=== PATIENT | male | born 1960 | race Hispanic/Latino ===

== ENCOUNTER 2018-05-21 10:31 | Emergency (ER) | payer SELFPAY ==
[~2018-05-21 10:31] MED LIST: GLYB5TAB8 PO; LOSA50TA2 PO; METF-446 PO; PANT40TA25 PO
[2018-05-21 10:48] LABS: BASOPHILS % (AUTO) 0.4 % (0.0-5.0); EOSINOPHILS % (AUTO) 2.6 % (0.0-8.0); HEMATOCRIT 42.7 % (42-54); LYMPHOCYTES % (AUTO) 35.9 % (21.0-51.0); MEAN CORPUSCULAR HEMOGLOBIN 29.8 pg (27.0-33.0); MEAN CORPUSCULAR HGB CONC 34.8 g/dL (32.0-36.0); MEAN CORPUSCULAR VOLUME 85.8 fL (79-99); NEUTROPHILS % (AUTO) 51.1 % (40.0-77.0); NUCLEATED RED BLOOD CELLS 0.1 % (0.0-0.19); PLATELET COUNT (AUTO) 161 K/uL (130-400); RED BLOOD CELL COUNT(AUTO) 4.98 MIL/uL (4.50-6.20); WHITE BLOOD COUNT (AUTO) 6.3 K/uL (4.8-10.8)
[2018-05-21 11:17] LABS: ALBUMIN 3.4 g/dL (3.5-5.0); BILIRUBIN,TOTAL 0.5 mg/dL (0.2-1.0); CREATININE 1.8 mg/dL (0.5-1.5); POTASSIUM 4.3 mmol/L (3.5-5.1)
[2018-05-21 12:21] LABS: APPEARANCE,URINE Clear (CLEAR); BILIRUBIN,URINE Negative (NEGATIVE); COLOR,URINE Yellow (YELLOW); GLUCOSE, URINE (UA) >=1000 mg/dL (NEGATIVE); KETONES,URINE Negative (NEGATIVE); LEUKOCYTE ESTERASE ,URINE Negative (NEGATIVE); NITRATE,URINE Negative (NEGATIVE); OCCULT BLOOD,URINE Negative (NEGATIVE); PROTEIN,URINE Negative (NEGATIVE); UROBILINOGEN,URINE 0.2 mg/dL (0.2-1.0)
[2018-05-21] MEDS ORDERED: SODIUM CHLORIDE 0.9% 1000ML 1,000 ML IV ONE (12:25)
[2018-05-21] MEDS ORDERED: ONDANSETRON HCL 4 MG/2 ML VIAL ONE (12:26)
[2018-05-21] MEDS ORDERED: INSULIN HUMULIN R 100 UNIT/ML 3ML ONE (12:26)
[2018-05-21 12:43] LABS: BACTERIA,URINE None Seen /HPF (None Seen); RBC,URINE None Seen /HPF (0-1); SQUAMOUS EPITHELIAL CELL,UR 0-2 /HPF (0-2); WBC,URINE None Seen /HPF (0-1)
== END 2018-05-21 13:59 | disposition home or self-care (01) ==
LOC: EDH 10:31
DX: E11.65 Type 2 diabetes mellitus with hyperglycemia (principal); R10.9 Unspecified abdominal pain; I10 Essential (primary) hypertension; K21.9 Gastro-esophageal reflux disease without esophagitis; Z87.891 Personal history of nicotine dependence; Z91.14 Patient's other noncompliance with medication regimen
CPT/HCPCS: 36415; 74176; 80053; 81001; 82948; 83690; 84484; 85025; 93005; 96361; 96374; 96375; 99285; J1815; J2405; J7030

== ENCOUNTER 2020-05-06 11:23 | Inpatient (IN) | payer OTHER ==
[~2020-05-06] VITALS: Ht 170.2 cm; Wt 68.3 kg
[~2020-05-06 11:23] MED LIST changes: -PANT40TA25 PO; +PANT40TA55 PO
[2020-05-06 12:08] LABS: BASOPHILS % (AUTO) 0.5 % (0.0-5.0); EOSINOPHILS % (AUTO) 1.5 % (0.0-8.0); HEMATOCRIT 41.2 % (42-54); LYMPHOCYTES % (AUTO) 30.6 % (21.0-51.0); MEAN CORPUSCULAR HEMOGLOBIN 29.6 pg (27.0-33.0); MEAN CORPUSCULAR HGB CONC 35.7 g/dL (32.0-36.0); MEAN CORPUSCULAR VOLUME 82.9 fL (79-99); MONOCYTES % (AUTO) 6.5 % (3.0-13.0); NEUTROPHILS % (AUTO) 60.1 % (40.0-77.0); PLATELET COUNT (AUTO) 172 K/uL (130-400); RED BLOOD CELL COUNT(AUTO) 4.97 MIL/uL (4.50-6.20); RED CELL DISTRIBUTION WIDTH 13.1 % (11.0-15.5); WHITE BLOOD COUNT (AUTO) 6.2 K/uL (4.8-10.8)
[2020-05-06 12:18] LABS: ALBUMIN 3.5 g/dL (3.5-5.0); BILIRUBIN,TOTAL 0.6 mg/dL (0.2-1.0); CREATININE 1.2 mg/dL (0.5-1.5); TOTAL PROTEIN, SERUM 7.3 g/dL (6.0-8.3)
[2020-05-06 12:21] LABS: INR 0.93 (0.85-1.15); PARTIAL THROMBOPLASTIN TIME 23.7 SEC (26.3-35.5); PROTHROMBIN TIME 10.1 SEC (9.6-11.6)
[2020-05-06] MEDS ORDERED: ACETAMINOPHEN 325 MG TAB PO PRN ×2 (14:15→16:45)
[2020-05-06 15:25] LABS: THYROID STIMULATING HORMONE 2.13 uIU/mL (0.36-3.74)
[2020-05-06] MEDS ORDERED: POTASSIUM CHLORIDE 20MEQ/100ML 100 ML IV PRN ×2 (16:45)
[2020-05-06] MEDS ORDERED: POTASSIUM CHLORIDE 10% ELIXIR 20 MEQ/15 ML UDCUP PO PRN (16:45)
[2020-05-06] MEDS ORDERED: GLUCAGON 1MG KIT 1 MG ML IM PRN (16:45)
[2020-05-06] MEDS ORDERED: DEXTROSE 50%-WATER 50 ML DISP.SYRIN IV PRN (16:45)
[2020-05-06] MEDS ORDERED: FAMOTIDINE/PF 20 MG/2 ML VIAL IV ONE (20:49)
[2020-05-06] MEDS ORDERED: INSULIN HUMULIN R 100 UNIT/ML 3ML ONE (20:49)
[2020-05-06] MEDS ORDERED: FAMOTIDINE 20MG TAB 20 MG TAB ONE (20:52)
[2020-05-06] MEDS ORDERED: FAMOTIDINE 20MG TAB 20 MG TAB PO SCH (21:00)
[2020-05-06] MEDS ORDERED: INSULIN HUMULIN R 100 UNIT/ML 3ML SQ SCH (21:00)
[2020-05-06] MEDS: INSULIN HUMULIN R 100 UNIT/ML 3ML SQ SCH (21:00)
[2020-05-07 00:17] VITALS: BP 194/95
[2020-05-07] MEDS ORDERED: AEC81 PO (02:11)
[2020-05-07] MEDS ORDERED: HYDRALAZINE HCL 20 MG/ML VIAL ONE (02:56)
[2020-05-07] MEDS: HYDRALAZINE HCL 20 MG/ML VIAL IV PRN (03:00)
[2020-05-07 03:46] LABS: BASOPHILS % (AUTO) 0.2 % (0.0-5.0); EOSINOPHILS % (AUTO) 1.4 % (0.0-8.0); HEMATOCRIT 38.8 % (42-54); MEAN CORPUSCULAR HEMOGLOBIN 29.4 pg (27.0-33.0); MEAN CORPUSCULAR HGB CONC 35.8 g/dL (32.0-36.0); MEAN CORPUSCULAR VOLUME 82.2 fL (79-99); NEUTROPHILS % (AUTO) 49.9 % (40.0-77.0); PLATELET COUNT (AUTO) 175 K/uL (130-400); RED BLOOD CELL COUNT(AUTO) 4.72 MIL/uL (4.50-6.20); RED CELL DISTRIBUTION WIDTH 12.9 % (11.0-15.5); WHITE BLOOD COUNT (AUTO) 8.3 K/uL (4.8-10.8)
[2020-05-07 04:02] LABS: HEMOGLOBIN A1C 10.2 % (4.0-6.0)
[2020-05-07 04:03] LABS: ALBUMIN 3.3 g/dL (3.5-5.0); BILIRUBIN,TOTAL 0.7 mg/dL (0.2-1.0); POTASSIUM 3.4 mmol/L (3.5-5.1)
[2020-05-07 04:17] VITALS: BP 124/69
--- NOTE | 2020-05-07 05:44 | NUR ---
BP PATIENT ARRIVED TO THE FLOOR FROM ER @0015, ADMITTED AND ASSESSED. PATIENT NOTED TO HAVE ELEVATED BP OF 192/95 PATIENT WITH NO C/O HEADACHE, DIZZINESS, OR VISION ISSUES. BP RECHECKED SECOND READING WAS 193/97. ON-CALL PROVIDER CONTACTED ELMIRA PORTILLO GAVE ORDER 1) GIVE HYDRALAZINE 10MG IV X 1 DOSE NOW. PATIENT TOLERATED WELL. BP RECHECKED @ 0417 ZW=325/63. PATIENT IN BED RESTING , NO C/O PAIN OR DISCOMFORT. CALL DEVICE WITH IN REACH WILL CONT. TO MONITOR.
[2020-05-07] MEDS: FAMOTIDINE 20MG TAB 20 MG TAB PO SCH ×3 (09:00→21:59)
[2020-05-07] MEDS: ASPIRIN 81MG TAB.CHEW PO SCH (10:00)
[2020-05-07] MEDS: POTASSIUM CHLORIDE 20 MEQ ERTAB PO PRN ×2 (10:01→12:18)
[2020-05-07] MEDS ORDERED: GADODIAMIDE 10 MMOL/20 ML VIAL IV ONE (10:06)
[2020-05-07 10:10] VITALS: BP 129/77
[2020-05-07] MEDS ORDERED: COMPOUND IV MISC 1 EACH IVSOLN MISC PRN (10:15)
[2020-05-07] MEDS: LEVETIRACETAM 500 MG in SODIUM CHLORIDE 0.9% 100 ML IV SCH ×2 (11:55→21:59)
[2020-05-07 11:59] VITALS: BP 149/85
--- NOTE | 2020-05-07 12:45 | NUR ---
JOSE DANIEL NOTE/IA MEET WITH PATIENT IN ROOM. PER PATIENT, LIVES WITH GIRLFRIEND, IS INDEPENDENT WITH ADLS, NO USE OF PROVIDER OR DME, AND FEELS SAFE TO RETURN HOME DISCHARGED. Addendum: 05/07/20 at 1246 by DOMINICK DAVEY RN CM Amended: Links added.
[2020-05-07 14:09] LABS: RAPID PLASMA REAGIN NONREACTIVE (NONREACTIVE)
[2020-05-07 17:13] VITALS: BP 137/79
[2020-05-07] MEDS: INSULIN HUMULIN R 100 UNIT/ML 3ML SQ SCH ×2 (18:25→22:02)
[2020-05-07 20:00] VITALS: BP 141/76
[2020-05-08] VITALS: BP 145/78
[2020-05-08 04:35] VITALS: BP 138/76
[2020-05-08 05:34] LABS: BASOPHILS % (AUTO) 0.5 % (0.0-5.0); EOSINOPHILS % (AUTO) 3.3 % (0.0-8.0); HEMATOCRIT 38.7 % (42-54); MEAN CORPUSCULAR HEMOGLOBIN 29.2 pg (27.0-33.0); MEAN CORPUSCULAR HGB CONC 34.9 g/dL (32.0-36.0); MEAN CORPUSCULAR VOLUME 83.8 fL (79-99); MONOCYTES % (AUTO) 9.6 % (3.0-13.0); NEUTROPHILS % (AUTO) 34.1 % (40.0-77.0); PLATELET COUNT (AUTO) 176 K/uL (130-400); RED BLOOD CELL COUNT(AUTO) 4.62 MIL/uL (4.50-6.20); RED CELL DISTRIBUTION WIDTH 13.1 % (11.0-15.5); WHITE BLOOD COUNT (AUTO) 6.4 K/uL (4.8-10.8)
[2020-05-08 05:58] LABS: ALBUMIN 3.2 g/dL (3.5-5.0); BILIRUBIN,TOTAL 0.5 mg/dL (0.2-1.0); CREATININE 1.2 mg/dL (0.5-1.5); POTASSIUM 4.7 mmol/L (3.5-5.1); TOTAL PROTEIN, SERUM 6.9 g/dL (6.0-8.3)
[2020-05-08] MEDS: INSULIN HUMULIN R 100 UNIT/ML 3ML SQ SCH ×4 (06:43→21:09)
[2020-05-08] MEDS: FAMOTIDINE 20MG TAB 20 MG TAB PO SCH ×2 (07:54→21:05)
[2020-05-08] MEDS: ASPIRIN 81MG TAB.CHEW PO SCH (07:54)
[2020-05-08 08:00] VITALS: BP 154/83
[2020-05-08] MEDS: LEVETIRACETAM 500 MG in SODIUM CHLORIDE 0.9% 100 ML IV SCH ×2 (09:12→22:33)
[2020-05-08] MEDS ORDERED: REGADENOSON 0.4 MG/5 ML PF SYG IVP SCH (10:30)
[2020-05-08 11:58] VITALS: BP 147/87
[2020-05-08 16:00] VITALS: BP 145/69
[2020-05-08 20:10] VITALS: BP 159/88
[2020-05-09] VITALS (7 sets, daily range): BP systolic 118–156; BP diastolic 54–87
[2020-05-09 05:37] LABS: BASOPHILS % (AUTO) 0.3 % (0.0-5.0); EOSINOPHILS % (AUTO) 1.1 % (0.0-8.0); HEMATOCRIT 40.6 % (42-54); LYMPHOCYTES % (AUTO) 29.3 % (21.0-51.0); MEAN CORPUSCULAR HEMOGLOBIN 29.5 pg (27.0-33.0); MEAN CORPUSCULAR VOLUME 84.4 fL (79-99); MONOCYTES % (AUTO) 6.7 % (3.0-13.0); NEUTROPHILS % (AUTO) 62.1 % (40.0-77.0); PLATELET COUNT (AUTO) 181 K/uL (130-400); RED BLOOD CELL COUNT(AUTO) 4.81 MIL/uL (4.50-6.20); RED CELL DISTRIBUTION WIDTH 12.9 % (11.0-15.5); WHITE BLOOD COUNT (AUTO) 8.8 K/uL (4.8-10.8)
[2020-05-09 05:49] LABS: ALBUMIN 3.4 g/dL (3.5-5.0); BILIRUBIN,TOTAL 0.5 mg/dL (0.2-1.0); CREATININE 1.2 mg/dL (0.5-1.5); POTASSIUM 4.7 mmol/L (3.5-5.1); TOTAL PROTEIN, SERUM 7.1 g/dL (6.0-8.3)
[2020-05-09] MEDS: INSULIN HUMULIN R 100 UNIT/ML 3ML SQ SCH ×4 (06:46→20:54)
--- NOTE | 2020-05-09 08:30 | NUR ---
NOTE AAOX3. DENIES PAIN OR OTHER DISCOMFORT. BBS CLEAR. HE CAME IN WITH C/O RIGHT ARM WEAKNESS AND INVOLUNTARY JERKING. ALSO C/O NUMBNESS TO RIGHT ARM. WAS SEEN BY DR SIMMONS AND HE ORDERED MRI/MRA BRAIN. AMONG OTHER TESTS ORDERED AND WAS ALSO SEEN BY DR STEWART YESTERDAY AND HAD STRESS TEST AND WAS NEGATIVE. WAS UPSET BECAUSE SECURITY DID NOT ALLOW FOOD AND DRINKS BE DELIVERED TO HIS ROOM. HE WANTED TO GO AMA BUT FAMILY AND I CONVINCED HIM TO STAY. HE WILL SEE DR HEATON THIS AM.
[2020-05-09] MEDS: FAMOTIDINE 20MG TAB 20 MG TAB PO SCH ×2 (09:47→20:56)
[2020-05-09] MEDS: LEVETIRACETAM 500 MG in SODIUM CHLORIDE 0.9% 100 ML IV SCH ×2 (09:47→22:12)
[2020-05-09] MEDS: ASPIRIN 81MG TAB.CHEW PO SCH (09:48)
--- NOTE | 2020-05-09 13:30 | NUR ---
note PATIENT EVALUATED BY TELENEUROLOGY REGARDING PARTIAL SEIZURES. HE HAS HAD MRI/MRA
[2020-05-10] VITALS: BP 156/84
[2020-05-10 03:56] VITALS: BP 149/76
[2020-05-10] MEDS: INSULIN HUMULIN R 100 UNIT/ML 3ML SQ SCH ×4 (06:32→21:00)
--- NOTE | 2020-05-10 08:30 | NUR ---
AM ASSESSMENT PT AWAKE, ALERT, AND ORIENTED. DENIES CHEST PAIN OR DISCOMFORT, NO SOB OR LABORED RESPIRATIONS. PT DENIES TWITCHING, TREMORS, OR WEAKNESS. AMBULATES FREELY, GAIT STEADY
[2020-05-10] MEDS: ASPIRIN 81MG TAB.CHEW PO SCH (08:40)
[2020-05-10] MEDS: FAMOTIDINE 20MG TAB 20 MG TAB PO SCH ×2 (08:41→21:32)
[2020-05-10] MEDS: LEVETIRACETAM 500 MG in SODIUM CHLORIDE 0.9% 100 ML IV SCH ×2 (08:41→23:03)
--- NOTE | 2020-05-10 12:09 | NUR ---
CHART REVIEWED, RACHAEL Mcdonald MD, PENDING [facility] FOR PATIENT, WILL PLACE IN CHART Addendum: 05/10/20 at 1210 by FREYA ONEILL RN CM Amended: Links added.
[2020-05-10 12:36] VITALS: BP 158/90
[2020-05-10 18:24] VITALS: BP 169/84
[2020-05-10] MEDS: HYDRALAZINE HCL 20 MG/ML VIAL IV PRN (19:19)
[2020-05-10 20:08] VITALS: BP 144/74
[2020-05-11 00:08] VITALS: BP 152/79
[2020-05-11 04:08] VITALS: BP 132/79
[2020-05-11] MEDS: INSULIN HUMULIN R 100 UNIT/ML 3ML SQ SCH ×2 (06:35→11:26)
[2020-05-11 07:30] VITALS: BP 134/80
[2020-05-11] MEDS: FAMOTIDINE 20MG TAB 20 MG TAB PO SCH (08:35)
[2020-05-11] MEDS: ASPIRIN 81MG TAB.CHEW PO SCH (08:35)
[2020-05-11] MEDS: LEVETIRACETAM 500 MG in SODIUM CHLORIDE 0.9% 100 ML IV SCH (08:36)
[2020-05-11 11:00] VITALS: BP 136/88
--- NOTE | 2020-05-11 12:44 | NUR ---
CHART REVIEWED, ILANA DC TO HOME TODAY Addendum: 05/11/20 at 1245 by FREYA ONEILL RN CM Amended: Links added.
--- NOTE | 2020-05-11 16:45 | NUR ---
DC PT AWAKE, ALERT, AND ORIENTED. DC HOME INSTRUCTIONS GIVEN TO PT, ACKNOWLEDGED ALL INFORMATION, RX GIVEN TO PT AND MADE AWARE OF IMPORTANCE OF TAKING KEPPRA ORDERED AND NOT TO DRIVE UNTIL CLEARED BY MD. MADE AWARE TO F/U WITH PCP AND DR SIMMONS OUTPATIENT ORDERED. PT MADE AWARE TO RETURN TO ER IN CASE OF EMERGENCY
== END 2020-05-11 17:15 | disposition home or self-care (01) | DRG 101 ==
LOC: EDH 11:23 → EDHIP 11:24 → 4DH 05-07 00:15
PROVIDERS: ADMIT Family Medicine; ATTEND Family Medicine
DX: G40.209 Localization-related (focal) (partial) symptomatic epilepsy and epileptic syndromes with complex partial seizures, not intractable, without status epilepticus (principal); G45.9 Transient cerebral ischemic attack, unspecified; E11.9 Type 2 diabetes mellitus without complications; E78.5 Hyperlipidemia, unspecified; I10 Essential (primary) hypertension; R07.9 Chest pain, unspecified; Z80.0 Family history of malignant neoplasm of digestive organs; Z80.6 Family history of leukemia; Z82.49 Family history of ischemic heart disease and other diseases of the circulatory system; Z83.3 Family history of diabetes mellitus; Z79.899 Other long term (current) drug therapy
CPT/HCPCS: 36415; 70450; 70544; 70553; 71045; 78452; 80053; 80061; 82550; 82607; 82746; 82948; 83036; 84443; 84484; 85025; 85610; 85651; 85730; 86140; 86592; 86701; 87390; 93005; 93017; 93306; 93356; 93880; 96374; A9500; A9579; G0378; J0360; J1815; J1953; J2785; J3490

== ENCOUNTER 2021-08-21 20:48 | Emergency (ER) | payer OTHER ==
[~2021-08-21] VITALS: Ht 170.2 cm; Wt 75.3 kg
[~2021-08-21 20:48] MED LIST changes: +AEC81 PO
[2021-08-21] MEDS ORDERED: LISINOPRIL 20 MG TABLET PO ONE (21:00)
[2021-08-21 21:10] LABS: BASOPHILS % (AUTO) 0.7 % (0.0-5.0); EOSINOPHILS % (AUTO) 1.8 % (0.0-8.0); LYMPHOCYTES % (AUTO) 38.5 % (21.0-51.0); MEAN CORPUSCULAR HEMOGLOBIN 29.5 pg (27.0-33.0); MEAN CORPUSCULAR HGB CONC 34.6 g/dL (32.0-36.0); MEAN CORPUSCULAR VOLUME 85.3 fL (79-99); MONOCYTES % (AUTO) 9.8 % (3.0-13.0); NEUTROPHILS % (AUTO) 48.5 % (40.0-77.0); PLATELET COUNT (AUTO) 154 K/uL (130-400); RED BLOOD CELL COUNT(AUTO) 4.57 MIL/uL (4.50-6.20); WHITE BLOOD COUNT (AUTO) 5.5 K/uL (4.8-10.8)
[2021-08-21 21:42] LABS: ALBUMIN 3.5 g/dL (3.5-5.0); BILIRUBIN,TOTAL 0.4 mg/dL (0.2-1.0); CREATININE 1.6 mg/dL (0.5-1.5); POTASSIUM 4.6 mmol/L (3.5-5.1); TOTAL PROTEIN, SERUM 6.9 g/dL (6.0-8.3)
[2021-08-21] MEDS ORDERED: INSULIN HUMULIN R 100 UNIT/ML 3ML ONE (22:12)
[2021-08-21] MEDS ORDERED: ORPHENADRINE CITRATE 30 MG/ML ML IV ONE (22:30)
[2021-08-21] MEDS ORDERED: INSULIN HUMULIN R 100 UNIT/ML 3ML SQ ONE (22:30)
[2021-08-21] MEDS ORDERED: 0.9%NACL 1000ML 1,000 ML IV ONE (22:30)
[2021-08-21] MEDS ORDERED: KETOROLAC 30MG VIAL (30MG/ML) IV ONE (22:30)
[2021-08-21 22:36] VITALS: BP 182/83
[2021-08-21] MEDS ORDERED: NEOMY SULF/BACITRA/POLYMYXIN B 1 EACH PACKET TP ONE ×2 (22:39→23:00)
[2021-08-21] MEDS ORDERED: ORPH-43 PO (22:42)
[2021-08-21] MEDS ORDERED: LISI20TA24 PO (22:42)
[2021-08-21] MEDS ORDERED: MELO7.5T12 PO (22:42)
== END 2021-08-21 23:07 | disposition home or self-care (01) ==
LOC: EDH 20:48
DX: S86.812A Strain of other muscle(s) and tendon(s) at lower leg level, left leg, initial encounter (principal); S86.911A Strain of unspecified muscle(s) and tendon(s) at lower leg level, right leg, initial encounter; S00.81XA Abrasion of other part of head, initial encounter; E11.9 Type 2 diabetes mellitus without complications; I10 Essential (primary) hypertension; Z79.1 Long term (current) use of non-steroidal anti-inflammatories (NSAID); Z79.82 Long term (current) use of aspirin; Z79.84 Long term (current) use of oral hypoglycemic drugs; Z79.899 Other long term (current) drug therapy; V49.49XA Driver injured in collision with other motor vehicles in traffic accident, initial encounter; Y93.89 Activity, other specified; Y92.89 Other specified places as the place of occurrence of the external cause; Y99.8 Other external cause status
CPT/HCPCS: 36415; 70450; 70486; 80053; 84484; 85025; 96360; 96372; 99284; J1815; J1885; J2360

== ENCOUNTER 2023-07-06 06:04 | Day surgery (SDC) | payer BC ==
[2023-07-04 10:35] LABS: BASOPHILS # (AUTO) 0.04 K/uL (0.00-0.20); BASOPHILS % (AUTO) 0.4 % (0.0-5.0); EOSINOPHILS # (AUTO) 0.12 K/uL (0.00-0.70); EOSINOPHILS % (AUTO) 1.2 % (0.0-8.0); HEMATOCRIT 41.6 % (42-54); IMMATURE GRANULOCYTE ABSOLUTE 0.09 K/uL (0-1); LYMPHOCYTES # (AUTO) 3.3 K/uL (1.0-4.8); LYMPHOCYTES % (AUTO) 32.2 % (21.0-51.0); MEAN CORPUSCULAR HEMOGLOBIN 29.9 pg (27.0-33.0); MEAN CORPUSCULAR HGB CONC 35.8 g/dL (32.0-36.0); MEAN CORPUSCULAR VOLUME 83.4 fL (79-99); MONOCYTES # (AUTO) 0.7 K/uL (0.1-1.0); MONOCYTES % (AUTO) 6.7 % (3.0-13.0); NEUTROPHILS # (AUTO) 6.1 K/uL (1.8-7.7); NEUTROPHILS % (AUTO) 58.6 % (40.0-77.0); PLATELET COUNT (AUTO) 198 K/uL (130-400); RED BLOOD CELL COUNT(AUTO) 4.99 MIL/uL (4.50-6.20); WHITE BLOOD COUNT (AUTO) 10.3 K/uL (4.8-10.8)
[2023-07-04 10:43] LABS: CREATININE 1.5 mg/dL (0.5-1.5); POTASSIUM 5.1 mmol/L (3.5-5.1)
[2023-07-04 10:50] LABS: APPEARANCE,URINE CLOUDY (CLEAR); BILIRUBIN,URINE NEGATIVE (NEGATIVE); COLOR,URINE YELLOW (YELLOW); GLUCOSE, URINE (UA) 200 mg/dL (NEGATIVE); KETONES,URINE NEGATIVE (NEGATIVE); LEUKOCYTE ESTERASE ,URINE NEGATIVE Leu/uL (NEGATIVE); NITRATE,URINE NEGATIVE (NEGATIVE); OCCULT BLOOD,URINE NEGATIVE (NEGATIVE); PROTEIN,URINE 50 mg/dL (NEGATIVE); UROBILINOGEN,URINE 3 mg/dL (0.2-1.0)
[2023-07-04 10:52] LABS: ADD UA MICROSCOPIC YES
[2023-07-04 10:52] LABS: INR 0.94 (0.85-1.15)
[2023-07-04 10:54] LABS: PARTIAL THROMBOPLASTIN TIME 25.7 SEC (26.3-35.5)
[2023-07-04 11:00] VITALS: BP 160/84; PULSE 96; RESP 15
[2023-07-04 11:02] LABS: HYALINE CASTS, URINE 26-50 /LPF (0-1 /LPF); MUCUS,URINE RARE LPF (None Seen); OTHER CASTS, URINE 3 /LPF (None Seen); SQUAMOUS EPITHELIAL CELL,UR FEW /HPF (0-2)
[2023-07-04 11:22] LABS: B-TYPE NATRIURETIC PEPTIDE 39 pg/mL (0-100)
[2023-07-06] VITALS (10 sets, daily range): BP systolic 113–160; BP diastolic 58–77; PULSE 71–87; RESP 11–18
[~2023-07-06] VITALS: Ht 170.2 cm; Wt 73.3 kg
[~2023-07-06 06:04] MED LIST changes: +ATOR40TA71 PO; +CHOL12509 PO; +GLIP10TA9 PO; -GLYB5TAB8 PO; +LISI20TA24 PO; -LOSA50TA2 PO; +METO-408 PO; +NITR0.4T50 SL; -PANT40TA55 PO
[2023-07-06] MEDS ORDERED: 0.9%NACL 1000ML 1,000 ML IV ONE (06:25)
[2023-07-06] MEDS ORDERED: INSULIN HUMULIN R 100 UNIT/ML 3ML ONE (06:55)
[2023-07-06 07:01] LABS: CREATININE 1.4 mg/dL (0.5-1.5); POTASSIUM 4.4 mmol/L (3.5-5.1)
[2023-07-06] MEDS ORDERED: LIDOCAINE HCL 400MG/20ML VIAL ONE (07:15)
[2023-07-06] MEDS ORDERED: IOHEXOL 350 MG/ML 100ML INFUS..BTL IV ONE (07:15)
[2023-07-06] MEDS ORDERED: IOHEXOL-350 50ML VIAL IV ONE (07:15)
[2023-07-06] MEDS ORDERED: HEPARIN 10,000 UNIT/10ML (1,000 UNIT/ML) VIAL ONE (07:16)
[2023-07-06] MEDS ORDERED: MIDAZOLAM HCL 1 MG/ML 2ML VIAL ONE (07:29)
[2023-07-06] MEDS ORDERED: DEXTROSE 50%-WATER 50 ML DISP.SYRIN IV PRN (08:30)
[2023-07-06] MEDS ORDERED: GLUCAGON 1MG KIT 1 MG ML IM PRN (08:30)
[2023-07-06] MEDS ORDERED: 0.9% NACL 500ML IV.SOLN 500 ML IV SCH (08:30)
[2023-07-06] MEDS ORDERED: ACETAMINOPHEN WITH CODEINE 1 TAB TAB ONE (08:48)
== END 2023-07-06 12:35 | disposition home or self-care (01) ==
LOC: DAH 06:04
PROVIDERS: ATTEND Internal Medicine Cardiovascular Disease
DX: I25.119 Atherosclerotic heart disease of native coronary artery with unspecified angina pectoris (principal); I10 Essential (primary) hypertension; E11.9 Type 2 diabetes mellitus without complications; E78.5 Hyperlipidemia, unspecified; Z82.49 Family history of ischemic heart disease and other diseases of the circulatory system; Z83.3 Family history of diabetes mellitus; Z82.3 Family history of stroke; Z80.0 Family history of malignant neoplasm of digestive organs; Z79.82 Long term (current) use of aspirin; Z79.84 Long term (current) use of oral hypoglycemic drugs; Z79.899 Other long term (current) drug therapy
CPT/HCPCS: 80048 ×2; 83880; 85025; 85610; 85730; 81001; 36415 ×2; 71045; 93005; 93458; 82948 ×3; 93306; J1815; C1894; C1760; Q9965; J3490; J7030; J2250; J1644; Q9967 ×2; A4215; A4222; A4221; A4663; A4216; A4606; A4223 ×3; 99156; 99157

== ENCOUNTER → 2023-10-17 | Outpatient (CLI) | payer BC ==
[~2023-10-17] MED LIST changes: +CLOP-31 PO; +FOLI1TAB85 PO; +IODOSORB GEL 40GM TP ONE; -LISI20TA24 PO; -METF-446 PO; -NITR0.4T50 SL; +ONDA-105 PO; +PANT40TA54 PO; +SUCR1TAB PO
== END | disposition home or self-care (01) ==
LOC: WHH 10:15
PROVIDERS: ATTEND Podiatrist Foot & Ankle Surgery
DX: T87.89 Other complications of amputation stump (principal); E11.40 Type 2 diabetes mellitus with diabetic neuropathy, unspecified; E11.51 Type 2 diabetes mellitus with diabetic peripheral angiopathy without gangrene; I12.9 Hypertensive chronic kidney disease with stage 1 through stage 4 chronic kidney disease, or unspecified chronic kidney disease; E11.22 Type 2 diabetes mellitus with diabetic chronic kidney disease; N18.9 Chronic kidney disease, unspecified; E78.5 Hyperlipidemia, unspecified; I73.9 Peripheral vascular disease, unspecified; I25.10 Atherosclerotic heart disease of native coronary artery without angina pectoris; K21.9 Gastro-esophageal reflux disease without esophagitis; F32.A Depression, unspecified; Z95.1 Presence of aortocoronary bypass graft; Z79.82 Long term (current) use of aspirin; Z98.49 Cataract extraction status, unspecified eye; Z79.01 Long term (current) use of anticoagulants; Z79.899 Other long term (current) drug therapy; Y83.8 Other surgical procedures as the cause of abnormal reaction of the patient, or of later complication, without mention of misadventure at the time of the procedure
CPT/HCPCS: 99215; A4450

== ENCOUNTER → 2023-11-14 | Outpatient (CLI) | payer BC ==
[~2023-11-14] MED LIST changes: -IODOSORB GEL 40GM TP ONE
== END | disposition home or self-care (01) ==
LOC: WHH 09:56
PROVIDERS: ATTEND Podiatrist Foot & Ankle Surgery
DX: T87.89 Other complications of amputation stump (principal); E11.40 Type 2 diabetes mellitus with diabetic neuropathy, unspecified; E11.51 Type 2 diabetes mellitus with diabetic peripheral angiopathy without gangrene; I12.9 Hypertensive chronic kidney disease with stage 1 through stage 4 chronic kidney disease, or unspecified chronic kidney disease; E11.22 Type 2 diabetes mellitus with diabetic chronic kidney disease; N18.9 Chronic kidney disease, unspecified; E78.5 Hyperlipidemia, unspecified; I73.9 Peripheral vascular disease, unspecified; I25.10 Atherosclerotic heart disease of native coronary artery without angina pectoris; K21.9 Gastro-esophageal reflux disease without esophagitis; F32.A Depression, unspecified; Z95.1 Presence of aortocoronary bypass graft; Z79.82 Long term (current) use of aspirin; Z98.49 Cataract extraction status, unspecified eye; Z79.01 Long term (current) use of anticoagulants; Z79.899 Other long term (current) drug therapy; Y83.8 Other surgical procedures as the cause of abnormal reaction of the patient, or of later complication, without mention of misadventure at the time of the procedure
CPT/HCPCS: 11042; A6207; A4450

== ENCOUNTER → 2023-11-28 | Outpatient (CLI) | payer BC ==
[~2023-11-28] MED LIST changes: +LIDOCAINE HCL 4% LTA SOL 4 ML VIAL TP ONE
== END | disposition home or self-care (01) ==
LOC: WHH 09:53
PROVIDERS: ATTEND Podiatrist Foot & Ankle Surgery
DX: T87.89 Other complications of amputation stump (principal); E11.621 Type 2 diabetes mellitus with foot ulcer; L97.521 Non-pressure chronic ulcer of other part of left foot limited to breakdown of skin; E11.40 Type 2 diabetes mellitus with diabetic neuropathy, unspecified; E11.51 Type 2 diabetes mellitus with diabetic peripheral angiopathy without gangrene; I12.9 Hypertensive chronic kidney disease with stage 1 through stage 4 chronic kidney disease, or unspecified chronic kidney disease; E11.22 Type 2 diabetes mellitus with diabetic chronic kidney disease; N18.9 Chronic kidney disease, unspecified; E78.5 Hyperlipidemia, unspecified; E55.9 Vitamin D deficiency, unspecified; I73.9 Peripheral vascular disease, unspecified; I25.10 Atherosclerotic heart disease of native coronary artery without angina pectoris; K21.9 Gastro-esophageal reflux disease without esophagitis; F32.A Depression, unspecified; Z95.1 Presence of aortocoronary bypass graft; Z79.82 Long term (current) use of aspirin; Z98.49 Cataract extraction status, unspecified eye; Z79.01 Long term (current) use of anticoagulants; Z79.899 Other long term (current) drug therapy; Y83.8 Other surgical procedures as the cause of abnormal reaction of the patient, or of later complication, without mention of misadventure at the time of the procedure
CPT/HCPCS: 11042; A6207

== ENCOUNTER → 2023-11-29 | Outpatient (CLI) | payer BC ==
[~2023-11-29] MED LIST changes: -LIDOCAINE HCL 4% LTA SOL 4 ML VIAL TP ONE
[2023-11-29 12:23] LABS: CHOLESTEROL 116 mg/dL (<200); HDL CHOLESTEROL 47 mg/dL (29-71); LDL DIRECT 62 mg/dL (0-99); TRIGLYCERIDES 101 mg/dL (30-200)
== END | disposition home or self-care (01) ==
LOC: LAB 11-28 11:21
PROVIDERS: ATTEND Internal Medicine Cardiovascular Disease
DX: E78.5 Hyperlipidemia, unspecified (principal)
CPT/HCPCS: 36415; 80061

== ENCOUNTER → 2023-12-12 | Outpatient (CLI) | payer BC | END | disposition home or self-care (01) | LOC: WHH 09:10 | PROVIDERS: ATTEND Podiatrist Foot & Ankle Surgery | DX: T87.81 Dehiscence of amputation stump (principal); E11.621 Type 2 diabetes mellitus with foot ulcer; L97.521 Non-pressure chronic ulcer of other part of left foot limited to breakdown of skin; E11.40 Type 2 diabetes mellitus with diabetic neuropathy, unspecified; E11.51 Type 2 diabetes mellitus with diabetic peripheral angiopathy without gangrene; E11.22 Type 2 diabetes mellitus with diabetic chronic kidney disease; I12.9 Hypertensive chronic kidney disease with stage 1 through stage 4 chronic kidney disease, or unspecified chronic kidney disease; N18.9 Chronic kidney disease, unspecified; E78.5 Hyperlipidemia, unspecified; E55.9 Vitamin D deficiency, unspecified; I73.9 Peripheral vascular disease, unspecified; I25.10 Atherosclerotic heart disease of native coronary artery without angina pectoris; K21.9 Gastro-esophageal reflux disease without esophagitis; F32.A Depression, unspecified; Z95.1 Presence of aortocoronary bypass graft; Z79.82 Long term (current) use of aspirin; Z98.49 Cataract extraction status, unspecified eye; Z79.01 Long term (current) use of anticoagulants; Z79.899 Other long term (current) drug therapy; Y83.5 Amputation of limb(s) as the cause of abnormal reaction of the patient, or of later complication, without mention of misadventure at the time of the procedure | CPT/HCPCS: 99214; A6207; A4450 ==

== ENCOUNTER → 2023-12-26 | Outpatient (CLI) | payer BC ==
[~2023-12-26] MED LIST changes: +LIDOCAINE HCL 4% LTA SOL 4 ML VIAL TP ONE
== END | disposition home or self-care (01) ==
LOC: WHH 09:08
PROVIDERS: ATTEND Podiatrist Foot & Ankle Surgery
DX: T87.81 Dehiscence of amputation stump (principal); E11.621 Type 2 diabetes mellitus with foot ulcer; L97.521 Non-pressure chronic ulcer of other part of left foot limited to breakdown of skin; E11.40 Type 2 diabetes mellitus with diabetic neuropathy, unspecified; E11.51 Type 2 diabetes mellitus with diabetic peripheral angiopathy without gangrene; E11.22 Type 2 diabetes mellitus with diabetic chronic kidney disease; I12.9 Hypertensive chronic kidney disease with stage 1 through stage 4 chronic kidney disease, or unspecified chronic kidney disease; N18.9 Chronic kidney disease, unspecified; E78.5 Hyperlipidemia, unspecified; E55.9 Vitamin D deficiency, unspecified; I73.9 Peripheral vascular disease, unspecified; I25.10 Atherosclerotic heart disease of native coronary artery without angina pectoris; K21.9 Gastro-esophageal reflux disease without esophagitis; F32.A Depression, unspecified; Z95.1 Presence of aortocoronary bypass graft; Z79.82 Long term (current) use of aspirin; Z98.49 Cataract extraction status, unspecified eye; Z79.01 Long term (current) use of anticoagulants; Z79.899 Other long term (current) drug therapy; Y83.5 Amputation of limb(s) as the cause of abnormal reaction of the patient, or of later complication, without mention of misadventure at the time of the procedure
CPT/HCPCS: 11042; A6207

== ENCOUNTER → 2024-01-09 | Outpatient (CLI) | payer BC | END | disposition home or self-care (01) | LOC: WHH 08:49 | PROVIDERS: ATTEND Podiatrist Foot & Ankle Surgery | DX: T87.81 Dehiscence of amputation stump (principal); E11.621 Type 2 diabetes mellitus with foot ulcer; L97.521 Non-pressure chronic ulcer of other part of left foot limited to breakdown of skin; E11.40 Type 2 diabetes mellitus with diabetic neuropathy, unspecified; E11.51 Type 2 diabetes mellitus with diabetic peripheral angiopathy without gangrene; E11.22 Type 2 diabetes mellitus with diabetic chronic kidney disease; I12.9 Hypertensive chronic kidney disease with stage 1 through stage 4 chronic kidney disease, or unspecified chronic kidney disease; N18.9 Chronic kidney disease, unspecified; E78.5 Hyperlipidemia, unspecified; E55.9 Vitamin D deficiency, unspecified; I73.9 Peripheral vascular disease, unspecified; I25.10 Atherosclerotic heart disease of native coronary artery without angina pectoris; K21.9 Gastro-esophageal reflux disease without esophagitis; F32.A Depression, unspecified; Z95.1 Presence of aortocoronary bypass graft; Z79.82 Long term (current) use of aspirin; Z98.49 Cataract extraction status, unspecified eye; Z79.01 Long term (current) use of anticoagulants; Z79.899 Other long term (current) drug therapy; Y83.5 Amputation of limb(s) as the cause of abnormal reaction of the patient, or of later complication, without mention of misadventure at the time of the procedure | CPT/HCPCS: G0463; A6207; A4450; 99214 ==

== ENCOUNTER → 2024-01-16 | Outpatient (CLI) | payer BC ==
[~2024-01-16] MED LIST changes: -LIDOCAINE HCL 4% LTA SOL 4 ML VIAL TP ONE
== END | disposition home or self-care (01) ==
LOC: WHH 08:58
PROVIDERS: ATTEND Podiatrist Foot & Ankle Surgery
DX: T87.81 Dehiscence of amputation stump (principal); E11.621 Type 2 diabetes mellitus with foot ulcer; L97.521 Non-pressure chronic ulcer of other part of left foot limited to breakdown of skin; E11.51 Type 2 diabetes mellitus with diabetic peripheral angiopathy without gangrene; E11.40 Type 2 diabetes mellitus with diabetic neuropathy, unspecified; E11.22 Type 2 diabetes mellitus with diabetic chronic kidney disease; I12.9 Hypertensive chronic kidney disease with stage 1 through stage 4 chronic kidney disease, or unspecified chronic kidney disease; N18.9 Chronic kidney disease, unspecified; E78.5 Hyperlipidemia, unspecified; E55.9 Vitamin D deficiency, unspecified; I73.9 Peripheral vascular disease, unspecified; I25.10 Atherosclerotic heart disease of native coronary artery without angina pectoris; K21.9 Gastro-esophageal reflux disease without esophagitis; F32.A Depression, unspecified; Z95.1 Presence of aortocoronary bypass graft; Z79.82 Long term (current) use of aspirin; Z98.49 Cataract extraction status, unspecified eye; Z79.01 Long term (current) use of anticoagulants; Z79.899 Other long term (current) drug therapy; Y83.5 Amputation of limb(s) as the cause of abnormal reaction of the patient, or of later complication, without mention of misadventure at the time of the procedure
CPT/HCPCS: 99214

== ENCOUNTER 2024-02-01 11:21 | Emergency (ER) | payer BC ==
[~2024-02-01] VITALS: Ht 170.2 cm; Wt 68.0 kg
[2024-02-01 11:52] LABS: BASOPHILS # (AUTO) 0.02 K/uL (0.00-0.20); BASOPHILS % (AUTO) 0.3 % (0.0-5.0); EOSINOPHILS # (AUTO) 0.07 K/uL (0.00-0.70); EOSINOPHILS % (AUTO) 1.1 % (0.0-8.0); IMMATURE GRANULOCYTE ABSOLUTE 0.03 K/uL (0-1); LYMPHOCYTES # (AUTO) 2.1 K/uL (1.0-4.8); LYMPHOCYTES % (AUTO) 34.5 % (21.0-51.0); MEAN CORPUSCULAR HEMOGLOBIN 29.9 pg (27.0-33.0); MEAN CORPUSCULAR HGB CONC 36.3 g/dL (32.0-36.0); MEAN CORPUSCULAR VOLUME 82.5 fL (79-99); MONOCYTES # (AUTO) 0.5 K/uL (0.1-1.0); MONOCYTES % (AUTO) 7.9 % (3.0-13.0); NEUTROPHILS # (AUTO) 3.5 K/uL (1.8-7.7); NEUTROPHILS % (AUTO) 55.7 % (40.0-77.0); PLATELET COUNT (AUTO) 182 K/uL (130-400); RED BLOOD CELL COUNT(AUTO) 5.21 MIL/uL (4.50-6.20); WHITE BLOOD COUNT (AUTO) 6.2 K/uL (4.8-10.8)
[2024-02-01 12:04] LABS: INR <= 0.93 (0.85-1.15); PROTHROMBIN TIME 10.9 SEC (9.6-11.6)
[2024-02-01 12:05] LABS: PARTIAL THROMBOPLASTIN TIME 24.9 SEC (26.3-35.5)
[2024-02-01 12:06] LABS: CREATININE 1.5 mg/dL (0.5-1.3); POTASSIUM 4.7 mmol/L (3.5-5.1)
[2024-02-01 12:08] LABS: ALBUMIN 3.6 g/dL (3.5-5.0); BILIRUBIN,TOTAL 0.6 mg/dL (0.2-1.0); TOTAL PROTEIN, SERUM 7.3 g/dL (6.0-8.3)
[2024-02-01 14:16] VITALS: BP 162/72; PULSE 66; RESP 14; O2SAT 100
[2024-02-01] MEDS ORDERED: POTASSIUM CHLORIDE 10% ELIXIR 20 MEQ/15 ML UDCUP PO PRN (14:30)
[2024-02-01] MEDS ORDERED: MORPHINE 2 MG SYG IVP PRN (14:30)
[2024-02-01] MEDS ORDERED: MAGNESIUM 2GM PREMIX 50ML 50 ML IV PRN (14:30)
[2024-02-01] MEDS ORDERED: 0.9%NACL 1000ML 1,000 ML IV ONE (14:30)
[2024-02-01] MEDS ORDERED: KCL 20 MEQ ERTAB PO PRN (14:30)
[2024-02-01] MEDS ORDERED: POTASSIUM CHLORIDE 20MEQ/100ML 100 ML IV PRN (14:30)
[2024-02-01] MEDS ORDERED: NITROGLYCERIN 0.4 MG SL TAB SL PRN (14:30)
[2024-02-01 14:59] LABS: THYROID STIMULATING HORMONE 2.33 uIU/mL (0.36-3.74)
[2024-02-01 15:02] LABS: HEMOGLOBIN A1C 11.3 % (4.0-6.0)
[2024-02-01] MEDS ORDERED: INSULIN HUMULIN R 100 UNIT/ML 3ML SQ SCH (16:30)
[2024-02-01] MEDS ORDERED: FAMOTIDINE 20MG VIAL IV SCH (21:00)
== END 2024-02-01 14:30 | disposition left against medical advice (07) ==
LOC: EDH 11:21
DX: R07.89 Other chest pain (principal); B02.9 Zoster without complications; I10 Essential (primary) hypertension; E11.9 Type 2 diabetes mellitus without complications; Z79.82 Long term (current) use of aspirin; Z79.899 Other long term (current) drug therapy; Z98.890 Other specified postprocedural states; Z88.8 Allergy status to other drugs, medicaments and biological substances
CPT/HCPCS: 36415; 80053; 83036; 83690; 84145; 84443; 84484; 85025; 85610; 85730; 86140; 93005; J7030

== ENCOUNTER → 2024-04-21 | Outpatient (CLI) | payer BC ==
[2024-04-21 12:12] LABS: BASOPHILS # (AUTO) 0.03 K/uL (0.00-0.20); BASOPHILS % (AUTO) 0.4 % (0.0-5.0); EOSINOPHILS # (AUTO) 0.13 K/uL (0.00-0.70); EOSINOPHILS % (AUTO) 1.7 % (0.0-8.0); HEMATOCRIT 41.7 % (42-54); IMMATURE GRANULOCYTE ABSOLUTE 0.06 K/uL (0-1); LYMPHOCYTES # (AUTO) 3.3 K/uL (1.0-4.8); LYMPHOCYTES % (AUTO) 42.5 % (21.0-51.0); MEAN CORPUSCULAR HEMOGLOBIN 29.4 pg (27.0-33.0); MEAN CORPUSCULAR HGB CONC 34.1 g/dL (32.0-36.0); MEAN CORPUSCULAR VOLUME 86.3 fL (79-99); MONOCYTES # (AUTO) 0.6 K/uL (0.1-1.0); MONOCYTES % (AUTO) 7.2 % (3.0-13.0); NEUTROPHILS # (AUTO) 3.7 K/uL (1.8-7.7); NEUTROPHILS % (AUTO) 47.4 % (40.0-77.0); PLATELET COUNT (AUTO) 240 K/uL (130-400); RED BLOOD CELL COUNT(AUTO) 4.83 MIL/uL (4.50-6.20); WHITE BLOOD COUNT (AUTO) 7.8 K/uL (4.8-10.8)
[2024-04-21 13:03] LABS: CREATININE 1.7 mg/dL (0.5-1.3); POTASSIUM 4.1 mmol/L (3.5-5.1); THYROID STIMULATING HORMONE 3.08 uIU/mL (0.36-3.74)
== END | disposition home or self-care (01) ==
LOC: LAB 08:19
PROVIDERS: ATTEND Internal Medicine Cardiovascular Disease
DX: E11.9 Type 2 diabetes mellitus without complications (principal); E78.5 Hyperlipidemia, unspecified; E55.9 Vitamin D deficiency, unspecified; Z95.1 Presence of aortocoronary bypass graft
CPT/HCPCS: 36415; 80048; 82306; 84443; 85025

== ENCOUNTER → 2024-10-15 | Outpatient (CLI) | payer BC ==
[~2024-10-15] MED LIST changes: -CLOP-31 PO; -FOLI1TAB85 PO; +GABA-529 PO; +GLIP10TA16 PO; -GLIP10TA9 PO; -METO-408 PO; -ONDA-105 PO; -PANT40TA54 PO; +RIVA10TA PO; -SUCR1TAB PO
== END | disposition home or self-care (01) ==
LOC: WHH 09:47
PROVIDERS: ATTEND Podiatrist Foot & Ankle Surgery
DX: T87.89 Other complications of amputation stump (principal); E11.621 Type 2 diabetes mellitus with foot ulcer; L97.521 Non-pressure chronic ulcer of other part of left foot limited to breakdown of skin; E11.69 Type 2 diabetes mellitus with other specified complication; M86.172 Other acute osteomyelitis, left ankle and foot; E11.51 Type 2 diabetes mellitus with diabetic peripheral angiopathy without gangrene; E11.319 Type 2 diabetes mellitus with unspecified diabetic retinopathy without macular edema; E11.40 Type 2 diabetes mellitus with diabetic neuropathy, unspecified; E11.22 Type 2 diabetes mellitus with diabetic chronic kidney disease; I12.9 Hypertensive chronic kidney disease with stage 1 through stage 4 chronic kidney disease, or unspecified chronic kidney disease; N18.30 Chronic kidney disease, stage 3 unspecified; E78.5 Hyperlipidemia, unspecified; E55.9 Vitamin D deficiency, unspecified; I73.9 Peripheral vascular disease, unspecified; I25.10 Atherosclerotic heart disease of native coronary artery without angina pectoris; K21.9 Gastro-esophageal reflux disease without esophagitis; E66.9 Obesity, unspecified; F32.A Depression, unspecified; Z68.27 Body mass index [BMI] 27.0-27.9, adult; Z95.1 Presence of aortocoronary bypass graft; Z79.82 Long term (current) use of aspirin; Z79.01 Long term (current) use of anticoagulants; Z98.49 Cataract extraction status, unspecified eye; Z79.899 Other long term (current) drug therapy; Z86.73 Personal history of transient ischemic attack (TIA), and cerebral infarction without residual deficits; Y83.5 Amputation of limb(s) as the cause of abnormal reaction of the patient, or of later complication, without mention of misadventure at the time of the procedure
CPT/HCPCS: 99215; A4450

== ENCOUNTER → 2024-10-29 | Outpatient (CLI) | payer BC | END | disposition home or self-care (01) | LOC: WHH 09:48 | PROVIDERS: ATTEND Podiatrist Foot & Ankle Surgery | DX: T87.89 Other complications of amputation stump (principal); E11.621 Type 2 diabetes mellitus with foot ulcer; L97.521 Non-pressure chronic ulcer of other part of left foot limited to breakdown of skin; E11.69 Type 2 diabetes mellitus with other specified complication; M86.172 Other acute osteomyelitis, left ankle and foot; E11.51 Type 2 diabetes mellitus with diabetic peripheral angiopathy without gangrene; E11.319 Type 2 diabetes mellitus with unspecified diabetic retinopathy without macular edema; E11.40 Type 2 diabetes mellitus with diabetic neuropathy, unspecified; E11.22 Type 2 diabetes mellitus with diabetic chronic kidney disease; I12.9 Hypertensive chronic kidney disease with stage 1 through stage 4 chronic kidney disease, or unspecified chronic kidney disease; N18.30 Chronic kidney disease, stage 3 unspecified; E78.5 Hyperlipidemia, unspecified; E55.9 Vitamin D deficiency, unspecified; I73.9 Peripheral vascular disease, unspecified; I25.10 Atherosclerotic heart disease of native coronary artery without angina pectoris; K21.9 Gastro-esophageal reflux disease without esophagitis; E66.9 Obesity, unspecified; F32.A Depression, unspecified; Z68.27 Body mass index [BMI] 27.0-27.9, adult; Z95.1 Presence of aortocoronary bypass graft; Z79.82 Long term (current) use of aspirin; Z79.01 Long term (current) use of anticoagulants; Z98.49 Cataract extraction status, unspecified eye; Z79.899 Other long term (current) drug therapy; Z86.73 Personal history of transient ischemic attack (TIA), and cerebral infarction without residual deficits; Y83.5 Amputation of limb(s) as the cause of abnormal reaction of the patient, or of later complication, without mention of misadventure at the time of the procedure | CPT/HCPCS: 99214 ==

== ENCOUNTER → 2025-02-11 | Outpatient (CLI) | payer BC, MEDICARE ==
[~2025-02-11] MED LIST changes: +CHOL100046 PO; -CHOL12509 PO; -GLIP10TA16 PO; +INSLAN SQ; +KETO5DRO40 OD; +LOSA-418 PO; +PRED5DRO25 OD
== END | disposition home or self-care (01) ==
LOC: WHH 09:02
PROVIDERS: ATTEND Podiatrist Foot & Ankle Surgery
DX: T87.89 Other complications of amputation stump (principal); E11.621 Type 2 diabetes mellitus with foot ulcer; L97.521 Non-pressure chronic ulcer of other part of left foot limited to breakdown of skin; E11.69 Type 2 diabetes mellitus with other specified complication; M86.172 Other acute osteomyelitis, left ankle and foot; E11.51 Type 2 diabetes mellitus with diabetic peripheral angiopathy without gangrene; E11.319 Type 2 diabetes mellitus with unspecified diabetic retinopathy without macular edema; E11.40 Type 2 diabetes mellitus with diabetic neuropathy, unspecified; E11.22 Type 2 diabetes mellitus with diabetic chronic kidney disease; I12.9 Hypertensive chronic kidney disease with stage 1 through stage 4 chronic kidney disease, or unspecified chronic kidney disease; N18.30 Chronic kidney disease, stage 3 unspecified; E11.36 Type 2 diabetes mellitus with diabetic cataract; H26.9 Unspecified cataract; E78.5 Hyperlipidemia, unspecified; E55.9 Vitamin D deficiency, unspecified; I73.9 Peripheral vascular disease, unspecified; I25.10 Atherosclerotic heart disease of native coronary artery without angina pectoris; K21.9 Gastro-esophageal reflux disease without esophagitis; E66.9 Obesity, unspecified; F32.A Depression, unspecified; Z68.27 Body mass index [BMI] 27.0-27.9, adult; Z95.1 Presence of aortocoronary bypass graft; Z79.82 Long term (current) use of aspirin; Z79.02 Long term (current) use of antithrombotics/antiplatelets; Z79.01 Long term (current) use of anticoagulants; Z98.49 Cataract extraction status, unspecified eye; Z79.899 Other long term (current) drug therapy; Z86.73 Personal history of transient ischemic attack (TIA), and cerebral infarction without residual deficits; Y83.5 Amputation of limb(s) as the cause of abnormal reaction of the patient, or of later complication, without mention of misadventure at the time of the procedure
CPT/HCPCS: 99215; A6248; A6197 ×2; A4450

== ENCOUNTER → 2025-02-25 | Outpatient (CLI) | payer BC, MEDICARE | END | disposition home or self-care (01) | LOC: WHH 09:12 | PROVIDERS: ATTEND Podiatrist Foot & Ankle Surgery | DX: T87.89 Other complications of amputation stump (principal); E11.621 Type 2 diabetes mellitus with foot ulcer; L97.521 Non-pressure chronic ulcer of other part of left foot limited to breakdown of skin; E11.69 Type 2 diabetes mellitus with other specified complication; M86.172 Other acute osteomyelitis, left ankle and foot; E11.51 Type 2 diabetes mellitus with diabetic peripheral angiopathy without gangrene; E11.319 Type 2 diabetes mellitus with unspecified diabetic retinopathy without macular edema; E11.40 Type 2 diabetes mellitus with diabetic neuropathy, unspecified; E11.22 Type 2 diabetes mellitus with diabetic chronic kidney disease; I12.9 Hypertensive chronic kidney disease with stage 1 through stage 4 chronic kidney disease, or unspecified chronic kidney disease; N18.30 Chronic kidney disease, stage 3 unspecified; E11.36 Type 2 diabetes mellitus with diabetic cataract; H26.9 Unspecified cataract; E78.5 Hyperlipidemia, unspecified; E55.9 Vitamin D deficiency, unspecified; I73.9 Peripheral vascular disease, unspecified; I25.10 Atherosclerotic heart disease of native coronary artery without angina pectoris; K21.9 Gastro-esophageal reflux disease without esophagitis; E66.9 Obesity, unspecified; F32.A Depression, unspecified; Z68.27 Body mass index [BMI] 27.0-27.9, adult; Z95.1 Presence of aortocoronary bypass graft; Z79.82 Long term (current) use of aspirin; Z79.02 Long term (current) use of antithrombotics/antiplatelets; Z79.01 Long term (current) use of anticoagulants; Z98.49 Cataract extraction status, unspecified eye; Z79.899 Other long term (current) drug therapy; Z86.73 Personal history of transient ischemic attack (TIA), and cerebral infarction without residual deficits; Y83.5 Amputation of limb(s) as the cause of abnormal reaction of the patient, or of later complication, without mention of misadventure at the time of the procedure | CPT/HCPCS: 99214; A6197 ×2; A4450 ==

== ENCOUNTER → 2025-03-25 | Outpatient (CLI) | payer BC, MEDICARE ==
[~2025-03-25] MED LIST changes: +KETO-108 OD; -KETO5DRO40 OD
== END | disposition home or self-care (01) ==
LOC: WHH 09:13
PROVIDERS: ATTEND Podiatrist Foot & Ankle Surgery
DX: E11.621 Type 2 diabetes mellitus with foot ulcer (principal); L97.521 Non-pressure chronic ulcer of other part of left foot limited to breakdown of skin; E11.69 Type 2 diabetes mellitus with other specified complication; M86.172 Other acute osteomyelitis, left ankle and foot; E11.51 Type 2 diabetes mellitus with diabetic peripheral angiopathy without gangrene; E11.319 Type 2 diabetes mellitus with unspecified diabetic retinopathy without macular edema; E11.40 Type 2 diabetes mellitus with diabetic neuropathy, unspecified; E11.22 Type 2 diabetes mellitus with diabetic chronic kidney disease; I12.9 Hypertensive chronic kidney disease with stage 1 through stage 4 chronic kidney disease, or unspecified chronic kidney disease; N18.30 Chronic kidney disease, stage 3 unspecified; E11.36 Type 2 diabetes mellitus with diabetic cataract; H26.9 Unspecified cataract; E78.5 Hyperlipidemia, unspecified; E55.9 Vitamin D deficiency, unspecified; I73.9 Peripheral vascular disease, unspecified; I25.10 Atherosclerotic heart disease of native coronary artery without angina pectoris; K21.9 Gastro-esophageal reflux disease without esophagitis; E66.9 Obesity, unspecified; F32.A Depression, unspecified; Z68.27 Body mass index [BMI] 27.0-27.9, adult; Z95.1 Presence of aortocoronary bypass graft; Z79.82 Long term (current) use of aspirin; Z79.02 Long term (current) use of antithrombotics/antiplatelets; Z79.01 Long term (current) use of anticoagulants; Z98.49 Cataract extraction status, unspecified eye; Z79.899 Other long term (current) drug therapy; Z86.73 Personal history of transient ischemic attack (TIA), and cerebral infarction without residual deficits; Z89.412 Acquired absence of left great toe; Z89.422 Acquired absence of other left toe(s)
CPT/HCPCS: 99214; A6197; A4450

== ENCOUNTER → 2025-04-01 | Outpatient (CLI) | payer BC, MEDICARE | END | disposition home or self-care (01) | LOC: WHH 08:59 | PROVIDERS: ATTEND Podiatrist Foot & Ankle Surgery | DX: E11.621 Type 2 diabetes mellitus with foot ulcer (principal); L97.521 Non-pressure chronic ulcer of other part of left foot limited to breakdown of skin; E11.69 Type 2 diabetes mellitus with other specified complication; M86.172 Other acute osteomyelitis, left ankle and foot; E11.51 Type 2 diabetes mellitus with diabetic peripheral angiopathy without gangrene; E11.319 Type 2 diabetes mellitus with unspecified diabetic retinopathy without macular edema; E11.22 Type 2 diabetes mellitus with diabetic chronic kidney disease; I12.9 Hypertensive chronic kidney disease with stage 1 through stage 4 chronic kidney disease, or unspecified chronic kidney disease; N18.30 Chronic kidney disease, stage 3 unspecified; E11.42 Type 2 diabetes mellitus with diabetic polyneuropathy; E11.36 Type 2 diabetes mellitus with diabetic cataract; H26.9 Unspecified cataract; E78.5 Hyperlipidemia, unspecified; E55.9 Vitamin D deficiency, unspecified; I73.9 Peripheral vascular disease, unspecified; I25.10 Atherosclerotic heart disease of native coronary artery without angina pectoris; K21.9 Gastro-esophageal reflux disease without esophagitis; E66.9 Obesity, unspecified; F32.A Depression, unspecified; Z68.27 Body mass index [BMI] 27.0-27.9, adult; Z95.1 Presence of aortocoronary bypass graft; Z79.82 Long term (current) use of aspirin; Z79.02 Long term (current) use of antithrombotics/antiplatelets; Z79.01 Long term (current) use of anticoagulants; Z98.49 Cataract extraction status, unspecified eye; Z79.899 Other long term (current) drug therapy; Z86.73 Personal history of transient ischemic attack (TIA), and cerebral infarction without residual deficits; Z89.412 Acquired absence of left great toe; Z89.422 Acquired absence of other left toe(s) | CPT/HCPCS: 99214; A6197 ×2 ==

== ENCOUNTER → 2025-04-15 | Outpatient (CLI) | payer BC, MEDICARE | END | disposition home or self-care (01) | LOC: WHH 09:11 | PROVIDERS: ATTEND Podiatrist Foot & Ankle Surgery | DX: E11.621 Type 2 diabetes mellitus with foot ulcer (principal); L97.521 Non-pressure chronic ulcer of other part of left foot limited to breakdown of skin; L03.032 Cellulitis of left toe; E11.51 Type 2 diabetes mellitus with diabetic peripheral angiopathy without gangrene; E11.42 Type 2 diabetes mellitus with diabetic polyneuropathy; E11.69 Type 2 diabetes mellitus with other specified complication; M86.172 Other acute osteomyelitis, left ankle and foot; E11.319 Type 2 diabetes mellitus with unspecified diabetic retinopathy without macular edema; E11.22 Type 2 diabetes mellitus with diabetic chronic kidney disease; I12.9 Hypertensive chronic kidney disease with stage 1 through stage 4 chronic kidney disease, or unspecified chronic kidney disease; N18.30 Chronic kidney disease, stage 3 unspecified; E11.36 Type 2 diabetes mellitus with diabetic cataract; H26.9 Unspecified cataract; E78.5 Hyperlipidemia, unspecified; E55.9 Vitamin D deficiency, unspecified; I25.10 Atherosclerotic heart disease of native coronary artery without angina pectoris; K21.9 Gastro-esophageal reflux disease without esophagitis; E66.9 Obesity, unspecified; F32.A Depression, unspecified; Z95.1 Presence of aortocoronary bypass graft; Z79.82 Long term (current) use of aspirin; Z79.02 Long term (current) use of antithrombotics/antiplatelets; Z79.01 Long term (current) use of anticoagulants; Z98.49 Cataract extraction status, unspecified eye; Z68.27 Body mass index [BMI] 27.0-27.9, adult; Z79.899 Other long term (current) drug therapy; Z86.73 Personal history of transient ischemic attack (TIA), and cerebral infarction without residual deficits; Z89.412 Acquired absence of left great toe; Z89.422 Acquired absence of other left toe(s) | CPT/HCPCS: 87070; 87086; 87186; 99214; A6197; A4450 ==

== ENCOUNTER 2025-04-22 10:54 | Inpatient (IN) | payer BC, MEDICARE ==
[~2025-04-22] VITALS: Ht 170.2 cm; Wt 75.1 kg
[2025-04-22 08:00] VITALS: O2SAT 98
[~2025-04-22 10:54] MED LIST changes: -DOXY100C5 PO; -GLIP10TA16 PO
[2025-04-22] MEDS: ASPIRIN 81MG CHEW TAB PO SCH (11:40)
[2025-04-22 11:47] LABS: IMMATURE GRANULOCYTE ABSOLUTE 0.04 K/uL (0-1); NUCLEATED RED BLOOD CELLS 0.0 % (0.0-0.19); PLATELET COUNT (AUTO) 170 K/uL (130-400); RED BLOOD CELL COUNT(AUTO) 4.77 MIL/uL (4.50-6.20); RED CELL DISTRIBUTION WIDTH 12.5 % (11.0-15.5); WHITE BLOOD COUNT (AUTO) 8.1 K/uL (4.8-10.8)
--- NOTE | 2025-04-22 11:52 | HP ---
[facility] HISTORY AND PHYSICAL Date of Service: Apr 22, 2025 Time of Service: 11:39 HISTORY OF PRESENT ILLNESS: Date of service: 04/22/2025, patient was seen in ER room five This is a patient who presented as a direct admit from Dr. Montoya's w/ Podiatry, 64-year-old male history of type 2 diabetes mellitus, hypertension, hyperlipidemia, coronary artery disease, peripheral arterial disease, history of osteomyelitis of left foot, 1st and 2nd toe osteomyelitis status post amputation, recent history of left foot 4th toe diabetic foot ulcer with osteomyelitis requiring hospitalization in 02/25 who presented as a direct admit from Dr. Montoya Podiatry for further evaluation of nonhealing diabetic foot ulcer involving the 4th toe along with purplish discoloration with recent history of osteomyelitis requiring hospitalization 02/25. There is tentative plans for amputation of the toes by Dr. Montoya tomorrow. Patient has had longstanding history of type 2 diabetes mellitus. Reports being diabetic for more than 20 years. He was started on basal Lantus therapy earlier this year. He frequently skips doses of Lantus and did not take Lantus yesterday or today. He has been compliant with antiplatelet therapy as well as Xarelto. He was recently seen by Dr. Peoples on last admission and underwent balloon lithotripsy for 60% stenosis in the left anterior tibial artery, underwent angioplasty with balloon lithotripsy and drug coated angioplasty involving 90-95% stenosis of the mid and distal left anterior tibial artery as well as 90% stenosis in the anterior segment of the left pedal arch. Patient had brisk two-vessel runoff to the left foot. Patient was noted to have residual POD with 100% stenosis in the left posterior tibial artery and 90% stenosis of the left peroneal artery which was too small for percutaneous interventionally. Patient states that he finished IV antibiotic therapy last month with Zosyn for management of osteomyelitis. Daughter reports that patient gets tired easily with exertional activity and sometimes he notices shortness of breath with sustained exertion. Denies any falls. Denies any chest pain currently. Patient will be admitted under hospitalist service, plan by Dr. Montoya for amputation of the toes of the left foot. We will also assess vascular status with arterial ultrasound. patient has also noticed more swelling of the left lower extremity, venous ultrasound will be obtained as well. REVIEW OF SYSTEMS CONSTITUTIONAL: Denies fevers, chills, or night sweats. No unintentional weight loss reported. NEUROLOGICAL: Denies headache, amaurosis fugax, motor weakness, sensory de ficit, vertigo/spinning sensation, gait abnormalities, or tremors. ENT: No hearing loss, otalgia, otorrhea, rhinitis, rhinorrhea, hoarseness, or sore throat. CARDIOVASCULAR: Denies any exertional angina, dyspnea on exertion, orthopnea, paroxysmal nocturnal dyspnea, palpitations, life-threatening arrhythmias, claudication. PULMONARY: Denies any shortness of breath, cough, phlegm/sputum, hemoptysis, pleuritic chest pain. SLEEP: Denies morning headaches, daytime somnolence or napping. Denies difficulty falling asleep, staying asleep, waking from sleep. Denies knowledge of snoring. GASTROINTESTINAL: Denies any type of dysphagia to either liquids or solids. Denies nausea, vomiting, pyrosis, early satiety, abdominal pain, diarrhea, constipation, or changes in stool consistency or caliber. Denies coffee-ground emesis, hematemesis, hematochezia, or melanotic stools. GENITOURINARY: Denies frequency, urgency, nocturia, hematuria or incontinence (Storage/Irritative symptoms.) Low urinary stream, straining to void, urinary intermittency or hesitancy, splitting of the voiding stream, terminal dribbling. ENDOCRINOLOGIC: Denies polyuria, polydipsia, polyphagia or heat/cold intolerances. HEMATOLOGIC: Denies thrombophilia/previous clots, or coagulopathy/bleeding disorders. ONCOLOGIC: Denies personal history of malignancy. DERMATOLOGIC: Denies rashes or pruritus. PSYCHIATRIC: Denies any suicidal or homicidal ideation. Denies hallucinations. PAST MEDICAL HISTORY: [ PAD, diabetes mellitus, poorly controlled with a1c close to 15 in 01/25, hypertension, hyperlipidemia, coronary artery disease with CABG x3 Vessel and femoral stent ] PAST SURGICAL HISTORY: [CABG x3, femoral stent and amputation of the left 1st great toe and 2nd toe, recent hx of peripheral arteriogram of LLE by Dr. Peoples ] PAST SOCIAL HISTORY: [ Patient lives with . Patient denies alcohol tobacco and recreational drug use ] FAMILY HISTORY: [ Cancer, hypertension, stroke and diabetes ] Allergies: No known drug allergies Home medications: Family will be bringing list of home medications to be reconciled and updated Coded Allergies: No Known Allergies (Unverified Allergy, Unknown, 05/06/20) No Known Drug Allergies (Unverified Allergy, Unknown, 05/06/18) PHYSICAL EXAM GENERAL APPEARANCE: The patient is awake, alert, and oriented, in no acute cardiopulmonary distress. NEUROLOGICAL: Cranial nerves II-XII grossly intact. Motor is 5/5 in bilateral upper and lower extremities proximal to distal. No sensory deficits. HEENT: Face is symmetric. Pupils are equal and reactive. Extraocular movements are intact. NECK: Supple. No JVD. No thyromegaly. No submental, submandibular, pre- /postauricular, occipital or supraclavicular lymphadenopathy. CHEST: Normal chest expansion. No Telemetry. LUNGS: Absence of any rales, rhonchi or any wheezing. CARDIOVASCULAR: Regular. S1 and S2 normal. No appreciable rubs, murmurs or gallops. ABDOMEN: Soft, nontender, and nondistended. There is no rebound, voluntary guarding, or rigidity. : Deferred. No Marroquin. EXTREMITIES: patient has purplish discoloration of the 4th toe of the left foot with ulcer noted on the lateral aspect with redness, and swelling, patient has 1+ pitting edema of the left lower extremity Vital Sign (Last 24 Hours) 04/22/25 10:57 Temp 97.2 Pulse 78 Resp 18 B/P (MAP) 127/69 Pulse Ox 98 O2 Delivery Room Air O2 Flow Rate 0 LABS: LABS INCLUDE A CBC, CMP, BLOOD SUGARS, LACTIC ACID ARE CURRENTLY PENDING Current Medications Medications (Trade) Dose Ordered Sig/Attila Route PRN Reason Start Time Stop Time Status Last Admin Dose Admin Acetaminophen (TYLenol 325MG TAB) 650 mg Q6H PRN PO MILD PAIN (1-3) 04/22/25 11:30 05/22/25 11:29 Albuterol (DUOneb) 1 udvial Q6H PRN IH SHORTNESS OF BREATH 04/22/25 11:30 05/22/25 11:29 Aspirin (Aspirin 81mg Chew Tab) 81 mg Q24H PO 04/22/25 11:30 05/22/25 11:29 Famotidine (Pepcid 20mg Tab) 20 mg Q48H PO 04/22/25 21:00 05/22/25 20:59 Hydralazine HCl (APRESOLine 20MG INJ) 5 mg Q6H PRN IV ADMINISTER FOR SBP > 160 04/22/25 11:30 05/22/25 11:29 Insulin Human Regular (humuLIN R 100 UNIT/ML 3ML) INSULIN SLIDING SCAL... ACHS SQ 04/22/25 11:30 05/22/25 11:29 Ondansetron HCl (zoFRAN 4MG INJ) 4 mg Q6H PRN IVP NAUSEA/VOMITING 04/22/25 11:30 05/22/25 11:29 DIAGNOSTICS / RADIOLOGY: CHEST X-RAY, X-RAY OF THE FOOT IS CURRENTLY PENDING ASSESSMENT: Nonhealing infected diabetic foot ulcer involving the 4th toe of the left foot with chronic osteomyelitis and underlying cellulitis, POA Purplish discoloration of the 4th toe of the left foot, POA GEORGIE on CKD, POA Severe hyperglycemia with blood glucose greater than 600, POA Recent history of osteomyelitis of the 4th toe of the left foot status for IV antibiotic therapy in 02/2025, POA Recent history of peripheral angiogram by Dr. Peoples on 02/2025 with angioplasty of the Left anterior tibial artery, and anterior segment of the left pedal arch, POA Prior history of osteomyelitis of the 1st and 2nd toe of the left foot with prior amputation, POA History of significant peripheral arterial disease of the lower extremity, POA History of poorly controlled type 2 diabetes mellitus with noncompliance with insulin therapy as outpatient, (Last a1c of 15.1, in 01/25), POA Hypertension, POA Hyperlipidemia, POA History of CVA, POA CKD Stage III, POA PLAN: Patient will be admitted to medical-surgical floor under telemetry monitoring Plan is for amputation of the 3rd, 4th and 5th toes of the left foot, patient has purplish discoloration of the toes with nonhealing diabetic foot ulcer involving the 4th toe with chronic osteomyelitis We will obtain a arterial duplex of the left lower extremity assess for significant arterial stenosis impairing wound healing We will obtain a venous Doppler of the left lower extremity as well We will obtain labs including CBC, CMP, magnesium, we will check ESR, CRP and procalcitonin, we will obtain blood cultures We will obtain x-ray of the left foot We will obtain a 2D echocardiogram, patient reports that he gets was dyspnea on exertion with activities and feels tired easily We will check A1c level, blood ketone level, patient has been noncompliant with outpatient insulin therapy, we will start patient on sliding scale insulin a.c. and HS, patient will be started on carb consistent diet, we will dose adjust Lantus based on blood glucose trend today We will see how patient progresses in the next 48-72 hours Continue with aspirin therapy, we will hold Xarelto in anticipation of amputation of the toes tomorrow We will obtain home medication list, and reconciled once available We will start patient on broad-spectrum antibiotics today based on blood work and x-ray report I discussed with patient and family that he will need aggressive blood sugar control as outpatient, noncompliance with insulin therapy as outpatient causes significant hyperglycemia impairing wound healing and increasing the risk of recurrent cellulitis/osteomyelitis, wound dehiscence, non healing infections etc.. Patient verbalized understanding, we will have endocrinology optimize insulin regimen. Addendum, 1500: After labs were obtained, patient's blood sugar was noted more than 600, blood ketone is negative, I discussed with Dr. Vu with endocrinology, we will start patient on basal Lantus, patient will receive aggressive sliding scale insulin and we will see if blood glucose trend improves in the next 24 hours, if sugars remain uncontrolled and persistently high, patient may need insulin drip. We will follow up results of arterial ultrasound as well, patient has worsening creatinine compared to renal function in January and February this year, creatinine today is 1.9. We will hold losartan, patient is taking 50 mg b.i.d. of losartan along with 25 mg of losartan daily, likely contributing towards the acute on chronic renal failure. We will start amlodipi ne instead of losartan until renal function improves. We will IV hydrate patient with normal saline and obtain renal ultrasound. If arterial ultrasound is significantly abnormal, consultation with Cardiology will be requested. Date of service: 04/22/2025 Plan of care was discussed with patient at bedside Anticipate hospitalization for at least 48-72 hours, we will obtain PT evaluation post surgery tomorrow Han Carter MD, Advanced Care Planning: Which of the following were discussed: Hospice care: Yes __ No _X_ Therapeutic options: Yes _X_ No __ Advance directives: Yes _X_ No __ Other discussions: Discussed with who?: Patient Voluntary nature of this service was explained to the patient? Yes _x_ No __ Amount of time spent: 20 minutes HAN CARTER MD Apr 22, 2025 11:52
[2025-04-22 12:07] LABS: ASPARTATE AMINOTRANSFERASE 33.0 U/L (10-37); CREATININE 1.9 mg/dL (0.5-1.3); GLOMERULAR FILTR. RATE CALC 39.0 mL/min (>90); SODIUM SERUM 128.0 mmol/L (136-145); TOTAL PROTEIN, SERUM 7.3 g/dL (6.0-8.3); UREA NITROGEN, BLOOD 30.0 mg/dL (7-18)
[2025-04-22 12:15] LABS: GLUCOSE,RANDOM 616.0 mg/dL (70-105)
--- NOTE | 2025-04-22 12:21 | HMCIMG ---
EXAM: CR Chest, 1 View. CLINICAL HISTORY: assess for any Pulmonary edema COMPARISON: None provided. FINDINGS: LUNGS: The lungs show no infiltrate or other acute finding. PLEURAL SPACES: No pleural effusion or pneumothorax. MEDIASTINUM: Prior sternotomy. Cardiac size and mediastinal contours within normal limits. BONES: No aggressive appearing osseous lesion seen. IMPRESSION: 1. No acute cardiopulmonary findings. /[place]
[2025-04-22] MEDS ORDERED: 0.9%NACL 50ML IV SCH (12:30)
[2025-04-22] MEDS: 0.9%NACL 1000ML 1,000 ML IV SCH (12:39)
[2025-04-22] MEDS: ZOSYN 3.375GM +NS 50ML IVPB SCH (12:50)
--- NOTE | 2025-04-22 12:51 | HMCIMG ---
EXAM: CR left foot, 3 View. CLINICAL HISTORY: non healing left DFU of 4th toe w/ possible osteo COMPARISON: None provided. FINDINGS: 2nd and 1st toe amputation from the metatarsophalangeal joints. There is edema within the soft tissues of the stump. Cortical irregularity seen within the distal third metatarsal may reflect osteomyelitis, recommend contrast-enhanced MRI for further evaluation. No displaced fracture appreciated. Remaining joint spaces are anatomically aligned. IMPRESSION: 1. Cortical irregularity of distal third metatarsal concerning for osteomyelitis. 2. Post-surgical changes of 1st and 2nd toe amputations with soft tissue edema. 3. No displaced fracture. /[place]
[2025-04-22 12:59] LABS: ERYTHROCYTE SEDIMENTATION RATE 55 MM/HR (0-20)
[2025-04-22] MEDS ORDERED: DEXTROSE 50%-WATER 50 ML DISP.SYRIN IV PRN (13:00)
[2025-04-22] MEDS ORDERED: GLUCAGON 1MG KIT 1 MG ML IM PRN (13:00)
[2025-04-22 13:11] LABS: CREATININE,URINE RANDOM 52.43 mg/dL (30-135)
[2025-04-22 13:16] VITALS: PULSE 78; RESP 18; O2SAT 98
[2025-04-22 13:17] LABS: ADD UA MICROSCOPIC YES; APPEARANCE,URINE CLEAR (CLEAR); GLUCOSE, URINE (UA) >=1000 mg/dL (NEGATIVE); LEUKOCYTE ESTERASE ,URINE NEGATIVE Leu/uL (NEGATIVE); NITRATE,URINE NEGATIVE (NEGATIVE); OCCULT BLOOD,URINE NEGATIVE (NEGATIVE); SQUAMOUS EPITHELIAL CELL,UR RARE /HPF (0-2)
--- NOTE | 2025-04-22 13:17 | EKG ---
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
[2025-04-22 13:31] LABS: PROTEIN,URINE RANDOM < 6.0 mg/dL (0-11.9)
--- NOTE | 2025-04-22 14:52 | HMCIMG ---
EXAM: US for Deep Venous Thrombosis, bilateral Lower Extremity. CLINICAL HISTORY: Leg Pain and Swelling TECHNIQUE: Real-time ultrasound scan of the veins of the bilateral lower extremity with color Doppler flow, spectral waveform analysis and compression. COMPARISON: None provided. FINDINGS: DEEP VEINS: The common femoral, superficial femoral, and popliteal veins are echolucent and compressible. There is normal color Doppler flow throughout. The visualized calf veins appear patent. SOFT TISSUES: No popliteal fossa cyst or other abnormalities. IMPRESSION: 1. No deep venous thrombosis in the bilateral lower extremities. /[place]
--- NOTE | 2025-04-22 15:03 | HMCIMG ---
EXAM: US Duplex Left Lower Extremity Arteries. CLINICAL HISTORY: assess for flow limiting stenosis TECHNIQUE: Real-time ultrasound scan of the arteries of the Left lower extremity with 2-D prescott scale, color Doppler flow and spectral waveform analysis. COMPARISON: Study dated 01/31/25 FINDINGS: COMMON FEMORAL ARTERY: Peak systolic velocity of 174 cm/sec with triphasic waveform. No occlusion or significant stenosis. Normal SUPERFICIAL FEMORAL ARTERY: Peak systolic velocity of 191 cm/sec with triphasic waveform. No occlusion or significant stenosis. Normal POPLITEAL ARTERY: Peak systolic velocity of 106 cm/sec with triphasic waveform. No occlusion or significant stenosis. Normal CALF ARTERIES: Posterior tibial artery shows a peak systolic velocity of 72 cm/sec with a monophasic waveform. The anterior tibial artery shows focal stenosis and a peak systolic velocity of 744 cm/sec with a monophasic waveform. The dorsalis pedis artery shows a peak systolic velocity of 28 cm/sec with monophasic waveform. IMPRESSION: 1. Focal stenosis of the left anterior tibial artery with elevated peak systolic velocity of 744 cm/sec and monophasic waveform. This is new from the prior examination. Recommend CT angiography for further evaluation. 2. Monophasic waveforms in the posterior tibial and dorsalis pedis arteries. /[place]
--- NOTE | 2025-04-22 15:48 | NUR ---
DCP:HOME Pt currently lives with his sps Fiorella Zapien [phone]. Pt uses a cane at home to ambulate. Pt does not have a provider or home health services. Pt states that he is able to complete ADLs independently. PCP is Dr. Enrique Hall and uses [facility] for any RX needs. At NM pt will want to go home and family can assist with transportation. Addendum: 04/22/25 at 1604 by BARBARA SCALES SS Amended: Links added.
--- NOTE | 2025-04-22 15:52 | HMCSR ---
APPROVED REPORT EXAM: Two-dimensional and M-mode echocardiogram with Doppler and color Doppler. INDICATION ICD: Dyspnea Heart Failure 2D Dimensions RVDd3.3 cmLVEF(%)62.5 (>50%)LVED Vol(simp.)70.7 mL IVSd0.8 (0.7-1.1cm)FS(%)33 %LVES Vol(simp.)29.6 mL LVDd3.9 (3.8-5.6cm)LA (2D)4.4 (1.6-4.0cm)LVEF(%, simp.)58 % PWd0.9 (0.7-1.1cm)Ao Root(2D)2.5 (2.0-3.7cm)LA ESV INDEX (BP)21.76 mL/m2 LVDs2.6 (2.5-4.0cm)LVOT diam2.1 (1.8-2.4cm) Deformation Strain Apical 4-14.0 % Apical 2-11.2 % Apical 3-13.8 % Global Strain-13.0 % Aortic Valve AoV Vmax1.2 m/Love Peak GR5.5 mmHgLVOT Vmax0.7 m/s AoV VTI0.2 mAo Mean GR2.5 mmHgLVOT VTI0.15 m MARY JANE (VMAX)2.17 cm2AVA (VTI) 2.5 cm2 Mitral Valve MV E Vmax62.2 cm/sDECEL Juzr120 ms MV A Vmax85.4 cm/sP 1/2 T59 ms E/A ratio0.7MVA (PHT)3.7 cm2 TDI E/E' Btdknh40.4E/E' Lateral6.1 Medial E' Peak V4.05 cm/sLateral E' Peak V10.15 cm/s Left Ventricle The left ventricle is normal size. There is normal left ventricular wall thickness. Sigmoid septum is present. LVEF is 55-60%. The left ventricular diastolic function is normal. Right Ventricle The right ventricle is normal size. Right ventricular systolic function is mildly reduced. Atria The left atrium size is normal. The right atrium size is normal. Aortic Valve The aortic valve is normal in structure. No aortic regurgitation is present. There is no aortic valvu lar stenosis. Mitral Valve The mitral valve is normal in structure. There is no mitral valve regurgitation noted. There is no mi tral valve stenosis. Tricuspid Valve The tricuspid valve is normal in structure. There is no tricuspid valve regurgitation noted. Pulmonic Valve The pulmonary valve is not well visualized. There is no pulmonic valvular regurgitation. Great Vessels The aortic root is normal in size. The IVC was not visualized. Pericardium There is no pericardial effusion. Other Information Quality : AverageRhythm : NSR Conclusion LVEF is 55-60%. The left ventricular diastolic function is normal. Right ventricular systolic function is mildly reduced.
[2025-04-22 16:00] VITALS: BP 140/55; PULSE 69; RESP 19; TEMP 97.8
[2025-04-22] MEDS ORDERED: GLIP10TA16 PO (16:07)
[2025-04-22] MEDS ORDERED: DOXY100C5 PO (16:07)
[2025-04-22] MEDS: amLODIPine 5 MG TAB PO SCH (16:10)
--- NOTE | 2025-04-22 20:18 | NUR ---
PT BLOOD SUGAR READ 62 ON ACCUCHECK. PHYSICIAN NOTIFIED. PT RECEIVED ORANGE JUICE, JELLO, AND A HAM SANDWICH. NO SIGNS AND SYMPTOMS OF HYPOGLYCEMIA NOTED AT THIS TIME.
[2025-04-22 20:22] VITALS: PULSE 71; RESP 18; O2SAT 99
[2025-04-22] MEDS: FAMOTIDINE 20MG TAB PO SCH (20:27)
[2025-04-23] VITALS (27 sets, daily range): BP systolic 88–171; BP diastolic 51–87; PULSE 62–90; RESP 11–21; TEMP 97.6–98.7; O2SAT 0–100
[2025-04-23 04:05] LABS: IMMATURE GRANULOCYTE ABSOLUTE 0.03 K/uL (0-1); NUCLEATED RED BLOOD CELLS 0.0 % (0.0-0.19); PLATELET COUNT (AUTO) 135 K/uL (130-400); RED BLOOD CELL COUNT(AUTO) 4.14 MIL/uL (4.50-6.20); RED CELL DISTRIBUTION WIDTH 12.4 % (11.0-15.5); WHITE BLOOD COUNT (AUTO) 7.1 K/uL (4.8-10.8)
[2025-04-23 04:29] LABS: CREATININE 1.5 mg/dL (0.5-1.3); GLOMERULAR FILTR. RATE CALC 52.0 mL/min (>90); GLUCOSE,RANDOM 354.0 mg/dL (70-105); SODIUM SERUM 133.0 mmol/L (136-145); UREA NITROGEN, BLOOD 24.0 mg/dL (7-18)
[2025-04-23] MEDS ORDERED: MIDAZOLAM HCL 1 MG/ML 2ML VIAL ONE (07:16)
[2025-04-23] MEDS ORDERED: LIDOCAINE HCL 1% 20 ML VIAL ONE (07:19)
--- NOTE | 2025-04-23 08:03 | OP ---
Operative Note: DATE OF PROCEDURE: 04/23/25 SURGEON: CHARU CUELLO DPM PROGRAMMER ENGINEERING AND SCIENTIFIC: Juan keating ANESTHESIA: Local MAC 1% xylocaine 0.25% Marcaine total of 20 cc via an ankle block left ANESTHESIOLOGIST/INTAKE MAN: Wayne Walls CRNA PREOPERATIVE DIAGNOSIS: Gangrene osteomyelitis of 4th toe left foot POSTOPERATIVE DIAGNOSIS: Gangrene osteomyelitis 4th toe left foot SYNOPSIS: Diabetic male presented to the emergency room with gangrene to 4th toe cellulitis and osteomyelitis of the left foot at this moment decision was for a TMA amputation patient already has two toes amputated in the past. Carrasco s a history of noncontrolled diabetes and recurrent ulcers. PROCEDURE: Transmetatarsal amputation left foot ESTIMATED BLOOD LOSS: 5 cc INDICATIONS: Gangrene of osteomyelitis of the left foot DESCRIPTION OF PROCEDURE: Patient was brought into the operating room table placed in the supine position on the IV sedation local anesthesia was achieved via local infiltration 1% xylocaine 0.25% Marcaine a total of 20 cc to the left foot ankle. At this time the foot was prepped and draped in the usual sterile fashion. Attention was directed towards the forefoot were a transverse incision dorsally a transverse incision plantarly across the metatarsal heads was performed at this time metatarsus two through five. At this time decision was carried down through subcutaneous tissue down to capsular level capsulotomy were performed two through five removing the toes three four and five at this moment at the level of metatarsophalangeal joint. At this moment then the metatarsal was exposed to three and four and five and utilizing a sagittal saw transverse cut through the metatarsal shaft were performed at this time removing the metatarsal heads and distal portion of the metatarsals two through five at this moment. The area was inspected bleeders were cauterized cultures and sensitivity were taken and had the wound was irrigated with 1 L of normal saline. At this time the wound was reapproximated utilizing 2-0 Vicryl for the subcutaneous tissue level and 2-0 nylon for the skin and a horizontal mattress fashion and simple fashion dressing was applied lysing Adaptic soaked in Betadine 4x4s and Kerlix patient tolerated procedure and anesthesia well was sent to recovery room vital signs stable. Plan to continued IV antibiotics and discharged within the next 24-48 hours. CHARU CUELLO DPM Apr 23, 2025 08:03
--- NOTE | 2025-04-23 09:38 | NUR ---
Nutrition consult per T2DM Reviewed labs, notes, and medications. Pt's last A1C 01/25 15, NPO status, IV fluid, insulin, Iv abx, Na 133(L), BG 261(H), Mg 1.70(L) per chart review. Wt via standing scale, last BM 04/21/25, well nourished, no edema, left foot ulcer per nursing. No A1C, lipid panel, vit D labs. Pending labs to provide nutrition education.Per research low vitamin D may contribute to insulin resistance + vit. D deficiency may impair wound healing. Pt with non-severe PCM, Supplement thiamin 100 mg/day for 5-7 days + MVI QD for at least 10 days. Recommendations: -Provide 60 gm cho + HH+ prostat jello tid w/ trays when medically feasible -Monitor PO intake -Monitor BM -If no BM >3 days consider stool softener -Monitor electrolytes -Replenish electrolytes per protocol -Monitor wts -Reweigh as able -Order Vit D, vit b-12 labs to rule out deficiencies -Order lipid panel, A1C -Provide b-complex to aid in wound healing -Recommend Pt to follow up with PCP -Monitor goals of care RD to follow + available for consult per protocol Addendum: 04/23/25 at [address] Amended: Links added.
[2025-04-23] MEDS: GABAPENTIN 300 MG CAPSULE PO SCH (10:25)
[2025-04-23 10:36] LABS: LDL DIRECT 36 mg/dL (0-99)
--- NOTE | 2025-04-23 11:10 | HMCIMG ---
EXAMINATION: ULTRASOUND OF THE RETROPERITONEUM. CLINICAL HISTORY: GEORGIE on CKD. COMPARISON: Prior ultrasound dated 07/25/2023. TECHNIQUE: Real-time grayscale ultrasound images of the kidneys. FINDINGS: The kidneys are normal in caliber, the right kidney measures 9.7 x 5.5 x 4.6 cm and the left kidney measures 10.8 x 6.1 x 4.9 cm in its craniocaudal, AP, and transverse dimensions respectively. There is normal renal cortical thickness, and cortical echogenicity. There is no renal calculus or hydronephrosis. The urinary bladder is normal in caliber and wall thickness. There are no calculi in the urinary bladder. IMPRESSION: No significant abnormality. /[place]
--- NOTE | 2025-04-23 12:19 | CONS ---
[facility] CARDIOLOGY CONSULTATION REPORT Cardiology consultation note dictated for Rudi Avila MD Primary sewing supervisor: Melvin Randall MD Date Patient Seen: Apr 23, 2025 Requesting Physician: Francisco Carter MD Reason for Consultation: PAD, Abnormal LLE arterial US History of Present Illness: This is a 64-year-old male with a past medical history of CAD status post CABG done in July of 2023, PAD s/p peripheral intervention, that included balloon angioplasty of the left anterior tibial artery and left dorsalis pedis artery done on 10/03/2023, residual PAD, diffuse 90% stenosis in the distal left posterior tibial artery, osteomyelitis in the 1st and 2nd digits of the left foot status post surgical amputation, s/p peripheral intervention on 02/02/2025 with 60% stenosis in the ostial left anterior tibial artery status post successful treatment with balloon lithotripsy, diffuse 90-95% stenosis in the mi d and distal left anterior tibial artery status post successful treatment with balloon angioplasty, balloon lithotripsy, and drug coated balloon angioplasty, and 90% stenosis in the anterior segment of the left pedal arch status post successful treatment with balloon angioplasty, resulting in widely patent arteries, without dissection, or perforation, and brisk two-vessel runoff esparza pplying the can left foot/pedal arch, residual PAD, 100% stenosis in the left posterior tibial artery that does not reconstitute distally via collateral blood flow, 90% stenosis in the distal left peroneal artery which is less than 1.25 mm in size and not ideal for percutaneous intervention, DM2, HTN, HLP, and medication noncompliance who presented [place] [facility] [place] a direct admit by Dr. Montoya for further evaluation of the patient's nonhealing ulcer affecting the LLE 4th toe. He is now s/p left TMA on 04/23/2025. Left lower extremity arterial Doppler on 04/22/2025 demonstrated focal stenosis of the left anterior tibial artery with monophasic waveform which is new from prior exam, monophasic waveforms in the posterior tibial and dorsalis pedis arteries. Cardiology has been consulted for recommendations. Of note, the patient's and daughter did state the patient will not take his medications at times despite them giving them to him. Past Medical History: As per HPI and summarized below Past Surgical History: CABG done in July of 2023 Osteomyelitis in the 1st and 2nd digits of the left foot status post surgical amputation Family History: Refer to chart Social History: The patient lives with his . Habits: The patient denies alcohol, tobacco, or illicit drug use. Home Meds: Xarelto 2.5 mg b.i.d. Aspirin 81 mg daily Atorvastatin 40 mg nightly Losartan 50 mg b.i.d. Gabapentin 300 mg b.i.d. Glipizide 10 mg b.i.d. Lantus insulin 15 units subQ q.h.s. Doxycycline 100 mg p.o. b.i.d. Current Meds: Medications Dose Ordered Sig/Attila Start Time Stop Time Status Last Admin Acetaminophen 650 mg Q6H PRN 04/22/25 11:30 05/22/25 11:29 Ondansetron HCl 4 mg Q6H PRN 04/22/25 11:30 05/22/25 11:29 Albuterol 1 udvial Q6H PRN 04/22/25 11:30 05/22/25 11:29 Aspirin 81 mg Q24H 04/22/25 11:30 05/22/25 11:29 04/22/25 11:40 Hydralazine HCl 5 mg Q6H PRN 04/22/25 11:30 05/22/25 11:29 04/23/25 01:13 Famotidine 20 mg Q48H 04/22/25 21:00 05/22/25 20:59 04/22/25 20:27 Sodium Chloride 1,000 ml @ 75 mls/hr [id number] 04/22/25 12:30 05/22/25 12:29 04/23/25 01:11 Piperacillin Sod/ Tazobactam Sod 3.375 gm Q8H 04/22/25 12:30 05/02/25 12:29 04/23/25 04:51 Insulin Human Regular 5 unit TIDAC 04/22/25 17:00 05/22/25 16:59 04/23/25 06:04 Dextrose 50 ml AD PRN 04/22/25 13:00 05/22/25 12:59 Glucagon 1 mg AD PRN 04/22/25 13:00 05/22/25 12:59 Amlodipine Besylate 5 mg Q24H 04/22/25 16:00 05/22/25 15:59 04/22/25 16:10 Insulin Human Regular INSULIN SLIDING SCAL... ACHS 04/22/25 21:00 05/22/25 20:59 04/23/25 06:13 Insulin Glargine 18 units DAILY 04/23/25 09:00 05/23/25 08:59 04/23/25 10:29 Atorvastatin Calcium 40 mg HS 04/23/25 21:00 05/23/25 20:59 Gabapentin 300 mg BID 04/23/25 09:00 05/23/25 08:59 04/23/25 10:25 Insulin Human Regular 3 unit TIDAC 04/23/25 07:30 05/23/25 07:29 Review of Systems: CONST: No fever, fatigue, or weight changes. EYES: No recent vision problems. ENT: No congestion, ear pain, or sore throat. C/V: No chest pain, palpitations, or edema. RESP: No cough, congestion, wheezing or shortness of breath. GI: No abdominal pain, nausea, vomiting, constipation, or diarrhea. : No incontinence or dysuria. SKIN: No rash. NEURO: No headache, focal numbness or weakness, dizziness, or seizures. PSYCH: No depression or anxiety. HEME: No abnormal bruising or bleeding. LYMPH: No swollen glands. Physical Examination: GENERAL: No acute distress. HEAD: Normal with no signs of head trauma. EYES: PERRLA, EOMI, conjunctiva and sclera normal. ENT: Hearing grossly intact, normal oropharynx. NECK: Supple without JVD. There is no tenderness, lymphadenopathy, or masses. No thyromegaly. Normal carotid upstrokes without bruits. LUNGS: Clear breath sounds bilaterally. No wheezes, or rhonchi. HEART: Normal rate and rhythm. Normal S1 and S2 without murmurs, gallop or rub. ABD: Bowel sounds normal, soft, nontender, no masses, no organomegaly. No audible bruits. : Not examined LYMPH: No lymphadenopathy noted. EXT: Left TMA NEURO: Awake, alert, and oriented x3. No focal sensory or strength deficits noted. Vital Signs (last 8hr) Date Time Temp Pulse Resp B/P (MAP) Pulse Ox O2 Delivery O2 Flow Rate FiO2 04/23/25 11:39 82 18 N/Cannula Low lpm 2.0 28 04/23/25 11:30 73 19 140/87 100 Nasal Cannula 3.0 28 8/21/25 10:30 64 19 136/73 100 Nasal Cannula 3.0 04/23/25 10:00 71 19 141/84 97 Nasal Cannula 3.0 04/23/25 09:30 65 19 123/71 100 Nasal Cannula 3.0 04/23/25 09:15 62 19 129/72 100 Nasal Cannula 3.0 04/23/25 09:00 0 Room Air* 0 04/23/25 09:00 63 19 135/71 100 Nasal Cannula 3.0 04/23/25 08:45 69 20 124/78 100 Nasal Cannula 3.0 04/23/25 08:30 97.5 80 21 109/69 99 Nasal Cannula 3.0 04/23/25 08:26 75 15 107/61 100 Nasal Cannula 2.0 04/23/25 08:21 74 16 114/64 100 Nasal Cannula 10.0 04/23/25 08:16 71 14 91/67 100 Nasal Cannula 10.0 04/23/25 08:11 71 11 104/58 100 Nasal Cannula 10.0 04/23/25 08:06 74 14 91/51 99 Nonrebreathing Mask 10.0 04/23/25 08:01 75 16 103/65 100 Nonrebreathing Mask 10.0 04/23/25 07:56 97.5 74 12 88/56 100 Nonrebreathing Mask 10.0 04/23/25 06:15 98.8 84 18 151/82 98 Room Air 04/23/25 04:00 98.1 86 18 121/63 98 Room Air Laboratory: Hematology Labs: Test 04/23/25 03:44 04/22/25 11:31 Range/Units White Blood Count 7.1 4.8-10.8 K/uL Red Blood Count 4.14 L 4.50-6.20 MIL/uL Hemoglobin 12.1 L 14.0-18.0 g/dL Hematocrit 33.6 L 42-54 % Mean Corpuscular Volume 81.2 79-99 fL Mean Corpuscular Hemoglobin 29.2 27.0-33.0 pg Mean Corpuscular Hemoglobin Concent 36.0 32.0-36.0 g/dL Red Cell Distribution Width 12.4 11.0-15.5 % Platelet Count 135 130-400 K/uL Mean Platelet Volume 12.0 H 7.5-10.5 fL Immature Granulocyte % (Auto) 0.4 0-1 % Neutrophils (%) (Auto) 55.7 40.0-77.0 % Lymphocytes (%) (Auto) 33.9 21.0-51.0 % Monocytes (%) (Auto) 8.7 3.0-13.0 % Eosinophils (%) (Auto) 1.0 0.0-8.0 % Basophils (%) (Auto) 0.3 0.0-5.0 % Neutrophils # (Auto) 4.0 1.8-7.7 K/uL Lymphocytes # (Auto) 2.4 1.0-4.8 K/uL Monocytes # (Auto) 0.6 0.1-1.0 K/uL Eosinophils # (Auto) 0.07 0.00-0.70 K/uL Basophils # (Auto) 0.02 0.00-0.20 K/uL Absolute Immature Granulocyte (auto 0.03 0-1 K/uL Nucleated Red Blood Cells 0.0 0.0-0.19 % Erythrocyte Sedimentation Rate 55 H 0-20 MM/HR Chemistry Labs: Test 04/23/25 11:30 04/23/25 03:44 04/22/25 14:57 04/22/25 11:31 Range/Units Whole Blood Glucose 128 #H 70-110 MG/DL Sodium Level 133 L 136-145 mmol/L Potassium Level 4.1 3.5-5.1 mmol/L Chloride Level 100 L 101-111 mmol/L Carbon Dioxide Level 25 21-32 mmol/L Blood Urea Nitrogen 24 H 7-18 mg/dL Creatinine 1.5 H 0.5-1.3 mg/dL Glomerular Filtration Rate Calc 52 >90 mL/min Random Glucose 354 H 70-105 mg/dL Total Calcium 8.4 L 8.5-10.1 mg/dL Magnesium Level 1.70 L 1.80-2.40 mg/dL Triglycerides Level 151 30-200 mg/dL Cholesterol Level 78 # <200 mg/dL LDL Cholesterol 36 0-99 mg/dL HDL Cholesterol 27 L 29-71 mg/dL Vitamin B12 Level 373 193-986 pg/mL Bedside Glucose Comment Notified Nurse Whole Blood Ketones Quantitative 0.6 0.0-0.6 mmol/L Lactic Acid Level 2.0 0.8-2.5 mmol/L Total Bilirubin 0.7 0.2-1.0 mg/dL Aspartate Amino Transf (AST/SGOT) 33 10-37 U/L Alanine Aminotransferase (ALT/SGPT) 51 12-78 U/L Alkaline Phosphatase 190 H 50-136 U/L C-Reactive Protein, Quantitative 43.70 H 0.5-3.0 mg/L B-Type Natriuretic Peptide 95 0-100 pg/mL Total Protein 7.3 6.0-8.3 g/dL Albumin 3.2 L 3.5-5.0 g/dL Procalcitonin 0.07 0.05-0.5 ng/mL Thyroid Stimulating Hormone (TSH) 1.35 # 0.36-3.74 uIU/mL Diagnostics / Radiology: 2D Echocardiogram on 04/22/2025 Conclusion LVEF is 55-60%. The left ventricular diastolic function is normal. Right ventricular systolic function is mildly reduced. DICTATED BY: CLEVE MANCILLA DO DATE: 04/22/25 1314 Impression and Plan: PAD, Tosin category five symptoms of the LLE, left 4th toe ulceration S/p Left TMA on 04/23/2025 S/p peripheral intervention on 02/02/2025 with 60% stenosis in the ostial left anterior tibial artery status post successful treatment with balloon l ithotripsy, diffuse 90-95% stenosis in the mid and distal left anterior tibial artery status post successful treatment with balloon angioplasty, balloon lithotripsy, and drug coated balloon angioplasty, and 90% stenosis in the anterior segment of the left pedal arch status post successful treatment with balloon angioplasty, resulting in widely patent arteries, without dissection, or perforation, and brisk two-vessel runoff supplying the can left foot/pedal arch, residual PAD, 100% stenosis in the left posterior tibial artery that does not reconstitute distally via collateral blood flow, 90% stenosis in the distal left peroneal artery which is less than 1.25 mm in size and not ideal for percutaneous intervention, S/p peripheral intervention on 10/03/2023, that included balloon angioplasty of the left anterior tibial artery and left dorsalis pedis artery Residual PAD, diffuse 90% stenosis in the distal left posterior tibial artery via peripheral intervention on 10/03/2023 Osteomyelitis in the 1st and 2nd digits of the left foot status post surgical amputation 10/2023 CAD status post CABG 07/2023 DM2 HTN HLP 2D echocardiogram on 04/22/2025 with an LVEF of 55-60% with normal diastolic function and no valvular pathology Medication noncompliance PAD, Tosin category five symptoms of the LLE, left 4th toe ulceration S/p Left TMA on 04/23/2025 LLE arterial Doppler on 04/22/2025 demonstrated focal stenosis of the left anterior tibial artery with monophasic waveform which is new from prior exam, monophasic waveforms in the posterior tibial and dorsalis pedis arteries -Continue Aspirin and Atorvastatin. Hold PAD dose of Xarelto until cleared by podiatry -Obtain CTA Abd/aorta with BLE runoff, further recommendations pending results [facility] Apr 23, 2025 12:19
--- NOTE | 2025-04-23 14:45 | NUR ---
[facility] Consult: Patient assessed by wound healing team. Patient s/p sx to left foot by Dr. Montoya today. Dressing to left foot D/I. Addendum: 04/23/25 at 1601 by HUNG MARTÍNEZ RN RN/PILO Amended: Links added.
--- NOTE | 2025-04-23 16:38 | CONS ---
CONSULT NOTE: Endocrinology Consult Chief complaint: left 4th toe wound Reason for consult:uncontrolled dm-2 DOS:04/23/25 HISTORY OF PRESENT ILLNESS: 64-year-old male history of type 2 diabetes mellitus, hypertension, hyperlipidemia, coronary artery disease, peripheral arterial disease, history of osteomyelitis of left foot, 1st and 2nd toe osteomyelitis status post amputation, recent history of left foot 4th toe diabetic foot ulcer with osteomyelitis requiring hospitalization in 02/25 who presented as a direct admit from Dr. Montoya [facility] for further evaluation of nonhealing diabetic foot ulcer involving the 4th toe along with purplish discoloration with recent history of osteomyelitis requiring hospitalization 02/25. There is tentative plans for amputation of the toes by Dr. Montoya tomorrow. Patient has had longstanding history of type 2 diabetes mellitus. Reports being diabetic for more than 20 years. He was started on basal Lantus therapy earlier this year. He frequently skips doses of Lantus and did not take Lantus yesterday or today. He has been compliant with antiplatelet therapy as well as Xarelto. He was recently seen by Dr. Peoples on last admission and underwent balloon lithotripsy for 60% stenosis in the left anterior tibial artery, underwent angioplasty with balloon lithotripsy and drug coated angioplasty involving 90-95% stenosis of the mid and distal left anterior tibial artery as well as 90% stenosis in the anterior segment of the left pedal arch. Patient had brisk two-vessel runoff to the left foot. Patient was noted to have residu al POD with 100% stenosis in the left posterior tibial artery and 90% stenosis of the left peroneal artery which was too small for percutaneous interventionally. Patient states that he finished IV antibiotic therapy last month with Zosyn for management of osteomyelitis. Daughter reports that patient gets tired easily with exertional activity and sometimes he notices shortness of breath with sustained exertion. Denies any falls. Denies any chest pain currently. now s/p left 4th toe amputation. Home diabetic regimen: lantus 25 units daily Hba1c >15.5% REVIEW OF SYSTEMS CONSTITUTIONAL: Denies fevers, chills, or night sweats. No unintentional weight loss reported. NEUROLOGICAL: Denies headache, amaurosis fugax, motor weakness, sensory deficit, vertigo/spinning sensation, gait abnormalities, or tremors. ENT: No hearing loss, otalgia, otorrhea, rhinitis, rhinorrhea, hoarseness, or sore throat. CARDIOVASCULAR: Denies any exertional angina, dyspnea on exertion, orthopnea, paroxysmal nocturnal dyspnea, palpitations, life-threatening arrhythmias, claudication. PULMONARY: Denies any shortness of breath, cough, phlegm/sputum, hemoptysis, pleuritic chest pain. SLEEP: Denies morning headaches, daytime somnolence or napping. Denies difficulty falling asleep, staying asleep, waking from sleep. Denies knowledge of snoring. GASTROINTESTINAL: Denies any type of dysphagia to either liquids or solids. Denies nausea, vomiting, pyrosis, early satiety, abdominal pain, diarrhea, constipation, or changes in stool consistency or caliber. Denies coffee-ground emesis, hematemesis, hematochezia, or melanotic stools. GENITOURINARY: Denies frequency, urgency, nocturia, hematuria or incontinence (Storage/Irritative symptoms.) Low urinary stream, straining to void, urinary intermittency or hesitancy, splitting of the voiding stream, terminal dribbling. ENDOCRINOLOGIC: Denies polyuria, polydipsia, polyphagia or heat/cold intolerances. HEMATOLOGIC: Denies thrombophilia/previous clots, or coagulopathy/bleeding disorders. ONCOLOGIC: Denies personal history of malignancy. DERMATOLOGIC: Denies rashes or pruritus. PSYCHIATRIC: Denies any suicidal or homicidal ideation. Denies hallucinations. PAST MEDICAL HISTORY: [ PAD, diabetes mellitus, poorly controlled with a1c close to 15 in 01/25, hypertension, hyperlipidemia, coronary artery disease with CABG x3 Vessel and femoral stent ] PAST SURGICAL HISTORY: [CABG x3, femoral stent and amputation of the left 1st great toe and 2nd toe, recent hx of peripheral arteriogram of E by Dr. Peoples ] PAST SOCIAL HISTORY: [ Patient lives with . Patient denies alcohol tobacco and recreational drug use ] FAMILY HISTORY: [ Cancer, hypertension, stroke and diabetes ] Allergies: No known drug allergies Home medications: Family will be bringing list of home medications to be reconciled and updated Coded Allergies: No Known Allergies (Unverified Allergy, Unknown, 05/06/20) No Known Drug Allergies (Unverified Allergy, Unknown, 05/06/18) PHYSICAL EXAM GENERAL APPEARANCE: The patient is awake, alert, and oriented, in no acute cardiopulmonary distress. NEUROLOGICAL: Cranial nerves II-XII grossly intact. Motor is 5/5 in bilateral upper and lower extremities proximal to distal. No sensory deficits. HEENT: Face is symmetric. Pupils are equal and reactive. Extraocular movements are intact. NECK: Supple. No JVD. No thyromegaly. No submental, submandibular, pre-/po stauricular, occipital or supraclavicular lymphadenopathy. CHEST: Normal chest expansion. No Telemetry. LUNGS: Absence of any rales, rhonchi or any wheezing. CARDIOVASCULAR: Regular. S1 and S2 normal. No appreciable rubs, murmurs or gallops. ABDOMEN: Soft, nontender, and nondistended. There is no rebound, voluntary guarding, or rigidity. : Deferred. No Marroquin. EXTREMITIES: patient has purplish discoloration of the 4th toe of the left foot with ulcer noted on the lateral aspect with redness, and swelling, patient has 1+ pitting edema of the left lower extremity Vital Sign (Last 24 Hours) LABS: LABS INCLUDE A CBC, CMP, BLOOD SUGARS, LACTIC ACID ARE CURRENTLY PENDING Current Medications DIAGNOSTICS / RADIOLOGY: CHEST X-RAY, X-RAY OF THE FOOT IS CURRENTLY PENDING ASSESSMENT: Severe hyperglycemia with blood glucose greater than 600, POA improving now Home diabetic regimen: lantus 25 units daily Hba1c >15.5% Nonhealing infected diabetic foot ulcer involving the 4th toe of the left foot with chronic osteomyelitis and underlying cellulitis, POA Purplish discoloration of the 4th toe of the left foot, POA s/p left 4th toe amputation GEORGIE on CKD, POA Recent history of osteomyelitis of the 4th toe of the left foot status for IV antibiotic therapy in 02/2025, POA Recent history of peripheral angiogram by Dr. Peoples on 02/2025 with angioplasty of the Left anterior tibial artery, and anterior segment of the left pedal arch, POA Prior history of osteomyelitis of the 1st and 2nd toe of the left foot with prior amputation, POA History of significant peripheral arterial disease of the lower extremity, POA History of poorly controlled type 2 diabetes mellitus with noncompliance with insulin therapy as outpatient, (Last a1c of 15.1, in 01/25), POA Hypertension, POA Hyperlipidemia, POA History of CVA, POA CKD Stage III, POA PLAN: start Lantus 20 units daily and adjust for fasting glucose. start Regular insulin 7 units tid before meals and adjust for post-prandial glucose. Continue medium dose sliding scale insulin. Monitor glucose q x 6 hourly. Continue carb consistent diet. Keep glucose less than 180 mg/dl. Patient will need lantus 25 units daily and humalog 7 units tid before meals. Thanks for allowing me to participate in patient care and will continue to follow up. Vital Signs 04/23/25 04/23/25 08:30 14:30 Temp 97.5 Pulse 72 Resp 19 B/P (MAP) 129/81 Pulse Ox 100 O2 Delivery Nasal Cannula O2 Flow Rate 3.0 FiO2 21 Hematology Labs: Test 04/23/25 03:44 04/22/25 11:31 Range/Units White Blood Count 7.1 4.8-10.8 K/uL Red Blood Count 4.14 L 4.50-6.20 MIL/uL Hemoglobin 12.1 L 14.0-18.0 g/dL Hematocrit 33.6 L 42-54 % Mean Corpuscular Volume 81.2 79-99 fL Mean Corpuscular Hemoglobin 29.2 27.0-33.0 pg Mean Corpuscular Hemoglobin Concent 36.0 32.0-36.0 g/dL Red Cell Distribution Width 12.4 11.0-15.5 % Platelet Count 135 130-400 K/uL Mean Platelet Volume 12.0 H 7.5-10.5 fL Immature Granulocyte % (Auto) 0.4 0-1 % Neutrophils (%) (Auto) 55.7 40.0-77.0 % Lymphocytes (%) (Auto) 33.9 21.0-51.0 % Monocytes (%) (Auto) 8.7 3.0-13.0 % Eosinophils (%) (Auto) 1.0 0.0-8.0 % Basophils (%) (Auto) 0.3 0.0-5.0 % Neutrophils # (Auto) 4.0 1.8-7.7 K/uL Lymphocytes # (Auto) 2.4 1.0-4.8 K/uL Monocytes # (Auto) 0.6 0.1-1.0 K/uL Eosinophils # (Auto) 0.07 0.00-0.70 K/uL Basophils # (Auto) 0.02 0.00-0.20 K/uL Absolute Immature Granulocyte (auto 0.03 0-1 K/uL Nucleated Red Blood Cells 0.0 0.0-0.19 % Erythrocyte Sedimentation Rate 55 H 0-20 MM/HR Chemistry Labs: Test 04/23/25 16:21 04/23/25 03:44 04/22/25 14:57 04/22/25 11:31 Range/Units Whole Blood Glucose 382 #H 70-110 MG/DL Sodium Level 133 L 136-145 mmol/L Potassium Level 4.1 3.5-5.1 mmol/L Chloride Level 100 L 101-111 mmol/L Carbon Dioxide Level 25 21-32 mmol/L Blood Urea Nitrogen 24 H 7-18 mg/dL Creatinine 1.5 H 0.5-1.3 mg/dL Glomerular Filtration Rate Calc 52 >90 mL/min Random Glucose 354 H 70-105 mg/dL Total Calcium 8.4 L 8.5-10.1 mg/dL Magnesium Level 1.70 L 1.80-2.40 mg/dL Triglycerides Level 151 30-200 mg/dL Cholesterol Level 78 # <200 mg/dL LDL Cholesterol 36 0-99 mg/dL HDL Cholesterol 27 L 29-71 mg/dL Vitamin B12 Level 373 193-986 pg/mL Bedside Glucose Comment Notified Nurse Whole Blood Ketones Quantitative 0.6 0.0-0.6 mmol/L Lactic Acid Level 2.0 0.8-2.5 mmol/L Total Bilirubin 0.7 0.2-1.0 mg/dL Aspartate Amino Transf (AST/SGOT) 33 10-37 U/L Alanine Aminotransferase (ALT/SGPT) 51 12-78 U/L Alkaline Phosphatase 190 H 50-136 U/L C-Reactive Protein, Quantitative 43.70 H 0.5-3.0 mg/L B-Type Natriuretic Peptide 95 0-100 pg/mL Total Protein 7.3 6.0-8.3 g/dL Albumin 3.2 L 3.5-5.0 g/dL Procalcitonin 0.07 0.05-0.5 ng/mL Thyroid Stimulating Hormone (TSH) 1.35 # 0.36-3.74 uIU/mL Current Medications Medications (Trade) Dose Ordered Sig/Attila Route Start Time Stop Time Status Last Admin Dose Admin Amlodipine Besylate (NorvASC 5MG TAB) 5 mg Q24H PO 04/22/25 16:00 05/22/25 15:59 04/22/25 16:10 5 MG Aspirin (Aspirin 81mg Chew Tab) 81 mg Q24H PO 04/22/25 11:30 05/22/25 11:29 04/23/25 12:49 81 MG Atorvastatin Calcium (LIPItor 40MG) 40 mg HS PO 04/23/25 21:00 05/23/25 20:59 Famotidine (Pepcid 20mg Tab) 20 mg Q48H PO 04/22/25 21:00 05/22/25 20:59 04/22/25 20:27 20 MG Gabapentin (NEURontin 300 MG CAP) 300 mg BID PO 04/23/25 09:00 05/23/25 08:59 04/23/25 10:25 300 MG Insulin Glargine (LANtus 100 UNITS/ML 10 ML VIAL) 18 units DAILY SQ 04/23/25 09:00 05/23/25 08:59 04/23/25 10:29 18 UNITS Insulin Glargine (LANtus 100 UNITS/ML 10 ML VIAL) 22 units DAILY SQ 04/23/25 09:00 04/22/25 21:04 DC Insulin Human Regular (humuLIN R 100 UNIT/ML 3ML) 3 unit TIDAC SQ 04/23/25 07:30 04/23/25 16:21 DC Insulin Human Regular (humuLIN R 100 UNIT/ML 3ML) 5 unit ONCE SQ 04/22/25 15:30 04/22/25 21:30 DC 04/22/25 15:24 5 UNIT Insulin Human Regular (humuLIN R 100 UNIT/ML 3ML) 5 unit TIDAC SQ 04/22/25 17:00 05/22/25 16:59 04/23/25 16:34 5 UNIT Insulin Human Regular (humuLIN R 100 UNIT/ML 3ML) INSULIN SLIDING SCAL... ACHS SQ 04/22/25 11:30 04/22/25 12:30 DC 04/22/25 12:15 8 UNIT Insulin Human Regular (humuLIN R 100 UNIT/ML 3ML) INSULIN SLIDING SCAL... ACHS SQ 04/22/25 16:30 04/22/25 20:52 DC 04/22/25 17:12 3 UNIT Insulin Human Regular (humuLIN R 100 UNIT/ML 3ML) INSULIN SLIDING SCAL... ACHS SQ 04/22/25 21:00 05/22/25 20:59 04/23/25 16:35 8 UNIT Piperacillin Sod/ Tazobactam Sod (Zosyn 3.375gm+NS 50ml) 3.375 gm Q8H IVPB 04/22/25 12:30 05/02/25 12:29 04/23/25 12:49 3.375 GM Sodium Chloride 1,000 ml @ 75 mls/hr [id number] IV 04/22/25 12:30 05/22/25 12:29 04/23/25 16:23 75 MLS/HR Sodium Chloride (NS 50ml) 50 ml AD IV 04/22/25 12:30 04/22/25 12:35 CLOVIS CHAND MD Apr 23, 2025 16:38
[2025-04-23] MEDS ORDERED: IOHEXOL-350 50ML VIAL IV ONE (16:40)
[2025-04-23] MEDS ORDERED: IOHEXOL 350 MG/ML 100ML INFUS..BTL IV ONE (16:40)
--- NOTE | 2025-04-23 16:43 | PN ---
[facility] PROGRESS NOTE Date of Service: Apr 23, 2025 Time of Service: 16:11 SUBJECTIVE: Patient presented as a direct admit from Dr. Montoya's w/ Podiatry, 64-year-old male history of type 2 diabetes mellitus, hypertension, hyperlipidemia, coronary artery disease, peripheral arterial disease, history of osteomyelitis of left foot, 1st and 2nd toe osteomyelitis status post amputation, recent history of left foot 4th toe diabetic foot ulcer with osteomyelitis requiring hospitalization in 02/25 who presented as a direct admit from Dr. Montoya [facility] for further evaluation of nonhealing diabetic foot ulcer involving the 4th toe along with purplish discoloration with recent history of osteomyelitis requiring hospitalization 02/25. There is tentative plans for amputation of the toes by Dr. Montoya tomorrow. Patient has had longstanding history of type 2 diabetes mellitus. Reports being diabetic for more than 20 years. He was started on basal Lantus therapy earlier this year. He frequently skips doses of Lantus and did not take Lantus yesterday or today. He has been compliant with antiplatelet therapy as well as Xarelto. He was recently seen by Dr. Peoples on last admission and underwent balloon lithotripsy for 60% stenosis in the left anterior tibial artery, underwent angioplasty with balloon lithotripsy and drug coated angioplasty involving 90-95% stenosis of the mid and distal left anterior tibial artery as well as 90% stenosis in the anterior segment of the left pedal arch. Patient had brisk two-vessel runoff to the left foot. Patient was noted to have residual POD with 100% stenosis in the left posterior tibial artery and 90% stenosis of the left peroneal artery which was too small for percutaneous interventionally. Patient states that he finished IV antibiotic therapy last month with Zosyn for management of osteomyelitis. Daughter reports that patient gets tired easily with exertional activity and sometimes he notices shortness of breath with sustained exertion. Denies any falls. Denies any chest pain currently. Patient will be admitted under hospitalist service, plan by Dr. Montoya for amputation of the toes of the left foot. We will also assess vascular status with arterial ultrasound. patient has also noticed more swelling of the left lower extremity, venous ultrasound will be obtained as well. 04.23.2025: Patient was seen and evaluated in room 414. He reports no pain at this time. He underwent left transmetatarsal amputation earlier today and expressed concern about whether he would be able to maintain proper balance and walk postoperatively. A physical therapy evaluation has been ordered for mobility ass essment. The patient is unsure of the name of his rehab director. He reports his blood glucose levels at home typically range between 350- 370 mg/dl, which he considers his "normal".He admits to eating lot of junk food and has difficulty controlling his diet. Endocrinology consult has been placed for further management of diabetes. We explained the care plan to the patient in detail. REVIEW OF SYSTEMS CONSTITUTIONAL: Denies fevers, chills, or night sweats. No unintentional weight loss reported. NEUROLOGICAL: Denies headache, amaurosis fugax, motor weakness, sensory deficit, vertigo/spinning sensation, gait abnormalities, or tremors. ENT: No hearing loss, otalgia, otorrhea, rhinitis, rhinorrhea, hoarseness, or sore throat. CARDIOVASCULAR: Complains of exertional angina, dyspnea on exertion, orthopnea, paroxysmal nocturnal dyspnea, palpitations, life-threatening ar rhythmias, claudication. PULMONARY: Denies any shortness of breath, cough, phlegm/sputum, hemoptysis, pleuritic chest pain. SLEEP: Denies morning headaches, daytime somnolence or napping. Denies difficu lty falling asleep, staying asleep, waking from sleep. Denies knowledge of snoring. GASTROINTESTINAL: Denies any type of dysphagia to either liquids or solids. Denies nausea, vomiting, pyrosis, early satiety, abdominal pain, diarrhea, constipation, or changes in stool consistency or caliber. Denies coffee-ground emesis, hematemesis, hematochezia, or melanotic stools. GENITOURINARY: Denies frequency, urgency, nocturia, hematuria or incontinence (Storage/Irritative symptoms.) Low urinary stream, straining to void, urinary intermittency or hesitancy, splitting of the voiding stream, terminal dribbling. ENDOCRINOLOGIC: Denies polyuria, polydipsia, polyphagia or heat/cold intol erances. HEMATOLOGIC: Denies thrombophilia/previous clots, or coagulopathy/bleeding disorders. ONCOLOGIC: Denies personal history of malignancy. DERMATOLOGIC: Denies rashes or pruritus. PSYCHIATRIC: Denies any suicidal or homicidal ideation. Denies hallucinations. PHYSICAL EXAM GENERAL APPEARANCE: The patient is awake, alert, and oriented, in no acute cardiopulmonary distress. NEUROLOGICAL: Motor is 5/5 in bilateral upper and lower extremities proximal to distal. No sensory deficits. HEENT: Face is symmetric. Pupils are equal and reactive. Extraocular movements are intact. NECK: Supple. No JVD. No thyromegaly. No submental, submandibular, pre- /postauricular, occipital or supraclavicular lymphadenopathy. CHEST: Normal chest expansion. No Telemetry. LUNGS: Absence of any rales, rhonchi or any wheezing. CARDIOVASCULAR: Regular. S1 and S2 normal. No appreciable rubs, murmurs or gallops. ABDOMEN: Soft, nontender, and nondistended. There is no rebound, voluntary guarding, or rigidity. : Deferred. No [place]. EXTREMITIES: S/P TMA Vital Signs (last 8hr) Date Time Temp Pulse Resp B/P (MAP) Pulse Ox O2 Delivery O2 Flow Rate FiO2 04/23/25 14:30 72 19 129/81 100 Nasal Cannula 3.0 04/23/25 13:13 74 20 120/68 100 Nasal Cannula 3.0 04/23/25 12:30 69 19 121/71 100 Nasal Cannula 3.0 04/23/25 11:39 82 18 N/Cannula Low lpm 2.0 04/23/25 11:30 73 19 140/87 100 Nasal Cannula 3.0 04/23/25 10:30 64 19 136/73 100 Nasal Cannula 3.0 04/23/25 10:00 71 19 141/84 97 Nasal Cannula 3.0 04/23/25 09:30 65 19 123/71 100 Nasal Cannula 3.0 04/23/25 09:15 62 19 129/72 100 Nasal Cannula 3.0 04/23/25 09:00 0 Room Air* 0 04/23/25 09:00 63 19 135/71 100 Nasal Cannula 3.0 04/23/25 08:45 69 20 124/78 100 Nasal Cannula 3.0 04/23/25 08:30 97.5 80 21 109/69 99 Nasal Cannula 3.0 04/23/25 08:26 75 15 107/61 100 Nasal Cannula 2.0 04/23/25 08:21 74 16 114/64 100 Nasal Cannula 10.0 04/23/25 08:16 71 14 91/67 100 Nasal Cannula 10.0 LABS: Laboratory: Test 04/23/25 11:30 04/23/25 03:44 04/22/25 14:57 04/22/25 12:55 Range/Units Whole Blood Glucose 128 #H 70-110 MG/DL White Blood Count 7.1 4.8-10.8 K/uL Red Blood Count 4.14 L 4.50-6.20 MIL/uL Hemoglobin 12.1 L 14.0-18.0 g/dL Hematocrit 33.6 L 42-54 % Mean Corpuscular Volume 81.2 79-99 fL Mean Corpuscular Hemoglobin 29.2 27.0-33.0 pg Mean Corpuscular Hemoglobin Concent 36.0 32.0-36.0 g/dL Red Cell Distribution Width 12.4 11.0-15.5 % Platelet Count 135 130-400 K/uL Mean Platelet Volume 12.0 H 7.5-10.5 fL Immature Granulocyte % (Auto) 0.4 0-1 % Neutrophils (%) (Auto) 55.7 40.0-77.0 % Lymphocytes (%) (Auto) 33.9 21.0-51.0 % Monocytes (%) (Auto) 8.7 3.0-13.0 % Eosinophils (%) (Auto) 1.0 0.0-8.0 % Basophils (%) (Auto) 0.3 0.0-5.0 % Neutrophils # (Auto) 4.0 1.8-7.7 K/uL Lymphocytes # (Auto) 2.4 1.0-4.8 K/uL Monocytes # (Auto) 0.6 0.1-1.0 K/uL Eosinophils # (Auto) 0.07 0.00-0.70 K/uL Basophils # (Auto) 0.02 0.00-0.20 K/uL Absolute Immature Granulocyte (auto 0.03 0-1 K/uL Nucleated Red Blood Cells 0.0 0.0-0.19 % Sodium Level 133 L 136-145 mmol/L Potassium Level 4.1 3.5-5.1 mmol/L Chloride Level 100 L 101-111 mmol/L Carbon Dioxide Level 25 21-32 mmol/L Blood Urea Nitrogen 24 H 7-18 mg/dL Creatinine 1.5 H 0.5-1.3 mg/dL Glomerular Filtration Rate Calc 52 >90 mL/min Random Glucose 354 H 70-105 mg/dL Total Calcium 8.4 L 8.5-10.1 mg/dL Magnesium Level 1.70 L 1.80-2.40 mg/dL Triglycerides Level 151 30-200 mg/dL Cholesterol Level 78 # <200 mg/dL LDL Cholesterol 36 0-99 mg/dL HDL Cholesterol 27 L 29-71 mg/dL Vitamin B12 Level 373 193-986 pg/mL Bedside Glucose Comment Notified Nurse Urine Color LIGHT-YELLOW YELLOW Urine Appearance CLEAR CLEAR Urine pH 5.0 5.0-8.0 Urine Specific [place] 1.027 1.001-1.031 Urine Protein NEGATIVE NEGATIVE mg/dL Urine Glucose (UA) >=1000 H NEGATIVE mg/dL Urine Ketones NEGATIVE NEGATIVE mg/dL Urine Occult Blood NEGATIVE NEGATIVE Urine Nitrate NEGATIVE NEGATIVE Urine Bilirubin NEGATIVE NEGATIVE mg/dL Urine Urobilinogen 0.2 0.2-1.0 mg/dL Urine Leukocyte Esterase NEGATIVE NEGATIVE Becca/uL Urine RBC 0-1 0-1 /HPF Urine WBC None 0-1 /HPF Urine Squamous Epithelial Cells RARE 0-2 /HPF Urine Bacteria RARE None Seen /HPF Urine Random Creatinine 52.43 30-135 mg/dL Urine Random Total Protein < 6.0 0-11.9 mg/dL Test 04/22/25 11:31 Range/Units Erythrocyte Sedimentation Rate 55 H 0-20 MM/HR Whole Blood Ketones Quantitative 0.6 0.0-0.6 mmol/L Lactic Acid Level 2.0 0.8-2.5 mmol/L Total Bilirubin 0.7 0.2-1.0 mg/dL Aspartate Amino Transf (AST/SGOT) 33 10-37 U/L Alanine Aminotransferase (ALT/SGPT) 51 12-78 U/L Alkaline Phosphatase 190 H 50-136 U/L C-Reactive Protein, Quantitative 43.70 H 0.5-3.0 mg/L B-Type Natriuretic Peptide 95 0-100 pg/mL Total Protein 7.3 6.0-8.3 g/dL Albumin 3.2 L 3.5-5.0 g/dL Procalcitonin 0.07 0.05-0.5 ng/mL Thyroid Stimulating Hormone (TSH) 1.35 # 0.36-3.74 uIU/mL Current Medications Medications (Trade) Dose Ordered Sig/Attila Route PRN Reason Start Time Stop Time Status Last Admin Dose Admin Acetaminophen (TYLenol 325MG TAB) 650 mg Q6H PRN PO MILD PAIN (1-3) 04/22/25 11:30 05/22/25 11:29 Albuterol (DUOneb) 1 udvial Q6H PRN IH SHORTNESS OF BREATH 04/22/25 11:30 05/22/25 11:29 Amlodipine Besylate (NorvASC 5MG TAB) 5 mg Q24H PO 04/22/25 16:00 05/22/25 15:59 04/22/25 16:10 5 MG Aspirin (Aspirin 81mg Chew Tab) 81 mg Q24H PO 04/22/25 11:30 05/22/25 11:29 04/23/25 12:49 81 MG Atorvastatin Calcium (LIPItor 40MG) 40 mg HS PO 04/23/25 21:00 05/23/25 20:59 Dextrose (D50w) 50 ml AD PRN IV HYPOGLYCEMIA PROTOCOL 04/22/25 13:00 05/22/25 12:59 Famotidine (Pepcid 20mg Tab) 20 mg Q48H PO 04/22/25 21:00 05/22/25 20:59 04/22/25 20:27 20 MG Gabapentin (NEURontin 300 MG CAP) 300 mg BID PO 04/23/25 09:00 05/23/25 08:59 04/23/25 10:25 300 MG Glucagon (Glucagon 1mg Kit) 1 mg AD PRN IM HYPOGLYCEMIA PROTOCOL 04/22/25 13:00 05/22/25 12:59 Hydralazine HCl (APRESOLine 20MG INJ) 5 mg Q6H PRN IV ADMINISTER FOR SBP > 160 04/22/25 11:30 05/22/25 11:29 04/23/25 01:13 5 MG Insulin Glargine (LANtus 100 UNITS/ML 10 ML VIAL) 18 units DAILY SQ 04/23/25 09:00 05/23/25 08:59 04/23/25 10:29 18 UNITS Insulin Glargine (LANtus 100 UNITS/ML 10 ML VIAL) 22 units DAILY SQ 04/23/25 09:00 04/22/25 21:04 DC Insulin Human Regular (humuLIN R 100 UNIT/ML 3ML) 3 unit TIDAC SQ 04/23/25 07:30 05/23/25 07:29 Insulin Human Regular (humuLIN R 100 UNIT/ML 3ML) 5 unit ONCE SQ 04/22/25 15:30 04/22/25 21:30 DC 04/22/25 15:24 5 UNIT Insulin Human Regular (humuLIN R 100 UNIT/ML 3ML) 5 unit TIDAC SQ 04/22/25 17:00 05/22/25 16:59 04/23/25 06:04 5 UNIT Insulin Human Regular (humuLIN R 100 UNIT/ML 3ML) INSULIN SLIDING SCAL... ACHS SQ 04/22/25 11:30 04/22/25 12:30 DC 04/22/25 12:15 8 UNIT Insulin Human Regular (humuLIN R 100 UNIT/ML 3ML) INSULIN SLIDING SCAL... ACHS SQ 04/22/25 16:30 04/22/25 20:52 DC 04/22/25 17:12 3 UNIT Insulin Human Regular (humuLIN R 100 UNIT/ML 3ML) INSULIN SLIDING SCAL... ACHS SQ 04/22/25 21:00 05/22/25 20:59 04/23/25 06:13 7 UNIT Ondansetron HCl (zoFRAN 4MG INJ) 4 mg Q6H PRN IVP NAUSEA/VOMITING 04/22/25 11:30 05/22/25 11:29 Piperacillin Sod/ Tazobactam Sod (Zosyn 3.375gm+NS 50ml) 3.375 gm Q8H IVPB 04/22/25 12:30 05/02/25 12:29 04/23/25 12:49 3.375 GM Sodium Chloride 1,000 ml @ 75 mls/hr [id number] IV 04/22/25 12:30 05/22/25 12:29 04/23/25 01:11 75 MLS/HR Sodium Chloride (NS 50ml) 50 ml AD IV 04/22/25 12:30 04/22/25 12:35 DC DIAGNOSTICS / RADIOLOGY: [place] [address] [address] IMAGING REPORT Signed PATIENT: MARYCARMEN GUDINO MR#: [id number] : 1960 SEX: M AGE: 64 LOCATION: [facility]IP ORDER STATUS: ADM IN REPORT#: [id number] SERVICE 1114 REASON: assess for flow limiting stenosis ORDERING PHYSICIAN: CHACHO SMITH MD PROCEDURE: ART U LE - US ARTERIAL UNILA LOW EXT DUPL EXAM: US Duplex Left Lower Extremity Arteries. CLINICAL HISTORY: assess for flow limiting stenosis TECHNIQUE: Real-time ultrasound scan of the arteries of the Left lower extremity with 2-D prescott scale, color Doppler flow and spectral waveform analysis. COMPARISON: Study dated 01/31/25 FINDINGS: COMMON FEMORAL ARTERY: Peak systolic velocity of 174 cm/sec with triphasic waveform. No occlusion or significant stenosis. Normal SUPERFICIAL FEMORAL ARTERY: Peak systolic velocity of 191 cm/sec with triphasic waveform. No occlusion or significant stenosis. Normal POPLITEAL ARTERY: Peak systolic velocity of 106 cm/sec with triphasic waveform. No occlusion or significant stenosis. Normal CALF ARTERIES: Posterior tibial artery shows a peak systolic velocity of 72 cm/sec with a monophasic waveform. The anterior tibial artery shows focal stenosis and a peak systolic velocity of 744 cm/sec with a monophasic waveform. The dorsalis pedis artery shows a peak systolic velocity of 28 cm/sec with monophasic waveform. IMPRESSION: 1. Focal stenosis of the left anterior tibial artery with elevated peak systolic velocity of 744 cm/sec and monophasic waveform. This is new from the prior examination. Recommend CT angiography for further evaluation. 2. Monophasic waveforms in the posterior tibial and dorsalis pedis arteries. /[place] DICTATED BY: SHARRI MUÑOZ Jr., MD DATE: 04/22/251601 ELECTRONICALLY SIGNED BY: SHARRI MUÑOZ Jr., MD DATE: 04/22/251601 [address] [address] IMAGING REPORT Signed PATIENT: MARYCARMEN GUDINO MR#: [id number] : 1960 SEX: M AGE: 64 LOCATION: ED[facility]IP ORDER 17 STATUS: ADM IN [facility] - [facility] REPORT#: [id number] SERVICE 13 REASON: lower extremity edema, r/o any DVT ORDERING PHYSICIAN: CHACHO SMITH MD PROCEDURE: VENOUS EVARISTO - US VENOUS DOPPLER BILATERAL EXAM: US for Deep Venous Thrombosis, bilateral Lower Extremity. CLINICAL HISTORY: Leg Pain and Swelling TECHNIQUE: Real-time ultrasound scan of the veins of the bilateral lower extremity with color Doppler flow, spectral waveform analysis and compression. COMPARISON: None provided. FINDINGS: DEEP VEINS: The common femoral, superficial femoral, and popliteal veins are echolucent and compressible. There is normal color Doppler flow throughout. The visualized calf veins appear patent. SOFT TISSUES: No popliteal fossa cyst or other abnormalities. IMPRESSION: 1. No deep venous thrombosis in the bilateral lower extremities. /[place] DICTATED BY: SHARRI MUÑOZ Jr., MD DATE: 04/22/251551 ELECTRONICALLY SIGNED BY: SHARRI MUÑOZ Jr., MD DATE: 04/22/251551 [place] [address] IMAGING REPORT Signed PATIENT: MARYCARMEN GUDINO MR#: [id number] : 1960 SEX: M AGE: 64 LOCATION: [facility] ORDER 24 STATUS: ADM IN REPORT#: [id number] SERVICE 23 REASON: non healing left DFU of 4th toe w/ possible osteo ORDERING PHYSICIAN: CHACHO SMITH MD PROCEDURE: FT 3VW LT - FOOT COMP 3+VWS LT EXAM: CR left foot, 3 View. CLINICAL HISTORY: non healing left DFU of 4th toe w/ possible osteo COMPARISON: None provided. FINDINGS: 2nd and 1st toe amputation from the metatarsophalangeal joints. There is edema within the soft tissues of the stump. Cortical irregularity seen within the distal third metatarsal may reflect osteomyelitis, recommend contrast-enhanced MRI for further evaluation. No displaced fracture appreciated. Remaining joint spaces are anatomically aligned. IMPRESSION: 1. Cortical irregularity of distal third metatarsal concerning for osteomyelitis. 2. Post-surgical changes of 1st and 2nd toe amputations with soft tissue edema. 3. No displaced fracture. /[place] DICTATED BY: SHARRI MUÑOZ Jr., MD DATE: 04/22/25 135 ELECTRONICALLY SIGNED BY: SHARRI MUÑOZ Jr., MD DATE: 04/22/25 135 [place] [address] IMAGING REPORT Signed PATIENT: MARYCARMEN GUDINO MR#: [id number] : 1960 SEX: M AGE: 64 LOCATION: [facility] ORDER 112 STATUS: ADM IN REPORT#: [id number] SERVICE 25 REASON: TURCIOS w/ activities, assess for heart failure, heart clinic to read ORDERING PHYSICIAN: CHACHO SMITH MD PROCEDURE: ECHO CMP - ECHO 2-D COMPLETE APPROVED REPORT EXAM: Two-dimensional and M-mode echocardiogram with Doppler and color Doppler. INDICATION ICD: Dyspnea Heart Failure 2D Dimensions RVDd 3.3 cm LVEF(%) 62.5 (>50%) LVED Vol(simp.) 70.7 mL IVSd 0.8 (0.7-1.1cm) FS(%) 33 % LVES Vol(simp.) 29.6 mL LVDd 3.9 (3.8-5.6cm) LA (2D) 4.4 (1.6-4.0cm) LVEF(%, simp.) 58 % PWd 0.9 (0.7-1.1cm) Ao Root(2D) 2.5 (2.0-3.7cm) LA ESV INDEX (BP) 21.7 6 mL/m2 LVDs 2.6 (2.5-4.0cm) LVOT diam 2.1 (1.8-2.4cm) Deformation Strain Apical 4 -14.0 % Apical 2 -11.2 % Apical 3 -13.8 % Global Strain -13.0 % Aortic Valve AoV Vmax 1.2 m/s Ao Peak GR 5.5 mmHg LVOT Vmax 0.7 m/s AoV VTI 0.2 m Ao Mean GR 2.5 mmHg LVOT VTI 0.15 m MARY JANE (VMAX) 2.17 cm2 MARY JANE (VTI) 2.5 cm2 Mitral Valve MV E Vmax 62.2 cm/s DECEL Time 203 ms MV A Vmax 85.4 cm/s P 1/2 T 59 ms E/A ratio 0.7 MVA (PHT) 3.7 cm2 TDI E/E' Medial 15.4 E/E' Lateral 6.1 Medial E' Peak V 4.05 cm/s Lateral E' Peak V 10.15 cm/s Left Ventricle The left ventricle is normal size. There is normal left ventricular wall thickness. Sigmoid septum is present. LVEF is 55-60%. The left ventricular diastolic function is normal. Right Ventricle The right ventricle is normal size. Right ventricular systolic function is mildly reduced. Atria The left atrium size is normal. The right atrium size is normal. Aortic Valve The aortic valve is normal in structure. No aortic regurgitation is present. There is no aortic valvular stenosis. Mitral Valve The mitral valve is normal in structure. There is no mitral valve regurgitation noted. There is no mitral valve stenosis. Tricuspid Valve The tricuspid valve is normal in structure. There is no tricuspid valve regurgitation noted. Pulmonic Valve The pulmonary valve is not well visualized. There is no pulmonic valvular regurgitation. Great Vessels The aortic root is normal in size. The IVC was not visualized. Pericardium There is no pericardial effusion. Other Information Quality : Average Rhythm : NSR Conclusion LVEF is 55-60%. The left ventricular diastolic function is normal. Right ventricular systolic function is mildly reduced. DICTATED BY: CLEVE MANCILLA DO DATE: 04/22/25 1310 ELECTRONICALLY SIGNED BY: CLEVE MANCILLA DO DATE: 04/22/[address] [id number] IMAGING REPORT Signed PATIENT: MARYCARMEN GUDINO MR#: [id number] : 1960 SEX: M AGE: 64 [facility] STATUS: ADM IN REPORT#: [id number] SERVICE REASON: assess for any Pulmonary edema ORDERING PHYSICIAN: CHACHO SMITH MD PROCEDURE: CXR1VW - CHEST 1VW EXAM: CR Chest, 1 View. CLINICAL HISTORY: assess for any Pulmonary edema COMPARISON: None provided. FINDINGS: LUNGS: The lungs show no infiltrate or other acute finding. PLEURAL SPACES: No pleural effusion or pneumothorax. MEDIASTINUM: Prior sternotomy. Cardiac size and mediastinal contours within normal limits. BONES: No aggressive appearing osseous lesion seen. IMPRESSION: 1. No acute cardiopulmonary findings. /[place] DICTATED BY: SHARRI MUÑOZ Jr., MD DATE: 04/22/251319 ELECTRONICALLY SIGNED BY: SHARRI MUÑOZ Jr., MD DATE: 04/22/251319 [place] [address] IMAGING REPORT Signed PATIENT: MARYCARMEN GUDINO MR#: [id number] : 1960 SEX: M AGE: 64 LOCATION: [facility] ORDER 1237 STATUS: ADM IN REPORT#: [id number] SERVICE 1236 REASON: GEORGIE on CKD ORDERING PHYSICIAN: CHACHO SMITH MD PROCEDURE: RENAL - US RENAL SONOGRAM EXAMINATION: ULTRASOUND OF THE RETROPERITONEUM. CLINICAL HISTORY: GEORGIE on CKD. COMPARISON: Prior ultrasound dated 07/25/2023. TECHNIQUE: Real-time grayscale ultrasound images of the kidneys. FINDINGS: The kidneys are normal in caliber, the right kidney measures 9.7 x 5.5 x 4.6 cm and the left kidney measures 10.8 x 6.1 x 4.9 cm in its craniocaudal, AP, and transverse dimensions respectively. There is normal renal cortical thickness, and cortical echogenicity. There is no renal calculus or hydronephrosis. The urinary bladder is normal in caliber and wall thickness. There are no calculi in the urinary bladder. IMPRESSION: No significant abnormality. /[place] DICTATED BY: SHARRI MUÑOZ Jr., MD DATE: 04/23/251209 ELECTRONICALLY SIGNED BY: SHARRI MUÑOZ Jr., MD DATE: 04/23/25 1210 ASSESSMENT: Nonhealing infected diabetic foot ulcer involving the 4th toe of the left foot with chronic osteomyelitis and underlying cellulitis, POA Purplish discoloration of the 4th toe of the left foot, POA GEORGIE on CKD, POA Severe hyperglycemia with blood glucose greater than 600, POA Chronic conditions: Prior history of osteomyelitis of the 1st and 2nd toe of the left foot with prior amputation, peripheral arterial disease of the lower extremity, poorly controlled type 2 diabetes mellitus with noncompliance with insulin therapy as outpatient, (Last a1c of 15.1, in 01/25), Hypertension, Hyperlipidemia, CVA, CKD Stage III PLAN: Nonhealing infected diabetic foot ulcer involving the 4th toe of the left foot with chronic osteomyelitis and underlying cellulitis, POA Purplish discoloration of the 4th toe of the left foot, POA * S/P left foot Transmetatarsal amputation * Patient will be given pain medications as needed * Arterial duplex of left lower extremity, X-ray of left foot - done on 04.23.2025 * Started on Zosyn ( Day 1) * Recent history of osteomyelitis of the 4th toe of the left foot status for IV antibiotic therapy in 02/2025 GEORGIE on CKD, POA * IV hydration with NS * Creatinine - 1.5, GFR - 52 * Creatinine - 1.9 and GFR- 39 - 04.22.2025 * Renal ultrasound showed no significant abnormality * GFR- 52 * will adjust the medication dosage accordingly * Nephrotoxic medications will be avoided Severe hyperglycemia with blood glucose greater than 600, POA * Order A1c level, blood ketone level * Started patient on sliding scale insulin a.c. and HS * Started on carb consistent diet, adjusted Lantus based on blood glucose trend * Currently on 18 units of lantus and 5 units of regular * Form Grader Operator consulted Peripheral arterial disease, POA * Arterial duplex revealed Focal stenosis of left anterior tibial artery * CT angiography of abdominal aorta - pending report * Recent history of peripheral angiogram by Dr. Peoples on 02/2025 with angioplasty of the Left anterior tibial artery, and anterior segment of the left pedal arch. Chronic conditions: Prior history of osteomyelitis of the 1st and 2nd toe of the left foot with prior amputation, peripheral arterial disease of the lower extremity, poorly controlled type 2 diabetes mellitus with noncompliance with insulin therapy as outpatient, (Last a1c of 15.1, in 01/25), Hypertension, Hyperlipidemia, CVA, CKD Stage III ATTESTATION BY PHYSICIAN I have seen and examined the patient. I reviewed the documentation, medical decision making, and treatment plan as noted by the resident provider above. I agree with the findings and plan of care. Ihsan Mckeon MD, LAKSHMI MD Apr 23, 2025 16:43
[2025-04-24] VITALS (9 sets, daily range): BP systolic 102–145; BP diastolic 52–82; PULSE 71–89; RESP 18–20; TEMP 97.4–98.7; O2SAT 99
[2025-04-24 06:02] LABS: NUCLEATED RED BLOOD CELLS 0.0 % (0.0-0.19); PLATELET COUNT (AUTO) 149.0 K/uL (130-400); RED BLOOD CELL COUNT(AUTO) 4.15 MIL/uL (4.50-6.20); RED CELL DISTRIBUTION WIDTH 12.6 % (11.0-15.5); WHITE BLOOD COUNT (AUTO) 6.8 K/uL (4.8-10.8)
[2025-04-24 06:14] LABS: CREATININE 1.3 mg/dL (0.5-1.3); GLOMERULAR FILTR. RATE CALC 62.0 mL/min (>90); GLUCOSE,RANDOM 136.0 mg/dL (70-105); SODIUM SERUM 141.0 mmol/L (136-145); UREA NITROGEN, BLOOD 15.0 mg/dL (7-18)
[2025-04-24] MEDS: FAMOTIDINE 20MG TAB PO SCH (06:43)
--- NOTE | 2025-04-24 07:45 | PN ---
[facility] Cardiology Progress Note CARDIOLOGY PROGRESS NOTE APRIL 24, 2025 Problems: 1. Left 4th toe ulceration 2. Peripheral arterial disease status post balloon lithotripsy of the left anterior tibial artery and drug coated balloon angioplasty and drug coated balloon angioplasty of the left pedal arch with 100% stenosis of the left posterior tibial artery and 90% stenosis in the distal left peroneal artery not amenable to revascularization February 02 2025 with subsequent left transmetatarsal amputation April 24, 2025 3. CAD status post aortocoronary bypass graft surgery July 2023 with LV ejection fraction of 55-60% by echo April 2025 4. Diabetes mellitus type 2 5. Hypertension 6. Dyslipidemia The patient is day one post up. Blood pressure running 115-120 systolic. Heart rate in the 70s the patient is afebrile. White count 6.8 hemoglobin 12.2 platelet count [id number]. Potassium 4.1 BUN 15 creatinine 1.3 estimated GFR of 62 the patient continues on aspirin amlodipine atorvastatin insulin scale and antibiotics. A CT with aortic runoff has been completed report of which is pend ing. We will review results and make recommendations as to whether or not the patient requires further intervention. If the patient's hemoglobin is stable in the next 24 hours we will consider addition of clopidogrel to the aspirin and atorvastatin. BRENDON STEWART MD Apr 24, 2025 07:45
--- NOTE | 2025-04-24 09:27 | PN ---
[facility] PROGRESS NOTE Date of Service: Apr 24, 2025 Time of Service: 09:17 SUBJECTIVE: Patient presented as a direct admit from Dr. Montoya's w/ Podiatry, 64-year-old male history of type 2 diabetes mellitus, hypertension, hyperlipidemia, coronary artery disease, peripheral arterial disease, history of osteomyelitis of left foot, 1st and 2nd toe osteomyelitis status post amputation, recent history of left foot 4th toe diabetic foot ulcer with osteomyelitis requiring hospitalization in 02/25 who presented as a direct admit from Dr. Montoya Podiatry for further evaluation of nonhealing diabetic foot ulcer involving the 4th toe along with purplish discoloration with recent history of osteomyelitis requiring hospitalization 02/25. There is tentative plans for amputation of the toes by Dr. Montoya tomorrow. Patient has had longstanding history of type 2 diabetes mellitus. Reports being diabetic for more than 20 years. He was started on basal Lantus therapy earlier this year. He frequently skips doses of Lantus and did not take Lantus yesterday or today. He has been compliant with antiplatelet therapy as well as Xarelto. He was recently seen by Dr. Peoples on last admission and underwent balloon lithotripsy for 60% stenosis in the left anterior tibial artery, underwent angioplasty with balloon lithotripsy and drug coated angioplasty involving 90-95% stenosis of the mid and distal left anterior tibial artery as well as 90% stenosis in the anterior segment of the left pedal arch. Patient had brisk two-vessel runoff to the left foot. Patient was noted to have residual POD with 100% stenosis in the left posterior tibial artery and 90% stenosis of the left peroneal artery which was too small for percutaneous interventionally. Patient states that he finished IV antibiotic therapy last month with Zosyn for management of osteomyelitis. Daughter reports that patient gets tired easily with exertional activity and sometimes he notices shortness of breath with sustained exertion. Denies any falls. Denies any chest pain currently. Patient will be admitted under hospitalist service, plan by Dr. Montoya for amputation of the toes of the left foot. We will also assess vascular status with arterial ultrasound. patient has also noticed more swelling of the left lower extremity, venous ultrasound will be obtained as well. 04.23.2025: Patient was seen and evaluated in room 414. He reports no pain at this time. He underwent left transmetatarsal amputation earlier today and expressed concern about whether he would be able to maintain proper balance and walk postoperatively. A physical therapy evaluation has been ordered for mobility ass essment. 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 He reports his blood glucose levels at home typically range between 350- 370 mg/dl, which he considers his "normal".He admits to eating lot of junk food and has difficulty controlling his diet. Endocrinology consult has been placed for further management of diabetes. We explained the care plan to the patient in detail. 04.24.2025: Patient seen and evaluated in room 414 while eating breakfast. He was surprised to see that his random glucose is 136 today, stating that at home it was never this low. Patient was educated on proper insulin dosing to optimize wound healing; he notes that his sometimes forgets to administer his medication. Patient denies pain at the surgical site of his left transmetatarsal amputation but describes a sensation of something missing. He expressed a desire to go home today. Patient's CT angiogram of abdominal aorta report is pending. Discharge is contingent upon clearance from Infectious Disease, Cardiology, General surgery and Endocrine specialists once their assessments for complete. Addendum: The patient was referred to [facility] ([facility]) for continuation of IV antibiotics as per Infectious Disease specialist recommendation. When discussed with the patient, he became emotional and cried, expressing that he could not tolerate a PICC line and prolonged IV antibiotics any longer, stating he is fed up with all of this. He added that he needs some time to think about the plan. REVIEW OF SYSTEMS CONSTITUTIONAL: Denies fevers, chills, or night sweats. No unintentional weight loss reported. NEUROLOGICAL: Denies headache, amaurosis fugax, motor weakness, sensory deficit, vertigo/spinning sensation, gait abnormalities, or tremors. ENT: No hearing loss, otalgia, otorrhea, rhinitis, rhinorrhea, hoarseness, or sore throat. CARDIOVASCULAR: Complains dyspnea on exertion, orthopnea, paroxysmal nocturnal dyspnea, palpitations, life-threatening arrhythmias, claudication. PULMONARY: Denies any shortness of breath, cough, phlegm/sputum, hemoptysis, pleuritic chest pain. SLEEP: Denies morning headaches, daytime somnolence or napping. Denies difficulty falling asleep, staying asleep, waking from sleep. Denies knowledge of snoring. GASTROINTESTINAL: Denies any type of dysphagia to either liquids or solids. Denies nausea, vomiting, pyrosis, early satiety, abdominal pain, diarrhea, constipation, or changes in stool consistency or caliber. Denies coffee-ground emesis, hematemesis, hematochezia, or melanotic stools. GENITOURINARY: Denies frequency, urgency, nocturia, hematuria or incontinence (Storage/Irritative symptoms.) Low urinary stream, straining to void, urinary intermittency or hesitancy, splitting of the voiding stream, terminal dribbling. ENDOCRINOLOGIC: Denies polyuria, polydipsia, polyphagia or heat/cold intolerances. HEMATOLOGIC: Denies thrombophilia/previous clots, or coagulopathy/bleeding disorders. ONCOLOGIC: Denies personal history of malignancy. DERMATOLOGIC: Denies rashes or pruritus. PSYCHIATRIC: Denies any suicidal or homicidal ideation. Denies hallucinations. PHYSICAL EXAM GENERAL APPEARANCE: The patient is awake, alert, and oriented, in no acute cardiopulmonary distress. NEUROLOGICAL: Motor is 5/5 in bilateral upper and lower extremities proximal to distal. No sensory deficits. HEENT: Face is symmetric. Pupils are equal and reactive. Extraocular movements are intact. NECK: Supple. No JVD. No thyromegaly. No submental, submandibular, pre- /postauricular, occipital or supraclavicular lymphadenopathy. CHEST: Normal chest expansion. No Telemetry. LUNGS: Absence of any rales, rhonchi or any wheezing. CARDIOVASCULAR: Regular. S1 and S2 normal. No appreciable rubs, murmurs or gallops. ABDOMEN: Soft, nontender, and nondistended. There is no rebound, voluntary guarding, or rigidity. : Deferred. No Marroquin. EXTREMITIES: S/P TMA Vital Signs (last 8hr) Date Time Temp Pulse Resp B/P (MAP) Pulse Ox O2 Delivery O2 Flow Rate FiO2 04/24/25 08:00 98.4 73 18 115/68 99 Room Air 04/24/25 06:46 71 18 N/Cannula Low lpm 2.0 28 04/24/25 03:40 98.2 72 18 119/52 100 Room Air LABS: Laboratory: Test 04/24/25 08:54 04/24/25 05:40 04/24/25 05:30 8/21/25 09:49 Range/Units Lactic Acid Level 1.3 0.8-2.5 mmol/L White Blood Count 6.8 4.8-10.8 K/uL Red Blood Count 4.15 L 4.50-6.20 MIL/uL Hemoglobin 12.2 L 14.0-18.0 g/dL Hematocrit 34.4 L 42-54 % Mean Corpuscular Volume 82.9 79-99 fL Mean Corpuscular Hemoglobin 29.4 27.0-33.0 pg Mean Corpuscular Hemoglobin Concent 35.5 32.0-36.0 g/dL Red Cell Distribution Width 12.6 11.0-15.5 % Platelet Count 149 130-400 K/uL Mean Platelet Volume 11.7 H 7.5-10.5 fL Nucleated Red Blood Cells 0.0 0.0-0.19 % Sodium Level 141 136-145 mmol/L Potassium Level 4.1 3.5-5.1 mmol/L Chloride Level 107 101-111 mmol/L Carbon Dioxide Level 26 21-32 mmol/L Blood Urea Nitrogen 15 7-18 mg/dL Creatinine 1.3 0.5-1.3 mg/dL Glomerular Filtration Rate Calc 62 >90 mL/min Random Glucose 136 H 70-105 mg/dL Total Calcium 8.4 L 8.5-10.1 mg/dL C-Reactive Protein, Quantitative 25.50 H 0.5-3.0 mg/L Whole Blood Glucose 134 H 70-110 MG/DL Serum Osmolality 291 278-305 mOsm/kg Vitamin D 25-Hydroxy 34.5 30.0-100.0 ng/mL Test 04/23/25 03:44 04/22/25 14:57 04/22/25 12:55 04/22/25 11:31 Range/Units Immature Granulocyte % (Auto) 0.4 0-1 % Neutrophils (%) (Auto) 55.7 40.0-77.0 % Lymphocytes (%) (Auto) 33.9 21.0-51.0 % Monocytes (%) (Auto) 8.7 3.0-13.0 % Eosinophils (%) (Auto) 1.0 0.0-8.0 % Basophils (%) (Auto) 0.3 0.0-5.0 % Neutrophils # (Auto) 4.0 1.8-7.7 K/uL Lymphocytes # (Auto) 2.4 1.0-4.8 K/uL Monocytes # (Auto) 0.6 0.1-1.0 K/uL Eosinophils # (Auto) 0.07 0.00-0.70 K/uL Basophils # (Auto) 0.02 0.00-0.20 K/uL Absolute Immature Granulocyte (auto 0.03 0-1 K/uL Magnesium Level 1.70 L 1.80-2.40 mg/dL Triglycerides Level 151 30-200 mg/dL Cholesterol Level 78 # <200 mg/dL LDL Cholesterol 36 0-99 mg/dL HDL Cholesterol 27 L 29-71 mg/dL Vitamin B12 Level 373 193-986 pg/mL Bedside Glucose Comment Notified Nurse Urine Color LIGHT-YELLOW YELLOW Urine Appearance CLEAR CLEAR Urine pH 5.0 5.0-8.0 Urine Specific [place] 1.027 1.001-1.031 Urine Protein NEGATIVE NEGATIVE mg/dL Urine Glucose (UA) >=1000 H NEGATIVE mg/dL Urine Ketones NEGATIVE NEGATIVE mg/dL Urine Occult Blood NEGATIVE NEGATIVE Urine Nitrate NEGATIVE NEGATIVE Urine Bilirubin NEGATIVE NEGATIVE mg/dL Urine Urobilinogen 0.2 0.2-1.0 mg/dL Urine Leukocyte Esterase NEGATIVE NEGATIVE Becca/uL Urine RBC 0-1 0-1 /HPF Urine WBC None 0-1 /HPF Urine Squamous Epithelial Cells RARE 0-2 /HPF Urine Bacteria RARE None Seen /HPF Urine Random Creatinine 52.43 30-135 mg/dL Urine Random Total Protein < 6.0 0-11.9 mg/dL Erythrocyte Sedimentation Rate 55 H 0-20 MM/HR Hemoglobin A1c >15.5 H 4.8-5.6 % Whole Blood Ketones Quantitative 0.6 0.0-0.6 mmol/L Total Bilirubin 0.7 0.2-1.0 mg/dL Aspartate Amino Transf (AST/SGOT) 33 10-37 U/L Alanine Aminotransferase (ALT/SGPT) 51 12-78 U/L Alkaline Phosphatase 190 H 50-136 U/L B-Type Natriuretic Peptide 95 0-100 pg/mL Total Protein 7.3 6.0-8.3 g/dL Albumin 3.2 L 3.5-5.0 g/dL Procalcitonin 0.07 0.05-0.5 ng/mL Thyroid Stimulating Hormone (TSH) 1.35 # 0.36-3.74 uIU/mL Current Medications Medications (Trade) Dose Ordered Sig/Attila Route PRN Reason Start Time Stop Time Status Last Admin Dose Admin Acetaminophen (TYLenol 325MG TAB) 650 mg Q6H PRN PO MILD PAIN (1-3) 04/22/25 11:30 05/22/25 11:29 Albuterol (DUOneb) 1 udvial Q6H PRN IH SHORTNESS OF BREATH 04/22/25 11:30 05/22/25 11:29 Amlodipine Besylate (NorvASC 5MG TAB) 5 mg Q24H PO 04/22/25 16:00 05/22/25 15:59 04/22/25 16:10 5 MG Aspirin (Aspirin 81mg Chew Tab) 81 mg Q24H PO 04/22/25 11:30 05/22/25 11:29 04/23/25 12:49 81 MG Atorvastatin Calcium (LIPItor 40MG) 40 mg HS PO 04/23/25 21:00 05/23/25 20:59 04/23/25 21:22 40 MG Dextrose (D50w) 50 ml AD PRN IV HYPOGLYCEMIA PROTOCOL 04/22/25 13:00 05/22/25 12:59 Famotidine (Pepcid 20mg Tab) 20 mg DAILY06 PO 04/24/25 06:00 05/22/25 20:59 04/24/25 06:43 20 MG Famotidine (Pepcid 20mg Tab) 20 mg Q48H PO 04/22/25 21:00 04/23/25 17:20 DC 04/22/25 20:27 20 MG Gabapentin (NEURontin 300 MG CAP) 300 mg BID PO 04/23/25 09:00 05/23/25 08:59 04/23/25 21:22 300 MG Glucagon (Glucagon 1mg Kit) 1 mg AD PRN IM HYPOGLYCEMIA PROTOCOL 04/22/25 13:00 05/22/25 12:59 Hydralazine HCl (APRESOLine 20MG INJ) 5 mg Q6H PRN IV ADMINISTER FOR SBP > 160 04/22/25 11:30 05/22/25 11:29 04/23/25 01:13 5 MG Insulin Glargine (LANtus 100 UNITS/ML 10 ML VIAL) 18 units DAILY SQ 04/23/25 09:00 05/23/25 08:59 04/23/25 10:29 18 UNITS Insulin Glargine (LANtus 100 UNITS/ML 10 ML VIAL) 22 units DAILY SQ 04/23/25 09:00 04/22/25 21:04 DC Insulin Human Regular (humuLIN R 100 UNIT/ML 3ML) 3 unit TIDAC SQ 04/23/25 07:30 04/23/25 16:21 DC Insulin Human Regular (humuLIN R 100 UNIT/ML 3ML) 5 unit ONCE SQ 04/22/25 15:30 04/22/25 21:30 DC 04/22/25 15:24 5 UNIT Insulin Human Regular (humuLIN R 100 UNIT/ML 3ML) 5 unit TIDAC SQ 04/22/25 17:00 04/23/25 22:54 DC 04/23/25 17:11 5 UNIT Insulin Human Regular (humuLIN R 100 UNIT/ML 3ML) 7 unit TIDAC SQ 04/24/25 07:30 05/24/25 07:29 04/24/25 06:48 7 UNIT Insulin Human Regular (humuLIN R 100 UNIT/ML 3ML) INSULIN SLIDING SCAL... ACHS SQ 04/22/25 11:30 04/22/25 12:30 DC 04/22/25 12:15 8 UNIT Insulin Human Regular (humuLIN R 100 UNIT/ML 3ML) INSULIN SLIDING SCAL... ACHS SQ 04/22/25 16:30 04/22/25 20:52 DC 04/22/25 17:12 3 UNIT Insulin Human Regular (humuLIN R 100 UNIT/ML 3ML) INSULIN SLIDING SCAL... ACHS SQ 04/22/25 21:00 05/22/25 20:59 04/23/25 21:30 4 UNIT Ondansetron HCl (zoFRAN 4MG INJ) 4 mg Q6H PRN IVP NAUSEA/VOMITING 04/22/25 11:30 05/22/25 11:29 Piperacillin Sod/ Tazobactam Sod (Zosyn 3.375gm+NS 50ml) 3.375 gm Q8H IVPB 04/22/25 12:30 05/02/25 12:29 04/24/25 04:11 3.375 GM Sodium Chloride 1,000 ml @ 75 mls/hr [id number] IV 04/22/25 12:30 05/22/25 12:29 04/24/25 04:13 75 MLS/HR Sodium Chloride (NS 50ml) 50 ml AD IV 04/22/25 12:30 04/22/25 12:35 DC DIAGNOSTICS / RADIOLOGY: [place] [address] [place] [address] IMAGING REPORT Signed PATIENT: MARYCARMEN GUDINO MR#: [id number] : 1960 SEX: M AGE: 64 LOCATION: [facility] ORDER 1602 STATUS: ADM IN REPORT#: [id number] SERVICE [id number] REASON: PAD ORDERING PHYSICIAN: BEATRIZ [employer] PROFESSIONAL PROCEDURE: CTA ABDAOR - CT ANGIO ABD AORTA W RUNOFF EXAMINATION: CT ANGIOGRAM OF ABDOMEN AND PELVIS AND RUNOFFS OF THE BILATERAL LOWER EXTREMITIES. CLINICAL HISTORY: Peripheral arterial disease COMPARISON: None provided. TECHNIQUE: MDCT angiogram of the abdominal aortic vessels was performed after administration of intravenous contrast. FINDINGS: Abdominal aorta is normal in size. There are atheromatous wall calcification of the aorta, iliac arteries, and both lower limb arteries. There is no aneurysm or dissection. There is no stenosis or occlusion. The abdominal aortic branches, viz., the celiac and superior mesenteric arteries, are normal in caliber. There is no stenosis or occlusion. The angle between superior mesenteric artery and aorta is normal. Bilateral renal arteries are normal in caliber. There is no stenosis or occlusion. The inferior mesenteric arteries are normal in caliber. Bifurcation morphology is normal. There is no stenosis or occlusion. The bilateral common iliac arteries are normal in caliber. No stenosis or occlusion. The bilateral external iliac arteries are normal in caliber. Their branches are normal, and the bilateral internal iliac arteries are normal; there is no stenosis or occlusion. The bilateral superficial femoral arteries are normal in caliber. There is no stenosis or occlusion. The bilateral profunda femoris and popliteal arteries are normal in size and caliber. There is no stenosis or occlusion. The bilateral tibioperoneal trunks are normal. There is no stenosis or occlusion. Short segment stenosis of the left distal anterior tibial artery for a length of about 0.5 cm with distal narrow caliber flow. The right anterior tibial artery is normal in size and caliber. There is no stenosis or occlusion. The bilateral posterior tibial arteries are normal in size and caliber. There is no stenosis or occlusion. The bilateral peroneal arteries are normal in size and caliber. There is no stenosis or occlusion. Within the abdomen and pelvis, liver, gallbladder, pancreas, spleen, adrenal glands, and kidneys are within normal limits; bowel loops are normal in caliber without evidence of obstruction, ileus, or bowel wall thickening, and the appendix is normal; and urinary bladder, prostate, and seminal vesicles appear normal in caliber. IMPRESSION: Atheromatous wall calcification of the aorta, iliac arteries, and both lower limb arteries with short-segment stenosis of the left distal anterior tibial artery, as described above, consistent with mild peripheral vascular disease. /[place] DICTATED BY: ALBERTO GRACE MD DATE: 04/24/251455 ELECTRONICALLY SIGNED BY: ALBERTO GRACE MD DATE: 04/24/251455 ASSESSMENT: Nonhealing diabetic foot ulcer of the left 4th toe- due to chronic osteomyelitis POA ,s/p Transmetatarsal amputation left foot on 04.23.25 Left 4th toe gangrene, POA s/p Transmetatarsal amputation left foot on 04.23.25 GEORGIE on CKD, ATN POA Uncontrolled type 2 Diabetes mellitus Chronic conditions: Prior history of osteomyelitis of the 1st and 2nd toe of the left foot with prior amputation, peripheral arterial disease of the lower extremity, poorly controlled type 2 diabetes mellitus with noncompliance with insulin therapy as outpatient, (Last a1c of 15.1, in 01/25), Hypertension, Hyperlipidemia, CVA, CKD Stage III PLAN: Left foot fourth toe chronic osteomyelitis and gangrene, POA * S/P left foot Transmetatarsal amputation ( Post operative Day 2) * Patient will be given pain medications as needed * Arterial duplex of left lower extremity, X-ray of left foot - done on 04.23.2025 * Started on Zosyn ( Day 2) * Recent history of osteomyelitis of the 4th toe of the left foot status for IV antibiotic therapy in 02/2025 GEORGIE on CKD, POA * IV hydration with NS * Creatinine - 1.3, GFR - 62 on 04.24.2025 * Creatinine - 1.9 and GFR- 39 - 04.22.2025 * Renal ultrasound showed no significant abnormality * will adjust the medication dosage accordingly * Nephrotoxic medications will be avoided Severe hyperglycemia with blood glucose greater than 600, POA * No evidence of HHS or DKA * A1C>15 * Started patient on sliding scale insulin a.c. and HS * Started on carb consistent diet, adjusted Lantus based on blood glucose trend * Currently on 18 units of lantus and 5 units of regular * Frickertron Checker consulted Peripheral arterial disease, POA * Arterial duplex revealed Focal stenosis of left anterior tibial artery * CT angiography of abdominal aorta - pending report * Recent history of peripheral angiogram by Dr. Peoples on 02/2025 with dennys oplasty of the Left anterior tibial artery, and anterior segment of the left pedal arch. Chronic conditions: Prior history of osteomyelitis of the 1st and 2nd toe of the left foot with prior amputation, peripheral arterial disease of the lower extremity, poorly controlled type 2 diabetes mellitus with noncompliance with insulin therapy as outpatient, (Last a1c of 15.1, in 01/25), Hypertension, Hyperlipidemia, CVA, CKD Stage III ATTESTATION BY PHYSICIAN I have seen and examined the patient. I reviewed the documentation, medical decision making, and treatment plan as noted by the resident provider above. I agree with the findings and plan of care. Ihsan Mckeon MD, LAKSHMI MD Apr 24, 2025 09:27 NADYA OLSEN MD Apr 25, 2025 03:07
--- NOTE | 2025-04-24 09:33 | CONS ---
INFECTIOUS DISEASE CONSULTATION NOTE DATE OF SERVICE: 04/23/2025 REQUESTING PHYSICIAN: Dr. Han Carter REASON FOR CONSULTATION: Left foot osteomyelitis. HISTORY OF PRESENT ILLNESS: A 64-year-old male with history of osteomyelitis of left foot, coronary artery disease, peripheral vascular disease, and hypertension, who was sent to the hospital for direct admission. The patient was transferred to the hospital from podiatric clinic. The patient was found with osteomyelitis involving the left fourth toe. The patient previously has had amputation of first and second toe done in the past. The patient underwent surgery today with left foot transmetatarsal amputation. Previous wound culture done on 04/15, grew Klebsiella pneumoniae (ESBL). The patient has been started on Zosyn. PAST MEDICAL HISTORY: * Left foot osteomyelitis. * Coronary artery disease. * Peripheral vascular disease. * Hypertension. * Diabetes mellitus. * Obesity. PAST SURGICAL HISTORY: * Left first and second toe amputation. * Left foot transmetatarsal amputation during this admission. * CABG. * Peripheral angiogram. * Cardiac catheterization. ALLERGIES: No known drug allergies. CURRENT MEDICATIONS: Reviewed, include: * Zosyn. * Pepcid. * Insulin. * Tylenol. * Lovenox. * Zofran. SOCIAL HISTORY: No history of alcohol, tobacco or illicit drug use. FAMILY HISTORY: Positive for diabetes mellitus. REVIEW OF SYSTEMS: Greater than 10-system were reviewed and negative except as documented above. PHYSICAL EXAMINATION: GENERAL: Alert, awake, not in distress. VITAL SIGNS: Temperature today 97.5, pulse 80, respirations 21, blood pressure 109/65. EYES: No icterus. Pupils are equal and reactive. HENT: No oral thrush seen. Moist oral mucosa. NECK: Supple. No JVD, no thyromegaly. LUNGS: Good air entry. No rales, no rhonchi. CARDIOVASCULAR: S1 and S2 regular. No murmur heard. ABDOMEN: Full, soft, nontender. Bowel sound is present. CENTRAL NERVOUS SYSTEM: Awake, alert, oriented x 3. No focal deficits. SKIN: No rashes, no itchiness. LYMPHATIC: There is left inguinal lymphadenopathy. BACK: No deformity, no pressure ulcer. HEMATOLOGIC: No bleeding or petechial lesions seen. EXTREMITIES: status post left foot transmetatarsal amputation, intact incision. wrapped in bandage. LABORATORY DATA: ESR of 55, sodium 133, potassium 4.1, BUN 24, creatinine 1.5. WBC 7.1, hemoglobin 12.1, platelet count 135. RADIOLOGY: X-ray reviewed shows third toe osteomyelitis. ASSESSMENT: A 64-year-old male admitted with left fourth toe ulcer. CURRENT PROBLEMS: Include: * Left foot osteomyelitis, status post transmetatarsal amputation. * History of multidrug resistant organism. * Diabetic foot ulcer. * Peripheral vascular disease. * Hypertension. * History of CABG. PLAN: * . * Continue Zosyn. * Continue pain management. * Continue antidiabetic. * Continue nutritional support. * Monitor electrolyte. * Continue antiemetic. * Continue antiplatelet. * The patient will be followed up closely. Thank you for allowing me to participate in the care of this patient. TID: [id number] RECEIPT: [id number]
--- NOTE | 2025-04-24 13:57 | NUR ---
[facility] Follow-up: Patient re-assessed by wound healing team. S/p sx, orders to keep dressing intact x48 hours, dressing D/I. Education provided. Addendum: 04/24/25 at 1358 by HUNG MARTÍNEZ RN RN/ Amended: Links added.
--- NOTE | 2025-04-24 13:57 | HMCIMG ---
EXAMINATION: CT ANGIOGRAM OF ABDOMEN AND PELVIS AND RUNOFFS OF THE BILATERAL LOWER EXTREMITIES. CLINICAL HISTORY: Peripheral arterial disease COMPARISON: None provided. TECHNIQUE: MDCT angiogram of the abdominal aortic vessels was performed after administration of intravenous contrast. FINDINGS: Abdominal aorta is normal in size. There are atheromatous wall calcification of the aorta, iliac arteries, and both lower limb arteries. There is no aneurysm or dissection. There is no stenosis or occlusion. The abdominal aortic branches, viz., the celiac and superior mesenteric arteries, are normal in caliber. There is no stenosis or occlusion. The angle between superior mesenteric artery and aorta is normal. Bilateral renal arteries are normal in caliber. There is no stenosis or occlusion. The inferior mesenteric arteries are normal in caliber. Bifurcation morphology is normal. There is no stenosis or occlusion. The bilateral common iliac arteries are normal in caliber. No stenosis or occlusion. The bilateral external iliac arteries are normal in caliber. Their branches are normal, and the bilateral internal iliac arteries are normal; there is no stenosis or occlusion. The bilateral superficial femoral arteries are normal in caliber. There is no stenosis or occlusion. The bilateral profunda femoris and popliteal arteries are normal in size and caliber. There is no stenosis or occlusion. The bilateral tibioperoneal trunks are normal. There is no stenosis or occlusion. Short segment stenosis of the left distal anterior tibial artery for a length of about 0.5 cm with distal narrow caliber flow. The right anterior tibial artery is normal in size and caliber. There is no stenosis or occlusion. The bilateral posterior tibial arteries are normal in size and caliber. There is no stenosis or occlusion. The bilateral peroneal arteries are normal in size and caliber. There is no stenosis or occlusion. Within the abdomen and pelvis, liver, gallbladder, pancreas, spleen, adrenal glands, and kidneys are within normal limits; bowel loops are normal in caliber without evidence of obstruction, ileus, or bowel wall thickening, and the appendix is normal; and urinary bladder, prostate, and seminal vesicles appear normal in caliber. IMPRESSION: Atheromatous wall calcification of the aorta, iliac arteries, and both lower limb arteries with short-segment stenosis of the left distal anterior tibial artery, as described above, consistent with mild peripheral vascular disease. [facility]
[2025-04-24 15:34] LABS: INR 1.04 (0.85-1.15)
--- NOTE | 2025-04-24 15:54 | PN ---
INFECTIOUS DISEASE PROGRESS NOTE Date of Service: Apr 24, 2025 SUBJECTIVE: Patient was seen and examined at bedside in room 414. Patient is awake, alert and oriented x3. Patient is sitting up to the bedside chair and tolerating well. Patient is status post left TMA day# 1. Patient is afebrile, temperature is 97.3. We will continue on Zosyn IV every 8 hours. We will refer patient to LTAC and patient is aware of this plan. PHYSICAL EXAM EYES: Anicteric. Pupils equal and reactive. HENT: No oral thrush seen, moist Oral mucosa NECK: Supple, no JVD or thyromegaly. LUNGS: Good air entry. No rales, no rhonchi. CARDIOVASCULAR: S1, S2 regular. No murmur heard. ABDOMEN: Soft, non tender, bowel sounds present, no organomegaly CENTRAL NERVOUS SYSTEM: Awake, alert, oriented x 3. SKIN: No rashes, no swelling. LYMPHATICS: No peripheral lymphadenopathy MUSCULOSKELETAL: No joint swelling, erythema or tenderness. EXTREMITIES: No cyanosis or clubbing. S/p left TMA. BACK: No deformity, no pressure ulcer. GENITOURINARY: No dysuria or hematuria Vital Sign (Last 12 Hours) 04/24/25 04/24/25 04/24/25 04/24/25 06:46 08:00 12:00 12:05 Temp 98.4 97.3 Pulse 71 73 85 71 Resp 18 18 19 18 B/P (MAP) 115/68 102/67 Pulse Ox 99 99 O2 Delivery N/Cannula Low lpm Room Air Room Air N/Cannula Low lpm O2 Flow Rate 2.0 2.0 FiO2 28 28 Intake & Output (last 24hrs) 04/23/25 04/23/25 04/24/25 15:00 23:00 07:00 Intake Total 600 ml Output Total 400 ml 500 ml Balance -400 ml 100 ml LABS: Laboratory: Test 04/24/25 15:34 04/24/25 15:10 04/24/25 08:54 04/24/25 05:40 Range/Units Whole Blood Glucose 217 H 70-110 MG/DL Prothrombin Time 11.0 9.6-11.6 SEC Prothromb Time International Ratio 1.04 0.85-1.15 Lactic Acid Level 1.3 0.8-2.5 mmol/L White Blood Count 6.8 4.8-10.8 K/uL Red Blood Count 4.15 L 4.50-6.20 MIL/uL Hemoglobin 12.2 L 14.0-18.0 g/dL Hematocrit 34.4 L 42-54 % Mean Corpuscular Volume 82.9 79-99 fL Mean Corpuscular Hemoglobin 29.4 27.0-33.0 pg Mean Corpuscular Hemoglobin Concent 35.5 32.0-36.0 g/dL Red Cell Distribution Width 12.6 11.0-15.5 % Platelet Count 149 130-400 K/uL Mean Platelet Volume 11.7 H 7.5-10.5 fL Nucleated Red Blood Cells 0.0 0.0-0.19 % Sodium Level 141 136-145 mmol/L Potassium Level 4.1 3.5-5.1 mmol/L Chloride Level 107 101-111 mmol/L Carbon Dioxide Level 26 21-32 mmol/L Blood Urea Nitrogen 15 7-18 mg/dL Creatinine 1.3 0.5-1.3 mg/dL Glomerular Filtration Rate Calc 62 >90 mL/min Random Glucose 136 H 70-105 mg/dL Total Calcium 8.4 L 8.5-10.1 mg/dL C-Reactive Protein, Quantitative 25.50 H 0.5-3.0 mg/L Test 04/23/25 09:49 04/23/25 03:44 Range/Units Serum Osmolality 291 278-305 mOsm/kg Vitamin D 25-Hydroxy 34.5 30.0-100.0 ng/mL Immature Granulocyte % (Auto) 0.4 0-1 % Neutrophils (%) (Auto) 55.7 40.0-77.0 % Lymphocytes (%) (Auto) 33.9 21.0-51.0 % Monocytes (%) (Auto) 8.7 3.0-13.0 % Eosinophils (%) (Auto) 1.0 0.0-8.0 % Basophils (%) (Auto) 0.3 0.0-5.0 % Neutrophils # (Auto) 4.0 1.8-7.7 K/uL Lymphocytes # (Auto) 2.4 1.0-4.8 K/uL Monocytes # (Auto) 0.6 0.1-1.0 K/uL Eosinophils # (Auto) 0.07 0.00-0.70 K/uL Basophils # (Auto) 0.02 0.00-0.20 K/uL Absolute Immature Granulocyte (auto 0.03 0-1 K/uL Magnesium Level 1.70 L 1.80-2.40 mg/dL Triglycerides Level 151 30-200 mg/dL Cholesterol Level 78 # <200 mg/dL LDL Cholesterol 36 0-99 mg/dL HDL Cholesterol 27 L 29-71 mg/dL Vitamin B12 Level 373 193-986 pg/mL DIAGNOSTICS / RADIOLOGY: PATIENT: MARYCARMEN GUDINO ACCT: [id number] LOC: [facility] U: [id number] AGE/SX: 64/M ROOM: [facility] RE04/22/[address]: CHACHO SMITH MD : 1960 BED: 1 DIS: STATUS: ADM IN TLOC: SPEC: [id number] BRIAN: 04/23/25 STATUS: RES REQ: [id number] RECD: 04/23/25-[address]: CHARU CUELLO DPM SOURCE: FOOT ENTR: 04/23/25-[address]: ASHLEY NEVAREZ MD SPDESC: FOOT LEFT CLOVIS ARCHIBALD MD, ASHISH MD SALINAS, JAMIE ROCKY YAMAMURA, DEANNA DO ORDERED: ESA CULTURE, AEROBIC CULTURE COMMENTS: Comment: INTRA-OP Has specimen been collected/obtained? Y Comment: INTRA-OP Has specimen been collected/obtained? Y Comment: INTRA-OP Has specimen been collected/obtained? Y Comment: INTRA-OP Has specimen been collected/obtained? Y Comment: INTRA-OP Has specimen been collected/obtained? Y Procedure Result Jorge Date-Time ANAEROBIC CULTURE Preliminary 04/24/25 MRL COLONY DESCRIPTION: REPORT 1: NO ANAEROBES AT 16-23 HOURS; STUDIES TO CONTINUE Test(s) performed by: [facility] [address] [place] [address] AEROBIC CULTURE Preliminary 04/24/25 MRL COLONY DESCRIPTION: REPORT 1: NO GROWTH AT 16-23 HOURS; STUDIES TO CONTINUE ASSESSMENT: Left foot diabetic ulcer with osteomyelitis, s/p transmetatarsal amputation. Diabetes mellitus. Peripheral vascular disease. Hypertension. History of CABG. PLAN: Continue Zosyn. Continue wound care. Continue pain management. Continue GI prophylaxis. Continue antidiabetics. Pending CT Angio to be done today. Case management evaluation for referral to LTAC. Place PICC line. This case was reviewed and discussed with my supervising physician and the above assessment and plan was formulated and agreed upon. ATTESTATION BY PHYSICIAN I have seen and examined the patient. I reviewed the documentation, medical de cision making, and treatment plan as noted by the mid-level provider above. I agree with the findings and plan of care. ASHLEY NEVAREZ MD, [facility] Apr 24, 2025 15:54
[2025-04-24] MEDS: ZOSYN 3.375GM +NS 50ML IVPB SCH (17:27)
--- NOTE | 2025-04-24 17:52 | PN ---
PROGRESS NOTE Date of Service: Apr 24, 2025 Time of Service: 17:49 SUBJECTIVE: [ ] Patient is seen status post transmetatarsal amputation. Doing well at this time afebrile no new complaints no distress. REVIEW OF SYSTEMS CONSTITUTIONAL: Denies fever, chills, or fatigue. HEAD/FACE: No signs of trauma. EENT: Denies eye pain, blurred vision, double vision, or light sensitivity. RESPIRATORY: Denies shortness of breath, cough, wheezing CARDIOVASCULAR: Denies chest pain, palpitation, syncope GASTROINTESTINAL/ABDOMINAL: Denies abdominal pain, constipation, diarrhea, nausea or vomiting GENITOURINARY: Denies dysuria or hematuria. MUSCULOSKELETAL: Denies joint pain, tenderness, or trauma. INTEGUMENTARY: Wound closed status post transmetatarsal amputation. NEUROLOGICAL/PSYCH: Denies anxiety, depression, heat or cold intolerance. PHYSICAL EXAM EYES: Anicteric. Pupils equal and reactive. HENT: No oral thrush seen, moist Oral mucosa NECK: Supple, no JVD or thyromegaly. LUNGS: Good air entry. No rales, no rhonchi. CARDIOVASCULAR: S1, S2 regular. No murmur heard. ABDOMEN: Soft, non tender, bowel sounds present, no organomegaly CENTRAL NERVOUS SYSTEM: Awake, alert, oriented x 3. No focal deficits. SKIN: Wound closed status post transmetatarsal amputation. LYMPHATICS: No peripheral lymphadenopathy MUSCULOSKELETAL: No joint swelling, erythema or tenderness. EXTREMITIES: No cyanosis or clubbing BACK: No deformity, no pressure ulcer. GENITOURINARY: No dysuria or hematuria Vital Signs (last 8hr) Date Time Temp Pulse Resp B/P (MAP) Pulse Ox O2 Delivery O2 Flow Rate FiO2 04/24/25 16:00 98.4 84 18 136/82 98 Room Air 04/24/25 12:05 71 18 N/Cannula Low lpm 2.0 28 04/24/25 12:00 97.3 85 19 102/67 99 Room Air LABS: Laboratory: Test 04/24/25 15:34 04/24/25 15:10 04/24/25 08:54 04/24/25 05:40 Range/Units Whole Blood Glucose 217 H 70-110 MG/DL Prothrombin Time 11.0 9.6-11.6 SEC Prothromb Time International Ratio 1.04 0.85-1.15 Lactic Acid Level 1.3 0.8-2.5 mmol/L White Blood Count 6.8 4.8-10.8 K/uL Red Blood Count 4.15 L 4.50-6.20 MIL/uL Hemoglobin 12.2 L 14.0-18.0 g/dL Hematocrit 34.4 L 42-54 % Mean Corpuscular Volume 82.9 79-99 fL Mean Corpuscular Hemoglobin 29.4 27.0-33.0 pg Mean Corpuscular Hemoglobin Concent 35.5 32.0-36.0 g/dL Red Cell Distribution Width 12.6 11.0-15.5 % Platelet Count 149 130-400 K/uL Mean Platelet Volume 11.7 H 7.5-10.5 fL Nucleated Red Blood Cells 0.0 0.0-0.19 % Sodium Level 141 136-145 mmol/L Potassium Level 4.1 3.5-5.1 mmol/L Chloride Level 107 101-111 mmol/L Carbon Dioxide Level 26 21-32 mmol/L Blood Urea Nitrogen 15 7-18 mg/dL Creatinine 1.3 0.5-1.3 mg/dL Glomerular Filtration Rate Calc 62 >90 mL/min Random Glucose 136 H 70-105 mg/dL Total Calcium 8.4 L 8.5-10.1 mg/dL C-Reactive Protein, Quantitative 25.50 H 0.5-3.0 mg/L Test 04/23/25 09:49 04/23/25 03:44 Range/Units Serum Osmolality 291 278-305 mOsm/kg Vitamin D 25-Hydroxy 34.5 30.0-100.0 ng/mL Immature Granulocyte % (Auto) 0.4 0-1 % Neutrophils (%) (Auto) 55.7 40.0-77.0 % Lymphocytes (%) (Auto) 33.9 21.0-51.0 % Monocytes (%) (Auto) 8.7 3.0-13.0 % Eosinophils (%) (Auto) 1.0 0.0-8.0 % Basophils (%) (Auto) 0.3 0.0-5.0 % Neutrophils # (Auto) 4.0 1.8-7.7 K/uL Lymphocytes # (Auto) 2.4 1.0-4.8 K/uL Monocytes # (Auto) 0.6 0.1-1.0 K/uL Eosinophils # (Auto) 0.07 0.00-0.70 K/uL Basophils # (Auto) 0.02 0.00-0.20 K/uL Absolute Immature Granulocyte (auto 0.03 0-1 K/uL Magnesium Level 1.70 L 1.80-2.40 mg/dL Triglycerides Level 151 30-200 mg/dL Cholesterol Level 78 # <200 mg/dL LDL Cholesterol 36 0-99 mg/dL HDL Cholesterol 27 L 29-71 mg/dL Vitamin B12 Level 373 193-986 pg/mL DIAGNOSTICS / RADIOLOGY: [ ] ASSESSMENT: Status post transmetatarsal amputation left doing well no infection. No cellulitis. Wound closed good skin condition. PLAN: Continue current care we will follow up as an outpatient once patient is discharged. CHARU CUELLO DPM Apr 24, 2025 17:52
--- NOTE | 2025-04-24 18:00 | NUR ---
DR CUELLO AT BEDSIDE. SPOKE WITH PT AND HIS . MD CHANGED PT DRESSING TO LEFT TMA.
--- NOTE | 2025-04-24 18:19 | HMCIMG ---
EXAM: CR Chest, 2 View. CLINICAL HISTORY: S/P PICC PLACEMENT COMPARISON: 04/22/2025. FINDINGS: There is a right-sided PICC line with its tip in the superior vena cava. LUNGS: There is no mass, infiltrate, or acute pulmonary abnormality. PLEURAL SPACES: No pleural effusion or pneumothorax. MEDIASTINUM: The cardiomediastinal silhouette is within normal limits. Again noted are sternotomy wires. BONES: No aggressive appearing osseous lesion seen. IMPRESSION: Satisfactory position of the right sided PICC line. No acute cardiopulmonary pathology is evident. /[place]
--- NOTE | 2025-04-24 18:36 | PN ---
Endocrinology progress note DOS:04/24/25 this was a late dictation subjective: hyperglycemia is improving now s/p left 4th toe amputation. Home diabetic regimen: lantus 25 units daily Hba1c >15.5% REVIEW OF SYSTEMS CONSTITUTIONAL: Denies fevers, chills, or night sweats. No unintentional weight loss reported. NEUROLOGICAL: Denies headache, amaurosis fugax, motor weakness, sensory deficit, vertigo/spinning sensation, gait abnormalities, or tremors. ENT: No hearing loss, otalgia, otorrhea, rhinitis, rhinorrhea, hoarseness, or sore throat. CARDIOVASCULAR: Denies any exertional angina, dyspnea on exertion, orthopnea, paroxysmal nocturnal dyspnea, palpitations, life-threatening arrhythmias, claudication. PULMONARY: Denies any shortness of breath, cough, phlegm/sputum, hemoptysis, pleuritic chest pain. SLEEP: Denies morning headaches, daytime somnolence or napping. Denies difficulty falling asleep, staying asleep, waking from sleep. Denies knowledge of snoring. GASTROINTESTINAL: Denies any type of dysphagia to either liquids or solids. Denies nausea, vomiting, pyrosis, early satiety, abdominal pain, diarrhea, constipation, or changes in stool consistency or caliber. Denies coffee-ground emesis, hematemesis, hematochezia, or melanotic stools. GENITOURINARY: Denies frequency, urgency, nocturia, hematuria or incontinence (Storage/Irritative symptoms.) Low urinary stream, straining to void, urinary intermittency or hesitancy, splitting of the voiding stream, terminal dribbling. ENDOCRINOLOGIC: Denies polyuria, polydipsia, polyphagia or heat/cold intolerances. HEMATOLOGIC: Denies thrombophilia/previous clots, or coagulopathy/bleeding disorders. ONCOLOGIC: Denies personal history of malignancy. DERMATOLOGIC: Denies rashes or pruritus. PSYCHIATRIC: Denies any suicidal or homicidal ideation. Denies hallucinations. PAST MEDICAL HISTORY: [ PAD, diabetes mellitus, poorly controlled with a1c close to 15 in 01/25, hypertension, hyperlipidemia, coronary artery disease with CABG x3 Vessel and femoral stent ] PAST SURGICAL HISTORY: [CABG x3, femoral stent and amputation of the left 1st great toe and 2nd toe, recent hx of peripheral arteriogram of LLE by Dr. Peoples ] PAST SOCIAL HISTORY: [ Patient lives with . Patient denies alcohol tobacco and recreational drug use ] FAMILY HISTORY: [ Cancer, hypertension, stroke and diabetes ] Allergies: No known drug allergies Home medications: Family will be bringing list of home medications to be reconciled and updated Coded Allergies: No Known Allergies (Unverified Allergy, Unknown, 05/06/20) No Known Drug Allergies (Unverified Allergy, Unknown, 05/06/18) Vital Sign (Last 24 Hours) LABS: LABS INCLUDE A CBC, CMP, BLOOD SUGARS, LACTIC ACID ARE CURRENTLY PENDING Current Medications DIAGNOSTICS / RADIOLOGY: CHEST X-RAY, X-RAY OF THE FOOT IS CURRENTLY PENDING ASSESSMENT: Severe hyperglycemia with blood glucose greater than 600, POA improving now Home diabetic regimen: lantus 25 units daily Hba1c >15.5% Nonhealing infected diabetic foot ulcer involving the 4th toe of the left foot with chronic osteomyelitis and underlying cellulitis, POA Purplish discoloration of the 4th toe of the left foot, POA s/p left 4th toe amputation GEORIGE on CKD, POA Recent history of osteomyelitis of the 4th toe of the left foot status for IV antibiotic therapy in 02/2025, POA Recent history of peripheral angiogram by Dr. Peoples on 02/2025 with angioplasty of the Left anterior tibial artery, and anterior segment of the left pedal arch, POA Prior history of osteomyelitis of the 1st and 2nd toe of the left foot with prior amputation, POA History of significant peripheral arterial disease of the lower extremity, POA History of poorly controlled type 2 diabetes mellitus with noncompliance with insulin therapy as outpatient, (Last a1c of 15.1, in 01/25), POA Hypertension, POA Hyperlipidemia, POA History of CVA, POA CKD Stage III, POA PLAN: continue Lantus 20 units daily and adjust for fasting glucose. continue Regular insulin 7 units tid before meals and adjust for post-prandial glucose. Continue medium dose sliding scale insulin. Monitor glucose q x 6 hourly. Continue carb consistent diet. Keep glucose less than 180 mg/dl. Patient will need lantus 25 units daily and humalog 7 units tid before meals. Vitals/Labs Vital Signs Date Time Temp Pulse Resp B/P (MAP) Pulse Ox O2 Delivery O2 Flow Rate FiO2 04/24/25 16:00 98.4 84 18 136/82 98 Room Air 04/24/25 12:05 2.0 28 Laboratory Tests 04/24/25 05:40 Medications Current Medications Insulin Human Regular INSULIN SLIDING SCAL... ACHS SQ Last administered on 04/22/25at 12:15; Start 04/22/25 at 11:30; Stop 04/22/25 at 12:30; Status DC Acetaminophen 650 mg Q6H PRN PO; Start 04/22/25 at 11:30; Stop 05/22/25 at 11:29 Ondansetron HCl 4 mg Q6H PRN IVP; Start 04/22/25 at 11:30; Stop 05/22/25 at 11:29 Albuterol 1 udvial Q6H PRN IH; Start 04/22/25 at 11:30; Stop 05/22/25 at 11:29 Aspirin 81 mg Q24H PO Last administered on 04/24/25at 16:41; Start 04/22/25 at 11:30; Stop 05/22/25 at 11:29 Hydralazine HCl 5 mg Q6H PRN IV Last administered on 04/23/25at 01:13; Start 04/22/25 at 11:30; Stop 05/22/25 at 11:29 Famotidine 20 mg Q48H PO Last administered on 04/22/25at 20:27; Start 04/22/25 at 21:00; Stop 04/23/25 at 17:20; Status DC Sodium Chloride 1,000 ml @ 75 mls/hr [id number] IV Last administered on 04/24/25at 18:31; Start 04/22/25 at 12:30; Stop 05/22/25 at 12:29 Insulin Human Regular 5 unit ONCE ONCE IV; Start 04/22/25 at 12:30; Stop 04/22/25 at 12:33; Status DC Insulin Human Regular INSULIN SLIDING SCAL... ACHS SQ Last administered on 04/22/25at 17:12; Start 04/22/25 at 16:30; Stop 04/22/25 at 20:52; Status DC Insulin Glargine 20 units ONCE ONCE SQ Last administered on 04/22/25at 12:41; Start 04/22/25 at 12:30; Stop 04/22/25 at 12:33; Status DC Piperacillin Sod/ Tazobactam Sod 3.375 gm Q8H IVPB Last administered on 04/24/25at 04:11; Start 04/22/25 at 12:30; Stop 04/24/25 at 16:53; Status DC Sodium Chloride 50 ml AD IV; Start 04/22/25 at 12:30; Stop 04/22/25 at 12:35; Status DC Insulin Human Regular 5 unit TIDAC SQ Last administered on 04/23/25at 17:11; Start 04/22/25 at 17:00; Stop 04/23/25 at 22:54; Status DC Dextrose 50 ml AD PRN IV; Start 04/22/25 at 13:00; Stop 05/22/25 at 12:59 Glucagon 1 mg AD PRN IM; Start 04/22/25 at 13:00; Stop 05/22/25 at 12:59 Insulin Glargine 22 units DAILY SQ; Start 04/23/25 at 09:00; Stop 04/22/25 at 21:04; Status DC Insulin Human Regular 5 unit ONCE SQ Last administered on 04/22/25at 15:24; Start 04/22/25 at 15:30; Stop 04/22/25 at 21:30; Status DC Amlodipine Besylate 5 mg Q24H PO Last administered on 04/24/25at 16:41; Start 04/22/25 at 16:00; Stop 05/22/25 at 15:59 Insulin Human Regular INSULIN SLIDING SCAL... ACHS SQ Last administered on 04/24/25at 16:44; Start 04/22/25 at 21:00; Stop 05/22/25 at 20:59 Insulin Glargine 18 units DAILY SQ Last administered on 04/24/25at 09:22; Start 04/23/25 at 09:00; Stop 05/23/25 at 08:59 Atorvastatin Calcium 40 mg HS PO Last administered on 04/23/25at 21:22; Start 04/23/25 at 21:00; Stop 05/23/25 at 20:59 Gabapentin 300 mg BID PO Last administered on 04/24/25at 09:17; Start 04/23/25 at 09:00; Stop 05/23/25 at 08:59 Propofol 100 ml @ As Directed STK-MED ONCE IV; Start 04/23/25 at 07:13; Stop 04/23/25 at 07:14; Status DC Ketamine HCl 50 mg STK-MED ONCE .ROUTE; Start 04/23/25 at 07:14; Stop 04/23/25 at 07:14; Status DC Midazolam HCl 2 mg STK-MED ONCE .ROUTE; Start 04/23/25 at 07:16; Stop 04/23/25 at 07:17; Status DC Lidocaine HCl 20 ml STK-MED ONCE .ROUTE; Start 04/23/25 at 07:19; Stop 04/23/25 at 07:19; Status DC Bupivacaine HCl 2.5 mg STK-MED ONCE IJ; Start 04/23/25 at 07:19; Stop 04/23/25 at 07:19; Status DC Insulin Human Regular 3 unit TIDAC SQ; Start 04/23/25 at 07:30; Stop 04/23/25 at 16:21; Status DC Phenylephrine HCl 10 mg STK-MED ONCE IV; Start 04/23/25 at 08:02; Stop 04/23/25 at 08:02; Status DC Iohexol 50 ml STK-MED ONCE IV; Start 04/23/25 at 16:40; Stop 04/23/25 at 16:40; Status DC Iohexol 35,000 mg STK-MED ONCE IV; Start 04/23/25 at 16:40; Stop 04/23/25 at 16:41; Status DC Famotidine 20 mg DAILY06 PO Last administered on 04/24/25at 06:43; Start 04/24/25 at 06:00; Stop 05/22/25 at 20:59 Insulin Human Regular 7 unit TIDAC SQ Last administered on 04/24/25at 16:43; Start 04/24/25 at 07:30; Stop 05/24/25 at 07:29 Piperacillin Sod/ Tazobactam Sod 3.375 gm Q8H IVPB Last administered on 04/24/25at 17:27; Start 04/24/25 at 17:00; Stop 05/04/25 at 16:59 CLOVIS ARCHIBALD MD Apr 24, 2025 18:36
[2025-04-25] VITALS (11 sets, daily range): BP systolic 100–122; BP diastolic 45–64; PULSE 68–93; RESP 18–20; TEMP 97.6–98.8; O2SAT 97–100
--- NOTE | 2025-04-25 03:41 | NUR ---
Transferred care to Juan GONG
[2025-04-25 04:28] LABS: NUCLEATED RED BLOOD CELLS 0.0 % (0.0-0.19); PLATELET COUNT (AUTO) 139.0 K/uL (130-400); RED BLOOD CELL COUNT(AUTO) 3.81 MIL/uL (4.50-6.20); RED CELL DISTRIBUTION WIDTH 12.5 % (11.0-15.5); WHITE BLOOD COUNT (AUTO) 6.1 K/uL (4.8-10.8)
[2025-04-25 04:36] LABS: CREATININE 1.6 mg/dL (0.5-1.3); GLOMERULAR FILTR. RATE CALC 48.0 mL/min (>90); GLUCOSE,RANDOM 145.0 mg/dL (70-105); SODIUM SERUM 139.0 mmol/L (136-145); UREA NITROGEN, BLOOD 18.0 mg/dL (7-18)
--- NOTE | 2025-04-25 08:44 | PN ---
[facility] PROGRESS NOTE Date Patient Seen: Apr 25, 2025 Time of Visit: 08:36 Interval History: This is a 64-year-old male with a past medical history of CAD status post CABG done in July of 2023, PAD s/p prior peripheral intervention, that included balloon angioplasty of the left anterior tibial artery and left dorsalis pedis artery done on 10/03/2023, residual PAD, diffuse 90% stenosis in the distal left posterior tibial artery, osteomyelitis in the 1st and 2nd digits of the left foot status post surgical amputation, s/p peripheral intervention on 02/02/2025 with 60% stenosis in the ostial left anterior tibial artery status post successful treatment with balloon lithotripsy, diffuse 90-95% stenosis in the mid and distal left anterior tibial artery status post successful treatment with balloon angioplasty, balloon lithotripsy, and drug coated balloon angioplasty, and 90% stenosis in the anterior segment of the left pedal arch status post successful treatment with balloon angioplasty, resulting in widely patent arteries, without dissection, or perforation, and brisk two-vessel runoff supplying the can left foot/pedal arch, residual PAD, 100% stenosis in the left posterior tibial artery that does not reconstitute distally via collateral blood flow, 90% stenosis in the distal left peroneal artery which is less than 1.25 mm in size and not ideal for percutaneous intervention, DM2, HTN, HLP, and medication noncompliance who presented to [facility] as a direct admit by Dr. Montoya for further evaluation of the patient's nonhealing ulcer affecting the LLE 4th toe. He is now s/p left TMA on 04/23/2025. Left lower extremity arterial Doppler on 04/22/2025 demonstrated focal stenosis of the left anterior tibial artery with monophasic waveform which is new from prior exam, monophasic waveforms in the posterior tibial and dorsalis pedis arteries. He underwent further assessment with a CT angiogram of the abdominal aorta with bilateral lower extremity runoff on 04/23/2025 demonstrating short segment stenosis of the left distal anterior tibial artery for a length of about 0.5 cm with distal narrow caliber flow. The right anterior tibial artery was normal in size and caliber no stenosis or occlusion and the bilateral posterior tibial arteries were normal in caliber and size with no stenosis or occlusion, the bilateral peroneal arteries also demonstrated no evidence of occlusion with overall findings of mild peripheral vascular disease. He offers only complaints of left TMA site discomfort. Otherwise no chest pain, no shortness of breath. Plans are to continue therapy including antibiotic therapy and rehab at [facility]. Physical Examination: GENERAL: No acute distress. HEAD: Normal with no signs of head trauma. EYES: PERRLA, EOMI, conjunctiva and sclera normal. NECK: Supple without JVD. There is no tenderness, lymphadenopathy, or masses. No thyromegaly. Normal carotid upstrokes without bruits. LUNGS: Clear breath sounds bilaterally. No wheezes, or rhonchi. HEART: Normal rate and rhythm. Normal S1 and S2 without murmurs, gallop or rub. VASC: Right dorsalis and posterior tibial pulses are +1. There is a dressing to the left foot dry and intact and dressing was not removed.. EXT: No clubbing, cyanosis or edema. NEURO: Awake, alert, and oriented x3. No focal neurological deficits noted. Laboratory: Hematology Labs: Test 04/25/25 04:11 Range/Units White Blood Count 6.1 4.8-10.8 K/uL Red Blood Count 3.81 L 4.50-6.20 MIL/uL Hemoglobin 11.1 L 14.0-18.0 g/dL Hematocrit 32.0 L 42-54 % Mean Corpuscular Volume 84.0 79-99 fL Mean Corpuscular Hemoglobin 29.1 27.0-33.0 pg Mean Corpuscular Hemoglobin Concent 34.7 32.0-36.0 g/dL Red Cell Distribution Width 12.5 11.0-15.5 % Platelet Count 139 130-400 K/uL Mean Platelet Volume 11.6 H 7.5-10.5 fL Nucleated Red Blood Cells 0.0 0.0-0.19 % Chemistry Labs: Test 04/25/25 05:10 04/25/25 04:11 04/24/25 08:54 04/24/25 05:40 Range/Units Whole Blood Glucose 154 H 70-110 MG/DL Sodium Level 139 136-145 mmol/L Potassium Level 4.4 3.5-5.1 mmol/L Chloride Level 107 101-111 mmol/L Carbon Dioxide Level 30 21-32 mmol/L Blood Urea Nitrogen 18 7-18 mg/dL Creatinine 1.6 H 0.5-1.3 mg/dL Glomerular Filtration Rate Calc 48 >90 mL/min Random Glucose 145 H 70-105 mg/dL Total Calcium 8.4 L 8.5-10.1 mg/dL Lactic Acid Level 1.3 0.8-2.5 mmol/L C-Reactive Protein, Quantitative 25.50 H 0.5-3.0 mg/L Test 04/23/25 09:49 Range/Units Serum Osmolality 291 278-305 mOsm/kg Vitamin D 25-Hydroxy 34.5 30.0-100.0 ng/mL Coagulation Labs: Test 04/24/25 15:10 Range/Units Prothrombin Time 11.0 9.6-11.6 SEC Prothromb Time International Ratio 1.04 0.85-1.15 Diagnostics / Radiology: CT angiogram of the abdominal aorta with bilateral lower extremity runoff on 04/23/2025 demonstrating short segment stenosis of the left distal anterior tibial artery for a length of about 0.5 cm with distal narrow caliber flow. The right anterior tibial artery was normal in size and caliber no stenosis or occlusion and the bilateral posterior tibial arteries were normal in caliber and size with no stenosis or occlusion, the bilateral peroneal arteries also demonstrated no evidence of occlusion with overall findings of mild peripheral vascular disease. Impression and Plan: PAD, Tosin category five symptoms of the LLE, left 4th toe ulceration S/p Left TMA on 04/23/2025: CT angiogram of the abdominal aorta with bilateral lower extremity runoff on 04/23/2025 demonstrating short segment stenosis of the left distal anterior tibial artery for a length of about 0.5 cm with distal narrow caliber flow. The right anterior tibial artery was normal in size and caliber no stenosis or occlusion and the bilateral posterior tibial arteries were normal in caliber and size with no stenosis or occlusion, the bilateral peroneal arteries also demonstrated no evidence of occlusion with overall findings of mild peripheral vascular disease: -CT angio of the abdominal aorta with bilateral runoff 04/23/2025 demonstrates continued patency of the trifurcation vessels on the left to the level of the ankle. Given finding of the CT angiogram of the abdominal aorta and bilateral lower extremity runoff, there is potential for wound healing -continue wound care per Dr. Montoya and antibiotic therapy. Continue (begin) clopidogrel 75 mg p.o. daily and continue aspirin and statin therapy -cardiology will sign off and re-evaluate upon request. Follow up with Dr. Melvin Randall in 2-3 weeks. Prior procedures: S/p peripheral intervention on 02/02/2025 with 60% stenosis in the ostial left anterior tibial artery status post successful treatment with balloon lithotripsy, diffuse 90-95% stenosis in the mid and distal left anterior tibial artery status post successful treatment with balloon angioplasty, balloon lithotripsy, and drug coated balloon angioplasty, and 90% stenosis in the anterior segment of the left pedal arch status post successful treatment with balloon angioplasty, resulting in widely patent arteries, without dissection, or perforation, and brisk two-vessel runoff supplying the can left foot/pedal arch, residual PAD, 100% stenosis in the left posterior tibial artery that does not reconstitute distally via collateral blood flow, 90% stenosis in the distal left peroneal artery which is less than 1.25 mm in size and not ideal for percutaneous intervention, S/P peripheral intervention on 10/03/2023, that included balloon angioplasty of the left anterior tibial artery and left dorsalis pedis artery Residual PAD, diffuse 90% stenosis in the distal left posterior tibial artery via peripheral intervention on 10/03/2023 Osteomyelitis in the 1st and 2nd digits of the left foot status post surgical amputation 10/2023 Comorbidities: CAD status post CABG 07/2023, stable DM2 HTN HLP 2D echocardiogram on 04/22/2025 with an LVEF of 55-60% with normal diastolic function and no valvular pathology PHYSICIAN ATTESTATION OF PHYSICIAN CREATIVE ASSISTANT DOCUMENTATION: I attest that I was physically present for the ga portions of the service and evaluated the patient with the Physician Telecommunications Analyst, and I reviewed and discussed the case with the Physician Telecommunications Analyst and made modifications to the Physician Telecommunications Analyst's findings and plans of care as documented above FAHAD PLUNKETT Apr 25, 2025 08:44 JAILYN MCKENNA MD Apr 25, 2025 13:07
--- NOTE | 2025-04-25 14:48 | PN ---
[facility] PROGRESS NOTE Date of Service: Apr 25, 2025 Time of Service: 14:43 SUBJECTIVE: Patient presented as a direct admit from Dr. Montoya's w/ Podiatry, 64-year-old male history of type 2 diabetes mellitus, hypertension, hyperlipidemia, coronary artery disease, peripheral arterial disease, history of osteomyelitis of left foot, 1st and 2nd toe osteomyelitis status post amputation, recent history of left foot 4th toe diabetic foot ulcer with osteomyelitis requiring hospitalization in 02/25 who presented as a direct admit from Dr. Montoya Podiatry for further evaluation of nonhealing diabetic foot ulcer involving the 4th toe along with purplish discoloration with recent history of osteomyelitis requiring hospitalization 02/25. There is tentative plans for amputation of the toes by Dr. Montoya tomorrow. Patient has had longstanding history of type 2 diabetes mellitus. Reports being diabetic for more than 20 years. He was started on basal Lantus therapy earlier this year. He frequently skips doses of Lantus and did not take Lantus yesterday or today. He has been compliant with antiplatelet therapy as well as Xarelto. He was recently seen by Dr. Peoples on last admission and underwent balloon lithotripsy for 60% stenosis in the left anterior tibial artery, underwent angioplasty with balloon lithotripsy and drug coated angioplasty involving 90-95% stenosis of the mid and distal left anterior tibial artery as well as 90% stenosis in the anterior segment of the left pedal arch. Patient had brisk two-vessel runoff to the left foot. Patient was noted to have residual POD with 100% stenosis in the left posterior tibial artery and 90% stenosis of the left peroneal artery which was too small for percutaneous interventionally. Patient states that he finished IV antibiotic therapy last month with Zosyn for management of osteomyelitis. Daughter reports that patient gets tired easily with exertional activity and sometimes he notices shortness of breath with sustained exertion. Denies any falls. Denies any chest pain currently. Patient will be admitted under hospitalist service, plan by Dr. Montoya for amputation of the toes of the left foot. We will also assess vascular status with arterial ultrasound. patient has also noticed more swelling of the left lower extremity, venous ultrasound will be obtained as well. 04.23.2025: Patient was seen and evaluated in room 414. He reports no pain at this time. He underwent left transmetatarsal amputation earlier today and expressed concern about whether he would be able to maintain proper balance and walk postoperatively. A physical therapy evaluation has been ordered for mobility ass essment. 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 He reports his blood glucose levels at home typically range between 350- 370 mg/dl, which he considers his "normal".He admits to eating lot of junk food and has difficulty controlling his diet. Endocrinology consult has been placed for further management of diabetes. We explained the care plan to the patient in detail. 04.24.2025: Patient seen and evaluated in room 414 while eating breakfast. He was surprised to see that his random glucose is 136 today, stating that at home it was never this low. Patient was educated on proper insulin dosing to optimize wound healing; he notes that his sometimes forgets to administer his medication. Patient denies pain at the surgical site of his left transmetatarsal amputation but describes a sensation of something missing. He expressed a desire to go home today. Patient's CT angiogram of abdominal aorta report is pending. Discharge is contingent upon clearance from Infectious Disease, Cardiology, General surgery and Endocrine specialists once their assessments for complete. Addendum: The patient was referred to [facility] ([facility]) for continuation of IV antibiotics as per Infectious Disease specialist recommendation. When discussed with the patient, he became emotional and cried, expressing that he could not tolerate a PICC line and prolonged IV antibiotics any longer, stating he is fed up with all of this. He added that he needs some time to think about the plan. 04.25.2025: The patient was seen and evaluated in room 414. He has no acute complaints and denies pain at the surgical site. The dressing is intact. He had a PICC line placed yesterday, which was confirmed by chest x-ray to be in the correct position. He requires continuation of antibiotics and wound care, and a referral has been placed [facility], acceptance is currently pending and caseworker protective services is working on it. REVIEW OF SYSTEMS CONSTITUTIONAL: Denies fevers, chills, or night sweats. No unintentional weight loss reported. NEUROLOGICAL: Denies headache, amaurosis fugax, motor weakness, sensory deficit, vertigo/spinning sensation, gait abnormalities, or tremors. ENT: No hearing loss, otalgia, otorrhea, rhinitis, rhinorrhea, hoarseness, or sore throat. CARDIOVASCULAR: Complains of exertional angina, dyspnea on exertion, orthopnea, paroxysmal nocturnal dyspnea, palpitations, life-threatening arrhythmias, claudication. PULMONARY: Denies any shortness of breath, cough, phlegm/sputum, hemoptysis, pleuritic chest pain. SLEEP: Denies morning headaches, daytime somnolence or napping. Denies difficulty falling asleep, staying asleep, waking from sleep. Denies knowledge of snoring. GASTROINTESTINAL: Denies any type of dysphagia to either liquids or solids. Denies nausea, vomiting, pyrosis, early satiety, abdominal pain, diarrhea, constipation, or changes in stool consistency or caliber. Denies coffee-ground emesis, hematemesis, hematochezia, or melanotic stools. GENITOURINARY: Denies frequency, urgency, nocturia, hematuria or incontinence (Storage/Irritative symptoms.) Low urinary stream, straining to void, urinary intermittency or hesitancy, splitting of the voiding stream, terminal dribbling. ENDOCRINOLOGIC: Denies polyuria, polydipsia, polyphagia or heat/cold intolerances. HEMATOLOGIC: Denies thrombophilia/previous clots, or coagulopathy/bleeding disorders. ONCOLOGIC: Denies personal history of malignancy. DERMATOLOGIC: Denies rashes or pruritus. PSYCHIATRIC: Denies any suicidal or homicidal ideation. Denies hallucinations. PHYSICAL EXAM GENERAL APPEARANCE: The patient is awake, alert, and oriented, in no acute cardiopulmonary distress. NEUROLOGICAL: Motor is 5/5 in bilateral upper and lower extremities proximal to distal. No sensory deficits. HEENT: Face is symmetric. Pupils are equal and reactive. Extraocular movements are intact. NECK: Supple. No JVD. No thyromegaly. No submental, submandibular, pre- /postauricular, occipital or supraclavicular lymphadenopathy. CHEST: Normal chest expansion. No Telemetry. LUNGS: Absence of any rales, rhonchi or any wheezing. CARDIOVASCULAR: Regular. S1 and S2 normal. No appreciable rubs, murmurs or gallops. ABDOMEN: Soft, nontender, and nondistended. There is no rebound, voluntary guarding, or rigidity. : Deferred. No Marroquin. EXTREMITIES: S/P TMA Vital Signs (last 8hr) Date Time Temp Pulse Resp B/P (MAP) Pulse Ox O2 Delivery O2 Flow Rate FiO2 04/25/25 11:44 97.9 86 18 121/45 100 Room Air 21 04/25/25 08:00 100 Room Air* 0 21 04/25/25 08:00 97.5 78 18 122/62 98 Room Air 04/25/25 06:53 18 N/A Room Air 21 LABS: Laboratory: Test 04/25/25 11:03 04/25/25 04:11 04/24/25 15:10 04/24/25 08:54 Range/Units Whole Blood Glucose 195 H 70-110 MG/DL White Blood Count 6.1 4.8-10.8 K/uL Red Blood Count 3.81 L 4.50-6.20 MIL/uL Hemoglobin 11.1 L 14.0-18.0 g/dL Hematocrit 32.0 L 42-54 % Mean Corpuscular Volume 84.0 79-99 fL Mean Corpuscular Hemoglobin 29.1 27.0-33.0 pg Mean Corpuscular Hemoglobin Concent 34.7 32.0-36.0 g/dL Red Cell Distribution Width 12.5 11.0-15.5 % Platelet Count 139 130-400 K/uL Mean Platelet Volume 11.6 H 7.5-10.5 fL Nucleated Red Blood Cells 0.0 0.0-0.19 % Sodium Level 139 136-145 mmol/L Potassium Level 4.4 3.5-5.1 mmol/L Chloride Level 107 101-111 mmol/L Carbon Dioxide Level 30 21-32 mmol/L Blood Urea Nitrogen 18 7-18 mg/dL Creatinine 1.6 H 0.5-1.3 mg/dL Glomerular Filtration Rate Calc 48 >90 mL/min Random Glucose 145 H 70-105 mg/dL Total Calcium 8.4 L 8.5-10.1 mg/dL Prothrombin Time 11.0 9.6-11.6 SEC Prothromb Time International Ratio 1.04 0.85-1.15 Lactic Acid Level 1.3 0.8-2.5 mmol/L Test 04/24/25 05:40 Range/Units C-Reactive Protein, Quantitative 25.50 H 0.5-3.0 mg/L Current Medications Medications (Trade) Dose Ordered Sig/Attila Route PRN Reason Start Time Stop Time Status Last Admin Dose Admin Acetaminophen (TYLenol 325MG TAB) 650 mg Q6H PRN PO MILD PAIN (1-3) 04/22/25 11:30 05/22/25 11:29 Acetaminophen/ Codeine Phosphate (TYLenol-coDEINE TAB) 1 tab Q4H PRN PO MODERATE PAIN (4-6) 04/24/25 20:00 05/24/25 19:59 04/25/25 11:28 1 TAB Albuterol (DUOneb) 1 udvial Q6H PRN IH SHORTNESS OF BREATH 04/22/25 11:30 05/22/25 11:29 Amlodipine Besylate (NorvASC 5MG TAB) 5 mg Q24H PO 04/22/25 16:00 05/22/25 15:59 04/24/25 16:41 5 MG Aspirin (Aspirin 81mg Chew Tab) 81 mg Q24H PO 04/22/25 11:30 05/22/25 11:29 04/25/25 11:27 81 MG Atorvastatin Calcium (LIPItor 40MG) 40 mg HS PO 04/23/25 21:00 05/23/25 20:59 04/24/25 20:15 40 MG Clopidogrel Bisulfate (plaVIX 75MG) 75 mg DAILY PO 04/25/25 09:00 05/25/25 08:59 04/25/25 09:10 75 MG Dextrose (D50w) 50 ml AD PRN IV HYPOGLYCEMIA PROTOCOL 04/22/25 13:00 05/22/25 12:59 Famotidine (Pepcid 20mg Tab) 20 mg DAILY06 PO 04/24/25 06:00 05/22/25 20:59 04/25/25 06:10 20 MG Famotidine (Pepcid 20mg Tab) 20 mg Q48H PO 04/22/25 21:00 04/23/25 17:20 DC 04/22/25 20:27 20 MG Gabapentin (NEURontin 300 MG CAP) 300 mg BID PO 04/23/25 09:00 05/23/25 08:59 04/25/25 09:10 300 MG Glucagon (Glucagon 1mg Kit) 1 mg AD PRN IM HYPOGLYCEMIA PROTOCOL 04/22/25 13:00 05/22/25 12:59 Hydralazine HCl (APRESOLine 20MG INJ) 5 mg Q6H PRN IV ADMINISTER FOR SBP > 160 8/20/25 11:30 05/22/25 11:29 04/23/25 01:13 5 MG Insulin Glargine (LANtus 100 UNITS/ML 10 ML VIAL) 18 units DAILY SQ 04/23/25 09:00 05/23/25 08:59 04/25/25 09:13 18 UNITS Insulin Glargine (LANtus 100 UNITS/ML 10 ML VIAL) 22 units DAILY SQ 04/23/25 09:00 04/22/25 21:04 DC Insulin Human Regular (humuLIN R 100 UNIT/ML 3ML) 3 unit TIDAC SQ 04/23/25 07:30 04/23/25 16:21 DC Insulin Human Regular (humuLIN R 100 UNIT/ML 3ML) 5 unit ONCE SQ 04/22/25 15:30 04/22/25 21:30 DC 04/22/25 15:24 5 UNIT Insulin Human Regular (humuLIN R 100 UNIT/ML 3ML) 5 unit TIDAC SQ 04/22/25 17:00 04/23/25 22:54 DC 04/23/25 17:11 5 UNIT Insulin Human Regular (humuLIN R 100 UNIT/ML 3ML) 7 unit TIDAC SQ 04/24/25 07:30 05/24/25 07:29 04/25/25 11:39 7 UNIT Insulin Human Regular (humuLIN R 100 UNIT/ML 3ML) INSULIN SLIDING SCAL... ACHS SQ 04/22/25 11:30 04/22/25 12:30 DC 04/22/25 12:15 8 UNIT Insulin Human Regular (humuLIN R 100 UNIT/ML 3ML) INSULIN SLIDING SCAL... ACHS SQ 04/22/25 16:30 04/22/25 20:52 DC 04/22/25 17:12 3 UNIT Insulin Human Regular (humuLIN R 100 UNIT/ML 3ML) INSULIN SLIDING SCAL... ACHS SQ 04/22/25 21:00 05/22/25 20:59 04/25/25 11:38 2 UNIT Ondansetron HCl (zoFRAN 4MG INJ) 4 mg Q6H PRN IVP NAUSEA/VOMITING 04/22/25 11:30 05/22/25 11:29 Piperacillin Sod/ Tazobactam Sod (Zosyn 3.375gm+NS 50ml) 3.375 gm Q8H IVPB 04/22/25 12:30 04/24/25 16:53 DC 04/24/25 04:11 3.375 GM Piperacillin Sod/ Tazobactam Sod (Zosyn 3.375gm+NS 50ml) 3.375 gm Q8H IVPB 04/24/25 17:00 05/04/25 16:59 04/25/25 09:12 3.375 GM Sodium Chloride 1,000 ml @ 75 mls/hr [id number] IV 04/22/25 12:30 05/22/25 12:29 04/24/25 18:31 75 MLS/HR Sodium Chloride (NS 50ml) 50 ml AD IV 04/22/25 12:30 04/22/25 12:35 DC DIAGNOSTICS / RADIOLOGY: [address] [address] IMAGING REPORT Signed PATIENT: MARYCARMEN GUDINO MR#: [id number] : 1960 SEX: M AGE: 64 LOCATION: [facility] ORDER 02 STATUS: ADM IN REPORT#: [id number] SERVICE 01 REASON: S/P PICC PLACEMENT ORDERING PHYSICIAN: ASHLEY NEVAREZ MD PROCEDURE: CXR1VW - CHEST 1VW EXAM: CR Chest, 2 View. CLINICAL HISTORY: S/P PICC PLACEMENT COMPARISON: 04/22/2025. FINDINGS: There is a right-sided PICC line with its tip in the superior vena cava. LUNGS: There is no mass, infiltrate, or acute pulmonary abnormality. PLEURAL SPACES: No pleural effusion or pneumothorax. MEDIASTINUM: The cardiomediastinal silhouette is within normal limits. Again noted are sternotomy wires. BONES: No aggressive appearing osseous lesion seen. IMPRESSION: Satisfactory position of the right sided PICC line. No acute cardiopulmonary pathology is evident. /[place] DICTATED BY: ALBERTO GRACE MD DATE: 04/24/251917 ELECTRONICALLY SIGNED BY: ALBERTO GRACE MD DATE: 04/24/251917 ASSESSMENT: Nonhealing diabetic foot ulcer of the left 4th toe- due to chronic osteomyelitis POA ,s/p Transmetatarsal amputation left foot on 04.23.25 Left 4th toe gangrene, POA s/p Transmetatarsal amputation left foot on 04.23.25 GEORGIE on CKD, ATN POA Uncontrolled type 2 Diabetes mellitus Chronic conditions: Prior history of osteomyelitis of the 1st and 2nd toe of the left foot with prior amputation, peripheral arterial disease of the lower extremity, poorly controlled type 2 diabetes mellitus with noncompliance with insulin therapy as outpatient, (Last a1c of 15.1, in 01/25), Hypertension, Hyperlipidemia, CVA, CKD Stage III PLAN: Referral has been placed [facility], acceptance is currently pending and caseworker protective services is working on it. Left foot fourth toe chronic osteomyelitis and gangrene, POA * S/P left foot Transmetatarsal amputation ( Post operative Day 3) * Patient will be given pain medications as needed * Arterial duplex of left lower extremity, X-ray of left foot - done on 04.23.2025 * Started on Zosyn ( Day 3) * Recent history of osteomyelitis of the 4th toe of the left foot status for IV antibiotic therapy in 02/2025 GEORGIE on CKD, POA * IV hydration with NS * Creatinine - 1.6, GFR - 48 on 04.25.2025 * Creatinine - 1.9 and GFR- 39 - 04.22.2025 * Renal ultrasound showed no significant abnormality * will adjust the medication dosage accordingly * Nephrotoxic medications will be avoided Severe hyperglycemia with blood glucose greater than 600, POA * No evidence of HHS or DKA * A1C>15 * Started patient on sliding scale insulin a.c. and HS * Started on carb consistent diet, adjusted Lantus based on blood glucose trend * Currently on 18 units of lantus and 5 units of regular * Oxygen Equipment Technician consulted Peripheral arterial disease, POA * Arterial duplex revealed Focal stenosis of left anterior tibial artery * CT angiography of abdominal aorta - pending report * Recent history of peripheral angiogram by Dr. Peoples on 02/2025 with angioplasty of the Left anterior tibial artery, and anterior segment of the left pedal arch. Chronic conditions: Prior history of osteomyelitis of the 1st and 2nd toe of the left foot with prior amputation, peripheral arterial disease of the lower extremity, poorly controlled type 2 diabetes mellitus with noncompliance with insulin therapy as outpatient, (Last a1c of 15.1, in 01/25), Hypertension, Hyperlipidemia, CVA, CKD Stage III ATTESTATION BY PHYSICIAN I have seen and examined the patient. I reviewed the documentation, medical decision making, and treatment plan as noted by the resident provider above. I agree with the findings and plan of care. Ihsan Mckeon MD, LAKSHMI MD Apr 25, 2025 14:48
[2025-04-25] MEDS ORDERED: LACTULOSE 20 GM/30 ML UDCUP PO PRN (21:30)
--- NOTE | 2025-04-25 21:33 | PN ---
INFECTIOUS DISEASE PROGRESS NOTE Date of Service: Apr 25, 2025 SUBJECTIVE: Patient was seen and examined at bedside in room 414. Patient is awake, alert and oriented x3. Patient is status post left TMA on 04/23/2025. Remains afebrile, temperature is 97.9. The preliminary intraoperative wound culture results is growing Gram-negative rods. Will continue on Zosyn and follow up on the final culture results. Patient has been referred to LTAC and pending insurance approval. Patient reported feeling constipated and has not had a bowel movement for about 5 days. Patient's stated that what works for patient is Ex-lax and she will bring it from home to be approved for the meantime patient can be medicated with lactulose. PHYSICAL EXAM EYES: Anicteric. Pupils equal and reactive. HENT: No oral thrush seen, moist Oral mucosa NECK: Supple, no JVD or thyromegaly. LUNGS: Good air entry. No rales, no rhonchi. CARDIOVASCULAR: S1, S2 regular. No murmur heard. ABDOMEN: Soft, non tender, bowel sounds present, no organomegaly. CENTRAL NERVOUS SYSTEM: Awake, alert, oriented x 3. SKIN: No rashes, no swelling. LYMPHATICS: No peripheral lymphadenopathy MUSCULOSKELETAL: No joint swelling, erythema or tenderness. EXTREMITIES: No cyanosis or clubbing. S/p left TMA. BACK: No deformity, no pressure ulcer. GENITOURINARY: No dysuria or hematuria. Vital Sign (Last 12 Hours) 04/25/25 04/25/25 04/25/25 04/25/25 11:44 12:40 16:00 19:36 Temp 97.9 98.1 Pulse 86 70 Resp 18 18 18 18 B/P (MAP) 121/45 122/64 Pulse Ox 100 99 O2 Delivery Room Air N/A Room Air Room Air N/A Room Air FiO2 21 21 21 04/25/25 20:00 Temp 98.2 Pulse 93 Resp 20 B/P (MAP) 117/51 Pulse Ox 100 O2 Delivery Room Air Intake & Output (last 24hrs) 04/24/25 04/24/25 04/25/25 15:00 23:00 07:00 Intake Total 400 ml Balance 400 ml LABS: Laboratory: Test 04/25/25 19:49 04/25/25 16:04 04/25/25 04:11 04/24/25 15:10 Range/Units Whole Blood Glucose 264 H 70-110 MG/DL Bedside Glucose Comment Notified Nurse White Blood Count 6.1 4.8-10.8 K/uL Red Blood Count 3.81 L 4.50-6.20 MIL/uL Hemoglobin 11.1 L 14.0-18.0 g/dL Hematocrit 32.0 L 42-54 % Mean Corpuscular Volume 84.0 79-99 fL Mean Corpuscular Hemoglobin 29.1 27.0-33.0 pg Mean Corpuscular Hemoglobin Concent 34.7 32.0-36.0 g/dL Red Cell Distribution Width 12.5 11.0-15.5 % Platelet Count 139 130-400 K/uL Mean Platelet Volume 11.6 H 7.5-10.5 fL Nucleated Red Blood Cells 0.0 0.0-0.19 % Sodium Level 139 136-145 mmol/L Potassium Level 4.4 3.5-5.1 mmol/L Chloride Level 107 101-111 mmol/L Carbon Dioxide Level 30 21-32 mmol/L Blood Urea Nitrogen 18 7-18 mg/dL Creatinine 1.6 H 0.5-1.3 mg/dL Glomerular Filtration Rate Calc 48 >90 mL/min Random Glucose 145 H 70-105 mg/dL Total Calcium 8.4 L 8.5-10.1 mg/dL Prothrombin Time 11.0 9.6-11.6 SEC Prothromb Time International Ratio 1.04 0.85-1.15 Test 04/24/25 08:54 04/24/25 05:40 Range/Units Lactic Acid Level 1.3 0.8-2.5 mmol/L C-Reactive Protein, Quantitative 25.50 H 0.5-3.0 mg/L DIAGNOSTICS / RADIOLOGY: PATIENT: MARYCARMEN GUDINO ACCT: [id number] LOC: [facility] U: [id number] AGE/SX: 64/M ROOM: 414 RE04/22/[address]: CHACHO SMITH MD : 1960 BED: 1 DIS: STATUS: ADM IN TLOC: SPEC: [id number] BRIAN: 04/23/25 STATUS: RES REQ: [id number] RECD: 04/23/25 [facility] DR: CHARU CUELLO DPM SOURCE: FOOT ENTR: 04/23/[address]: ASHLEY NEVAREZ MD [facility]: FOOT LEFT CLOVIS ARCHIBALD MD,CHACHO EMMANUEL,ADARSH MANCILLA,CLEVE KHAN ORDERED: ESA CULTURE, AEROBIC CULTURE COMMENTS: Comment: INTRA-OP Has specimen been collected/obtained? Y Comment: INTRA-OP Has specimen been collected/obtained? Y Comment: INTRA-OP RUN DATE: 04/25/25 [facility] PAGE 2 RUN TIME: [id number] [place] [address] [facility] # [id number] Health Sciences Program Coordinator: Sarah Louis DO Specimen Report SPEC: [id number] PATIENT: MARYCARMEN GUDINO [id number] (Continued) Procedure Result Jorge Date-Time ANAEROBIC CULTURE Preliminary (continued) 04/25/25 Test(s) performed by: [facility] [address] [place] [address] AEROBIC CULTURE Preliminary 04/25/25 [facility] COLONY DESCRIPTION: REPORT 1: NO GROWTH AT 16-23 HOURS; STUDIES TO CONTINUE REPORT 2: 1+ GRAM NEGATIVE RODS IDENTIFICATION AND SENSITIVITY TO FOLLOW ASSESSMENT: Left foot diabetic ulcer with osteomyelitis, s/p transmetatarsal amputation. Diabetes mellitus. Peripheral vascular disease. Hypertension. History of CABG. Constipation. PLAN: Continue Zosyn. Continue wound care. Continue pain management. Continue GI prophylaxis. Continue antidiabetics. Pending CT Angio to be done today. Case management working on placement to LTAC. PICC line has been placed. This case was reviewed and discussed with my supervising physician and the above assessment and plan was formulated and agreed upon. ATTESTATION BY PHYSICIAN I have seen and examined the patient. I reviewed the documentation, medical decision making, and treatment plan as noted by the mid-level provider above. I agree with the findings and plan of care. ASHLEY NEVAREZ MD, MIRTA L [facility] Apr 25, 2025 21:33
[2025-04-26] VITALS (9 sets, daily range): BP systolic 96–116; BP diastolic 54–66; PULSE 70–94; RESP 16–20; TEMP 96.2–98.7; O2SAT 70–98
[2025-04-26 04:14] LABS: NUCLEATED RED BLOOD CELLS 0.0 % (0.0-0.19); PLATELET COUNT (AUTO) 140.0 K/uL (130-400); RED BLOOD CELL COUNT(AUTO) 3.68 MIL/uL (4.50-6.20); RED CELL DISTRIBUTION WIDTH 12.3 % (11.0-15.5); WHITE BLOOD COUNT (AUTO) 6.5 K/uL (4.8-10.8)
[2025-04-26 04:27] LABS: CREATININE 1.5 mg/dL (0.5-1.3); GLOMERULAR FILTR. RATE CALC 52.0 mL/min (>90); GLUCOSE,RANDOM 123.0 mg/dL (70-105); SODIUM SERUM 137.0 mmol/L (136-145); UREA NITROGEN, BLOOD 18.0 mg/dL (7-18)
--- NOTE | 2025-04-26 14:40 | PN ---
[facility] PROGRESS NOTE Date of Service: Apr 26, 2025 Time of Service: 14:34 SUBJECTIVE: Patient presented as a direct admit from Dr. Montoya's w/ Podiatry, 64-year-old male history of type 2 diabetes mellitus, hypertension, hyperlipidemia, coronary artery disease, peripheral arterial disease, history of osteomyelitis of left foot, 1st and 2nd toe osteomyelitis status post amputation, recent history of left foot 4th toe diabetic foot ulcer with osteomyelitis requiring hospitalization in 02/25 who presented as a direct admit from Dr. Montoya Podiatry for further evaluation of nonhealing diabetic foot ulcer involving the 4th toe along with purplish discoloration with recent history of osteomyelitis requiring hospitalization 02/25. There is tentative plans for amputation of the toes by Dr. Montoya tomorrow. Patient has had longstanding history of type 2 diabetes mellitus. Reports being diabetic for more than 20 years. He was started on basal Lantus therapy earlier this year. He frequently skips doses of Lantus and did not take Lantus yesterday or today. He has been compliant with antiplatelet therapy as well as Xarelto. He was recently seen by Dr. Peoples on last admission and underwent balloon lithotripsy for 60% stenosis in the left anterior tibial artery, underwent angioplasty with balloon lithotripsy and drug coated angioplasty involving 90-95% stenosis of the mid and distal left anterior tibial artery as well as 90% stenosis in the anterior segment of the left pedal arch. Patient had brisk two-vessel runoff to the left foot. Patient was noted to have residual POD with 100% stenosis in the left posterior tibial artery and 90% stenosis of the left peroneal artery which was too small for percutaneous interventionally. Patient states that he finished IV antibiotic therapy last month with Zosyn for management of osteomyelitis. Daughter reports that patient gets tired easily with exertional activity and sometimes he notices shortness of breath with sustained exertion. Denies any falls. Denies any chest pain currently. Patient will be admitted under hospitalist service, plan by Dr. Montoya for amputation of the toes of the left foot. We will also assess vascular status with arterial ultrasound. patient has also noticed more swelling of the left lower extremity, venous ultrasound will be obtained as well. 04.23.2025: Patient was seen and evaluated in room 414. He reports no pain at this time. He underwent left transmetatarsal amputation earlier today and expressed concern about whether he would be able to maintain proper balance and walk postoperatively. A physical therapy evaluation has been ordered for mobility ass essment. 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 He reports his blood glucose levels at home typically range between 350- 370 mg/dl, which he considers his "normal".He admits to eating lot of junk food and has difficulty controlling his diet. Endocrinology consult has been placed for further management of diabetes. We explained the care plan to the patient in detail. 04.24.2025: Patient seen and evaluated in room 414 while eating breakfast. He was surprised to see that his random glucose is 136 today, stating that at home it was never this low. Patient was educated on proper insulin dosing to optimize wound healing; he notes that his sometimes forgets to administer his medication. Patient denies pain at the surgical site of his left transmetatarsal amputation but describes a sensation of something missing. He expressed a desire to go home today. Patient's CT angiogram of abdominal aorta report is pending. Discharge is contingent upon clearance from Infectious Disease, Cardiology, General surgery and Endocrine specialists once their assessments for complete. Addendum: The patient was referred to [facility] ([facility]) for continuation of IV antibiotics as per Infectious Disease specialist recommendation. When discussed with the patient, he became emotional and cried, expressing that he could not tolerate a PICC line and prolonged IV antibiotics any longer, stating he is fed up with all of this. He added that he needs some time to think about the plan. 04.25.2025: The patient was seen and evaluated in room 414. He has no acute complaints and denies pain at the surgical site. The dressing is intact. He had a PICC line placed yesterday, which was confirmed by chest x-ray to be in the correct position. He requires continuation of antibiotics and wound care, and a referral has been placed [facility], acceptance is currently pending and welfare case worker is working on it. 04.26.2025: The patient is seen and evaluated in room 414. He has no acute complaints and denies pain at the surgical site. The dressing is intact. His vitals are in the normal range. His labs show that Hb is 10.8 which is decreased from 11.1, hematocrit 31 which is decreased from 32, MPV is 11.8 which is increased from 11.6, creatinine is 1.5 which is decreased from 1.6, glucose is 154, calcium is 8.2 which is decreased from 8.4. All other labs are normal. His aerobic culture grew Klebsiella pneumonia (ESBL) which is sensitive to levofloxacin, meropenem, ceftazidime. So ID stopped Zosyn as the bacteria is resistant to it and started levofloxacin. We are waiting for the acceptance from [facility] for continuation of antibiotics. REVIEW OF SYSTEMS CONSTITUTIONAL: Denies fevers, chills, or night sweats. No unintentional weight loss reported. NEUROLOGICAL: Denies headache, amaurosis fugax, motor weakness, sensory deficit, vertigo/spinning sensation, gait abnormalities, or tremors. ENT: No hearing loss, otalgia, otorrhea, rhinitis, rhinorrhea, hoarseness, or sore throat. CARDIOVASCULAR: No chest pain, dyspnea on exertion, orthopnea, paroxysmal nocturnal dyspnea, palpitations, life-threatening arrhythmias, claudication. PULMONARY: Denies any shortness of breath, cough, phlegm/sputum, hemoptysis, pleuritic chest pain. SLEEP: Denies morning headaches, daytime somnolence or napping. Denies difficulty falling asleep, staying asleep, waking from sleep. Denies knowledge of snoring. GASTROINTESTINAL: Denies any type of dysphagia to either liquids or solids. Denies nausea, vomiting, pyrosis, early satiety, abdominal pain, diarrhea, constipation, or changes in stool consistency or caliber. Denies coffee-ground emesis, hematemesis, hematochezia, or melanotic stools. GENITOURINARY: Denies frequency, urgency, nocturia, hematuria or incontinence (Storage/Irritative symptoms.) Low urinary stream, straining to void, urinary intermittency or hesitancy, splitting of the voiding stream, terminal dribbling. ENDOCRINOLOGIC: Denies polyuria, polydipsia, polyphagia or heat/cold intolerances. HEMATOLOGIC: Denies thrombophilia/previous clots, or coagulopathy/bleeding disorders. ONCOLOGIC: Denies personal history of malignancy. DERMATOLOGIC: Denies rashes or pruritus. PSYCHIATRIC: Denies any suicidal or homicidal ideation. Denies hallucinations. PHYSICAL EXAM GENERAL APPEARANCE: The patient is awake, alert, and oriented, in no acute cardiopulmonary distress. NEUROLOGICAL: Motor is 5/5 in bilateral upper and lower extremities proximal to distal. No sensory deficits. HEENT: Face is symmetric. Pupils are equal and reactive. Extraocular movements are intact. NECK: Supple. No JVD. No thyromegaly. No submental, submandibular, pre- /postauricular, occipital or supraclavicular lymphadenopathy. CHEST: Normal chest expansion. No Telemetry. LUNGS: Absence of any rales, rhonchi or any wheezing. CARDIOVASCULAR: Regular. S1 and S2 normal. No appreciable rubs, murmurs or gallops. ABDOMEN: Soft, nontender, and nondistended. There is no rebound, voluntary guarding, or rigidity. : Deferred. No Marroquin. EXTREMITIES: S/P TMA Vital Signs (last 8hr) Date Time Temp Pulse Resp B/P (MAP) Pulse Ox O2 Delivery O2 Flow Rate FiO2 04/26/25 12:00 98.8 72 16 116/58 100 Room Air 04/26/25 08:31 18 N/A Room Air 21 04/26/25 08:00 70 Room Air* 0 21 04/26/25 08:00 98.4 70 16 111/56 98 Room Air 21 LABS: Laboratory: Test 04/26/25 11:11 04/26/25 03:58 04/25/25 16:04 04/24/25 15:10 Range/Units Whole Blood Glucose 154 H 70-110 MG/DL White Blood Count 6.5 4.8-10.8 K/uL Red Blood Count 3.68 L 4.50-6.20 MIL/uL Hemoglobin 10.8 L 14.0-18.0 g/dL Hematocrit 31.0 L 42-54 % Mean Corpuscular Volume 84.2 79-99 fL Mean Corpuscular Hemoglobin 29.3 27.0-33.0 pg Mean Corpuscular Hemoglobin Concent 34.8 32.0-36.0 g/dL Red Cell Distribution Width 12.3 11.0-15.5 % Platelet Count 140 130-400 K/uL Mean Platelet Volume 11.8 H 7.5-10.5 fL Nucleated Red Blood Cells 0.0 0.0-0.19 % Sodium Level 137 136-145 mmol/L Potassium Level 3.7 3.5-5.1 mmol/L Chloride Level 104 101-111 mmol/L Carbon Dioxide Level 25 21-32 mmol/L Blood Urea Nitrogen 18 7-18 mg/dL Creatinine 1.5 H 0.5-1.3 mg/dL Glomerular Filtration Rate Calc 52 >90 mL/min Random Glucose 123 H 70-105 mg/dL Total Calcium 8.2 L 8.5-10.1 mg/dL Bedside Glucose Comment Notified Nurse Prothrombin Time 11.0 9.6-11.6 SEC Prothromb Time International Ratio 1.04 0.85-1.15 Current Medications Medications (Trade) Dose Ordered Sig/Attila Route PRN Reason Start Time Stop Time Status Last Admin Dose Admin Acetaminophen (TYLenol 325MG TAB) 650 mg Q6H PRN PO MILD PAIN (1-3) 04/22/25 11:30 05/22/25 11:29 Acetaminophen/ Codeine Phosphate (TYLenol-coDEINE TAB) 1 tab Q4H PRN PO MODERATE PAIN (4-6) 04/24/25 20:00 05/24/25 19:59 04/26/25 11:54 1 TAB Albuterol (DUOneb) 1 udvial Q6H PRN IH SHORTNESS OF BREATH 04/22/25 11:30 05/22/25 11:29 Amlodipine Besylate (NorvASC 5MG TAB) 5 mg Q24H PO 04/22/25 16:00 05/22/25 15:59 04/25/25 18:15 5 MG Aspirin (Aspirin 81mg Chew Tab) 81 mg Q24H PO 04/22/25 11:30 05/22/25 11:29 04/26/25 11:53 81 MG Atorvastatin Calcium (LIPItor 40MG) 40 mg HS PO 04/23/25 21:00 05/23/25 20:59 04/25/25 20:15 40 MG Clopidogrel Bisulfate (plaVIX 75MG) 75 mg DAILY PO 04/25/25 09:00 05/25/25 08:59 04/26/25 09:20 75 MG Dextrose (D50w) 50 ml AD PRN IV HYPOGLYCEMIA PROTOCOL 04/22/25 13:00 05/22/25 12:59 Famotidine (Pepcid 20mg Tab) 20 mg DAILY06 PO 04/24/25 06:00 04/25/25 19:48 DC 04/25/25 06:10 20 MG Famotidine (Pepcid 20mg Tab) 20 mg HS PO 04/26/25 21:00 04/26/25 14:26 DC Famotidine (Pepcid 20mg Tab) 20 mg Q48H PO 04/22/25 21:00 04/23/25 17:20 DC 04/22/25 20:27 20 MG Famotidine (Pepcid 20mg Tab) 20 mg Q48H PO 04/26/25 14:30 05/26/25 14:29 Famotidine (Pepcid 20mg Tab) 20 mg Q48H PO 04/27/25 09:00 04/26/25 14:25 DC Gabapentin (NEURontin 300 MG CAP) 300 mg BID PO 04/23/25 09:00 05/23/25 08:59 04/26/25 09:20 300 MG Glucagon (Glucagon 1mg Kit) 1 mg AD PRN IM HYPOGLYCEMIA PROTOCOL 04/22/25 13:00 05/22/25 12:59 Hydralazine HCl (APRESOLine 20MG INJ) 5 mg Q6H PRN IV ADMINISTER FOR SBP > 160 04/22/25 11:30 05/22/25 11:29 04/23/25 01:13 5 MG Insulin Glargine (LANtus 100 UNITS/ML 10 ML VIAL) 18 units DAILY SQ 04/23/25 09:00 05/23/25 08:59 04/26/25 09:25 18 UNITS Insulin Glargine (LANtus 100 UNITS/ML 10 ML VIAL) 22 units DAILY SQ 04/23/25 09:00 04/22/25 21:04 DC Insulin Human Regular (humuLIN R 100 UNIT/ML 3ML) 3 unit TIDAC SQ 04/23/25 07:30 04/23/25 16:21 DC Insulin Human Regular (humuLIN R 100 UNIT/ML 3ML) 5 unit ONCE SQ 04/22/25 15:30 04/22/25 21:30 DC 04/22/25 15:24 5 UNIT Insulin Human Regular (humuLIN R 100 UNIT/ML 3ML) 5 unit TIDAC SQ 04/22/25 17:00 04/23/25 22:54 DC 04/23/25 17:11 5 UNIT Insulin Human Regular (humuLIN R 100 UNIT/ML 3ML) 7 unit TIDAC SQ 04/24/25 07:30 05/24/25 07:29 04/26/25 12:09 7 UNIT Insulin Human Regular (humuLIN R 100 UNIT/ML 3ML) INSULIN SLIDING SCAL... ACHS SQ 04/22/25 11:30 04/22/25 12:30 DC 04/22/25 12:15 8 UNIT Insulin Human Regular (humuLIN R 100 UNIT/ML 3ML) INSULIN SLIDING SCAL... ACHS SQ 04/22/25 16:30 04/22/25 20:52 DC 04/22/25 17:12 3 UNIT Insulin Human Regular (humuLIN R 100 UNIT/ML 3ML) INSULIN SLIDING SCAL... ACHS SQ 04/22/25 21:00 05/22/25 20:59 04/25/25 20:21 5 UNIT Lactulose (Constulose 20gm/ 30ml Udcup) 20 gm BID PRN PO CONSTIPATION 04/25/25 21:30 05/25/25 21:29 Levofloxacin/ Dextrose (LEvaquIN 750 MG/ D5W 150 ML) 750 mg Q24H IV 04/26/25 14:30 05/06/25 14:29 Ondansetron HCl (zoFRAN 4MG INJ) 4 mg Q6H PRN IVP NAUSEA/VOMITING 04/22/25 11:30 05/22/25 11:29 Piperacillin Sod/ Tazobactam Sod (Zosyn 3.375gm+NS 50ml) 3.375 gm Q8H IVPB 04/22/25 12:30 04/24/25 16:53 DC 04/24/25 04:11 3.375 GM Piperacillin Sod/ Tazobactam Sod (Zosyn 3.375gm+NS 50ml) 3.375 gm Q8H IVPB 04/24/25 17:00 04/26/25 14:20 DC 04/26/25 09:25 3.375 GM Sodium Chloride 1,000 ml @ 75 mls/hr [id number] IV 04/22/25 12:30 05/22/25 12:29 04/24/25 18:31 75 MLS/HR Sodium Chloride (NS 50ml) 50 ml AD IV 04/22/25 12:30 04/22/25 12:35 DC DIAGNOSTICS / RADIOLOGY: [ ] ASSESSMENT: Nonhealing diabetic foot ulcer of the left 4th toe- due to chronic osteomyelitis POA ,s/p Transmetatarsal amputation left foot on 04.23.25 Left 4th toe gangrene, POA s/p Transmetatarsal amputation left foot on 04.23.25 GEORGIE on CKD, ATN POA Uncontrolled type 2 Diabetes mellitus Chronic conditions: Prior history of osteomyelitis of the 1st and 2nd toe of the left foot with prior amputation, peripheral arterial disease of the lower extremity, poorly controlled type 2 diabetes mellitus with noncompliance with insulin therapy as outpatient, (Last a1c of 15.1, in 01/25), Hypertension, Hype rlipidemia, CVA, CKD Stage III PLAN: Referral has been placed [facility], acceptance is currently pending and welfare case worker is working on it. Left foot fourth toe chronic osteomyelitis and gangrene, POA * S/P left foot Transmetatarsal amputation on 04/23/2025 ( Post operative Day 4) * Patient will be given pain medications as needed * Arterial duplex of left lower extremity, X-ray of left foot - done on 04.23.2025 * He is on Zosyn but his aerobic culture grew Klebsiella pneumonia (ESBL) which is sensitive to levofloxacin, meropenem, ceftazidime. So ID stopped Zosyn as the bacteria is resistant to it and started levofloxacin (day 1). * Recent history of osteomyelitis of the 4th toe of the left foot status for IV antibiotic therapy in 02/2025 * He needs prison antibiotics. So a referral was placed for [facility]. We are waiting for acceptance from them. GEORGIE on CKD, POA * IV hydration with NS * Today his BUN is 18 and creatinine is 1.5. * Renal ultrasound showed no significant abnormality * will adjust the medication dosage accordingly * Nephrotoxic medications will be avoided * Will repeat his labs tomorrow. Severe hyperglycemia with blood glucose greater than 600, POA * No evidence of HHS or DKA * HbA1C>15 * Patient is on sliding scale insulin a.c. and HS * Endocrinology started him on lantus 20 units and regular insulin 7 units. * He is on carb consistent diet * adjusted Lantus and regular insulin based on blood glucose trend * Currently on 18 units of lantus and 5 units of regular. * Today his blood glucose is 154. * Will repeat his labs tomorrow. Peripheral arterial disease, POA * Arterial duplex revealed Focal stenosis of left anterior tibial artery * CT angiography of abdominal aorta - pending report * Recent history of peripheral angiogram by Dr. Peoples on 02/2025 with angioplasty of the Left anterior tibial artery, and anterior segment of the left pedal arch. Chronic conditions: Prior history of osteomyelitis of the 1st and 2nd toe of the left foot with prior amputation, peripheral arterial disease of the lower extremity, poorly controlled type 2 diabetes mellitus with noncompliance with insulin therapy as outpatient, (Last Hba1c of 15.1, in 01/25), Hypertension, Hyperlipidemia, CVA, CKD Stage III ATTESTATION BY PHYSICIAN I have seen and examined the patient. I reviewed the documentation, medical decision making, and treatment plan as noted by the resident provider above. I agree with the findings and plan of care. Ihsan Mckeon MD, AKSHAY MD Apr 26, 2025 14:40
[2025-04-26] MEDS: FAMOTIDINE 20MG TAB PO SCH (16:56)
[2025-04-26] MEDS ORDERED: FAMOTIDINE 20MG TAB PO SCH (21:00)
[2025-04-27] VITALS (10 sets, daily range): BP systolic 115–143; BP diastolic 62–79; PULSE 70–84; RESP 18–20; TEMP 97.8–99.7; O2SAT 96–99
[2025-04-27 03:59] LABS: NUCLEATED RED BLOOD CELLS 0.0 % (0.0-0.19); PLATELET COUNT (AUTO) 145.0 K/uL (130-400); RED BLOOD CELL COUNT(AUTO) 3.55 MIL/uL (4.50-6.20); RED CELL DISTRIBUTION WIDTH 12.3 % (11.0-15.5); WHITE BLOOD COUNT (AUTO) 6.7 K/uL (4.8-10.8)
--- NOTE | 2025-04-27 04:08 | PN ---
INFECTIOUS DISEASE FOLLOWUP NOTE DATE OF SERVICE: 04/26/2025 SUBJECTIVE: The patient is seen and examined at bedside. The patient has no fever, no chills. No bleeding tendency. No sore throat or rhinorrhea. No dysuria. No joint pain, no joint swelling. No rashes, no itchiness. . The patient has no new complaints. PHYSICAL EXAMINATION: VITAL SIGNS: Temperature 98.4. EYES: No icterus. Pupils are equal and reactive. HENT: No oral thrush seen. Moist oral mucosa. NECK: Supple. No JVD or thyromegaly. LUNGS: Good air entry. No rales. No rhonchi. CARDIOVASCULAR: S1 and S2, regular. ABDOMEN: Full soft. Bowel sounds are present. CENTRAL NERVOUS SYSTEMS: Awake, alert, oriented x 3. No focal deficits. SKIN: No rashes. No itchiness. LYMPHATIC: Slight jugular lymphadenopathy. BACK: No deformity. No pressure ulcer. HEMATOLOGIC: No bleeding or petechial lesion seen. EXTREMITIES: Status post left foot transmetatarsal amputation drainage is seen. ASSESSMENT: A 64-year-old male admitted with left foot ulcer. CURRENT PROBLEMS: Include: * Left foot osteomyelitis, status post transmetatarsal amputation. * Multidrug resistant organism. * Diabetic foot ulcer. * Hypertension. * Diabetes mellitus. * Peripheral vascular disease. PLAN: * Continue wound care. * Continue antibiotic. * Continue antidiabetic. * Continue . * Continue antihypertensive. * Monitor electrolytes. * The patient will be followed up closely. TID: [id number] RECEIPT: [id number]
[2025-04-27 04:13] LABS: CREATININE 1.3 mg/dL (0.5-1.3); GLOMERULAR FILTR. RATE CALC 62.0 mL/min (>90); GLUCOSE,RANDOM 110.0 mg/dL (70-105); SODIUM SERUM 141.0 mmol/L (136-145); UREA NITROGEN, BLOOD 14.0 mg/dL (7-18)
[2025-04-27] MEDS ORDERED: FAMOTIDINE 20MG TAB PO SCH (09:00)
[2025-04-27] MEDS: LACTULOSE 20 GM/30 ML UDCUP PO SCH (13:01)
--- NOTE | 2025-04-27 13:54 | PN ---
[facility] PROGRESS NOTE Date of Service: Apr 27, 2025 Time of Service: 13:54 SUBJECTIVE: Patient presented as a direct admit from Dr. Montoya's w/ Podiatry, 64-year-old male history of type 2 diabetes mellitus, hypertension, hyperlipidemia, coronary artery disease, peripheral arterial disease, history of osteomyelitis of left foot, 1st and 2nd toe osteomyelitis status post amputation, recent history of left foot 4th toe diabetic foot ulcer with osteomyelitis requiring hospitalization in 02/25 who presented as a direct admit from Dr. Montoya Podiat[facility] for further evaluation of nonhealing diabetic foot ulcer involving the 4th toe along with purplish discoloration with recent history of osteomyelitis requiring hospitalization 02/25. There is tentative plans for amputation of the toes by Dr. Montoya tomorrow. Patient has had longstanding history of type 2 diabetes mellitus. Reports being diabetic for more than 20 years. He was started on basal Lantus therapy earlier this year. He frequently skips doses of Lantus and did not take Lantus yesterday or today. He has been compliant with antiplatelet therapy as well as Xarelto. He was recently seen by Dr. Peoples on last admission and underwent balloon lithotripsy for 60% stenosis in the left anterior tibial artery, underwent angioplasty with balloon lithotripsy and drug coated angioplasty involving 90-95% stenosis of the mid and distal left anterior tibial artery as well as 90% stenosis in the anterior segment of the left pedal arch. Patient had brisk two-vessel runoff to the left foot. Patient was noted to have residual POD with 100% stenosis in the left posterior tibial artery and 90% stenosis of the left peroneal artery which was too small for percutaneous interventionally. Patient states that he finished IV antibiotic therapy last month with Zosyn for management of osteomyelitis. Daughter reports that patient gets tired easily with exertional activity and sometimes he notices shortness of breath with sustained exertion. Denies any falls. Denies any chest pain currently. Patient will be admitted under hospitalist service, plan by Dr. Motnoya for amputation of the toes of the left foot. We will also assess vascular status with arterial ultrasound. patient has also noticed more swelling of the left lower extremity, venous ultrasound will be obtained as well. 04.23.2025: Patient was seen and evaluated in room 414. He reports no pain at this time. He underwent left transmetatarsal amputation earlier today and expressed concern about whether he would be able to maintain proper balance and walk postoperatively. A physical therapy evaluation has been ordered for mobility ass essment. 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 He reports his blood glucose levels at home typically range between 350- 370 mg/dl, which he considers his "normal".He admits to eating lot of junk food and has difficulty controlling his diet. Endocrinology consult has been placed for further management of diabetes. We explained the care plan to the patient in detail. 04.24.2025: Patient seen and evaluated in room 414 while eating breakfast. He was surprised to see that his random glucose is 136 today, stating that at home it was never this low. Patient was educated on proper insulin dosing to optimize wound healing; he notes that his sometimes forgets to administer his medication. Patient denies pain at the surgical site of his left transmetatarsal amputation but describes a sensation of something missing. He expressed a desire to go home today. Patient's CT angiogram of abdominal aorta report is pending. Discharge is contingent upon clearance from Infectious Disease, Cardiology, General surgery and Endocrine specialists once their assessments for complete. Addendum: The patient was referred to [facility] ([facility]) for continuation of IV antibiotics as per Infectious Disease specialist recommendation. When discussed with the patient, he became emotional and cried, expressing that he could not tolerate a PICC line and prolonged IV antibiotics any longer, stating he is fed up with all of this. He added that he needs some time to think about the plan. 04.25.2025: The patient was seen and evaluated in room 414. He has no acute complaints and denies pain at the surgical site. The dressing is intact. He had a PICC line placed yesterday, which was confirmed by chest x-ray to be in the correct position. He requires continuation of antibiotics and wound care, and a referral has been placed [facility], acceptance is currently pending and casey saw operator is working on it. 04.26.2025: The patient is seen and evaluated in room 414. He has no acute complaints and denies pain at the surgical site. The dressing is intact. His vitals are in the normal range. His labs show that Hb is 10.8 which is decreased from 11.1, hematocrit 31 which is decreased from 32, MPV is 11.8 which is increased from 11.6, creatinine is 1.5 which is decreased from 1.6, glucose is 154, calcium is 8.2 which is decreased from 8.4. All other labs are normal. His aerobic culture grew Klebsiella pneumonia (ESBL) which is sensitive to levofloxacin, meropenem, ceftazidime. So ID stopped Zosyn as the bacteria is resistant to it and started levofloxacin. We are waiting for the acceptance from [facility] for continuation of antibiotics. 04/27/25: Patient was seen and evaluated at the bedside. He has no acute complaints and denies pain at the surgical site. There is no drainage from the dressing and it is intact. He has normal vital signs today and denies fever. His white cell count is down trending. He is currently receiving levofloxacin. He is pending acceptance from [facility]. Patient's hemoglobin A1c was 15.5 and reports poor adherence to medication and admits to drinking sodas. I had an extensive conversation with him explaining the importance of tight glycemic control and diabetes and possible complications in the future. Patient acknowledges he has been poorly compliant and showed effort to modify his behaviors. REVIEW OF SYSTEMS CONSTITUTIONAL: Denies fevers, chills, or night sweats. No unintentional weight loss reported. NEUROLOGICAL: Denies headache, amaurosis fugax, motor weakness, sensory d eficit, vertigo/spinning sensation, gait abnormalities, or tremors. ENT: No hearing loss, otalgia, otorrhea, rhinitis, rhinorrhea, hoarseness, or sore throat. CARDIOVASCULAR: No chest pain, dyspnea on exertion, orthopnea, paroxysmal nocturnal dyspnea, palpitations, life-threatening arrhythmias, claudication. PULMONARY: Denies any shortness of breath, cough, phlegm/sputum, hemoptysis, pleuritic chest pain. SLEEP: Denies morning headaches, daytime somnolence or napping. Denies difficulty falling asleep, staying asleep, waking from sleep. Denies knowledge of snoring. GASTROINTESTINAL: Denies any type of dysphagia to either liquids or solids. Denies nausea, vomiting, pyrosis, early satiety, abdominal pain, diarrhea, constipation, or changes in stool consistency or caliber. Denies coffee-ground emesis, hematemesis, hematochezia, or melanotic stools. GENITOURINARY: Denies frequency, urgency, nocturia, hematuria or incontinence (Storage/Irritative symptoms.) Low urinary stream, straining to void, urinary intermittency or hesitancy, splitting of the voiding stream, terminal dribbling. ENDOCRINOLOGIC: Denies polyuria, polydipsia, polyphagia or heat/cold intolerances. HEMATOLOGIC: Denies thrombophilia/previous clots, or coagulopathy/bleeding disorders. ONCOLOGIC: Denies personal history of malignancy. DERMATOLOGIC: Denies rashes or pruritus. PSYCHIATRIC: Denies any suicidal or homicidal ideation. Denies hallucinations. PHYSICAL EXAM GENERAL APPEARANCE: The patient is awake, alert, and oriented, in no acute cardiopulmonary distress. NEUROLOGICAL: Motor is 5/5 in bilateral upper and lower extremities proximal to distal. No sensory deficits. HEENT: Face is symmetric. Pupils are equal and reactive. Extraocular movements are intact. NECK: Supple. No JVD. No thyromegaly. No submental, submandibular, pre- /postauricular, occipital or supraclavicular lymphadenopathy. CHEST: Normal chest expansion. No Telemetry. LUNGS: Absence of any rales, rhonchi or any wheezing. CARDIOVASCULAR: Regular. S1 and S2 normal. No appreciable rubs, murmurs or gallops. ABDOMEN: Soft, nontender, and nondistended. There is no rebound, voluntary guarding, or rigidity. : Deferred. No Marroquin. EXTREMITIES: S/P TMA of left foot Vital Signs (last 8hr) Date Time Temp Pulse Resp B/P (MAP) Pulse Ox O2 Delivery O2 Flow Rate FiO2 04/27/25 12:00 98.4 73 18 139/79 97 Room Air 04/27/25 08:01 82 18 N/A Room Air 21 04/27/25 08:00 98.4 77 18 143/74 99 Room Air 04/27/25 07:30 99 Room Air* 0 21 LABS: Laboratory: Test 04/27/25 11:25 04/27/25 03:50 04/25/25 16:04 Range/Units Whole Blood Glucose 163 H 70-110 MG/DL White Blood Count 6.7 4.8-10.8 K/uL Red Blood Count 3.55 L 4.50-6.20 MIL/uL Hemoglobin 10.5 L 14.0-18.0 g/dL Hematocrit 29.9 L 42-54 % Mean Corpuscular Volume 84.2 79-99 fL Mean Corpuscular Hemoglobin 29.6 27.0-33.0 pg Mean Corpuscular Hemoglobin Concent 35.1 32.0-36.0 g/dL Red Cell Distribution Width 12.3 11.0-15.5 % Platelet Count 145 130-400 K/uL Mean Platelet Volume 11.2 H 7.5-10.5 fL Nucleated Red Blood Cells 0.0 0.0-0.19 % Sodium Level 141 136-145 mmol/L Potassium Level 4.1 3.5-5.1 mmol/L Chloride Level 107 101-111 mmol/L Carbon Dioxide Level 29 21-32 mmol/L Blood Urea Nitrogen 14 7-18 mg/dL Creatinine 1.3 0.5-1.3 mg/dL Glomerular Filtration Rate Calc 62 >90 mL/min Random Glucose 110 H 70-105 mg/dL Total Calcium 8.3 L 8.5-10.1 mg/dL Bedside Glucose Comment Notified Nurse Current Medications Medications (Trade) Dose Ordered Sig/Attila Route PRN Reason Start Time Stop Time Status Last Admin Dose Admin Acetaminophen (TYLenol 325MG TAB) 650 mg Q6H PRN PO MILD PAIN (1-3) 04/22/25 11:30 05/22/25 11:29 Acetaminophen/ Codeine Phosphate (TYLenol-coDEINE TAB) 1 tab Q4H PRN PO MODERATE PAIN (4-6) 04/24/25 20:00 05/24/25 19:59 04/26/25 21:16 1 TAB Albuterol (DUOneb) 1 udvial Q6H PRN IH SHORTNESS OF BREATH 04/22/25 11:30 05/22/25 11:29 Amlodipine Besylate (NorvASC 5MG TAB) 5 mg Q24H PO 04/22/25 16:00 05/22/25 15:59 04/26/25 16:56 5 MG Aspirin (Aspirin 81mg Chew Tab) 81 mg Q24H PO 04/22/25 11:30 05/22/25 11:29 04/27/25 13:01 81 MG Atorvastatin Calcium (LIPItor 40MG) 40 mg HS PO 04/23/25 21:00 05/23/25 20:59 04/26/25 21:16 40 MG Clopidogrel Bisulfate (plaVIX 75MG) 75 mg DAILY PO 04/25/25 09:00 05/25/25 08:59 04/27/25 09:39 75 MG Dextrose (D50w) 50 ml AD PRN IV HYPOGLYCEMIA PROTOCOL 04/22/25 13:00 05/22/25 12:59 Famotidine (Pepcid 20mg Tab) 20 mg DAILY06 PO 04/24/25 06:00 04/25/25 19:48 DC 04/25/25 06:10 20 MG Famotidine (Pepcid 20mg Tab) 20 mg HS PO 04/26/25 21:00 04/26/25 14:26 DC Famotidine (Pepcid 20mg Tab) 20 mg Q48H PO 04/22/25 21:00 04/23/25 17:20 DC 04/22/25 20:27 20 MG Famotidine (Pepcid 20mg Tab) 20 mg Q48H PO 04/26/25 14:30 05/26/25 14:29 04/26/25 16:56 20 MG Famotidine (Pepcid 20mg Tab) 20 mg Q48H PO 04/27/25 09:00 04/26/25 14:25 DC Gabapentin (NEURontin 300 MG CAP) 300 mg BID PO 04/23/25 09:00 05/23/25 08:59 04/27/25 09:39 300 MG Glucagon (Glucagon 1mg Kit) 1 mg AD PRN IM HYPOGLYCEMIA PROTOCOL 04/22/25 13:00 05/22/25 12:59 Hydralazine HCl (APRESOLine 20MG INJ) 5 mg Q6H PRN IV ADMINISTER FOR SBP > 160 04/22/25 11:30 05/22/25 11:29 04/23/25 01:13 5 MG Insulin Glargine (LANtus 100 UNITS/ML 10 ML VIAL) 18 units DAILY SQ 04/23/25 09:00 05/23/25 08:59 04/27/25 09:44 18 UNITS Insulin Glargine (LANtus 100 UNITS/ML 10 ML VIAL) 22 units DAILY SQ 04/23/25 09:00 04/22/25 21:04 DC Insulin Human Regular (humuLIN R 100 UNIT/ML 3ML) 3 unit TIDAC SQ 04/23/25 07:30 04/23/25 16:21 DC Insulin Human Regular (humuLIN R 100 UNIT/ML 3ML) 5 unit ONCE SQ 04/22/25 15:30 04/22/25 21:30 DC 04/22/25 15:24 5 UNIT Insulin Human Regular (humuLIN R 100 UNIT/ML 3ML) 5 unit TIDAC SQ 04/22/25 17:00 04/23/25 22:54 DC 04/23/25 17:11 5 UNIT Insulin Human Regular (humuLIN R 100 UNIT/ML 3ML) 7 unit TIDAC SQ 04/24/25 07:30 05/24/25 07:29 04/27/25 13:10 7 UNIT Insulin Human Regular (humuLIN R 100 UNIT/ML 3ML) INSULIN SLIDING SCAL... ACHS SQ 04/22/25 11:30 04/22/25 12:30 DC 04/22/25 12:15 8 UNIT Insulin Human Regular (humuLIN R 100 UNIT/ML 3ML) INSULIN SLIDING SCAL... ACHS SQ 04/22/25 16:30 04/22/25 20:52 DC 04/22/25 17:12 3 UNIT Insulin Human Regular (humuLIN R 100 UNIT/ML 3ML) INSULIN SLIDING SCAL... ACHS SQ 04/22/25 21:00 05/22/25 20:59 04/26/25 21:19 2 UNIT Lactulose (Constulose 20gm/ 30ml Udcup) 20 gm BID PRN PO CONSTIPATION 04/25/25 21:30 05/25/25 21:29 Lactulose (Constulose 20gm/ 30ml Udcup) 20 gm Q6H6 PO 04/27/25 12:00 05/27/25 11:59 04/27/25 13:01 20 GM Levofloxacin/ Dextrose (LEvaquIN 750 MG/ D5W 150 ML) 750 mg Q24H IV 04/26/25 14:30 05/06/25 14:29 04/26/25 16:56 750 MG Ondansetron HCl (zoFRAN 4MG INJ) 4 mg Q6H PRN IVP NAUSEA/VOMITING 04/22/25 11:30 05/22/25 11:29 Piperacillin Sod/ Tazobactam Sod (Zosyn 3.375gm+NS 50ml) 3.375 gm Q8H IVPB 04/22/25 12:30 04/24/25 16:53 DC 04/24/25 04:11 3.375 GM Piperacillin Sod/ Tazobactam Sod (Zosyn 3.375gm+NS 50ml) 3.375 gm Q8H IVPB 04/24/25 17:00 04/26/25 14:20 DC 04/26/25 09:25 3.375 GM Sodium Chloride 1,000 ml @ 75 mls/hr [id number] IV 04/22/25 12:30 05/22/25 12:29 04/27/25 13:02 75 MLS/HR Sodium Chloride (NS 50ml) 50 ml AD IV 04/22/25 12:30 04/22/25 12:35 DC DIAGNOSTICS / RADIOLOGY: [ ] PATIENT: MARYCARMEN GUDINO MR#: [id number] : 1960 SEX: M AGE: 64 LOCATION: [facility] ORDER 1602 STATUS: ADM IN REPORT#: [id number] SERVICE [id number] REASON: PAD ORDERING PHYSICIAN: BEATRIZ BEEBE STONE FINISHER PROCEDURE: CTA ABDAOR - CT ANGIO ABD AORTA W RUNOFF EXAMINATION: CT ANGIOGRAM OF ABDOMEN AND PELVIS AND RUNOFFS OF THE BILATERAL LOWER EXTREMITIES. CLINICAL HISTORY: Peripheral arterial disease COMPARISON: None provided. TECHNIQUE: MDCT angiogram of the abdominal aortic vessels was performed after administration of intravenous contrast. FINDINGS: Abdominal aorta is normal in size. There are atheromatous wall calcification of the aorta, iliac arteries, and both lower limb arteries. There is no aneurysm or dissection. There is no stenosis or occlusion. The abdominal aortic branches, viz., the celiac and superior mesenteric arteries, are normal in caliber. There is no stenosis or occlusion. The angle between superior mesenteric artery and aorta is normal. Bilateral renal arteries are normal in caliber. There is no stenosis or occlusion. The inferior mesenteric arteries are normal in caliber. Bifurcation morphology is normal. There is no stenosis or occlusion. The bilateral common iliac arteries are normal in caliber. No stenosis or occlusion. The bilateral external iliac arteries are normal in caliber. Their branches are normal, and the bilateral internal iliac arteries are normal; there is no stenosis or occlusion. The bilateral superficial femoral arteries are normal in caliber. There is no stenosis or occlusion. The bilateral profunda femoris and popliteal arteries are normal in size and caliber. There is no stenosis or occlusion. The bilateral tibioperoneal trunks are normal. There is no stenosis or occlusion. Short segment stenosis of the left distal anterior tibial artery for a length of about 0.5 cm with distal narrow caliber flow. The right anterior tibial artery is normal in size and caliber. There is no stenosis or occlusion. The bilateral posterior tibial arteries are normal in size and caliber. There is no stenosis or occlusion. The bilateral peroneal arteries are normal in size and caliber. There is no stenosis or occlusion. Within the abdomen and pelvis, liver, gallbladder, pancreas, spleen, adrenal glands, and kidneys are within normal limits; bowel loops are normal in caliber without evidence of obstruction, ileus, or bowel wall thickening, and the appendix is normal; and urinary bladder, prostate, and seminal vesicles appear normal in caliber. IMPRESSION: Atheromatous wall calcification of the aorta, iliac arteries, and both lower limb arteries with short-segment stenosis of the left distal anterior tibial artery, as described above, consistent with mild peripheral vascular disease. /[place] DICTATED BY: ALBERTO GRACE MD DATE: 04/26/252040 ELECTRONICALLY SIGNED BY: ALBERTO GRACE MD DATE: 04/26/252040 ASSESSMENT: Nonhealing diabetic foot ulcer of the left 4th toe- due to chronic osteomyelitis POA ,s/p Transmetatarsal amputation left foot on 04.23.25 Left 4th toe gangrene, POA s/p Transmetatarsal amputation left foot on 04.23.25 GEORGIE on CKD, ATN POA Uncontrolled type 2 Diabetes mellitus Chronic conditions: Prior history of osteomyelitis of the 1st and 2nd toe of the left foot with prior amputation, peripheral arterial disease of the lower extremity, poorly controlled type 2 diabetes mellitus with noncompliance with insulin therapy as outpatient, (Last a1c of 15.1, in 01/25), Hypertension, Hyperl ipidemia, CVA, CKD Stage III PLAN: Referral has been placed [facility], acceptance is currently pending and casey saw operator is working on it. Left foot fourth toe chronic osteomyelitis and gangrene, POA * S/P left foot Transmetatarsal amputation on 04/23/2025 ( Post operative Day 5) * Patient will be given pain medications as needed * Arterial duplex of left lower extremity, X-ray of left foot - done on 04.23.2025 * He was on Zosyn but his aerobic culture grew Klebsiella pneumonia (ESBL) which is sensitive to levofloxacin, meropenem, ceftazidime. So ID stopped Zosyn as the bacteria is resistant to it and started levofloxacin (day 2). * Recent history of osteomyelitis of the 4th toe of the left foot status for IV antibiotic therapy in 02/2025 * He needs termite treater helper antibiotics. So a referral was placed for [facility]. We are w aiting for acceptance from them. GEORGIE on CKD, POA, resolving * IV hydration with NS@75ml/hr * Today his BUN is 14 and creatinine is 1.3 * Renal ultrasound showed no significant abnormality * will adjust the medication dosage accordingly * Nephrotoxic medications will be avoided * Will repeat his labs tomorrow. Severe hyperglycemia with blood glucose greater than 600, POA * No evidence of HHS or DKA * HbA1C>15 * Patient is on sliding scale insulin a.c. and HS * He is on consistent carb diet * adjusted Lantus and regular insulin based on blood glucose trend * Currently on 18 units of lantus and 7 units of regular. * Today his blood glucose is 163. * Will repeat his labs tomorrow. Peripheral arterial disease, POA * Arterial duplex revealed Focal stenosis of left anterior tibial artery * CT angiography of abdominal aorta - atheromatous wall calcification of the aorta, iliac arteries, and both lower lumbar is short-segment stenosis of the left distal anterior tibial artery. * Recent history of peripheral angiogram by Dr. Peoples on 02/2025 with angioplasty of the Left anterior tibial artery, and anterior segment of the left pedal arch. Chronic conditions: Prior history of osteomyelitis of the 1st and 2nd toe of the left foot with prior amputation, peripheral arterial disease of the lower extremity, poorly controlled type 2 diabetes mellitus with noncompliance with insulin therapy as outpatient, (Last Hba1c of 15.1, in 01/25), Hypertension, Hyperlipidemia, CVA, CKD Stage III ATTESTATION BY PHYSICIAN I have seen and examined the patient. I reviewed the documentation, medical decision making, and treatment plan as noted by the resident provider above. I agree with the findings and plan of care. Ihsan Mckeon MD, HARSHAVARDHA MD Apr 27, 2025 13:54 SAHIL LAMBERT MD Apr 27, 2025 17:29
--- NOTE | 2025-04-27 14:36 | NUR ---
SW met with pt after receiving referral about provider services. Educated pt and dgt on how they can get services set up in the community.
--- NOTE | 2025-04-27 16:52 | PN ---
INFECTIOUS DISEASE PROGRESS NOTE Date of Service: Apr 27, 2025 SUBJECTIVE: Patient was seen and examined at bedside in room 414. Patient is awake, alert and oriented x 3. Patient is status post left TMA on 04/23/2025. The final intraoperative wound culture results came back positive for ESBL, Klebsiella pneumoniae and patient has been started on levofloxacin 750 mg IV Q 24 hours. Tolerating antibiotics well. Once again reported that he has not had a bowel movement since admission to the hospital. Took his own Ex-lax with no results. We will give scheduled lactulose every 6 hours until BM then change to p.r.n. patient has been referred to [facility] and pending insu amol authorization. PHYSICAL EXAM EYES: Anicteric. Pupils equal and reactive. HENT: No oral thrush seen, moist Oral mucosa NECK: Supple, no JVD or thyromegaly. LUNGS: Good air entry. No rales, no rhonchi. CARDIOVASCULAR: S1, S2 regular. No murmur heard. ABDOMEN: Soft, non tender, bowel sounds present, no organomegaly. CENTRAL NERVOUS SYSTEM: Awake, alert, oriented x 3. SKIN: No rashes, no swelling. LYMPHATICS: No peripheral lymphadenopathy MUSCULOSKELETAL: No joint swelling, erythema or tenderness. EXTREMITIES: No cyanosis or clubbing. S/p left TMA. BACK: No deformity, no pressure ulcer. GENITOURINARY: No dysuria or hematuria. Vital Sign (Last 12 Hours) 04/27/25 04/27/25 04/27/25 04/27/25 07:30 08:00 08:01 12:00 Temp 98.4 98.4 Pulse 77 82 73 Resp 18 18 18 B/P (MAP) 143/74 139/79 Pulse Ox 99 99 97 O2 Delivery Room Air* Room Air N/A Room Air Room Air O2 Flow Rate 0 FiO2 21 21 Intake & Output (last 24hrs) 04/26/25 04/26/25 04/27/25 15:00 23:00 07:00 Output Total 200 ml 675 ml Balance -200 ml -675 ml LABS: Laboratory: Test 04/27/25 11:25 04/27/25 03:50 Range/Units Whole Blood Glucose 163 H 70-110 MG/DL White Blood Count 6.7 4.8-10.8 K/uL Red Blood Count 3.55 L 4.50-6.20 MIL/uL Hemoglobin 10.5 L 14.0-18.0 g/dL Hematocrit 29.9 L 42-54 % Mean Corpuscular Volume 84.2 79-99 fL Mean Corpuscular Hemoglobin 29.6 27.0-33.0 pg Mean Corpuscular Hemoglobin Concent 35.1 32.0-36.0 g/dL Red Cell Distribution Width 12.3 11.0-15.5 % Platelet Count 145 130-400 K/uL Mean Platelet Volume 11.2 H 7.5-10.5 fL Nucleated Red Blood Cells 0.0 0.0-0.19 % Sodium Level 141 136-145 mmol/L Potassium Level 4.1 3.5-5.1 mmol/L Chloride Level 107 101-111 mmol/L Carbon Dioxide Level 29 21-32 mmol/L Blood Urea Nitrogen 14 7-18 mg/dL Creatinine 1.3 0.5-1.3 mg/dL Glomerular Filtration Rate Calc 62 >90 mL/min Random Glucose 110 H 70-105 mg/dL Total Calcium 8.3 L 8.5-10.1 mg/dL DIAGNOSTICS / RADIOLOGY: PATIENT: MARYCARMEN GUDINO ACCT: [id number] LOC: [facility] U: [id number] AGE/SX: 64/M ROOM: [facility] RE04/22/[address]: CHACHO SMITH MD : 1960 BED: 1 DIS: STATUS: ADM IN TLOC: SPEC: [id number] BRIAN: 04/23/25 STATUS: COMP REQ: [id number] RECD: 04/23/25-[address]: CHARU CUELLO DPM SOURCE: FOOT ENTR: 04/23/25-[address]: ASHLEY NEVAREZ MD SPDC: FOOT LEFT ARCHIBALD,CLOVIS A MD MAMACHEN,ADARSH JACQUES MD, DEANNA DO ORDERED: ESA CULTURE, AEROBIC CULTURE COMMENTS: Comment: INTRA-OP Has specimen been collected/obtained? Y Comment: INTRA-OP Has specimen been collected/obtained? Y Comment: INTRA-OP RUN DATE: 04/26/25 [facility] PAGE 2 RUN TIME: [id number] [address], [place] [address] Department of [employer] CLIA # [id number] Supervisor Shuttle Fitting: Sarah Louis DO Specimen Report SPEC: [id number] PATIENT: MARYCARMEN GUDINO [id number] (Continued) Procedure Result Jorge Date-Time ANAEROBIC CULTURE Final 04/26/25-0551 MRL COLONY DESCRIPTION: REPORT 1: NO ANAEROBES AT 16-23 HOURS; STUDIES TO CONTINUE REPORT 2: NO ANAEROBES AT 36-47 HOURS; STUDIES TO CONTINUE REPORT 3: NO ANAEROBES AT 60 TO 71 HOURS Test(s) performed by: [facility] [address] [place] [address] AEROBIC CULTURE Final 04/26/25-0631 MRL EXTENDED SPECTRUM BETA-LACTAMASE ORGANISM IDENTIFIED. CRITICAL RESULT WAS CALLED BY RICH CROCKER ON 04/26/25 AT 0628. CRITICAL VALUES WERE READ BACK AND ACKNOWLEDGED BY DEYA CHEN ([facility] COLONY DESCRIPTION: REPORT 1: NO GROWTH AT 16-23 HOURS; STUDIES TO CONTINUE REPORT 2: 1+ GRAM NEGATIVE RODS IDENTIFICATION AND SENSITIVITY TO FOLLOW REPORT 3: NO FURTHER WORK-UP DONE COMMENTS(R): ESBL KLEBSIELLA PNEUMONIAE K PNEUMO M.I.C. RX --------- ---- AZTREONAM >16 ESBL CEFAZOLIN >16 R* CEFTAZIDIME 16 ESBL CEFTAZIDIME/AVIBACTAM <=8 S CEFTRIAXONE >2 ESBL GENTAMICIN >8 R LEVOFLOXACIN <=0.5 S TOBRAMYCIN >8 R AMPICILLIN/SULBACTAM >16/8 R MEROPENEM <=1 S PIPERACILLIN/TAZOBACTAM 32 R TRIMETHOPRIM/SUFLAMETHOXAZOLE >2/38 R ASSESSMENT: Left foot diabetic ulcer with osteomyelitis, s/p transmetatarsal amputation. Left foot infection with ESBL, Klebsiella pneumoniae. Infection with multidrug resistant organism. Diabetes mellitus. Peripheral vascular disease. Hypertension. History of CABG. Constipation. PLAN: Continue levofloxacin IV. Continue wound care. Continue pain management. Continue GI prophylaxis. Continue antidiabetics. Continue physical therapy. Give lactulose 20 g p.o. every 6 hours until BM then change to p.r.n.. Patient has been referred to [facility] and pending insurance approval. This case was reviewed and discussed with my supervising physician and the above assessment and plan was formulated and agreed upon. ATTESTATION BY PHYSICIAN I have seen and examined the patient. I reviewed the documentation, medical decision making, and treatment plan as noted by the mid-level provider above. I agree with the findings and plan of care. ASHLEY NEVAREZ MD, [facility] Apr 27, 2025 16:51
--- NOTE | 2025-04-27 17:23 | NUR ---
Approached patient for PT. Pt is walking out of RR where he showered self. He is FWB to operated leg and is not using the walker that is available in room. The dressing is dry and intact, patient in his underwear only, pushing IV pole. REPAIRER HAIRSPRING came into room and reports that patient did not call for assist. Education provided to patient. He is aware of his WB precautions. PT to DC patient as he is GA in room and not compliant. Addendum: 04/27/25 at 1835 by CHARLES JASMINE PT PT Amended: Links added.
--- NOTE | 2025-04-27 19:32 | NUR ---
WOUND CARE RINSED OFF WOUND WITH NS, PAT DRY, APPLIED VASELINE GAUZE, 4X4 GAUZE, AND WRAPPED IT WITH KRELIX. PATIENT DIDN'T COMPLAIN OF ANY PAIN OR DISCOMFORT. ASKED PATIENT IF HE NEEDED ANYTHING BEFORE I LEFT AND HE SAID HE WAS OKAY.
--- NOTE | 2025-04-27 21:40 | PN ---
Endocrinology progress note DOS:04/27/25 subjective: hyperglycemia is improving now s/p left 4th toe amputation. Home diabetic regimen: lantus 25 units daily Hba1c >15.5% REVIEW OF SYSTEMS CONSTITUTIONAL: Denies fevers, chills, or night sweats. No unintentional weight loss reported. NEUROLOGICAL: Denies headache, amaurosis fugax, motor weakness, sensory deficit, vertigo/spinning sensation, gait abnormalities, or tremors. ENT: No hearing loss, otalgia, otorrhea, rhinitis, rhinorrhea, hoarseness, or sore throat. CARDIOVASCULAR: Denies any exertional angina, dyspnea on exertion, orthopnea, paroxysmal nocturnal dyspnea, palpitations, life-threatening arrhythmias, claudication. PULMONARY: Denies any shortness of breath, cough, phlegm/sputum, hemoptysis, pleuritic chest pain. SLEEP: Denies morning headaches, daytime somnolence or napping. Denies difficulty falling asleep, staying asleep, waking from sleep. Denies knowledge of snoring. GASTROINTESTINAL: Denies any type of dysphagia to either liquids or solids. Denies nausea, vomiting, pyrosis, early satiety, abdominal pain, diarrhea, constipation, or changes in stool consistency or caliber. Denies coffee-ground emesis, hematemesis, hematochezia, or melanotic stools. GENITOURINARY: Denies frequency, urgency, nocturia, hematuria or incontinence (Storage/Irritative symptoms.) Low urinary stream, straining to void, urinary intermittency or hesitancy, splitting of the voiding stream, terminal dribbling. ENDOCRINOLOGIC: Denies polyuria, polydipsia, polyphagia or heat/cold intolerances. HEMATOLOGIC: Denies thrombophilia/previous clots, or coagulopathy/bleeding disorders. ONCOLOGIC: Denies personal history of malignancy. DERMATOLOGIC: Denies rashes or pruritus. PSYCHIATRIC: Denies any suicidal or homicidal ideation. Denies hallucinations. PAST MEDICAL HISTORY: [ PAD, diabetes mellitus, poorly controlled with a1c close to 15 in 01/25, hypertension, hyperlipidemia, coronary artery disease with CABG x3 Vessel and femoral stent ] PAST SURGICAL HISTORY: [CABG x3, femoral stent and amputation of the left 1st great toe and 2nd toe, recent hx of peripheral arteriogram of E by Dr. Peoples ] PAST SOCIAL HISTORY: [ Patient lives with . Patient denies alcohol tobacco and recreational drug use ] FAMILY HISTORY: [ Cancer, hypertension, stroke and diabetes ] Allergies: No known drug allergies Home medications: Family will be bringing list of home medications to be reconciled and updated Coded Allergies: No Known Allergies (Unverified Allergy, Unknown, 05/06/20) No Known Drug Allergies (Unverified Allergy, Unknown, 05/06/18) Vital Sign (Last 24 Hours) LABS: LABS INCLUDE A CBC, CMP, BLOOD SUGARS, LACTIC ACID ARE CURRENTLY PENDING Current Medications DIAGNOSTICS / RADIOLOGY: CHEST X-RAY, X-RAY OF THE FOOT IS CURRENTLY PENDING ASSESSMENT: Severe hyperglycemia with blood glucose greater than 600, POA improving now Home diabetic regimen: lantus 25 units daily Hba1c >15.5% Nonhealing infected diabetic foot ulcer involving the 4th toe of the left foot with chronic osteomyelitis and underlying cellulitis, POA Purplish discoloration of the 4th toe of the left foot, POA s/p left 4th toe amputation GEORGIE on CKD, POA Recent history of osteomyelitis of the 4th toe of the left foot status for IV antibiotic therapy in 02/2025, POA Recent history of peripheral angiogram by Dr. Peoples on 02/2025 with angioplasty of the Left anterior tibial artery, and anterior segment of the left pedal arch, POA Prior history of osteomyelitis of the 1st and 2nd toe of the left foot with prior amputation, POA History of significant peripheral arterial disease of the lower extremity, POA History of poorly controlled type 2 diabetes mellitus with noncompliance with insulin therapy as outpatient, (Last a1c of 15.1, in 01/25), POA Hypertension, POA Hyperlipidemia, POA History of CVA, POA CKD Stage III, POA PLAN: continue Lantus 18 units daily and adjust for fasting glucose. continue Regular insulin 7 units tid before meals and adjust for post-prandial glucose. Continue medium dose sliding scale insulin. Monitor glucose q x 6 hourly. Continue carb consistent diet. Keep glucose less than 180 mg/dl. Patient will need lantus 25 units daily and humalog 7 units tid before meals. Vitals/Labs Vital Signs Date Time Temp Pulse Resp B/P (MAP) Pulse Ox O2 Delivery O2 Flow Rate FiO2 04/27/25 20:00 98.1 84 20 131/62 99 Room Air 04/27/25 18:53 21 04/27/25 07:30 0 Laboratory Tests 04/27/25 03:50 Medications Current Medications Insulin Human Regular INSULIN SLIDING SCAL... ACHS SQ Last administered on 04/22/25at 12:15; Start 04/22/25 at 11:30; Stop 04/22/25 at 12:30; Status DC Acetaminophen 650 mg Q6H PRN PO; Start 04/22/25 at 11:30; Stop 05/22/25 at 11:29 Ondansetron HCl 4 mg Q6H PRN IVP; Start 04/22/25 at 11:30; Stop 05/22/25 at 11:29 Albuterol 1 udvial Q6H PRN IH; Start 04/22/25 at 11:30; Stop 05/22/25 at 11:29 Aspirin 81 mg Q24H PO Last administered on 04/27/25at 13:01; Start 04/22/25 at 11:30; Stop 05/22/25 at 11:29 Hydralazine HCl 5 mg Q6H PRN IV Last administered on 04/23/25at 01:13; Start 04/22/25 at 11:30; Stop 05/22/25 at 11:29 Famotidine 20 mg Q48H PO Last administered on 04/22/25at 20:27; Start 04/22/25 at 21:00; Stop 04/23/25 at 17:20; Status DC Sodium Chloride 1,000 ml @ 75 mls/hr [id number] IV Last administered on 04/27/25at 13:02; Start 04/22/25 at 12:30; Stop 05/22/25 at 12:29 Insulin Human Regular 5 unit ONCE ONCE IV; Start 04/22/25 at 12:30; Stop 04/22/25 at 12:33; Status DC Insulin Human Regular INSULIN SLIDING SCAL... ACHS SQ Last administered on 04/22/25at 17:12; Start 04/22/25 at 16:30; Stop 04/22/25 at 20:52; Status DC Insulin Glargine 20 units ONCE ONCE SQ Last administered on 04/22/25at 12:41; Start 04/22/25 at 12:30; Stop 04/22/25 at 12:33; Status DC Piperacillin Sod/ Tazobactam Sod 3.375 gm Q8H IVPB Last administered on 04/24/25at 04:11; Start 04/22/25 at 12:30; Stop 04/24/25 at 16:53; Status DC Sodium Chloride 50 ml AD IV; Start 04/22/25 at 12:30; Stop 04/22/25 at 12:35; Status DC Insulin Human Regular 5 unit TIDAC SQ Last administered on 04/23/25at 17:11; Start 04/22/25 at 17:00; Stop 04/23/25 at 22:54; Status DC Dextrose 50 ml AD PRN IV; Start 04/22/25 at 13:00; Stop 05/22/25 at 12:59 Glucagon 1 mg AD PRN IM; Start 04/22/25 at 13:00; Stop 05/22/25 at 12:59 Insulin Glargine 22 units DAILY SQ; Start 04/23/25 at 09:00; Stop 04/22/25 at 21:04; Status DC Insulin Human Regular 5 unit ONCE SQ Last administered on 04/22/25at 15:24; Start 04/22/25 at 15:30; Stop 04/22/25 at 21:30; Status DC Amlodipine Besylate 5 mg Q24H PO Last administered on 04/27/25at 17:04; Start 04/22/25 at 16:00; Stop 05/22/25 at 15:59 Insulin Human Regular INSULIN SLIDING SCAL... ACHS SQ Last administered on 04/27/25at 20:43; Start 04/22/25 at 21:00; Stop 05/22/25 at 20:59 Insulin Glargine 18 units DAILY SQ Last administered on 04/27/25at 09:44; Start 04/23/25 at 09:00; Stop 05/23/25 at 08:59 Atorvastatin Calcium 40 mg HS PO Last administered on 04/27/25at 20:36; Start 04/23/25 at 21:00; Stop 05/23/25 at 20:59 Gabapentin 300 mg BID PO Last administered on 04/27/25at 20:37; Start 04/23/25 at 09:00; Stop 05/23/25 at 08:59 Propofol 100 ml @ As Directed STK-MED ONCE IV; Start 04/23/25 at 07:13; Stop 04/23/25 at 07:14; Status DC Ketamine HCl 50 mg STK-MED ONCE .ROUTE; Start 04/23/25 at 07:14; Stop 04/23/25 at 07:14; Status DC Midazolam HCl 2 mg STK-MED ONCE .ROUTE; Start 04/23/25 at 07:16; Stop 04/23/25 at 07:17; Status DC Lidocaine HCl 20 ml STK-MED ONCE .ROUTE; Start 04/23/25 at 07:19; Stop 04/23/25 at 07:19; Status DC Bupivacaine HCl 2.5 mg STK-MED ONCE IJ; Start 04/23/25 at 07:19; Stop 04/23/25 at 07:19; Status DC Insulin Human Regular 3 unit TIDAC SQ; Start 04/23/25 at 07:30; Stop 04/23/25 at 16:21; Status DC Phenylephrine HCl 10 mg STK-MED ONCE IV; Start 04/23/25 at 08:02; Stop 04/23/25 at 08:02; Status DC Iohexol 50 ml STK-MED ONCE IV; Start 04/23/25 at 16:40; Stop 04/23/25 at 16:40; Status DC Iohexol 35,000 mg STK-MED ONCE IV; Start 04/23/25 at 16:40; Stop 04/23/25 at 16:41; Status DC Famotidine 20 mg DAILY06 PO Last administered on 04/25/25at 06:10; Start 04/24/25 at 06:00; Stop 04/25/25 at 19:48; Status DC Insulin Human Regular 7 unit TIDAC SQ Last administered on 04/27/25at 13:10; Start 04/24/25 at 07:30; Stop 05/24/25 at 07:29 Piperacillin Sod/ Tazobactam Sod 3.375 gm Q8H IVPB Last administered on 04/26/25at 09:25; Start 04/24/25 at 17:00; Stop 04/26/25 at 14:20; Status DC Acetaminophen/ Codeine Phosphate 1 tab Q4H PRN PO Last administered on 04/26/25at 21:16; Start 04/24/25 at 20:00; Stop 05/24/25 at 19:59 Clopidogrel Bisulfate 75 mg DAILY PO Last administered on 04/27/25at 09:39; Start 04/25/25 at 09:00; Stop 05/25/25 at 08:59 Polyethylene Glycol 17 gm ONCE ONCE PO Last administered on 04/25/25at 16:00; Start 04/25/25 at 16:00; Stop 04/25/25 at 16:01; Status DC Famotidine 20 mg Q48H PO; Start 04/27/25 at 09:00; Stop 04/26/25 at 14:25; Status DC Lactulose 20 gm BID PRN PO; Start 04/25/25 at 21:30; Stop 05/25/25 at 21:29 Levofloxacin/ Dextrose 750 mg Q24H IV Last administered on 04/27/25at 14:20; Start 04/26/25 at 14:30; Stop 05/06/25 at 14:29 Famotidine 20 mg HS PO; Start 04/26/25 at 21:00; Stop 04/26/25 at 14:26; Status DC Famotidine 20 mg Q48H PO Last administered on 04/26/25at 16:56; Start 04/26/25 at 14:30; Stop 05/26/25 at 14:29 Lactulose 20 gm Q6H6 PO Last administered on 04/27/25at 13:01; Start 04/27/25 at 12:00; Stop 05/27/25 at 11:59 CLOVIS ARCHIBALD MD Apr 27, 2025 21:40
[2025-04-28] VITALS (11 sets, daily range): BP systolic 119–141; BP diastolic 51–70; PULSE 67–85; RESP 16–20; TEMP 98–98.5; O2SAT 97–99
[2025-04-28 05:58] LABS: IMMATURE GRANULOCYTE ABSOLUTE 0.04 K/uL (0-1); NUCLEATED RED BLOOD CELLS 0.0 % (0.0-0.19); PLATELET COUNT (AUTO) 176 K/uL (130-400); RED BLOOD CELL COUNT(AUTO) 3.71 MIL/uL (4.50-6.20); RED CELL DISTRIBUTION WIDTH 12.4 % (11.0-15.5); WHITE BLOOD COUNT (AUTO) 6.0 K/uL (4.8-10.8)
[2025-04-28 06:26] LABS: CREATININE 1.3 mg/dL (0.5-1.3); GLOMERULAR FILTR. RATE CALC 62.0 mL/min (>90); GLUCOSE,RANDOM 152.0 mg/dL (70-105); SODIUM SERUM 138.0 mmol/L (136-145); UREA NITROGEN, BLOOD 12.0 mg/dL (7-18)
--- NOTE | 2025-04-28 15:01 | PN ---
INFECTIOUS DISEASE PROGRESS NOTE Date of Service: Apr 28, 2025 SUBJECTIVE: Patient was seen and examined at bedside in room 414. During rounding today patient expressed frustration of waiting for approval and stated he does not want to go to [facility] anymore and prefers a 2nd option to be discharged to. Stated [facility] and asking if that is an option. We will have case management evaluate patient for referral to [facility] for outpatient IV antibiotics with Meropenem 1 g IV every 8 hours x 4 weeks. Prescription was written. Patient had a bowel movement with the lactulose. No fever, temperature is 98.2. No reports of nausea or vomiting. Patient can be discharge to home once approved. PHYSICAL EXAM EYES: Anicteric. Pupils equal and reactive. HENT: No oral thrush seen, moist Oral mucosa NECK: Supple, no JVD or thyromegaly. LUNGS: Good air entry. No rales, no rhonchi. CARDIOVASCULAR: S1, S2 regular. No murmur heard. ABDOMEN: Soft, non tender, bowel sounds present, no organomegaly. CENTRAL NERVOUS SYSTEM: Awake, alert, oriented x 3. SKIN: No rashes, no swelling. LYMPHATICS: No peripheral lymphadenopathy MUSCULOSKELETAL: No joint swelling, erythema or tenderness. EXTREMITIES: No cyanosis or clubbing. S/p left TMA. BACK: No deformity, no pressure ulcer. GENITOURINARY: No dysuria or hematuria. Vital Sign (Last 12 Hours) 04/28/25 04/28/25 04/28/25 04/28/25 03:16 07:30 07:31 08:00 Temp 98.1 98.1 Pulse 74 67 71 Resp 16 18 18 B/P (MAP) 119/51 139/69 Pulse Ox 98 97 97 O2 Delivery Room Air Room Air* N/A Room Air Room Air O2 Flow Rate 0 FiO2 21 21 04/28/25 04/28/25 11:10 12:00 Temp 98.2 Pulse 69 74 Resp 18 18 B/P (MAP) 132/66 Pulse Ox 98 O2 Delivery N/A Room Air Room Air FiO2 21 Intake & Output (last 24hrs) 04/27/25 04/27/25 04/28/25 15:00 23:00 07:00 Intake Total 760 ml 240 ml 300 ml Output Total 300 ml 600 ml Balance 460 ml 240 ml -300 ml LABS: Laboratory: Test 04/28/25 10:58 04/28/25 05:02 Range/Units Whole Blood Glucose 214 H 70-110 MG/DL White Blood Count 6.0 4.8-10.8 K/uL Red Blood Count 3.71 L 4.50-6.20 MIL/uL Hemoglobin 10.9 L 14.0-18.0 g/dL Hematocrit 31.0 L 42-54 % Mean Corpuscular Volume 83.6 79-99 fL Mean Corpuscular Hemoglobin 29.4 27.0-33.0 pg Mean Corpuscular Hemoglobin Concent 35.2 32.0-36.0 g/dL Red Cell Distribution Width 12.4 11.0-15.5 % Platelet Count 176 130-400 K/uL Mean Platelet Volume 11.4 H 7.5-10.5 fL Immature Granulocyte % (Auto) 0.7 0-1 % Neutrophils (%) (Auto) 58.9 40.0-77.0 % Lymphocytes (%) (Auto) 27.7 21.0-51.0 % Monocytes (%) (Auto) 11.2 3.0-13.0 % Eosinophils (%) (Auto) 1.2 0.0-8.0 % Basophils (%) (Auto) 0.3 0.0-5.0 % Neutrophils # (Auto) 3.5 1.8-7.7 K/uL Lymphocytes # (Auto) 1.7 1.0-4.8 K/uL Monocytes # (Auto) 0.7 0.1-1.0 K/uL Eosinophils # (Auto) 0.07 0.00-0.70 K/uL Basophils # (Auto) 0.02 0.00-0.20 K/uL Absolute Immature Granulocyte (auto 0.04 0-1 K/uL Nucleated Red Blood Cells 0.0 0.0-0.19 % Sodium Level 138 136-145 mmol/L Potassium Level 4.0 3.5-5.1 mmol/L Chloride Level 104 101-111 mmol/L Carbon Dioxide Level 28 21-32 mmol/L Blood Urea Nitrogen 12 7-18 mg/dL Creatinine 1.3 0.5-1.3 mg/dL Glomerular Filtration Rate Calc 62 >90 mL/min Random Glucose 152 H 70-105 mg/dL Total Calcium 8.4 L 8.5-10.1 mg/dL ASSESSMENT: Left foot diabetic ulcer with osteomyelitis, s/p transmetatarsal amputation. Left foot infection with ESBL, Klebsiella pneumoniae. Infection with multidrug resistant organism. Diabetes mellitus. Peripheral vascular disease. Hypertension. History of CABG. Constipation. PLAN: Continue levofloxacin IV. Continue wound care. Continue pain management. Continue GI prophylaxis. Continue antidiabetics. Continue physical therapy. case management evaluate patient for [facility] for outpatient IV antibiotics with Meropenem 1 g IV every 8 hours x 4 weeks. Prescription was written. This case was reviewed and discussed with my supervising physician and the above assessment and plan was formulated and agreed upon. ATTESTATION BY PHYSICIAN I have seen and examined the patient. I reviewed the documentation, medical decision making, and treatment plan as noted by the mid-level provider above. I agree with the findings and plan of care. ASHLEY NEVAREZ MD, [facility] [employer] Apr 28, 2025 15:01
--- NOTE | 2025-04-28 15:48 | NUR ---
[facility] Follow-up: Patient re-assessed by wound healing team. Wound care dressing order for q72 hours, dressing changed 04-27-25, dry/intact. Addendum: 04/28/25 at 1549 by HUNG MARTÍNEZ RN RN/ Amended: Links added.
--- NOTE | 2025-04-28 15:48 | PN ---
[facility] PROGRESS NOTE Date of Service: Apr 28, 2025 Time of Service: 15:36 SUBJECTIVE: Patient presented as a direct admit from Dr. Montoya's w/ Podiatry, 64-year-old male history of type 2 diabetes mellitus, hypertension, hyperlipidemia, coronary artery disease, peripheral arterial disease, history of osteomyelitis of left foot, 1st and 2nd toe osteomyelitis status post amputation, recent history of left foot 4th toe diabetic foot ulcer with osteomyelitis requiring hospitalization in 02/25 who presented as a direct admit from Dr. Montoya Podiat[facility] for further evaluation of nonhealing diabetic foot ulcer involving the 4th toe along with purplish discoloration with recent history of osteomyelitis requiring hospitalization 02/25. There is tentative plans for amputation of the toes by Dr. Montoya tomorrow. Patient has had longstanding history of type 2 diabetes mellitus. Reports being diabetic for more than 20 years. He was started on basal Lantus therapy earlier this year. He frequently skips doses of Lantus and did not take Lantus yesterday or today. He has been compliant with antiplatelet therapy as well as Xarelto. He was recently seen by Dr. Peoples on last admission and underwent balloon lithotripsy for 60% stenosis in the left anterior tibial artery, underwent angioplasty with balloon lithotripsy and drug coated angioplasty involving 90-95% stenosis of the mid and distal left anterior tibial artery as well as 90% stenosis in the anterior segment of the left pedal arch. Patient had brisk two-vessel runoff to the left foot. Patient was noted to have residual POD with 100% stenosis in the left posterior tibial artery and 90% stenosis of the left peroneal artery which was too small for percutaneous interventionally. Patient states that he finished IV antibiotic therapy last month with Zosyn for management of osteomyelitis. Daughter reports that patient gets tired easily with exertional activity and sometimes he notices shortness of breath with sustained exertion. Denies any falls. Denies any chest pain currently. Patient will be admitted under hospitalist service, plan by Dr. Montoya for amputation of the toes of the left foot. We will also assess vascular status with arterial ultrasound. patient has also noticed more swelling of the left lower extremity, venous ultrasound will be obtained as well. 04.23.2025: Patient was seen and evaluated in room 414. He reports no pain at this time. He underwent left transmetatarsal amputation earlier today and expressed concern about whether he would be able to maintain proper balance and walk postoperatively. A physical therapy evaluation has been ordered for mobility ass essment. 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 He reports his blood glucose levels at home typically range between 350- 370 mg/dl, which he considers his "normal".He admits to eating lot of junk food and has difficulty controlling his diet. Endocrinology consult has been placed for further management of diabetes. We explained the care plan to the patient in detail. 04.24.2025: Patient seen and evaluated in room 414 while eating breakfast. He was surprised to see that his random glucose is 136 today, stating that at home it was never this low. Patient was educated on proper insulin dosing to optimize wound healing; he notes that his sometimes forgets to administer his medication. Patient denies pain at the surgical site of his left transmetatarsal amputation but describes a sensation of something missing. He expressed a desire to go home today. Patient's CT angiogram of abdominal aorta report is pending. Discharge is contingent upon clearance from Infectious Disease, Cardiology, General surgery and Endocrine specialists once their assessments for complete. Addendum: The patient was referred to [facility] ([facility]) for continuation of IV antibiotics as per Infectious Disease specialist recommendation. When discussed with the patient, he became emotional and cried, expressing that he could not tolerate a PICC line and prolonged IV antibiotics any longer, stating he is fed up with all of this. He added that he needs some time to think about the plan. 04.25.2025: The patient was seen and evaluated in room 414. He has no acute complaints and denies pain at the surgical site. The dressing is intact. He had a PICC line placed yesterday, which was confirmed by chest x-ray to be in the correct position. He requires continuation of antibiotics and wound care, and a referral has been placed [facility], acceptance is currently pending and pillowcase turner is working on it. 04.26.2025: The patient is seen and evaluated in room 414. He has no acute complaints and denies pain at the surgical site. The dressing is intact. His vitals are in the normal range. His labs show that Hb is 10.8 which is decreased from 11.1, hematocrit 31 which is decreased from 32, MPV is 11.8 which is increased from 11.6, creatinine is 1.5 which is decreased from 1.6, glucose is 154, calcium is 8.2 which is decreased from 8.4. All other labs are normal. His aerobic culture grew Klebsiella pneumonia (ESBL) which is sensitive to levofloxacin, meropenem, ceftazidime. So ID stopped Zosyn as the bacteria is resistant to it and started levofloxacin. We are waiting for the acceptance from [facility] for continuation of antibiotics. 04/27/25: Patient was seen and evaluated at the bedside. He has no acute complaints and denies pain at the surgical site. There is no drainage from the dressing and it is intact. He has normal vital signs today and denies fever. His white cell count is down trending. He is currently receiving levofloxacin. He is pending acceptance from [facility]. Patient's hemoglobin A1c was 15.5 and reports poor adherence to medication and admits to drinking sodas. I had an extensive conversation with him explaining the importance of tight glycemic control and diabetes and possible complications in the future. Patient acknowledges he has been poorly compliant and showed effort to modify his behaviors. 04/28/25: Patient was seen and evaluated at the bedside. He has no acute complaints and denies pain at the surgical site. There is no drainage from the dressing and it is intact. He has normal vital signs today and denies fever. His white cell count is down trending. He is currently receiving levofloxacin. PT evaluation was done yesterday and patient was able to ambulate by himself without a walker. Patient asked if he could receive his antibiotics on an outpatient basis and as per infectious disease recommendations he will be sent to [facility] with meropenem 1 g IV for 4 weeks. We are pending acceptance room [facility]. REVIEW OF SYSTEMS CONSTITUTIONAL: Denies fevers, chills, or night sweats. No unintentional weight loss reported. NEUROLOGICAL: Denies headache, motor weakness, sensory deficit, vertigo/spinning sensation, gait abnormalities, or tremors. CARDIOVASCULAR: No chest pain, dyspnea on exertion, orthopnea, paroxysmal nocturnal dyspnea, palpitations, life-threatening arrhythmias, claudication. PULMONARY: Denies any shortness of breath, cough, phlegm/sputum, hemoptysis, pleuritic chest pain. GASTROINTESTINAL: Denies any type of dysphagia to either liquids or solids. Denies nausea, vomiting, pyrosis, early satiety, abdominal pain, diarrhea, constipation. EXTREMITIES: Left foot covered in dressing, dressing intact, status post transmetatarsal amputation. PHYSICAL EXAM GENERAL APPEARANCE: The patient is awake, alert, and oriented, in no acute cardiopulmonary distress. NEUROLOGICAL: Motor is 5/5 in bilateral upper and lower extremities proximal to distal. No sensory deficits. NECK: Supple. No JVD. CHEST: Normal chest expansion. No Telemetry. LUNGS: Absence of any rales, rhonchi or any wheezing. CARDIOVASCULAR: Regular. S1 and S2 normal. No appreciable rubs, murmurs or gallops. ABDOMEN: Soft, nontender, and nondistended. There is no rebound, voluntary guarding, or rigidity. : Deferred. No Marroquin. EXTREMITIES: S/P TMA of left foot Vital Signs (last 8hr) Date Time Temp Pulse Resp B/P (MAP) Pulse Ox O2 Delivery O2 Flow Rate FiO2 04/28/25 12:00 98.2 74 18 132/66 98 Room Air 04/28/25 11:10 69 18 N/A Room Air 21 04/28/25 08:00 98.1 71 18 139/69 97 Room Air LABS: Laboratory: Test 04/28/25 10:58 04/28/25 05:02 Range/Units Whole Blood Glucose 214 H 70-110 MG/DL White Blood Count 6.0 4.8-10.8 K/uL Red Blood Count 3.71 L 4.50-6.20 MIL/uL Hemoglobin 10.9 L 14.0-18.0 g/dL Hematocrit 31.0 L 42-54 % Mean Corpuscular Volume 83.6 79-99 fL Mean Corpuscular Hemoglobin 29.4 27.0-33.0 pg Mean Corpuscular Hemoglobin Concent 35.2 32.0-36.0 g/dL Red Cell Distribution Width 12.4 11.0-15.5 % Platelet Count 176 130-400 K/uL Mean Platelet Volume 11.4 H 7.5-10.5 fL Immature Granulocyte % (Auto) 0.7 0-1 % Neutrophils (%) (Auto) 58.9 40.0-77.0 % Lymphocytes (%) (Auto) 27.7 21.0-51.0 % Monocytes (%) (Auto) 11.2 3.0-13.0 % Eosinophils (%) (Auto) 1.2 0.0-8.0 % Basophils (%) (Auto) 0.3 0.0-5.0 % Neutrophils # (Auto) 3.5 1.8-7.7 K/uL Lymphocytes # (Auto) 1.7 1.0-4.8 K/uL Monocytes # (Auto) 0.7 0.1-1.0 K/uL Eosinophils # (Auto) 0.07 0.00-0.70 K/uL Basophils # (Auto) 0.02 0.00-0.20 K/uL Absolute Immature Granulocyte (auto 0.04 0-1 K/uL Nucleated Red Blood Cells 0.0 0.0-0.19 % Sodium Level 138 136-145 mmol/L Potassium Level 4.0 3.5-5.1 mmol/L Chloride Level 104 101-111 mmol/L Carbon Dioxide Level 28 21-32 mmol/L Blood Urea Nitrogen 12 7-18 mg/dL Creatinine 1.3 0.5-1.3 mg/dL Glomerular Filtration Rate Calc 62 >90 mL/min Random Glucose 152 H 70-105 mg/dL Total Calcium 8.4 L 8.5-10.1 mg/dL Current Medications Medications (Trade) Dose Ordered Sig/Attila Route PRN Reason Start Time Stop Time Status Last Admin Dose Admin Acetaminophen (TYLenol 325MG TAB) 650 mg Q6H PRN PO MILD PAIN (1-3) 04/22/25 11:30 05/22/25 11:29 Acetaminophen/ Codeine Phosphate (TYLenol-coDEINE TAB) 1 tab Q4H PRN PO MODERATE PAIN (4-6) 04/24/25 20:00 05/24/25 19:59 04/26/25 21:16 1 TAB Albuterol (DUOneb) 1 udvial Q6H PRN IH SHORTNESS OF BREATH 04/22/25 11:30 05/22/25 11:29 Amlodipine Besylate (NorvASC 5MG TAB) 5 mg Q24H PO 04/22/25 16:00 05/22/25 15:59 04/27/25 17:04 5 MG Aspirin (Aspirin 81mg Chew Tab) 81 mg Q24H PO 04/22/25 11:30 05/22/25 11:29 04/28/25 12:18 81 MG Atorvastatin Calcium (LIPItor 40MG) 40 mg HS PO 04/23/25 21:00 05/23/25 20:59 04/27/25 20:36 40 MG Clopidogrel Bisulfate (plaVIX 75MG) 75 mg DAILY PO 04/25/25 09:00 05/25/25 08:59 04/28/25 10:34 75 MG Dextrose (D50w) 50 ml AD PRN IV HYPOGLYCEMIA PROTOCOL 04/22/25 13:00 05/22/25 12:59 Famotidine (Pepcid 20mg Tab) 20 mg DAILY06 PO 04/24/25 06:00 04/25/25 19:48 DC 04/25/25 06:10 20 MG Famotidine (Pepcid 20mg Tab) 20 mg HS PO 04/26/25 21:00 04/26/25 14:26 DC Famotidine (Pepcid 20mg Tab) 20 mg Q48H PO 04/22/25 21:00 04/23/25 17:20 DC 04/22/25 20:27 20 MG Famotidine (Pepcid 20mg Tab) 20 mg Q48H PO 04/26/25 14:30 05/26/25 14:29 04/28/25 14:18 20 MG Famotidine (Pepcid 20mg Tab) 20 mg Q48H PO 04/27/25 09:00 04/26/25 14:25 DC Gabapentin (NEURontin 300 MG CAP) 300 mg BID PO 04/23/25 09:00 05/23/25 08:59 04/28/25 10:34 300 MG Glucagon (Glucagon 1mg Kit) 1 mg AD PRN IM HYPOGLYCEMIA PROTOCOL 04/22/25 13:00 05/22/25 12:59 Hydralazine HCl (APRESOLine 20MG INJ) 5 mg Q6H PRN IV ADMINISTER FOR SBP > 160 04/22/25 11:30 05/22/25 11:29 04/23/25 01:13 5 MG Insulin Glargine (LANtus 100 UNITS/ML 10 ML VIAL) 18 units DAILY SQ 04/23/25 09:00 05/23/25 08:59 04/28/25 10:41 18 UNITS Insulin Glargine (LANtus 100 UNITS/ML 10 ML VIAL) 22 units DAILY SQ 04/23/25 09:00 04/22/25 21:04 DC Insulin Human Regular (humuLIN R 100 UNIT/ML 3ML) 3 unit TIDAC SQ 04/23/25 07:30 04/23/25 16:21 DC Insulin Human Regular (humuLIN R 100 UNIT/ML 3ML) 5 unit ONCE SQ 04/22/25 15:30 04/22/25 21:30 DC 04/22/25 15:24 5 UNIT Insulin Human Regular (humuLIN R 100 UNIT/ML 3ML) 5 unit TIDAC SQ 04/22/25 17:00 04/23/25 22:54 DC 04/23/25 17:11 5 UNIT Insulin Human Regular (humuLIN R 100 UNIT/ML 3ML) 7 unit TIDAC SQ 04/24/25 07:30 05/24/25 07:29 04/28/25 12:22 7 UNIT Insulin Human Regular (humuLIN R 100 UNIT/ML 3ML) INSULIN SLIDING SCAL... ACHS SQ 04/22/25 11:30 04/22/25 12:30 DC 04/22/25 12:15 8 UNIT Insulin Human Regular (humuLIN R 100 UNIT/ML 3ML) INSULIN SLIDING SCAL... ACHS SQ 04/22/25 16:30 04/22/25 20:52 DC 04/22/25 17:12 3 UNIT Insulin Human Regular (humuLIN R 100 UNIT/ML 3ML) INSULIN SLIDING SCAL... ACHS SQ 04/22/25 21:00 05/22/25 20:59 04/28/25 12:24 3 UNIT Lactulose (Constulose 20gm/ 30ml Udcup) 20 gm BID PRN PO CONSTIPATION 04/25/25 21:30 05/25/25 21:29 Lactulose (Constulose 20gm/ 30ml Udcup) 20 gm Q6H6 PO 04/27/25 12:00 05/27/25 11:59 04/27/25 13:01 20 GM Levofloxacin/ Dextrose (LEvaquIN 750 MG/ D5W 150 ML) 750 mg Q24H IV 04/26/25 14:30 05/06/25 14:29 04/28/25 14:12 750 MG Ondansetron HCl (zoFRAN 4MG INJ) 4 mg Q6H PRN IVP NAUSEA/VOMITING 04/22/25 11:30 05/22/25 11:29 Piperacillin Sod/ Tazobactam Sod (Zosyn 3.375gm+NS 50ml) 3.375 gm Q8H IVPB 04/22/25 12:30 04/24/25 16:53 DC 04/24/25 04:11 3.375 GM Piperacillin Sod/ Tazobactam Sod (Zosyn 3.375gm+NS 50ml) 3.375 gm Q8H IVPB 04/24/25 17:00 04/26/25 14:20 DC 04/26/25 09:25 3.375 GM Sodium Chloride 1,000 ml @ 75 mls/hr [id number] IV 04/22/25 12:30 05/22/25 12:29 04/28/25 14:18 75 MLS/HR Sodium Chloride (NS 50ml) 50 ml AD IV 04/22/25 12:30 04/22/25 12:35 DC DIAGNOSTICS / RADIOLOGY: [ ] ASSESSMENT: Nonhealing diabetic foot ulcer of the left 4th toe- due to chronic osteomyelitis POA ,s/p Transmetatarsal amputation left foot on 04.23.25 Left 4th toe gangrene, POA s/p Transmetatarsal amputation left foot on 04.23.25 GEORGIE on CKD, ATN POA Uncontrolled type 2 Diabetes mellitus Chronic conditions: Prior history of osteomyelitis of the 1st and 2nd toe of the left foot with prior amputation, peripheral arterial disease of the lower extremity, poorly controlled type 2 diabetes mellitus with noncompliance with insulin therapy as outpatient, (Last a1c of 15.1, in 01/25), Hypertension, Hyperlipidemia, CVA, CKD Stage III PLAN: Referral has been placed [facility], acceptance is currently pending and pillowcase turner is working on it. Left foot fourth toe chronic osteomyelitis and gangrene, POA * S/P left foot Transmetatarsal amputation on 04/23/2025 ( Post operative Day 6) * Patient will be given pain medications as needed * Arterial duplex of left lower extremity, X-ray of left foot - done on 04.23.2025 * He was on Zosyn but his aerobic culture grew Klebsiella pneumonia (ESBL) which is sensitive to levofloxacin, meropenem, ceftazidime. So ID stopped Zosyn as the bacteria is resistant to it and started levofloxacin (day 2). * Recent history of osteomyelitis of the 4th toe of the left foot status for IV antibiotic therapy in 02/2025 * He needs terminal operator antibiotics. Infectious Disease recommended meropenem 1 g IV for 4 weeks in [facility], pending approval. GEORGIE on CKD, POA, resolved * IV hydration with NS@75ml/hr * Today his BUN is 12 and creatinine is 1.3 * Renal ultrasound showed no significant abnormality * will adjust the medication dosage accordingly * Nephrotoxic medications will be avoided * Will repeat his labs tomorrow. Severe hyperglycemia with blood glucose greater than 600, POA * No evidence of HHS or DKA, WB glucose 214 * HbA1C>15 * Patient is on sliding scale insulin a.c. and HS * He is on consistent carb diet * adjusted Lantus and regular insulin based on blood glucose trend * Currently on 18 units of lantus and 7 units of regular. * Today his blood glucose is 163. * Will repeat his labs tomorrow. Peripheral arterial disease, POA * Arterial duplex revealed Focal stenosis of left anterior tibial artery * CT angiography of abdominal aorta - atheromatous wall calcification of the aorta, iliac arteries, and both lower lumbar is short-segment stenosis of the left distal anterior tibial artery. * Recent history of peripheral angiogram by Dr. Peoples on 02/2025 with angioplasty of the Left anterior tibial artery, and anterior segment of the left pedal arch. Chronic conditions: Prior history of osteomyelitis of the 1st and 2nd toe of the left foot with prior amputation, peripheral arterial disease of the lower extremity, poorly controlled type 2 diabetes mellitus with noncompliance with insulin therapy as outpatient, (Last Hba1c of 15.1, in 01/25), Hypertension, Hyperlipidemia, CVA, CKD Stage III ATTESTATION BY PHYSICIAN I have seen and examined the patient. I reviewed the documentation, medical decision making, and treatment plan as noted by the resident provider above. I agree with the findings and plan of care. Ihsan Mckeon MD, HARSHAVARDHA MD Apr 28, 2025 15:48
--- NOTE | 2025-04-28 21:08 | PN ---
Endocrinology progress note DOS:04/28/25 subjective: hyperglycemia is improving now s/p left 4th toe amputation. Home diabetic regimen: lantus 25 units daily Hba1c >15.5% PAST MEDICAL HISTORY: [ PAD, diabetes mellitus, poorly controlled with a1c close to 15 in 01/25, hypertension, hyperlipidemia, coronary artery disease with CABG x3 Vessel and femoral stent ] PAST SURGICAL HISTORY: [CABG x3, femoral stent and amputation of the left 1st great toe and 2nd toe, recent hx of peripheral arteriogram of LLE by Dr. Peoples ] PAST SOCIAL HISTORY: [ Patient lives with . Patient denies alcohol tobacco and recreational drug use ] FAMILY HISTORY: [ Cancer, hypertension, stroke and diabetes ] Allergies: No known drug allergies Home medications: Family will be bringing list of home medications to be reconciled and updated Coded Allergies: No Known Allergies (Unverified Allergy, Unknown, 05/06/20) No Known Drug Allergies (Unverified Allergy, Unknown, 05/06/18) Vital Sign (Last 24 Hours) LABS: LABS INCLUDE A CBC, CMP, BLOOD SUGARS, LACTIC ACID ARE CURRENTLY PENDING Current Medications DIAGNOSTICS / RADIOLOGY: CHEST X-RAY, X-RAY OF THE FOOT IS CURRENTLY PENDING ASSESSMENT: Severe hyperglycemia with blood glucose greater than 600, POA, improving now Home diabetic regimen: lantus 25 units daily Hba1c >15.5% Nonhealing infected diabetic foot ulcer involving the 4th toe of the left foot with chronic osteomyelitis and underlying cellulitis, POA Purplish discoloration of the 4th toe of the left foot, POA s/p left 4th toe amputation [place] on CKD, POA Recent history of osteomyelitis of the 4th toe of the left foot status for IV antibiotic therapy in 02/2025, POA Recent history of peripheral angiogram by Dr. Peoples on 02/2025 with angioplasty of the Left anterior tibial artery, and anterior segment of the left pedal arch, POA Prior history of osteomyelitis of the 1st and 2nd toe of the left foot with prior amputation, POA History of significant peripheral arterial disease of the lower extremity, POA Hypertension, POA Hyperlipidemia, POA History of CVA, POA CKD Stage III, POA PLAN: continue Lantus 18 units daily and adjust for fasting glucose. continue Regular insulin 7 units tid before meals and adjust for post-prandial glucose. Continue medium dose sliding scale insulin. Monitor glucose q x 6 hourly. Continue carb consistent diet. Keep glucose less than 180 mg/dl. Patient will need lantus 25 units daily and humalog 7 units tid before meals. Vitals/Labs Vital Signs Date Time Temp Pulse Resp B/P (MAP) Pulse Ox O2 Delivery O2 Flow Rate FiO2 04/28/25 19:38 98.4 85 20 132/63 98 Room Air 04/28/25 19:01 21 04/28/25 07:30 0 Laboratory Tests 04/28/25 05:02 Medications Current Medications Insulin Human Regular INSULIN SLIDING SCAL... ACHS SQ Last administered on 04/22/25at 12:15; Start 04/22/25 at 11:30; Stop 04/22/25 at 12:30; Status DC Acetaminophen 650 mg Q6H PRN PO; Start 04/22/25 at 11:30; Stop 05/22/25 at 11:29 Ondansetron HCl 4 mg Q6H PRN IVP; Start 04/22/25 at 11:30; Stop 05/22/25 at 11:29 Albuterol 1 udvial Q6H PRN IH; Start 04/22/25 at 11:30; Stop 05/22/25 at 11:29 Aspirin 81 mg Q24H PO Last administered on 04/28/25at 12:18; Start 04/22/25 at 11:30; Stop 05/22/25 at 11:29 Hydralazine HCl 5 mg Q6H PRN IV Last administered on 04/23/25at 01:13; Start 04/22/25 at 11:30; Stop 05/22/25 at 11:29 Famotidine 20 mg Q48H PO Last administered on 04/22/25at 20:27; Start 04/22/25 at 21:00; Stop 04/23/25 at 17:20; Status DC Sodium Chloride 1,000 ml @ 75 mls/hr [id number] IV Last administered on 04/28/25at 14:18; Start 04/22/25 at 12:30; Stop 05/22/25 at 12:29 Insulin Human Regular 5 unit ONCE ONCE IV; Start 04/22/25 at 12:30; Stop 04/22/25 at 12:33; Status DC Insulin Human Regular INSULIN SLIDING SCAL... ACHS SQ Last administered on 04/22/25at 17:12; Start 04/22/25 at 16:30; Stop 04/22/25 at 20:52; Status DC Insulin Glargine 20 units ONCE ONCE SQ Last administered on 04/22/25at 12:41; Start 04/22/25 at 12:30; Stop 04/22/25 at 12:33; Status DC Piperacillin Sod/ Tazobactam Sod 3.375 gm Q8H IVPB Last administered on 04/24/25at 04:11; Start 04/22/25 at 12:30; Stop 04/24/25 at 16:53; Status DC Sodium Chloride 50 ml AD IV; Start 04/22/25 at 12:30; Stop 04/22/25 at 12:35; Status DC Insulin Human Regular 5 unit TIDAC SQ Last administered on 04/23/25at 17:11; Start 04/22/25 at 17:00; Stop 04/23/25 at 22:54; Status DC Dextrose 50 ml AD PRN IV; Start 04/22/25 at 13:00; Stop 05/22/25 at 12:59 Glucagon 1 mg AD PRN IM; Start 04/22/25 at 13:00; Stop 05/22/25 at 12:59 Insulin Glargine 22 units DAILY SQ; Start 04/23/25 at 09:00; Stop 04/22/25 at 21:04; Status DC Insulin Human Regular 5 unit ONCE SQ Last administered on 04/22/25at 15:24; Start 04/22/25 at 15:30; Stop 04/22/25 at 21:30; Status DC Amlodipine Besylate 5 mg Q24H PO Last administered on 04/28/25at 17:06; Start 04/22/25 at 16:00; Stop 05/22/25 at 15:59 Insulin Human Regular INSULIN SLIDING SCAL... ACHS SQ Last administered on 04/28/25at 12:24; Start 04/22/25 at 21:00; Stop 05/22/25 at 20:59 Insulin Glargine 18 units DAILY SQ Last administered on 04/28/25at 10:41; Start 04/23/25 at 09:00; Stop 05/23/25 at 08:59 Atorvastatin Calcium 40 mg HS PO Last administered on 04/27/25at 20:36; Start 04/23/25 at 21:00; Stop 05/23/25 at 20:59 Gabapentin 300 mg BID PO Last administered on 04/28/25at 10:34; Start 04/23/25 at 09:00; Stop 05/23/25 at 08:59 Propofol 100 ml @ As Directed STK-MED ONCE IV; Start 04/23/25 at 07:13; Stop 04/23/25 at 07:14; Status DC Ketamine HCl 50 mg STK-MED ONCE .ROUTE; Start 04/23/25 at 07:14; Stop 04/23/25 at 07:14; Status DC Midazolam HCl 2 mg STK-MED ONCE .ROUTE; Start 04/23/25 at 07:16; Stop 04/23/25 at 07:17; Status DC Lidocaine HCl 20 ml STK-MED ONCE .ROUTE; Start 04/23/25 at 07:19; Stop 04/23/25 at 07:19; Status DC Bupivacaine HCl 2.5 mg STK-MED ONCE IJ; Start 04/23/25 at 07:19; Stop 04/23/25 at 07:19; Status DC Insulin Human Regular 3 unit TIDAC SQ; Start 04/23/25 at 07:30; Stop 04/23/25 at 16:21; Status DC Phenylephrine HCl 10 mg STK-MED ONCE IV; Start 04/23/25 at 08:02; Stop 04/23/25 at 08:02; Status DC Iohexol 50 ml STK-MED ONCE IV; Start 04/23/25 at 16:40; Stop 04/23/25 at 16:40; Status DC Iohexol 35,000 mg STK-MED ONCE IV; Start 04/23/25 at 16:40; Stop 04/23/25 at 16:41; Status DC Famotidine 20 mg DAILY06 PO Last administered on 04/25/25at 06:10; Start 04/24/25 at 06:00; Stop 04/25/25 at 19:48; Status DC Insulin Human Regular 7 unit TIDAC SQ Last administered on 04/28/25at 12:22; Start 04/24/25 at 07:30; Stop 05/24/25 at 07:29 Piperacillin Sod/ Tazobactam Sod 3.375 gm Q8H IVPB Last administered on 04/26/25at 09:25; Start 04/24/25 at 17:00; Stop 04/26/25 at 14:20; Status DC Acetaminophen/ Codeine Phosphate 1 tab Q4H PRN PO Last administered on 04/26/25at 21:16; Start 04/24/25 at 20:00; Stop 05/24/25 at 19:59 Clopidogrel Bisulfate 75 mg DAILY PO Last administered on 04/28/25at 10:34; Start 04/25/25 at 09:00; Stop 05/25/25 at 08:59 Polyethylene Glycol 17 gm ONCE ONCE PO Last administered on 04/25/25at 16:00; Start 04/25/25 at 16:00; Stop 04/25/25 at 16:01; Status DC Famotidine 20 mg Q48H PO; Start 04/27/25 at 09:00; Stop 04/26/25 at 14:25; Status DC Lactulose 20 gm BID PRN PO; Start 04/25/25 at 21:30; Stop 05/25/25 at 21:29 Levofloxacin/ Dextrose 750 mg Q24H IV Last administered on 04/28/25at 14:12; Start 04/26/25 at 14:30; Stop 05/06/25 at 14:29 Famotidine 20 mg HS PO; Start 04/26/25 at 21:00; Stop 04/26/25 at 14:26; Status DC Famotidine 20 mg Q48H PO Last administered on 04/28/25at 14:18; Start 04/26/25 at 14:30; Stop 05/26/25 at 14:29 Lactulose 20 gm Q6H6 PO Last administered on 04/27/25at 13:01; Start 04/27/25 at 12:00; Stop 05/27/25 at 11:59 CLOVIS ARCHIBALD MD Apr 28, 2025 21:08
[2025-04-29 03:01] VITALS: BP 110/54; PULSE 58; RESP 18; TEMP 98.4
[2025-04-29 06:08] LABS: CREATININE 1.4 mg/dL (0.5-1.3); GLOMERULAR FILTR. RATE CALC 57.0 mL/min (>90); GLUCOSE,RANDOM 128.0 mg/dL (70-105); SODIUM SERUM 139.0 mmol/L (136-145); UREA NITROGEN, BLOOD 10.0 mg/dL (7-18)
[2025-04-29 06:12] LABS: IMMATURE GRANULOCYTE ABSOLUTE 0.03 K/uL (0-1); NUCLEATED RED BLOOD CELLS 0.0 % (0.0-0.19); PLATELET COUNT (AUTO) 190 K/uL (130-400); RED BLOOD CELL COUNT(AUTO) 3.71 MIL/uL (4.50-6.20); RED CELL DISTRIBUTION WIDTH 12.4 % (11.0-15.5); WHITE BLOOD COUNT (AUTO) 6.1 K/uL (4.8-10.8)
[2025-04-29 06:30] VITALS: PULSE 70; RESP 18; O2SAT 98
[2025-04-29 08:00] VITALS: BP 137/67; PULSE 75; RESP 16; TEMP 97.2; O2SAT 100
[2025-04-29 12:00] VITALS: BP 143/79; PULSE 68; RESP 16; TEMP 98.2
--- NOTE | 2025-04-29 14:27 | PN ---
[facility] PROGRESS NOTE Date of Service: Apr 29, 2025 Time of Service: 14:27 SUBJECTIVE: Patient presented as a direct admit from Dr. Montoya's w/ Podiatry, 64-year-old male history of type 2 diabetes mellitus, hypertension, hyperlipidemia, coronary artery disease, peripheral arterial disease, history of osteomyelitis of left foot, 1st and 2nd toe osteomyelitis status post amputation, recent history of left foot 4th toe diabetic foot ulcer with osteomyelitis requiring hospitalization in 02/25 who presented as a direct admit from Dr. Montoya Podiatry for further evaluation of nonhealing diabetic foot ulcer involving the 4th toe along with purplish discoloration with recent history of osteomyelitis requiring hospitalization 02/25. There is tentative plans for amputation of the toes by Dr. Montoya tomorrow. Patient has had longstanding history of type 2 diabetes mellitus. Reports being diabetic for more than 20 years. He was started on basal Lantus therapy earlier this year. He frequently skips doses of Lantus and did not take Lantus yesterday or today. He has been compliant with antiplatelet therapy as well as Xarelto. He was recently seen by Dr. Peoples on last admission and underwent balloon lithotripsy for 60% stenosis in the left anterior tibial artery, underwent angioplasty with balloon lithotripsy and drug coated angioplasty involving 90-95% stenosis of the mid and distal left anterior tibial artery as well as 90% stenosis in the anterior segment of the left pedal arch. Patient had brisk two-vessel runoff to the left foot. Patient was noted to have residual POD with 100% stenosis in the left posterior tibial artery and 90% stenosis of the left peroneal artery which was too small for percutaneous interventionally. Patient states that he finished IV antibiotic therapy last month with Zosyn for management of osteomyelitis. Daughter reports that patient gets tired easily with exertional activity and sometimes he notices shortness of breath with sustained exertion. Denies any falls. Denies any chest pain currently. Patient will be admitted under hospitalist service, plan by Dr. Montoya for amputation of the toes of the left foot. We will also assess vascular status with arterial ultrasound. patient has also noticed more swelling of the left lower extremity, venous ultrasound will be obtained as well. 04.23.2025: Patient was seen and evaluated in room 414. He reports no pain at this time. He underwent left transmetatarsal amputation earlier today and expressed concern about whether he would be able to maintain proper balance and walk postoperatively. A physical therapy evaluation has been ordered for mobility ass essment. 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 He reports his blood glucose levels at home typically range between 350- 370 mg/dl, which he considers his "normal".He admits to eating lot of junk food and has difficulty controlling his diet. Endocrinology consult has been placed for further management of diabetes. We explained the care plan to the patient in detail. 04.24.2025: Patient seen and evaluated in room 414 while eating breakfast. He was surprised to see that his random glucose is 136 today, stating that at home it was never this low. Patient was educated on proper insulin dosing to optimize wound healing; he notes that his sometimes forgets to administer his medication. Patient denies pain at the surgical site of his left transmetatarsal amputation but describes a sensation of something missing. He expressed a desire to go home today. Patient's CT angiogram of abdominal aorta report is pending. Discharge is contingent upon clearance from Infectious Disease, Cardiology, General surgery and Endocrine specialists once their assessments for complete. Addendum: The patient was referred to [facility] ([facility]) for continuation of IV antibiotics as per Infectious Disease specialist recommendation. When discussed with the patient, he became emotional and cried, expressing that he could not tolerate a PICC line and prolonged IV antibiotics any longer, stating he is fed up with all of this. He added that he needs some time to think about the plan. 04.25.2025: The patient was seen and evaluated in room 414. He has no acute complaints and denies pain at the surgical site. The dressing is intact. He had a PICC line placed yesterday, which was confirmed by chest x-ray to be in the correct position. He requires continuation of antibiotics and wound care, and a referral has been placed [facility], acceptance is currently pending and porter sample case is working on it. 04.26.2025: The patient is seen and evaluated in room 414. He has no acute complaints and denies pain at the surgical site. The dressing is intact. His vitals are in the normal range. His labs show that Hb is 10.8 which is decreased from 11.1, hematocrit 31 which is decreased from 32, MPV is 11.8 which is increased from 11.6, creatinine is 1.5 which is decreased from 1.6, glucose is 154, calcium is 8.2 which is decreased from 8.4. All other labs are normal. His aerobic culture grew Klebsiella pneumonia (ESBL) which is sensitive to levofloxacin, meropenem, ceftazidime. So ID stopped Zosyn as the bacteria is resistant to it and started levofloxacin. We are waiting for the acceptance from [employer] for continuation of antibiotics. 04/27/25: Patient was seen and evaluated at the bedside. He has no acute complaints and denies pain at the surgical site. There is no drainage from the dressing and it is intact. He has normal vital signs today and denies fever. His white cell count is down trending. He is currently receiving levofloxacin. He is pending acceptance from [employer]. Patient's hemoglobin A1c was 15.5 and reports poor adherence to medication and admits to drinking sodas. I had an extensive conversation with him explaining the importance of tight glycemic control and diabetes and possible complications in the future. Patient acknowledges he has been poorly compliant and showed effort to modify his behaviors. 04/28/25: Patient was seen and evaluated at the bedside. He has no acute complaints and denies pain at the surgical site. There is no drainage from the dressing and it is intact. He has normal vital signs today and denies fever. His white cell count is down trending. He is currently receiving levofloxacin. PT evaluation was done yesterday and patient was able to ambulate by himself without a walker. Patient asked if he could receive his antibiotics on an outpatient basis and as per infectious disease recommendations he will be sent to [facility] with meropenem 1 g IV for 4 weeks. We are pending acceptance room [facility]. 04/29/2025 Patient is seen and examined at the bedside. Vitals systolic blood pressure ranging in 130s. No acute events last night. States that he feels well and has no complaints. He denies fever, chills, nausea, vomiting. No abnormal discharge noted at the operative site. Labs hemoglobin 10.7, creatinine increased from 1.3-1.4, and rest of the labs are unremarkable. He is able to tolerate oral feeds without any nausea/vomiting, ambulating comfortably. Pending insurance approval for [facility]. REVIEW OF SYSTEMS CONSTITUTIONAL: Denies fevers, chills, or night sweats. No unintentional weight loss reported. NEUROLOGICAL: Denies headache, motor weakness, sensory deficit, vertigo/spinning sensation, gait abnormalities, or tremors. CARDIOVASCULAR: No chest pain, dyspnea on exertion, orthopnea, paroxysmal nocturnal dyspnea, palpitations, life-threatening arrhythmias, claudication. PULMONARY: Denies any shortness of breath, cough, phlegm/sputum, hemoptysis, pleuritic chest pain. GASTROINTESTINAL: Denies any type of dysphagia to either liquids or solids. Denies nausea, vomiting, pyrosis, early satiety, abdominal pain, diarrhea, constipation. EXTREMITIES: Mild pain, Left foot covered in dressing, dressing intact, status post transmetatarsal amputation. PHYSICAL EXAM GENERAL APPEARANCE: The patient is awake, alert, and oriented, in no acute cardiopulmonary distress. NEUROLOGICAL: Motor is 5/5 in bilateral upper and lower extremities proximal to distal. No sensory deficits. HEENT: Face is symmetric. Pupils are equal and reactive. Extraocular movements are intact. NECK: Supple. No JVD. No thyromegaly. No submental, submandibular, pre- /postauricular, occipital or supraclavicular lymphadenopathy. CHEST: Normal chest expansion. No Telemetry. LUNGS: Absence of any rales, rhonchi or any wheezing. CARDIOVASCULAR: Regular. S1 and S2 normal. No appreciable rubs, murmurs or gallops. ABDOMEN: Soft, nontender, and nondistended. There is no rebound, voluntary guarding, or rigidity. : Deferred. No Marroquin. EXTREMITIES: S/P TMA of left foot, no abnormal discharge, swelling noted Vital Signs (last 8hr) Date Time Temp Pulse Resp B/P (MAP) Pulse Ox O2 Delivery O2 Flow Rate FiO2 04/29/25 12:00 98.2 68 16 143/79 99 Room Air 04/29/25 12:00 98.2 68 16 143/79 99 Room Air 04/29/25 08:00 97.2 75 16 137/67 100 Room Air 04/29/25 06:30 70 18 N/A Room Air 21 LABS: Laboratory: Test 04/29/25 11:05 04/29/25 05:43 04/29/25 05:41 Range/Units Whole Blood Glucose 97 70-110 MG/DL White Blood Count 6.1 4.8-10.8 K/uL Red Blood Count 3.71 L 4.50-6.20 MIL/uL Hemoglobin 10.7 L 14.0-18.0 g/dL Hematocrit 30.6 L 42-54 % Mean Corpuscular Volume 82.5 79-99 fL Mean Corpuscular Hemoglobin 28.8 27.0-33.0 pg Mean Corpuscular Hemoglobin Concent 35.0 32.0-36.0 g/dL Red Cell Distribution Width 12.4 11.0-15.5 % Platelet Count 190 130-400 K/uL Mean Platelet Volume 11.0 H 7.5-10.5 fL Immature Granulocyte % (Auto) 0.5 0-1 % Neutrophils (%) (Auto) 51.8 40.0-77.0 % Lymphocytes (%) (Auto) 34.9 21.0-51.0 % Monocytes (%) (Auto) 11.3 3.0-13.0 % Eosinophils (%) (Auto) 1.3 0.0-8.0 % Basophils (%) (Auto) 0.2 0.0-5.0 % Neutrophils # (Auto) 3.2 1.8-7.7 K/uL Lymphocytes # (Auto) 2.1 1.0-4.8 K/uL Monocytes # (Auto) 0.7 0.1-1.0 K/uL Eosinophils # (Auto) 0.08 0.00-0.70 K/uL Basophils # (Auto) 0.01 0.00-0.20 K/uL Absolute Immature Granulocyte (auto 0.03 0-1 K/uL Nucleated Red Blood Cells 0.0 0.0-0.19 % Sodium Level 139 136-145 mmol/L Potassium Level 4.0 3.5-5.1 mmol/L Chloride Level 105 101-111 mmol/L Carbon Dioxide Level 27 21-32 mmol/L Blood Urea Nitrogen 10 7-18 mg/dL Creatinine 1.4 H 0.5-1.3 mg/dL Glomerular Filtration Rate Calc 57 >90 mL/min Random Glucose 128 H 70-105 mg/dL Total Calcium 8.6 8.5-10.1 mg/dL Current Medications Medications (Trade) Dose Ordered Sig/Attila Route PRN Reason Start Time Stop Time Status Last Admin Dose Admin Acetaminophen (TYLenol 325MG TAB) 650 mg Q6H PRN PO MILD PAIN (1-3) 04/22/25 11:30 05/22/25 11:29 Acetaminophen/ Codeine Phosphate (TYLenol-coDEINE TAB) 1 tab Q4H PRN PO MODERATE PAIN (4-6) 04/24/25 20:00 05/24/25 19:59 04/26/25 21:16 1 TAB Albuterol (DUOneb) 1 udvial Q6H PRN IH SHORTNESS OF BREATH 04/22/25 11:30 05/22/25 11:29 Amlodipine Besylate (NorvASC 5MG TAB) 5 mg Q24H PO 04/22/25 16:00 05/22/25 15:59 04/28/25 17:06 5 MG Aspirin (Aspirin 81mg Chew Tab) 81 mg Q24H PO 04/22/25 11:30 05/22/25 11:29 04/29/25 11:47 81 MG Atorvastatin Calcium (LIPItor 40MG) 40 mg HS PO 04/23/25 21:00 05/23/25 20:59 04/28/25 20:57 40 MG Clopidogrel Bisulfate (plaVIX 75MG) 75 mg DAILY PO 04/25/25 09:00 05/25/25 08:59 04/29/25 07:55 75 MG Dextrose (D50w) 50 ml AD PRN IV HYPOGLYCEMIA PROTOCOL 04/22/25 13:00 05/22/25 12:59 Famotidine (Pepcid 20mg Tab) 20 mg DAILY06 PO 04/24/25 06:00 04/25/25 19:48 DC 04/25/25 06:10 20 MG Famotidine (Pepcid 20mg Tab) 20 mg HS PO 04/26/25 21:00 04/26/25 14:26 DC Famotidine (Pepcid 20mg Tab) 20 mg Q48H PO 04/22/25 21:00 04/23/25 17:20 DC 04/22/25 20:27 20 MG Famotidine (Pepcid 20mg Tab) 20 mg Q48H PO 04/26/25 14:30 05/26/25 14:29 04/28/25 14:18 20 MG Famotidine (Pepcid 20mg Tab) 20 mg Q48H PO 04/27/25 09:00 04/26/25 14:25 DC Gabapentin (NEURontin 300 MG CAP) 300 mg BID PO 04/23/25 09:00 05/23/25 08:59 04/29/25 07:55 300 MG Glucagon (Glucagon 1mg Kit) 1 mg AD PRN IM HYPOGLYCEMIA PROTOCOL 04/22/25 13:00 05/22/25 12:59 Hydralazine HCl (APRESOLine 20MG INJ) 5 mg Q6H PRN IV ADMINISTER FOR SBP > 160 04/22/25 11:30 05/22/25 11:29 04/23/25 01:13 5 MG Insulin Glargine (LANtus 100 UNITS/ML 10 ML VIAL) 18 units DAILY SQ 04/23/25 09:00 05/23/25 08:59 04/29/25 07:59 18 UNITS Insulin Glargine (LANtus 100 UNITS/ML 10 ML VIAL) 22 units DAILY SQ 04/23/25 09:00 04/22/25 21:04 DC Insulin Human Regular (humuLIN R 100 UNIT/ML 3ML) 3 unit TIDAC SQ 04/23/25 07:30 04/23/25 16:21 DC Insulin Human Regular (humuLIN R 100 UNIT/ML 3ML) 5 unit ONCE SQ 04/22/25 15:30 04/22/25 21:30 DC 04/22/25 15:24 5 UNIT Insulin Human Regular (humuLIN R 100 UNIT/ML 3ML) 5 unit TIDAC SQ 04/22/25 17:00 04/23/25 22:54 DC 04/23/25 17:11 5 UNIT Insulin Human Regular (humuLIN R 100 UNIT/ML 3ML) 5 unit TIDAC SQ 04/29/25 07:30 05/29/25 07:29 Insulin Human Regular (humuLIN R 100 UNIT/ML 3ML) 7 unit TIDAC SQ 04/24/25 07:30 04/29/25 07:27 DC 04/29/25 07:07 7 UNIT Insulin Human Regular (humuLIN R 100 UNIT/ML 3ML) INSULIN SLIDING SCAL... ACHS SQ 04/22/25 11:30 04/22/25 12:30 DC 04/22/25 12:15 8 UNIT Insulin Human Regular (humuLIN R 100 UNIT/ML 3ML) INSULIN SLIDING SCAL... ACHS SQ 04/22/25 16:30 04/22/25 20:52 DC 04/22/25 17:12 3 UNIT Insulin Human Regular (humuLIN R 100 UNIT/ML 3ML) INSULIN SLIDING SCAL... ACHS SQ 04/22/25 21:00 05/22/25 20:59 04/28/25 12:24 3 UNIT Lactulose (Constulose 20gm/ 30ml Udcup) 20 gm BID PRN PO CONSTIPATION 04/25/25 21:30 05/25/25 21:29 Lactulose (Constulose 20gm/ 30ml Udcup) 20 gm Q6H6 PO 04/27/25 12:00 05/27/25 11:59 04/27/25 13:01 20 GM Levofloxacin/ Dextrose (LEvaquIN 750 MG/ D5W 150 ML) 750 mg Q24H IV 04/26/25 14:30 05/06/25 14:29 04/28/25 14:12 750 MG Ondansetron HCl (zoFRAN 4MG INJ) 4 mg Q6H PRN IVP NAUSEA/VOMITING 04/22/25 11:30 05/22/25 11:29 Piperacillin Sod/ Tazobactam Sod (Zosyn 3.375gm+NS 50ml) 3.375 gm Q8H IVPB 04/22/25 12:30 04/24/25 16:53 DC 04/24/25 04:11 3.375 GM Piperacillin Sod/ Tazobactam Sod (Zosyn 3.375gm+NS 50ml) 3.375 gm Q8H IVPB 04/24/25 17:00 04/26/25 14:20 DC 04/26/25 09:25 3.375 GM Sodium Chloride 1,000 ml @ 75 mls/hr [id number] IV 04/22/25 12:30 05/22/25 12:29 04/29/25 04:06 75 MLS/HR Sodium Chloride (NS 50ml) 50 ml AD IV 04/22/25 12:30 04/22/25 12:35 DC DIAGNOSTICS / RADIOLOGY: [ ] ASSESSMENT: Nonhealing diabetic foot ulcer of the left 4th toe- due to chronic osteomyelitis POA ,s/p Transmetatarsal amputation left foot on 04.23.25 Left 4th toe gangrene, POA s/p Transmetatarsal amputation left foot on 04.23.25 GEORGIE on CKD, ATN POA Uncontrolled type 2 Diabetes mellitus Chronic conditions: Prior history of osteomyelitis of the 1st and 2nd toe of the left foot with prior amputation, peripheral arterial disease of the lower extremity, poorly controlled type 2 diabetes mellitus with noncompliance with insulin therapy as outpatient, (Last a1c of 15.1, in 01/25), Hypertension, Hyperlipidemia, CVA, CKD Stage III PLAN: Referral has been placed [facility], acceptance is currently pending and porter sample case is working on it. Left foot fourth toe chronic osteomyelitis and gangrene, POA * S/P left foot Transmetatarsal amputation on 04/23/2025 ( Post operative Day 7) * Recent history of osteomyelitis of the 4th toe of the left foot status for IV antibiotic therapy in 02/2025 Continue pain medications as needed Continue Levofloxacin and outpatient IV antibiotics with Meropenem 1 g IV every 8 hours x 4 weeks as per ID recommendation Pending insurance approval for [facility]. GEORGIE on CKD, POA, resolved * IV hydration with NS@75ml/hr * Today his BUN is 10 and creatinine is 1.4 * Renal ultrasound showed no significant abnormality * Renally dose all medications * Nephrotoxic medications will be avoided * Will repeat his labs tomorrow. Severe hyperglycemia with blood glucose greater than 600, POA * No evidence of HHS or DKA * HbA1C>15 * Patient is on sliding scale insulin a.c. and HS * Continue consistent carb diet * adjusted Lantus and regular insulin based on blood glucose trend * Currently on 18 units of lantus and 5 units of regular. * Today his blood glucose is in 120s * Will repeat his labs tomorrow. Peripheral arterial disease, POA * Arterial duplex revealed Focal stenosis of left anterior tibial artery * CT angiography of abdominal aorta - atheromatous wall calcification of the aorta, iliac arteries, and both lower lumbar is short-segment stenosis of the left distal anterior tibial artery. * Recent history of peripheral angiogram by Dr. Peoples on 02/2025 with angioplasty of the Left anterior tibial artery, and anterior segment of the left pedal arch. * Continue Aspirin, Clopidogrel, Atorvastatin Chronic conditions: Prior history of osteomyelitis of the 1st and 2nd toe of the left foot with prior amputation, peripheral arterial disease of the lower extremity, poorly controlled type 2 diabetes mellitus with noncompliance with insulin therapy as outpatient, (Last Hba1c of 15.1, in 01/25), Hypertension, Hyperlipidemia, CVA, CKD Stage III ATTESTATION BY PHYSICIAN I have seen and examined the patient. I reviewed the documentation, medical decision making, and treatment plan as noted by the resident above. I agree with the findings and plan of care. Ihsan Mckeon MD, PRIYANKA MD Apr 29, 2025 14:27
--- NOTE | 2025-04-29 15:40 | PN ---
INFECTIOUS DISEASE PROGRESS NOTE Date of Service: Apr 29, 2025 SUBJECTIVE: Patient was seen and examined at bedside in room 414. Patient is afebrile this morning, current temperature is 98.2. Denying nausea and vomiting. Patient has been referred to [facility] for outpatient IV antibiotics with Meropenem 1 g IV every 8 hours x 4 weeks and pending insurance authorization. Patient will be discharged to home once approved PHYSICAL EXAM EYES: Anicteric. Pupils equal and reactive. HENT: No oral thrush seen, moist Oral mucosa NECK: Supple, no JVD or thyromegaly. LUNGS: Good air entry. No rales, no rhonchi. CARDIOVASCULAR: S1, S2 regular. No murmur heard. ABDOMEN: Soft, non tender, bowel sounds present, no organomegaly. CENTRAL NERVOUS SYSTEM: Awake, alert, oriented x 3. SKIN: No rashes, no swelling. LYMPHATICS: No peripheral lymphadenopathy MUSCULOSKELETAL: No joint swelling, erythema or tenderness. EXTREMITIES: No cyanosis or clubbing. S/p left TMA. BACK: No deformity, no pressure ulcer. GENITOURINARY: No dysuria or hematuria. Vital Sign (Last 12 Hours) 04/29/25 04/29/25 04/29/25 04/29/25 06:30 08:00 12:00 12:00 Temp 97.2 98.2 98.2 Pulse 70 75 68 68 Resp 18 16 16 16 B/P (MAP) 137/67 143/79 143/79 Pulse Ox 100 99 99 O2 Delivery N/A Room Air Room Air Room Air Room Air FiO2 21 Intake & Output (last 24hrs) 04/28/25 04/28/25 04/29/25 14:59 22:59 06:59 Intake Total 720 ml 500 ml 200 ml Output Total 400 ml 1100 ml 1100 ml Balance 320 ml -600 ml -900 ml LABS: Laboratory: Test 04/29/25 15:16 04/29/25 05:43 04/29/25 05:41 Range/Units Whole Blood Glucose 112 H 70-110 MG/DL White Blood Count 6.1 4.8-10.8 K/uL Red Blood Count 3.71 L 4.50-6.20 MIL/uL Hemoglobin 10.7 L 14.0-18.0 g/dL Hematocrit 30.6 L 42-54 % Mean Corpuscular Volume 82.5 79-99 fL Mean Corpuscular Hemoglobin 28.8 27.0-33.0 pg Mean Corpuscular Hemoglobin Concent 35.0 32.0-36.0 g/dL Red Cell Distribution Width 12.4 11.0-15.5 % Platelet Count 190 130-400 K/uL Mean Platelet Volume 11.0 H 7.5-10.5 fL Immature Granulocyte % (Auto) 0.5 0-1 % Neutrophils (%) (Auto) 51.8 40.0-77.0 % Lymphocytes (%) (Auto) 34.9 21.0-51.0 % Monocytes (%) (Auto) 11.3 3.0-13.0 % Eosinophils (%) (Auto) 1.3 0.0-8.0 % Basophils (%) (Auto) 0.2 0.0-5.0 % Neutrophils # (Auto) 3.2 1.8-7.7 K/uL Lymphocytes # (Auto) 2.1 1.0-4.8 K/uL Monocytes # (Auto) 0.7 0.1-1.0 K/uL Eosinophils # (Auto) 0.08 0.00-0.70 K/uL Basophils # (Auto) 0.01 0.00-0.20 K/uL Absolute Immature Granulocyte (auto 0.03 0-1 K/uL Nucleated Red Blood Cells 0.0 0.0-0.19 % Sodium Level 139 136-145 mmol/L Potassium Level 4.0 3.5-5.1 mmol/L Chloride Level 105 101-111 mmol/L Carbon Dioxide Level 27 21-32 mmol/L Blood Urea Nitrogen 10 7-18 mg/dL Creatinine 1.4 H 0.5-1.3 mg/dL Glomerular Filtration Rate Calc 57 >90 mL/min Random Glucose 128 H 70-105 mg/dL Total Calcium 8.6 8.5-10.1 mg/dL ASSESSMENT: Left foot diabetic ulcer with osteomyelitis, s/p transmetatarsal amputation. Left foot infection with ESBL, Klebsiella pneumoniae. Infection with multidrug resistant organism. Diabetes mellitus. Peripheral vascular disease. Hypertension. History of CABG. Constipation. PLAN: Patient has been referred to [facility] for outpatient IV antibiotics with Meropenem 1 g IV every 8 hours x 4 weeks and pending insurance authorization. Patient will be discharged to home once approved. Continue GI prophylaxis. This case was reviewed and discussed with my supervising physician and the above assessment and plan was formulated and agreed upon. ATTESTATION BY PHYSICIAN I have seen and examined the patient. I reviewed the documentation, medical decision making, and treatment plan as noted by the mid-level provider above. I agree with the findings and plan of care. ASHLEY NEVAREZ MD, MIRTA L [facility] Apr 29, 2025 15:40
[2025-04-29 16:00] VITALS: BP 142/72; PULSE 82; RESP 16; TEMP 98.9
[2025-04-29 20:00] VITALS: BP 156/89; PULSE 78; RESP 20; TEMP 98
--- NOTE | 2025-04-29 21:08 | PN ---
Endocrinology progress note DOS:04/29/25 subjective: hyperglycemia is improving now s/p left 4th toe amputation. Home diabetic regimen: lantus 25 units daily Hba1c >15.5% PAST MEDICAL HISTORY: [ PAD, diabetes mellitus, poorly controlled with a1c close to 15 in 01/25, hypertension, hyperlipidemia, coronary artery disease with CABG x3 Vessel and femoral stent ] PAST SURGICAL HISTORY: [CABG x3, femoral stent and amputation of the left 1st great toe and 2nd toe, recent hx of peripheral arteriogram of LLE by Dr. Peoples ] PAST SOCIAL HISTORY: [ Patient lives with . Patient denies alcohol tobacco and recreational drug use ] FAMILY HISTORY: [ Cancer, hypertension, stroke and diabetes ] Allergies: No known drug allergies Home medications: Family will be bringing list of home medications to be reconciled and updated Coded Allergies: No Known Allergies (Unverified Allergy, Unknown, 05/06/20) No Known Drug Allergies (Unverified Allergy, Unknown, 05/06/18) Vital Sign (Last 24 Hours) LABS: LABS INCLUDE A CBC, CMP, BLOOD SUGARS, LACTIC ACID ARE CURRENTLY PENDING Current Medications DIAGNOSTICS / RADIOLOGY: CHEST X-RAY, X-RAY OF THE FOOT IS CURRENTLY PENDING ASSESSMENT: Severe hyperglycemia with blood glucose greater than 600, POA, improving now and stable. Home diabetic regimen: lantus 25 units daily Hba1c >15.5% Nonhealing infected diabetic foot ulcer involving the 4th toe of the left foot with chronic osteomyelitis and underlying cellulitis, POA Purplish discoloration of the 4th toe of the left foot, POA s/p left 4th toe amputation [place] on CKD, POA Recent history of osteomyelitis of the 4th toe of the left foot status for IV antibiotic therapy in 02/2025, POA Recent history of peripheral angiogram by Dr. Peoples on 02/2025 with angioplasty of the Left anterior tibial artery, and anterior segment of the left pedal arch, POA Prior history of osteomyelitis of the 1st and 2nd toe of the left foot with prior amputation, POA History of significant peripheral arterial disease of the lower extremity, POA Hypertension, POA Hyperlipidemia, POA History of CVA, POA CKD Stage III, POA PLAN: continue Lantus 18 units daily and adjust for fasting glucose. continue Regular insulin 5 units tid before meals and adjust for post-prandial glucose. Continue medium dose sliding scale insulin. Monitor glucose q x 6 hourly. Continue carb consistent diet. Keep glucose less than 180 mg/dl. Patient will need lantus 25 units daily and humalog 7 units tid before meals. Vitals/Labs Vital Signs Date Time Temp Pulse Resp B/P (MAP) Pulse Ox O2 Delivery O2 Flow Rate FiO2 04/29/25 16:00 99.0 82 16 142/72 99 Room Air 04/29/25 08:00 0 21 Laboratory Tests 04/29/25 05:41 04/29/25 05:43 Medications Current Medications Insulin Human Regular INSULIN SLIDING SCAL... ACHS SQ Last administered on 04/22/25at 12:15; Start 04/22/25 at 11:30; Stop 04/22/25 at 12:30; Status DC Acetaminophen 650 mg Q6H PRN PO; Start 04/22/25 at 11:30; Stop 05/22/25 at 11:29 Ondansetron HCl 4 mg Q6H PRN IVP; Start 04/22/25 at 11:30; Stop 05/22/25 at 11:29 Albuterol 1 udvial Q6H PRN IH; Start 04/22/25 at 11:30; Stop 05/22/25 at 11:29 Aspirin 81 mg Q24H PO Last administered on 04/29/25at 11:47; Start 04/22/25 at 11:30; Stop 05/22/25 at 11:29 Hydralazine HCl 5 mg Q6H PRN IV Last administered on 04/23/25at 01:13; Start 04/22/25 at 11:30; Stop 05/22/25 at 11:29 Famotidine 20 mg Q48H PO Last administered on 04/22/25at 20:27; Start 04/22/25 at 21:00; Stop 04/23/25 at 17:20; Status DC Sodium Chloride 1,000 ml @ 75 mls/hr [id number] IV Last administered on 04/29/25at 04:06; Start 04/22/25 at 12:30; Stop 05/22/25 at 12:29 Insulin Human Regular 5 unit ONCE ONCE IV; Start 04/22/25 at 12:30; Stop 04/22/25 at 12:33; Status DC Insulin Human Regular INSULIN SLIDING SCAL... ACHS SQ Last administered on 04/22/25at 17:12; Start 04/22/25 at 16:30; Stop 04/22/25 at 20:52; Status DC Insulin Glargine 20 units ONCE ONCE SQ Last administered on 04/22/25at 12:41; Start 04/22/25 at 12:30; Stop 04/22/25 at 12:33; Status DC Piperacillin Sod/ Tazobactam Sod 3.375 gm Q8H IVPB Last administered on 04/24/25at 04:11; Start 04/22/25 at 12:30; Stop 04/24/25 at 16:53; Status DC Sodium Chloride 50 ml AD IV; Start 04/22/25 at 12:30; Stop 04/22/25 at 12:35; Status DC Insulin Human Regular 5 unit TIDAC SQ Last administered on 04/23/25at 17:11; Start 04/22/25 at 17:00; Stop 04/23/25 at 22:54; Status DC Dextrose 50 ml AD PRN IV; Start 04/22/25 at 13:00; Stop 05/22/25 at 12:59 Glucagon 1 mg AD PRN IM; Start 04/22/25 at 13:00; Stop 05/22/25 at 12:59 Insulin Glargine 22 units DAILY SQ; Start 04/23/25 at 09:00; Stop 04/22/25 at 21:04; Status DC Insulin Human Regular 5 unit ONCE SQ Last administered on 04/22/25at 15:24; Start 04/22/25 at 15:30; Stop 04/22/25 at 21:30; Status DC Amlodipine Besylate 5 mg Q24H PO Last administered on 04/29/25at 15:06; Start 04/22/25 at 16:00; Stop 05/22/25 at 15:59 Insulin Human Regular INSULIN SLIDING SCAL... ACHS SQ Last administered on 04/28/25at 12:24; Start 04/22/25 at 21:00; Stop 05/22/25 at 20:59 Insulin Glargine 18 units DAILY SQ Last administered on 04/29/25at 07:59; Start 04/23/25 at 09:00; Stop 05/23/25 at 08:59 Atorvastatin Calcium 40 mg HS PO Last administered on 04/29/25at 20:47; Start 04/23/25 at 21:00; Stop 05/23/25 at 20:59 Gabapentin 300 mg BID PO Last administered on 04/29/25at 20:47; Start 04/23/25 at 09:00; Stop 05/23/25 at 08:59 Propofol 100 ml @ As Directed STK-MED ONCE IV; Start 04/23/25 at 07:13; Stop 04/23/25 at 07:14; Status DC Ketamine HCl 50 mg STK-MED ONCE .ROUTE; Start 04/23/25 at 07:14; Stop 04/23/25 at 07:14; Status DC Midazolam HCl 2 mg STK-MED ONCE .ROUTE; Start 04/23/25 at 07:16; Stop 04/23/25 at 07:17; Status DC Lidocaine HCl 20 ml STK-MED ONCE .ROUTE; Start 04/23/25 at 07:19; Stop 04/23/25 at 07:19; Status DC Bupivacaine HCl 2.5 mg STK-MED ONCE IJ; Start 04/23/25 at 07:19; Stop 04/23/25 at 07:19; Status DC Insulin Human Regular 3 unit TIDAC SQ; Start 04/23/25 at 07:30; Stop 04/23/25 at 16:21; Status DC Phenylephrine HCl 10 mg STK-MED ONCE IV; Start 04/23/25 at 08:02; Stop 04/23/25 at 08:02; Status DC Iohexol 50 ml STK-MED ONCE IV; Start 04/23/25 at 16:40; Stop 04/23/25 at 16:40; Status DC Iohexol 35,000 mg STK-MED ONCE IV; Start 04/23/25 at 16:40; Stop 04/23/25 at 16:41; Status DC Famotidine 20 mg DAILY06 PO Last administered on 04/25/25at 06:10; Start 04/24/25 at 06:00; Stop 04/25/25 at 19:48; Status DC Insulin Human Regular 7 unit TIDAC SQ Last administered on 04/29/25at 07:07; Start 04/24/25 at 07:30; Stop 04/29/25 at 07:27; Status DC Piperacillin Sod/ Tazobactam Sod 3.375 gm Q8H IVPB Last administered on 04/26/25at 09:25; Start 04/24/25 at 17:00; Stop 04/26/25 at 14:20; Status DC Acetaminophen/ Codeine Phosphate 1 tab Q4H PRN PO Last administered on 04/26/25at 21:16; Start 04/24/25 at 20:00; Stop 05/24/25 at 19:59 Clopidogrel Bisulfate 75 mg DAILY PO Last administered on 04/29/25at 07:55; Start 04/25/25 at 09:00; Stop 05/25/25 at 08:59 Polyethylene Glycol 17 gm ONCE ONCE PO Last administered on 04/25/25at 16:00; Start 04/25/25 at 16:00; Stop 04/25/25 at 16:01; Status DC Famotidine 20 mg Q48H PO; Start 04/27/25 at 09:00; Stop 04/26/25 at 14:25; Status DC Lactulose 20 gm BID PRN PO; Start 04/25/25 at 21:30; Stop 05/25/25 at 21:29 Levofloxacin/ Dextrose 750 mg Q24H IV Last administered on 04/29/25at 15:06; Start 04/26/25 at 14:30; Stop 05/06/25 at 14:29 Famotidine 20 mg HS PO; Start 04/26/25 at 21:00; Stop 04/26/25 at 14:26; Status DC Famotidine 20 mg Q48H PO Last administered on 04/28/25at 14:18; Start 04/26/25 at 14:30; Stop 05/26/25 at 14:29 Lactulose 20 gm Q6H6 PO Last administered on 04/27/25at 13:01; Start 04/27/25 at 12:00; Stop 05/27/25 at 11:59 Insulin Human Regular 5 unit TIDAC SQ; Start 04/29/25 at 07:30; Stop 05/29/25 at 07:29 CLOVIS ARCHIBALD MD Apr 29, 2025 21:08
[2025-04-30] VITALS: BP 132/67; PULSE 73; RESP 20; TEMP 98.4
[2025-04-30 04:00] VITALS: BP 114/57; PULSE 75; RESP 18; TEMP 98.6
[2025-04-30 04:49] LABS: NUCLEATED RED BLOOD CELLS 0.0 % (0.0-0.19); PLATELET COUNT (AUTO) 206.0 K/uL (130-400); RED BLOOD CELL COUNT(AUTO) 3.68 MIL/uL (4.50-6.20); RED CELL DISTRIBUTION WIDTH 12.3 % (11.0-15.5); WHITE BLOOD COUNT (AUTO) 5.2 K/uL (4.8-10.8)
[2025-04-30 05:09] LABS: CREATININE 1.2 mg/dL (0.5-1.3); GLOMERULAR FILTR. RATE CALC 68.0 mL/min (>90); GLUCOSE,RANDOM 101.0 mg/dL (70-105); SODIUM SERUM 139.0 mmol/L (136-145); UREA NITROGEN, BLOOD 12.0 mg/dL (7-18)
[2025-04-30 08:00] VITALS: BP 146/67; PULSE 77; RESP 16; TEMP 98.4; O2SAT 100
[2025-04-30] MEDS ORDERED: MAGNESIUM 2GM PREMIX 50ML 50 ML IV PRN (08:30)
[2025-04-30 12:00] VITALS: BP 101/57; PULSE 82; RESP 16; TEMP 98.6
[2025-04-30] MEDS ORDERED: INSU3INS3 SQ (15:01)
[2025-04-30] MEDS ORDERED: CLOP75TA32 PO (15:01)
[2025-04-30] MEDS ORDERED: INSU100I15 SQ (15:12)
--- NOTE | 2025-04-30 15:17 | DS ---
Discharge Summary Hospital Course Summary: This is a 64-year-old male with a past medical history significant for diabetes mellitus, hypertension, hyperlipidemia, coronary artery disease, peripheral artery disease [2 prior peripheral interventions one in 2023 and 2024] and prior osteomyelitis of the left foot involving the 1st and 2nd toes, status post amputation. He also has a recent history of diabetic foot ulcer with osteomyelitis requiring hospitalization. He was admitted as a direct admit from for further evaluation of a nonhealing diabetic foot ulcer of the left 4 toe associated with purplish discoloration. He was subsequently admitted for planned amputation and underwent left transmetatarsal amputation. Initial labs revealed hemoglobin of 13.9, BUN 30, creatinine 1.9, glucose 616, alkaline phosphatase 190, CRP 43.7. Procalcitonin and TSH were within normal limits and HbA1c was greater than 15.5. Infectious Disease and endocrinology consult were obtained for osteomyelitis and uncontrolled diabetes mellitus management respectively. He was initially started on Zosyn and later switched to levofloxacin based upon the left foot cultures which revealed ESBL Klebsiella pneumoniae. Blood cultures were negative. He was started on Lantus 20 units daily, Humalog 7 units t.i.d. for meals were adjusted daily upon the glucose levels. Cardiology was consulted in view of his prior peripheral artery disease. CT angiogram of the abdominal aorta with bilateral lower extremity runoff on 04/23/2025 demonstrated short segment stenosis of the left distal anterior tibial artery for a length of about 0.5 cm with distal narrow caliber flow. Based on the results , cardiology mentioned that there is potential wound healing and advised to continue clopidogrel 75 mg p.o. daily, aspirin and statin therapy. Over the course of hospitalization, the patient's pain has signi ficantly improved. He remained afebrile with a normal WBC count. Renal function improved with creatinine decreasing from 1.9 on admission to 1.2. Blood glucose was adequately controlled, with postprandial values ranging from 170s to low 200s, managed per Endocrinology recommendations. Today the patient is awake alert and oriented. He is ambulating well with physical therapy, eating without nausea/vomiting and remains hemodynamically stable. Labs show a stable hemoglobin of 10.8 and normal BMP except for mild hypomagnesemia which was addressed per protocol. He has been discharged to home with a referral to [facility] for outpatient IV antibiotics meropenem1 g q.8h for 4 weeks, and prescription for new medications including clopidogrel 75 mg daily, Lantus 20 units daily, Humalog 7 units t.i.d. before meals.Advised to follow up with PCP and other consults as mentioned below. Structural [employer] Erector(s): Infectious disease consult Endocrinology consult Cardiology consult Podiatry Wound care consult Procedure(s): SERVICE 1114 REASON: assess for flow limiting stenosis ORDERING PHYSICIAN: CHACHO SMITH MD PROCEDURE: ART U LE - US ARTERIAL UNILA LOW EXT DUPL EXAM: US Duplex Left Lower Extremity Arteries. CLINICAL HISTORY: assess for flow limiting stenosis TECHNIQUE: Real-time ultrasound scan of the arteries of the Left lower extremity with 2-D prescott scale, color Doppler flow and spectral waveform analysis. COMPARISON: Study dated 01/31/25 FINDINGS: COMMON FEMORAL ARTERY: Peak systolic velocity of 174 cm/sec with triphasic waveform. No occlusion or significant stenosis. Normal SUPERFICIAL FEMORAL ARTERY: Peak systolic velocity of 191 cm/sec with triphasic waveform. No occlusion or significant stenosis. Normal POPLITEAL ARTERY: Peak systolic velocity of 106 cm/sec with triphasic waveform. No occlusion or significant stenosis. Normal CALF ARTERIES: Posterior tibial artery shows a peak systolic velocity of 72 cm/sec with a monophasic waveform. The anterior tibial artery shows focal stenosis and a peak systolic velocity of 744 cm/sec with a monophasic waveform. The dorsalis pedis artery shows a peak systolic velocity of 28 cm/sec with monophasic waveform. IMPRESSION: 1. Focal stenosis of the left anterior tibial artery with elevated peak systolic velocity of 744 cm/sec and monophasic waveform. This is new from the prior examination. Recommend CT angiography for further evaluation. 2. Monophasic waveforms in the posterior tibial and dorsalis pedis arteries. SERVICE 1114 REASON: lower extremity edema, r/o any DVT ORDERING PHYSICIAN: CHACHO SMITH MD PROCEDURE: VENOUS EVARISTO - US VENOUS DOPPLER BILATERAL EXAM: US for Deep Venous Thrombosis, bilateral Lower Extremity. CLINICAL HISTORY: Leg Pain and Swelling TECHNIQUE: Real-time ultrasound scan of the veins of the bilateral lower extremity with color Doppler flow, spectral waveform analysis and compression. COMPARISON: None provided. FINDINGS: DEEP VEINS: The common femoral, superficial femoral, and popliteal veins are echolucent and compressible. There is normal color Doppler flow throughout. The visualized calf veins appear patent. SOFT TISSUES: No popliteal fossa cyst or other abnormalities. IMPRESSION: 1. No deep venous thrombosis in the bilateral lower extremities. SERVICE 1124 REASON: non healing left DFU of 4th toe w/ possible osteo ORDERING PHYSICIAN: CHACHO SMITH MD PROCEDURE: FT 3VW LT - FOOT COMP 3+VWS LT EXAM: CR left foot, 3 View. CLINICAL HISTORY: non healing left DFU of 4th toe w/ possible osteo COMPARISON: None provided. FINDINGS: 2nd and 1st toe amputation from the metatarsophalangeal joints. There is edema within the soft tissues of the stump. Cortical irregularity seen within the distal third metatarsal may reflect osteomyelitis, recommend contrast-enhanced MRI for further evaluation. No displaced fracture appreciated. Remaining joint spaces are anatomically aligned. IMPRESSION: 1. Cortical irregularity of distal third metatarsal concerning for osteomyelitis. 2. Post-surgical changes of 1st and 2nd toe amputations with soft tissue edema. 3. No displaced fracture. SERVICE 1126 REASON: TURCIOS w/ activities, assess for heart failure, heart clinic to read ORDERING PHYSICIAN: CHACHO SMITH MD PROCEDURE: ECHO CMP - ECHO 2-D COMPLETE APPROVED REPORT EXAM: Two-dimensional and M-mode echocardiogram with Doppler and color Doppler. INDICATION ICD: Dyspnea Heart Failure 2D Dimensions RVDd 3.3 cm LVEF(%) 62.5 (>50%) LVED Vol(simp.) 70.7 mL IVSd 0.8 (0.7-1.1cm) FS(%) 33 % LVES Vol(simp.) 29.6 mL LVDd 3.9 (3.8-5.6cm) LA (2D) 4.4 (1.6-4.0cm) LVEF(%, simp.) 58 % PWd 0.9 (0.7-1.1cm) Ao Root(2D) 2.5 (2.0-3.7cm) LA ESV INDEX (BP) 2 1.76 mL/m2 LVDs 2.6 (2.5-4.0cm) LVOT diam 2.1 (1.8-2.4cm) Deformation Strain Apical 4 -14.0 % Apical 2 -11.2 % Apical 3 -13.8 % Global Strain -13.0 % Aortic Valve AoV Vmax 1.2 m/s Ao Peak GR 5.5 mmHg LVOT Vmax 0.7 m/s AoV VTI 0.2 m Ao Mean GR 2.5 mmHg LVOT VTI 0.15 m MARY JANE (VMAX) 2.17 cm2 MARY JANE (VTI) 2.5 cm2 Mitral Valve MV E Vmax 62.2 cm/s DECEL Time 203 ms MV A Vmax 85.4 cm/s P 1/2 T 59 ms E/A ratio 0.7 MVA (PHT) 3.7 cm2 TDI E/E' Medial 15.4 E/E' Lateral 6.1 Medial E' Peak V 4.05 cm/s Lateral E' Peak V 10.15 cm/s Left Ventricle The left ventricle is normal size. There is normal left ventricular wall thickness. Sigmoid septum is present. LVEF is 55-60%. The left ventricular diastolic function is normal. Right Ventricle The right ventricle is normal size. Right ventricular systolic function is mildly reduced. Atria The left atrium size is normal. The right atrium size is normal. Aortic Valve The aortic valve is normal in structure. No aortic regurgitation is present. There is no aortic valvular stenosis. Mitral Valve The mitral valve is normal in structure. There is no mitral valve regurgitation noted. There is no mitral valve stenosis. Tricuspid Valve The tricuspid valve is normal in structure. There is no tricuspid valve regurgitation noted. Pulmonic Valve The pulmonary valve is not well visualized. There is no pulmonic valvular regu rgitation. Great Vessels The aortic root is normal in size. The IVC was not visualized. Pericardium There is no pericardial effusion. Other Information Quality : Average Rhythm : NSR Conclusion LVEF is 55-60%. The left ventricular diastolic function is normal. Right ventricular systolic function is mildly reduced. SERVICE [id number] REASON: assess for any Pulmonary edema ORDERING PHYSICIAN: CHACHO SMITH MD PROCEDURE: CXR1VW - CHEST 1VW EXAM: CR Chest, 1 View. CLINICAL HISTORY: assess for any Pulmonary edema COMPARISON: None provided. FINDINGS: LUNGS: The lungs show no infiltrate or other acute finding. PLEURAL SPACES: No pleural effusion or pneumothorax. MEDIASTINUM: Prior sternotomy. Cardiac size and mediastinal contours within normal limits. BONES: No aggressive appearing osseous lesion seen. IMPRESSION: 1. No acute cardiopulmonary findings. SERVICE 1236 REASON: GEORGIE on CKD ORDERING PHYSICIAN: CHACHO SMITH MD PROCEDURE: RENAL - US RENAL SONOGRAM EXAMINATION: ULTRASOUND OF THE RETROPERITONEUM. CLINICAL HISTORY: GEORGIE on CKD. COMPARISON: Prior ultrasound dated 07/25/2023. TECHNIQUE: Real-time grayscale ultrasound images of the kidneys. FINDINGS: The kidneys are normal in caliber, the right kidney measures 9.7 x 5.5 x 4.6 cm and the left kidney measures 10.8 x 6.1 x 4.9 cm in its craniocaudal, AP, and transverse dimensions respectively. There is normal renal cortical thickness, and cortical echogenicity. There is no renal calculus or hydronephrosis. The urinary bladder is normal in caliber and wall thickness. There are no calculi in the urinary bladder. IMPRESSION: No significant abnormality. /Greene SERVICE 1601 REASON: PAD ORDERING PHYSICIAN: BEATRIZ BEEBE PROCEDURE: CTA ABDAOR - CT ANGIO ABD AORTA W RUNOFF EXAMINATION: CT ANGIOGRAM OF ABDOMEN AND PELVIS AND RUNOFFS OF THE BILATERAL LOWER EXTREMITIES. CLINICAL HISTORY: Peripheral arterial disease COMPARISON: None provided. TECHNIQUE: MDCT angiogram of the abdominal aortic vessels was performed after administration of intravenous contrast. FINDINGS: Abdominal aorta is normal in size. There are atheromatous wall calcification of the aorta, iliac arteries, and both lower limb arteries. There is no aneurysm or dissection. There is no stenosis or occlusion. The abdominal aortic branches, viz., the celiac and superior mesenteric arteries, are normal in caliber. There is no stenosis or occlusion. The angle between superior mesenteric artery and aorta is normal. Bilateral renal arteries are normal in caliber. There is no stenosis or occlusion. The inferior mesenteric arteries are normal in caliber. Bifurcation morphology is normal. There is no stenosis or occlusion. The bilateral common iliac arteries are normal in caliber. No stenosis or occlusion. The bilateral external iliac arteries are normal in caliber. Their branches are normal, and the bilateral internal iliac arteries are normal; there is no stenosis or occlusion. The bilateral superficial femoral arteries are normal in caliber. There is no stenosis or occlusion. The bilateral profunda femoris and popliteal arteries are normal in size and caliber. There is no stenosis or occlusion. The bilateral tibioperoneal trunks are normal. There is no stenosis or occlusion. Short segment stenosis of the left distal anterior tibial artery for a length of about 0.5 cm with distal narrow caliber flow. The right anterior tibial artery is normal in size and caliber. There is no stenosis or occlusion. The bilateral posterior tibial arteries are normal in size and caliber. There is no stenosis or occlusion. The bilateral peroneal arteries are normal in size and caliber. There is no stenosis or occlusion. Within the abdomen and pelvis, liver, gallbladder, pancreas, spleen, adrenal glands, and kidneys are within normal limits; bowel loops are normal in caliber without evidence of obstruction, ileus, or bowel wall thickening, and the appendix is normal; and urinary bladder, prostate, and seminal vesicles appear normal in caliber. IMPRESSION: Atheromatous wall calcification of the aorta, iliac arteries, and both lower limb arteries with short-segment stenosis of the left distal anterior tibial artery, as described above, consistent with mild peripheral vascular disease. /Greene SERVICE 1702 REASON: S/P PICC PLACEMENT ORDERING PHYSICIAN: ASHLEY NEVAREZ MD PROCEDURE: CXR1VW - CHEST 1VW EXAM: CR Chest, 2 View. CLINICAL HISTORY: S/P PICC PLACEMENT COMPARISON: 04/22/2025. FINDINGS: There is a right-sided PICC line with its tip in the superior vena cava. LUNGS: There is no mass, infiltrate, or acute pulmonary abnormality. PLEURAL SPACES: No pleural effusion or pneumothorax. MEDIASTINUM: The cardiomediastinal silhouette is within normal limits. Again noted are sternotomy wires. BONES: No aggressive appearing osseous lesion seen. IMPRESSION: Satisfactory position of the right sided PICC line. No acute cardiopulmonary pathology is evident. Assessment/Plan: ASSESSMENT: Nonhealing diabetic foot ulcer of the left 4th toe- with chronic osteomyelitis and cellulitis, POA ,s/p Transmetatarsal amputation left foot on 04.23.25 Left 4th toe gangrene, POA s/p Transmetatarsal amputation left foot on 04.23.25 GEORGIE on CKD, ATN POA Uncontrolled type 2 Diabetes mellitus Peripheral artery disease, POA [S/p peripheral intervention on 02/02/2025 with 60% stenosis in the ostial left anterior tibial artery status post successful treatment with balloon lithotripsy, diffuse 90-95% stenosis in the mid and distal left anterior tibial artery status post successful treatment with balloon angioplasty, balloon lithotripsy, and drug coated balloon angioplasty, and 90% stenosis in the anterior segment of the left pedal arch status post successful treatment with balloon angioplasty, resulting in widely patent arteries, without dissection, or perforation, and brisk two-vessel runoff supplying the can left foot/pedal arch, residual PAD, 100% stenosis in the left posterior tibial artery that does not reconstitute distally via collateral blood flow, 90% stenosis in the distal left peroneal artery which is less than 1.25 mm in size and not ideal for percutaneous intervention, S/p peripheral intervention on 10/03/2023, that included balloon angioplasty of the left anterior tibial artery and left dorsalis pedis artery Residual PAD, diffuse 90% stenosis in the distal left posterior tibial artery via peripheral intervention on 10/03/2023] Chronic conditions: Prior history of osteomyelitis of the 1st and 2nd toe of the left foot with prior amputation, peripheral arterial disease of the lower extremity, poorly controlled type 2 diabetes mellitus with noncompliance with insulin therapy as outpatient, (Last a1c of 15.1, in 01/25), Hypertension, Hyperlipidemia, CVA, CKD Stage III PLAN: ADMISSION DATE : 04/22/2025 DISCHARGE DATE : 04/30/2025 DISPOSITION : Home CONDITION : 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(s) and FOLLOW UP APPOINTMENTS :PCP within 3,4 day, , I nfectious disease consult for IV antibiotics tomorrow , , Podiatry within 2 weeks, , Mold Capper within 2 weeks Follow up with , Business Continuity Strategy Director within 2,3 weeks PROCEDURES : Left transmetatarsal amputation IMAGING (s) : Chest x-ray, foot x-ray, arterial ultrasound, Venous doppler, Aorta w/runoff CTA, Renal US MICROBIOLOGY : Blood cultures are negative, left foot cultures revealed ESBL Klebsiella pneumoniae ACTIVITY : ad gamaliel HOME MEDICATIONS : Continue, hold Xarelto [coordinate with PCP on re intiation] NEW MEDICATIONS : Clopidogrel 75 mg p.o. daily, Lantus 20 units daily, Humalog 7 units t.i.d. before meals TEACHING : The patient was instructed to present to the nearest Emergency Department or call 911 should their symptoms return or worsen. Discharge Instructions: Follow up with PCP within 3,4 days Follow up with , Infectious disease consult for IV antibiotics tomorrow at 10 AM Follow up with , Podiatry within 2 weeks Follow up with , Mold Capper within 2 weeks Follow up with , Business Continuity Strategy Director within 2,3 weeks DM Your HbA1C is greater than 15.5 Continue Lantus 20 units daily, Humalog 7 units TID before meals for DM management Monitor your blood sugar levels regularly Continue outpatient IV antibiotics with Meropenem 1 g IV every 8 hours x 4 weeks Keep the surgical site clean and dry Change dressings as instructed by wound care team Watch for signs of infection like increasing redness, swelling, warmth, foul odor or discharge and reports immediately. Take [id number] medications like Tylenol for pain p.r.n. Hold Xarelto for now, coordinate with PCP on restarting this medication Continue Aspirin, Clopidogrel, Atorvastatin Home Medications: Active Scripts Insulin Lispro (Humalog) 100 Unit/Ml Insuln.pen, 7 UNITS SQ TIDAC for 15 Days, #2 SYRINGE Take 7 units of humalog three times a day before meals Prov:SAHIL LAMBERT MD 04/30/25 Insulin Glargine,Hum.rec.anlog (Lantus Solostar) 100 Unit/Ml (3 Ml) Insuln.pen, 20 UNIT SQ HS for 30 Days, #10 ML 0 Refills Prov:SAHIL LAMBERT MD 04/30/25 Clopidogrel Bisulfate (Clopidogrel) 75 Mg Tablet, 1 TAB PO DAILY for 30 Days, #30 TAB 0 Refills Prov:SAHIL LAMBERT MD 04/30/25 Losartan Potassium (Cozaar) 50 Mg Tablet, 50 MG PO BID for 30 Days, #60 TAB 1 Refill Prov:MEG RIVERA MD 02/04/25 Reported Medications Cholecalciferol (Vitamin D3) (Vitamin D3) 25 Mcg (1000 Unit) Capsule, 1 CAP PO DAILY for 30 Days, #30 CAP 0 Refills 01/31/25 Ketorolac Tromethamine (Ketorolac Tromethamine) 0.5 % Drops, 1 DROP OD QID for itching, #5 ML 0 Refills 01/31/25 Prednisolone Acetate/Pf (Prednisolone Acet 1% Eye Drop) 1 % Drops.susp, 1 DROP OD QID for 30 Days, #5 ML 0 Refills 01/31/25 Gabapentin (Gabapentin) 100 Mg Capsule, 300 MG PO BID, CAP 10/03/24 Atorvastatin Calcium (Atorvastatin Calcium) 40 Mg Tablet, 40 MG PO HS, TAB 07/04/23 Aspirin (ASPIRIN 81 MG ECTAB) 81 Mg Ectab, 81 MG PO DAILY, TAB.EC 07/04/23 Discontinued Reported Medications Glipizide (Glipizide) 10 Mg Tablet, 1 TAB PO BID for 30 Days, #60 TAB 0 Refills 04/22/25 Doxycycline Hyclate (Doxycycline Hyclate) 100 Mg Capsule, 1 CAP PO BID for 10 Days, #20 CAP 0 Refills 04/22/25 Rivaroxaban (Xarelto) 10 Mg Tablet, 2.5 MG PO BID, TAB 10/03/24 Discontinued Scripts Insulin Glargine,Hum.rec.anlog (Lantus) 100 Unit/Ml Inj, 15 UNITS SQ HS for 30 Days, #30 ML 1 Refill Prov:MEG RIVERA MD 02/04/25 Time spent arranging discharge: 31-60 minutes ATTESTATION BY PHYSICIAN I have seen and examined the patient. I reviewed the documentation, medical decision making, and treatment plan as noted by the resident above. I agree with the findings and plan of care. Ihsan Mckeon MD, PRIYANKA MD Apr 30, 2025 15:17
[2025-04-30 16:00] VITALS: BP 134/67; PULSE 82; RESP 18; TEMP 98.6
--- NOTE | 2025-04-30 17:05 | NUR ---
PATIENT DISCHARGED HOME ID BAND WAS REMOVED. DISCHARGE INSTRUCTIONS EXPLAINED AND GIVEN TO PATIENT. PATIENT VERBALIZED UNDERSTANDING. BELONGINGS PACKED AND TAKEN BY PATIENT. WHEELED DOWN TO PRIVATE CAR.
--- NOTE | 2025-04-30 20:47 | PN ---
Endocrinology progress note DOS:04/30/25 subjective: hyperglycemia is improving now s/p left 4th toe amputation. Home diabetic regimen: lantus 25 units daily Hba1c >15.5% PAST MEDICAL HISTORY: [ PAD, diabetes mellitus, poorly controlled with a1c close to 15 in 01/25, hypertension, hyperlipidemia, coronary artery disease with CABG x3 Vessel and femoral stent ] PAST SURGICAL HISTORY: [CABG x3, femoral stent and amputation of the left 1st great toe and 2nd toe, recent hx of peripheral arteriogram of LLE by Dr. Peoples ] PAST SOCIAL HISTORY: [ Patient lives with . Patient denies alcohol tobacco and recreational drug use ] FAMILY HISTORY: [ Cancer, hypertension, stroke and diabetes ] Allergies: No known drug allergies Home medications: Family will be bringing list of home medications to be reconciled and updated Coded Allergies: No Known Allergies (Unverified Allergy, Unknown, 05/06/20) No Known Drug Allergies (Unverified Allergy, Unknown, 05/06/18) Vital Sign (Last 24 Hours) LABS: LABS INCLUDE A CBC, CMP, BLOOD SUGARS, LACTIC ACID ARE CURRENTLY PENDING Current Medications DIAGNOSTICS / RADIOLOGY: CHEST X-RAY, X-RAY OF THE FOOT IS CURRENTLY PENDING ASSESSMENT: Severe hyperglycemia with blood glucose greater than 600, POA, improving now Home diabetic regimen: lantus 25 units daily Hba1c >15.5% Nonhealing infected diabetic foot ulcer involving the 4th toe of the left foot with chronic osteomyelitis and underlying cellulitis, POA Purplish discoloration of the 4th toe of the left foot, POA s/p left 4th toe amputation [place]IE on CKD, POA Recent history of osteomyelitis of the 4th toe of the left foot status for IV antibiotic therapy in 02/2025, POA Recent history of peripheral angiogram by Dr. Peoples on 02/2025 with angioplasty of the Left anterior tibial artery, and anterior segment of the left pedal arch, POA Prior history of osteomyelitis of the 1st and 2nd toe of the left foot with prior amputation, POA History of significant peripheral arterial disease of the lower extremity, POA Hypertension, POA Hyperlipidemia, POA History of CVA, POA CKD Stage III, POA PLAN: continue Lantus 18 units daily and adjust for fasting glucose. continue Regular insulin 7 units tid before meals and adjust for post-prandial glucose. Continue medium dose sliding scale insulin. Monitor glucose q x 6 hourly. Continue carb consistent diet. Keep glucose less than 180 mg/dl. Patient will need lantus 25 units daily and humalog 7 units tid before meals. Vitals/Labs Vital Signs Date Time Temp Pulse Resp B/P (MAP) Pulse Ox O2 Delivery O2 Flow Rate FiO2 04/30/25 16:00 98.6 82 18 134/67 100 Room Air 21 04/30/25 08:00 0 Laboratory Tests 04/30/25 04:19 Medications Current Medications Insulin Human Regular INSULIN SLIDING SCAL... ACHS SQ Last administered on 04/22/25at 12:15; Start 04/22/25 at 11:30; Stop 04/22/25 at 12:30; Status DC Acetaminophen 650 mg Q6H PRN PO; Start 04/22/25 at 11:30; Stop 04/30/25 at 17:06; Status DC Ondansetron HCl 4 mg Q6H PRN IVP; Start 04/22/25 at 11:30; Stop 04/30/25 at 17:06; Status DC Albuterol 1 udvial Q6H PRN IH; Start 04/22/25 at 11:30; Stop 04/30/25 at 17:06; Status DC Aspirin 81 mg Q24H PO Last administered on 04/30/25at 13:15; Start 04/22/25 at 11:30; Stop 04/30/25 at 17:06; Status DC Hydralazine HCl 5 mg Q6H PRN IV Last administered on 04/23/25at 01:13; Start 04/22/25 at 11:30; Stop 04/30/25 at 17:06; Status DC Famotidine 20 mg Q48H PO Last administered on 04/22/25at 20:27; Start 04/22/25 at 21:00; Stop 04/23/25 at 17:20; Status DC Sodium Chloride 1,000 ml @ 75 mls/hr [id number] IV Last administered on 04/30/25at 06:20; Start 04/22/25 at 12:30; Stop 04/30/25 at 17:06; Status DC Insulin Human Regular 5 unit ONCE ONCE IV; Start 04/22/25 at 12:30; Stop 04/22/25 at 12:33; Status DC Insulin Human Regular INSULIN SLIDING SCAL... ACHS SQ Last administered on 04/22/25at 17:12; Start 04/22/25 at 16:30; Stop 04/22/25 at 20:52; Status DC Insulin Glargine 20 units ONCE ONCE SQ Last administered on 04/22/25at 12:41; Start 04/22/25 at 12:30; Stop 04/22/25 at 12:33; Status DC Piperacillin Sod/ Tazobactam Sod 3.375 gm Q8H IVPB Last administered on 04/24/25at 04:11; Start 04/22/25 at 12:30; Stop 04/24/25 at 16:53; Status DC Sodium Chloride 50 ml AD IV; Start 04/22/25 at 12:30; Stop 04/22/25 at 12:35; Status DC Insulin Human Regular 5 unit TIDAC SQ Last administered on 04/23/25at 17:11; Start 04/22/25 at 17:00; Stop 04/23/25 at 22:54; Status DC Dextrose 50 ml AD PRN IV; Start 04/22/25 at 13:00; Stop 04/30/25 at 17:06; Status DC Glucagon 1 mg AD PRN IM; Start 04/22/25 at 13:00; Stop 04/30/25 at 17:06; Status DC Insulin Glargine 22 units DAILY SQ; Start 04/23/25 at 09:00; Stop 04/22/25 at 21:04; Status DC Insulin Human Regular 5 unit ONCE SQ Last administered on 04/22/25at 15:24; Start 04/22/25 at 15:30; Stop 04/22/25 at 21:30; Status DC Amlodipine Besylate 5 mg Q24H PO Last administered on 04/29/25at 15:06; Start 04/22/25 at 16:00; Stop 04/30/25 at 17:06; Status DC Insulin Human Regular INSULIN SLIDING SCAL... ACHS SQ Last administered on 04/30/25at 13:17; Start 04/22/25 at 21:00; Stop 04/30/25 at 17:06; Status DC Insulin Glargine 18 units DAILY SQ Last administered on 04/30/25at 08:08; Start 04/23/25 at 09:00; Stop 04/30/25 at 17:06; Status DC Atorvastatin Calcium 40 mg HS PO Last administered on 04/29/25at 20:47; Start 04/23/25 at 21:00; Stop 04/30/25 at 17:06; Status DC Gabapentin 300 mg BID PO Last administered on 04/30/25at 08:00; Start 04/23/25 at 09:00; Stop 04/30/25 at 17:06; Status DC Propofol 100 ml @ As Directed STK-MED ONCE IV; Start 04/23/25 at 07:13; Stop 04/23/25 at 07:14; Status DC Ketamine HCl 50 mg STK-MED ONCE .ROUTE; Start 04/23/25 at 07:14; Stop 04/23/25 at 07:14; Status DC Midazolam HCl 2 mg STK-MED ONCE .ROUTE; Start 04/23/25 at 07:16; Stop 04/23/25 at 07:17; Status DC Lidocaine HCl 20 ml STK-MED ONCE .ROUTE; Start 04/23/25 at 07:19; Stop 04/23/25 at 07:19; Status DC Bupivacaine HCl 2.5 mg STK-MED ONCE IJ; Start 04/23/25 at 07:19; Stop 04/23/25 at 07:19; Status DC Insulin Human Regular 3 unit TIDAC SQ; Start 04/23/25 at 07:30; Stop 04/23/25 at 16:21; Status DC Phenylephrine HCl 10 mg STK-MED ONCE IV; Start 04/23/25 at 08:02; Stop 04/23/25 at 08:02; Status DC Iohexol 50 ml STK-MED ONCE IV; Start 04/23/25 at 16:40; Stop 04/23/25 at 16:40; Status DC Iohexol 35,000 mg STK-MED ONCE IV; Start 04/23/25 at 16:40; Stop 04/23/25 at 16:41; Status DC Famotidine 20 mg DAILY06 PO Last administered on 04/25/25at 06:10; Start 04/24/25 at 06:00; Stop 04/25/25 at 19:48; Status DC Insulin Human Regular 7 unit TIDAC SQ Last administered on 04/29/25at 07:07; Start 04/24/25 at 07:30; Stop 04/29/25 at 07:27; Status DC Piperacillin Sod/ Tazobactam Sod 3.375 gm Q8H IVPB Last administered on 04/26/25at 09:25; Start 04/24/25 at 17:00; Stop 04/26/25 at 14:20; Status DC Acetaminophen/ Codeine Phosphate 1 tab Q4H PRN PO Last administered on 04/26/25at 21:16; Start 04/24/25 at 20:00; Stop 04/30/25 at 17:06; Status DC Clopidogrel Bisulfate 75 mg DAILY PO Last administered on 04/30/25at 08:01; Start 04/25/25 at 09:00; Stop 04/30/25 at 17:06; Status DC Polyethylene Glycol 17 gm ONCE ONCE PO Last administered on 04/25/25at 16:00; Start 04/25/25 at 16:00; Stop 04/25/25 at 16:01; Status DC Famotidine 20 mg Q48H PO; Start 04/27/25 at 09:00; Stop 04/26/25 at 14:25; Status DC Lactulose 20 gm BID PRN PO; Start 04/25/25 at 21:30; Stop 04/30/25 at 17:06; Status DC Levofloxacin/ Dextrose 750 mg Q24H IV Last administered on 04/29/25at 15:06; Start 04/26/25 at 14:30; Stop 04/30/25 at 12:20; Status DC Famotidine 20 mg HS PO; Start 04/26/25 at 21:00; Stop 04/26/25 at 14:26; Status DC Famotidine 20 mg Q48H PO Last administered on 04/30/25at 13:14; Start 04/26/25 at 14:30; Stop 04/30/25 at 17:06; Status DC Lactulose 20 gm Q6H6 PO Last administered on 04/27/25at 13:01; Start 04/27/25 at 12:00; Stop 04/30/25 at 17:06; Status DC Insulin Human Regular 5 unit TIDAC SQ Last administered on 04/30/25at 13:16; Start 04/29/25 at 07:30; Stop 04/30/25 at 17:06; Status DC Magnesium Sulfate 50 ml @ 0 mls/hr PROTOCOL PRN IV; Start 04/30/25 at 08:30; Stop 04/30/25 at 17:06; Status DC Levofloxacin/ Dextrose 750 mg ONCE ONCE IV Last administered on 04/30/25at 13:14; Start 04/30/25 at 12:30; Stop 04/30/25 at 12:31; Status DC CLOVIS ARCHIBALD MD Apr 30, 2025 20:47
--- NOTE | 2025-04-30 23:18 | PN ---
INFECTIOUS DISEASE PROGRESS NOTE Date of Service: Apr 30, 2025 SUBJECTIVE: Patient was seen and examined at bedside in room 414. Patient has been approved to [facility] for outpatient IV antibiotics with Meropenem and will be discharged this afternoon after dose of antibiotic. Nursing to provide patient with the clinic appointment for the antibiotics infusion. PHYSICAL EXAM EYES: Anicteric. Pupils equal and reactive. HENT: No oral thrush seen, moist Oral mucosa NECK: Supple, no JVD or thyromegaly. LUNGS: Good air entry. No rales, no rhonchi. CARDIOVASCULAR: S1, S2 regular. No murmur heard. ABDOMEN: Soft, non tender, bowel sounds present, no organomegaly. CENTRAL NERVOUS SYSTEM: Awake, alert, oriented x 3. SKIN: No rashes, no swelling. LYMPHATICS: No peripheral lymphadenopathy MUSCULOSKELETAL: No joint swelling, erythema or tenderness. EXTREMITIES: No cyanosis or clubbing. S/p left TMA. BACK: No deformity, no pressure ulcer. GENITOURINARY: No dysuria or hematuria. Vital Sign (Last 12 Hours) 04/30/25 04/30/25 12:00 16:00 Temp 98.6 98.6 Pulse 82 82 Resp 16 18 B/P (MAP) 101/57 134/67 Pulse Ox 99 100 O2 Delivery Room Air Room Air FiO2 21 Intake & Output (last 24hrs) 0 04/29/25 04/29/25 04/30/25 15:00 23:00 07:00 Intake Total 200 ml Output Total 400 ml 900 ml Balance -200 ml -900 ml LABS: Laboratory: Test 04/30/25 15:15 04/30/25 04:19 04/29/25 05:43 Range/Units Whole Blood Glucose 217 H 70-110 MG/DL White Blood Count 5.2 4.8-10.8 K/uL Red Blood Count 3.68 L 4.50-6.20 MIL/uL Hemoglobin 10.8 L 14.0-18.0 g/dL Hematocrit 30.4 L 42-54 % Mean Corpuscular Volume 82.6 79-99 fL Mean Corpuscular Hemoglobin 29.3 27.0-33.0 pg Mean Corpuscular Hemoglobin Concent 35.5 32.0-36.0 g/dL Red Cell Distribution Width 12.3 11.0-15.5 % Platelet Count 206 130-400 K/uL Mean Platelet Volume 10.8 H 7.5-10.5 fL Nucleated Red Blood Cells 0.0 0.0-0.19 % Sodium Level 139 136-145 mmol/L Potassium Level 4.1 3.5-5.1 mmol/L Chloride Level 104 101-111 mmol/L Carbon Dioxide Level 30 21-32 mmol/L Blood Urea Nitrogen 12 7-18 mg/dL Creatinine 1.2 0.5-1.3 mg/dL Glomerular Filtration Rate Calc 68 >90 mL/min Random Glucose 101 70-105 mg/dL Total Calcium 8.3 L 8.5-10.1 mg/dL Magnesium Level 1.70 L 1.80-2.40 mg/dL Immature Granulocyte % (Auto) 0.5 0-1 % Neutrophils (%) (Auto) 51.8 40.0-77.0 % Lymphocytes (%) (Auto) 34.9 21.0-51.0 % Monocytes (%) (Auto) 11.3 3.0-13.0 % Eosinophils (%) (Auto) 1.3 0.0-8.0 % Basophils (%) (Auto) 0.2 0.0-5.0 % Neutrophils # (Auto) 3.2 1.8-7.7 K/uL Lymphocytes # (Auto) 2.1 1.0-4.8 K/uL Monocytes # (Auto) 0.7 0.1-1.0 K/uL Eosinophils # (Auto) 0.08 0.00-0.70 K/uL Basophils # (Auto) 0.01 0.00-0.20 K/uL Absolute Immature Granulocyte (auto 0.03 0-1 K/uL ASSESSMENT: Left foot diabetic ulcer with osteomyelitis, s/p transmetatarsal amputation. Left foot infection with ESBL, Klebsiella pneumoniae. Infection with multidrug resistant organism. Diabetes mellitus. Peripheral vascular disease. Hypertension. History of CABG. PLAN: Patient has been approved to [facility] for outpatient IV antibiotics with Meropenem and will be discharged this afternoon after dose of antibiotic. Nursing to provide patient with the clinic appointment for the antibiotics infusion. This case was reviewed and discussed with my supervising physician and the above assessment and plan was formulated and agreed upon. ATTESTATION BY PHYSICIAN I have seen and examined the patient. I reviewed the documentation, medical decision making, and treatment plan as noted by the mid-level provider above. I agree with the findings and plan of care. ASHLEY NEVAREZ MD, [facility] Apr 30, 2025 23:18
== END 2025-04-30 17:06 | disposition home or self-care (01) | DRG 239 ==
LOC: EDH 10:54 → EDHIP 10:55 → 4CH 04-23 00:07
PROVIDERS: ADMIT Internal Medicine; ATTEND Internal Medicine
PROC: 0Y6N0ZC Detachment at Left Foot, Partial 3rd Ray, Open Approach (ICD-10-PCS; 2025-04-23)
PROC: 0Y6N0ZD Detachment at Left Foot, Partial 4th Ray, Open Approach (ICD-10-PCS; 2025-04-23)
PROC: 0Y6N0ZF Detachment at Left Foot, Partial 5th Ray, Open Approach (ICD-10-PCS; 2025-04-23)
PROC: 0Y6N0Z9 Detachment at Left Foot, Partial 1st Ray, Open Approach (ICD-10-PCS; 2025-04-23)
PROC: 0Y6N0ZB Detachment at Left Foot, Partial 2nd Ray, Open Approach (ICD-10-PCS; principal; 2025-04-23 07:00)
DX: E11.52 Type 2 diabetes mellitus with diabetic peripheral angiopathy with gangrene (principal); N17.0 Acute kidney failure with tubular necrosis; I13.0 Hypertensive heart and chronic kidney disease with heart failure and stage 1 through stage 4 chronic kidney disease, or unspecified chronic kidney disease; I70.262 Atherosclerosis of native arteries of extremities with gangrene, left leg; M86.672 Other chronic osteomyelitis, left ankle and foot; Z16.24 Resistance to multiple antibiotics; E11.69 Type 2 diabetes mellitus with other specified complication; E11.621 Type 2 diabetes mellitus with foot ulcer; L03.032 Cellulitis of left toe; L97.529 Non-pressure chronic ulcer of other part of left foot with unspecified severity; K59.00 Constipation, unspecified; I70.0 Atherosclerosis of aorta; I25.10 Atherosclerotic heart disease of native coronary artery without angina pectoris; E66.9 Obesity, unspecified; E11.22 Type 2 diabetes mellitus with diabetic chronic kidney disease; B96.1 Klebsiella pneumoniae [K. pneumoniae] as the cause of diseases classified elsewhere; N18.30 Chronic kidney disease, stage 3 unspecified; E78.5 Hyperlipidemia, unspecified; Z95.1 Presence of aortocoronary bypass graft; Z91.148 Patient's other noncompliance with medication regimen for other reason; Z89.422 Acquired absence of other left toe(s); Z86.73 Personal history of transient ischemic attack (TIA), and cerebral infarction without residual deficits; I50.9 Heart failure, unspecified; Z83.3 Family history of diabetes mellitus; Z82.49 Family history of ischemic heart disease and other diseases of the circulatory system; Z82.3 Family history of stroke; Z79.899 Other long term (current) drug therapy; Z79.84 Long term (current) use of oral hypoglycemic drugs; Z79.82 Long term (current) use of aspirin; Z79.4 Long term (current) use of insulin; Z79.02 Long term (current) use of antithrombotics/antiplatelets; Z79.01 Long term (current) use of anticoagulants
CPT/HCPCS: 36415; 36569; 71045; 73630; 75635; 76770; 80048; 80053; 80061; 81001; 82010; 82306; 82570; 82607; 82948; 83036; 83605; 83735; 83880; 83930; 84145; 84156; 84443; 85025; 85027; 85610; 85651; 86140; 86850; 86900; 86901; 87040; 87070; 87076; 87086; 87186; 88305; 88311; 93005; 93306; 93356; 93926; 93970; 94664; C1894; G0378; J0360; J1815; J1956; J2250; J2371; J2543; J2704; Q9967; A4216; A4222; A4223; A4649; C1751; J0665; J3490

== ENCOUNTER → 2025-04-22 | Outpatient (CLI) | payer BC, MEDICARE ==
[~2025-04-22] MED LIST changes: +DOXY100C5 PO; +GLIP10TA16 PO
== END | disposition home or self-care (01) ==
LOC: WHH 09:54
PROVIDERS: ATTEND Podiatrist Foot & Ankle Surgery
DX: T87.89 Other complications of amputation stump (principal); E11.621 Type 2 diabetes mellitus with foot ulcer; L97.521 Non-pressure chronic ulcer of other part of left foot limited to breakdown of skin; L03.032 Cellulitis of left toe; E11.42 Type 2 diabetes mellitus with diabetic polyneuropathy; E11.69 Type 2 diabetes mellitus with other specified complication; M86.172 Other acute osteomyelitis, left ankle and foot; E11.319 Type 2 diabetes mellitus with unspecified diabetic retinopathy without macular edema; E11.22 Type 2 diabetes mellitus with diabetic chronic kidney disease; I12.9 Hypertensive chronic kidney disease with stage 1 through stage 4 chronic kidney disease, or unspecified chronic kidney disease; N18.30 Chronic kidney disease, stage 3 unspecified; E11.52 Type 2 diabetes mellitus with diabetic peripheral angiopathy with gangrene; I96 Gangrene, not elsewhere classified; E11.36 Type 2 diabetes mellitus with diabetic cataract; H26.9 Unspecified cataract; E78.5 Hyperlipidemia, unspecified; E55.9 Vitamin D deficiency, unspecified; I25.10 Atherosclerotic heart disease of native coronary artery without angina pectoris; K21.9 Gastro-esophageal reflux disease without esophagitis; E66.9 Obesity, unspecified; F32.A Depression, unspecified; Z95.1 Presence of aortocoronary bypass graft; Z79.82 Long term (current) use of aspirin; Z79.02 Long term (current) use of antithrombotics/antiplatelets; Z79.01 Long term (current) use of anticoagulants; Z98.49 Cataract extraction status, unspecified eye; Z68.27 Body mass index [BMI] 27.0-27.9, adult; Z79.899 Other long term (current) drug therapy; Z86.73 Personal history of transient ischemic attack (TIA), and cerebral infarction without residual deficits; Y83.5 Amputation of limb(s) as the cause of abnormal reaction of the patient, or of later complication, without mention of misadventure at the time of the procedure
CPT/HCPCS: 82948; 99214

== ENCOUNTER → 2025-05-06 | Outpatient (CLI) | payer BC, MEDICARE ==
[~2025-05-06] MED LIST changes: +CLOP75TA32 PO; -INSLAN SQ; +INSU100I15 SQ; +INSU3INS3 SQ; -RIVA10TA PO
== END | disposition home or self-care (01) ==
LOC: WHH 08:56
PROVIDERS: ATTEND Podiatrist Foot & Ankle Surgery
DX: T87.89 Other complications of amputation stump (principal); E11.621 Type 2 diabetes mellitus with foot ulcer; L97.521 Non-pressure chronic ulcer of other part of left foot limited to breakdown of skin; L03.032 Cellulitis of left toe; E11.69 Type 2 diabetes mellitus with other specified complication; E11.42 Type 2 diabetes mellitus with diabetic polyneuropathy; M86.172 Other acute osteomyelitis, left ankle and foot; E11.319 Type 2 diabetes mellitus with unspecified diabetic retinopathy without macular edema; E11.22 Type 2 diabetes mellitus with diabetic chronic kidney disease; I12.9 Hypertensive chronic kidney disease with stage 1 through stage 4 chronic kidney disease, or unspecified chronic kidney disease; N18.30 Chronic kidney disease, stage 3 unspecified; E11.52 Type 2 diabetes mellitus with diabetic peripheral angiopathy with gangrene; I96 Gangrene, not elsewhere classified; E11.36 Type 2 diabetes mellitus with diabetic cataract; H26.9 Unspecified cataract; E78.5 Hyperlipidemia, unspecified; E55.9 Vitamin D deficiency, unspecified; I25.10 Atherosclerotic heart disease of native coronary artery without angina pectoris; K21.9 Gastro-esophageal reflux disease without esophagitis; E66.9 Obesity, unspecified; F32.A Depression, unspecified; Z95.1 Presence of aortocoronary bypass graft; Z79.82 Long term (current) use of aspirin; Z79.02 Long term (current) use of antithrombotics/antiplatelets; Z79.01 Long term (current) use of anticoagulants; Z98.49 Cataract extraction status, unspecified eye; Z68.27 Body mass index [BMI] 27.0-27.9, adult; Z79.899 Other long term (current) drug therapy; Z86.73 Personal history of transient ischemic attack (TIA), and cerebral infarction without residual deficits; Y83.5 Amputation of limb(s) as the cause of abnormal reaction of the patient, or of later complication, without mention of misadventure at the time of the procedure
CPT/HCPCS: 99214; A4450

== ENCOUNTER → 2025-05-13 | Outpatient (CLI) | payer BC, MEDICARE | END | disposition home or self-care (01) | LOC: WHH 09:04 | PROVIDERS: ATTEND Podiatrist Foot & Ankle Surgery | DX: T87.89 Other complications of amputation stump (principal); E11.621 Type 2 diabetes mellitus with foot ulcer; L97.522 Non-pressure chronic ulcer of other part of left foot with fat layer exposed; L03.032 Cellulitis of left toe; E11.42 Type 2 diabetes mellitus with diabetic polyneuropathy; E11.69 Type 2 diabetes mellitus with other specified complication; M86.172 Other acute osteomyelitis, left ankle and foot; E11.319 Type 2 diabetes mellitus with unspecified diabetic retinopathy without macular edema; E11.22 Type 2 diabetes mellitus with diabetic chronic kidney disease; I12.9 Hypertensive chronic kidney disease with stage 1 through stage 4 chronic kidney disease, or unspecified chronic kidney disease; N18.30 Chronic kidney disease, stage 3 unspecified; E11.52 Type 2 diabetes mellitus with diabetic peripheral angiopathy with gangrene; I96 Gangrene, not elsewhere classified; E11.36 Type 2 diabetes mellitus with diabetic cataract; H26.9 Unspecified cataract; E78.5 Hyperlipidemia, unspecified; E55.9 Vitamin D deficiency, unspecified; I25.10 Atherosclerotic heart disease of native coronary artery without angina pectoris; K21.9 Gastro-esophageal reflux disease without esophagitis; E66.9 Obesity, unspecified; F32.A Depression, unspecified; Z95.1 Presence of aortocoronary bypass graft; Z68.26 Body mass index [BMI] 26.0-26.9, adult; Z79.82 Long term (current) use of aspirin; Z79.02 Long term (current) use of antithrombotics/antiplatelets; Z79.01 Long term (current) use of anticoagulants; Z98.49 Cataract extraction status, unspecified eye; Z79.899 Other long term (current) drug therapy; Z86.73 Personal history of transient ischemic attack (TIA), and cerebral infarction without residual deficits; Y83.5 Amputation of limb(s) as the cause of abnormal reaction of the patient, or of later complication, without mention of misadventure at the time of the procedure | CPT/HCPCS: 99214; A4450 ==

== ENCOUNTER → 2025-05-20 | Outpatient (CLI) | payer BC, MEDICARE | END | disposition home or self-care (01) | LOC: WHH 09:01 | PROVIDERS: ATTEND Podiatrist Foot & Ankle Surgery | DX: T87.89 Other complications of amputation stump (principal); E11.621 Type 2 diabetes mellitus with foot ulcer; L97.522 Non-pressure chronic ulcer of other part of left foot with fat layer exposed; L84 Corns and callosities; E11.42 Type 2 diabetes mellitus with diabetic polyneuropathy; E11.69 Type 2 diabetes mellitus with other specified complication; M86.172 Other acute osteomyelitis, left ankle and foot; E11.319 Type 2 diabetes mellitus with unspecified diabetic retinopathy without macular edema; E11.22 Type 2 diabetes mellitus with diabetic chronic kidney disease; I12.9 Hypertensive chronic kidney disease with stage 1 through stage 4 chronic kidney disease, or unspecified chronic kidney disease; N18.30 Chronic kidney disease, stage 3 unspecified; E11.52 Type 2 diabetes mellitus with diabetic peripheral angiopathy with gangrene; I96 Gangrene, not elsewhere classified; E11.36 Type 2 diabetes mellitus with diabetic cataract; H26.9 Unspecified cataract; E78.5 Hyperlipidemia, unspecified; E55.9 Vitamin D deficiency, unspecified; I25.10 Atherosclerotic heart disease of native coronary artery without angina pectoris; K21.9 Gastro-esophageal reflux disease without esophagitis; E66.9 Obesity, unspecified; F32.A Depression, unspecified; Z95.1 Presence of aortocoronary bypass graft; Z68.26 Body mass index [BMI] 26.0-26.9, adult; Z79.82 Long term (current) use of aspirin; Z79.02 Long term (current) use of antithrombotics/antiplatelets; Z79.01 Long term (current) use of anticoagulants; Z98.49 Cataract extraction status, unspecified eye; Z79.899 Other long term (current) drug therapy; Z86.73 Personal history of transient ischemic attack (TIA), and cerebral infarction without residual deficits; Y83.5 Amputation of limb(s) as the cause of abnormal reaction of the patient, or of later complication, without mention of misadventure at the time of the procedure | CPT/HCPCS: 99214 ==

== ENCOUNTER → 2025-06-03 | Outpatient (CLI) | payer BC, MEDICARE | END | disposition home or self-care (01) | LOC: WHH 08:14 | PROVIDERS: ATTEND Podiatrist Foot & Ankle Surgery | DX: T87.89 Other complications of amputation stump (principal); E11.621 Type 2 diabetes mellitus with foot ulcer; L97.522 Non-pressure chronic ulcer of other part of left foot with fat layer exposed; E11.622 Type 2 diabetes mellitus with other skin ulcer; L97.311 Non-pressure chronic ulcer of right ankle limited to breakdown of skin; L84 Corns and callosities; E11.42 Type 2 diabetes mellitus with diabetic polyneuropathy; E11.69 Type 2 diabetes mellitus with other specified complication; M86.172 Other acute osteomyelitis, left ankle and foot; E11.319 Type 2 diabetes mellitus with unspecified diabetic retinopathy without macular edema; E11.22 Type 2 diabetes mellitus with diabetic chronic kidney disease; I12.9 Hypertensive chronic kidney disease with stage 1 through stage 4 chronic kidney disease, or unspecified chronic kidney disease; N18.30 Chronic kidney disease, stage 3 unspecified; E11.52 Type 2 diabetes mellitus with diabetic peripheral angiopathy with gangrene; I96 Gangrene, not elsewhere classified; E11.36 Type 2 diabetes mellitus with diabetic cataract; H26.9 Unspecified cataract; E78.5 Hyperlipidemia, unspecified; E55.9 Vitamin D deficiency, unspecified; I25.10 Atherosclerotic heart disease of native coronary artery without angina pectoris; K21.9 Gastro-esophageal reflux disease without esophagitis; E66.9 Obesity, unspecified; F32.A Depression, unspecified; Z95.1 Presence of aortocoronary bypass graft; Z68.26 Body mass index [BMI] 26.0-26.9, adult; Z79.82 Long term (current) use of aspirin; Z79.02 Long term (current) use of antithrombotics/antiplatelets; Z79.01 Long term (current) use of anticoagulants; Z98.49 Cataract extraction status, unspecified eye; Z79.899 Other long term (current) drug therapy; Z86.73 Personal history of transient ischemic attack (TIA), and cerebral infarction without residual deficits; Y83.5 Amputation of limb(s) as the cause of abnormal reaction of the patient, or of later complication, without mention of misadventure at the time of the procedure | CPT/HCPCS: 99214; A4450 ==

== ENCOUNTER → 2025-06-10 | Outpatient (CLI) | payer BC, MEDICARE | END | disposition home or self-care (01) | LOC: WHH 08:24 | PROVIDERS: ATTEND Podiatrist Foot & Ankle Surgery | DX: T87.89 Other complications of amputation stump (principal); E11.621 Type 2 diabetes mellitus with foot ulcer; L97.522 Non-pressure chronic ulcer of other part of left foot with fat layer exposed; E11.622 Type 2 diabetes mellitus with other skin ulcer; L97.311 Non-pressure chronic ulcer of right ankle limited to breakdown of skin; L84 Corns and callosities; E11.42 Type 2 diabetes mellitus with diabetic polyneuropathy; E11.69 Type 2 diabetes mellitus with other specified complication; M86.172 Other acute osteomyelitis, left ankle and foot; E11.319 Type 2 diabetes mellitus with unspecified diabetic retinopathy without macular edema; E11.22 Type 2 diabetes mellitus with diabetic chronic kidney disease; I12.9 Hypertensive chronic kidney disease with stage 1 through stage 4 chronic kidney disease, or unspecified chronic kidney disease; N18.30 Chronic kidney disease, stage 3 unspecified; E11.52 Type 2 diabetes mellitus with diabetic peripheral angiopathy with gangrene; I96 Gangrene, not elsewhere classified; E11.36 Type 2 diabetes mellitus with diabetic cataract; H26.9 Unspecified cataract; E78.5 Hyperlipidemia, unspecified; E55.9 Vitamin D deficiency, unspecified; I25.10 Atherosclerotic heart disease of native coronary artery without angina pectoris; K21.9 Gastro-esophageal reflux disease without esophagitis; E66.9 Obesity, unspecified; F32.A Depression, unspecified; Z95.1 Presence of aortocoronary bypass graft; Z68.26 Body mass index [BMI] 26.0-26.9, adult; Z79.82 Long term (current) use of aspirin; Z79.02 Long term (current) use of antithrombotics/antiplatelets; Z79.01 Long term (current) use of anticoagulants; Z98.49 Cataract extraction status, unspecified eye; Z79.899 Other long term (current) drug therapy; Z86.73 Personal history of transient ischemic attack (TIA), and cerebral infarction without residual deficits; Y83.5 Amputation of limb(s) as the cause of abnormal reaction of the patient, or of later complication, without mention of misadventure at the time of the procedure | CPT/HCPCS: 99214 ==

== ENCOUNTER → 2025-06-24 | Outpatient (CLI) | payer BC, MEDICARE | END | disposition home or self-care (01) | LOC: WHH 08:36 | PROVIDERS: ATTEND Podiatrist Foot & Ankle Surgery | DX: T87.89 Other complications of amputation stump (principal); E11.621 Type 2 diabetes mellitus with foot ulcer; L97.522 Non-pressure chronic ulcer of other part of left foot with fat layer exposed; E11.622 Type 2 diabetes mellitus with other skin ulcer; L97.311 Non-pressure chronic ulcer of right ankle limited to breakdown of skin; L84 Corns and callosities; E11.42 Type 2 diabetes mellitus with diabetic polyneuropathy; E11.69 Type 2 diabetes mellitus with other specified complication; M86.172 Other acute osteomyelitis, left ankle and foot; E11.319 Type 2 diabetes mellitus with unspecified diabetic retinopathy without macular edema; E11.22 Type 2 diabetes mellitus with diabetic chronic kidney disease; I12.9 Hypertensive chronic kidney disease with stage 1 through stage 4 chronic kidney disease, or unspecified chronic kidney disease; N18.30 Chronic kidney disease, stage 3 unspecified; E11.52 Type 2 diabetes mellitus with diabetic peripheral angiopathy with gangrene; I96 Gangrene, not elsewhere classified; E11.36 Type 2 diabetes mellitus with diabetic cataract; H26.9 Unspecified cataract; E78.5 Hyperlipidemia, unspecified; E55.9 Vitamin D deficiency, unspecified; I25.10 Atherosclerotic heart disease of native coronary artery without angina pectoris; K21.9 Gastro-esophageal reflux disease without esophagitis; E66.9 Obesity, unspecified; F32.A Depression, unspecified; Z95.1 Presence of aortocoronary bypass graft; Z68.26 Body mass index [BMI] 26.0-26.9, adult; Z79.82 Long term (current) use of aspirin; Z79.02 Long term (current) use of antithrombotics/antiplatelets; Z79.01 Long term (current) use of anticoagulants; Z98.49 Cataract extraction status, unspecified eye; Z79.899 Other long term (current) drug therapy; Z86.73 Personal history of transient ischemic attack (TIA), and cerebral infarction without residual deficits; Y83.5 Amputation of limb(s) as the cause of abnormal reaction of the patient, or of later complication, without mention of misadventure at the time of the procedure | CPT/HCPCS: 11042; A6209; A6260 ==

== ENCOUNTER → 2025-07-15 | Outpatient (CLI) | payer BC, MEDICARE | END | disposition home or self-care (01) | LOC: WHH 08:04 | PROVIDERS: ATTEND Podiatrist Foot & Ankle Surgery | DX: T87.89 Other complications of amputation stump (principal); E11.621 Type 2 diabetes mellitus with foot ulcer; L97.522 Non-pressure chronic ulcer of other part of left foot with fat layer exposed; L84 Corns and callosities; E11.42 Type 2 diabetes mellitus with diabetic polyneuropathy; E11.69 Type 2 diabetes mellitus with other specified complication; M86.172 Other acute osteomyelitis, left ankle and foot; E11.319 Type 2 diabetes mellitus with unspecified diabetic retinopathy without macular edema; E11.22 Type 2 diabetes mellitus with diabetic chronic kidney disease; I12.9 Hypertensive chronic kidney disease with stage 1 through stage 4 chronic kidney disease, or unspecified chronic kidney disease; N18.30 Chronic kidney disease, stage 3 unspecified; E11.52 Type 2 diabetes mellitus with diabetic peripheral angiopathy with gangrene; I96 Gangrene, not elsewhere classified; E11.36 Type 2 diabetes mellitus with diabetic cataract; H26.9 Unspecified cataract; E78.5 Hyperlipidemia, unspecified; E55.9 Vitamin D deficiency, unspecified; I25.10 Atherosclerotic heart disease of native coronary artery without angina pectoris; K21.9 Gastro-esophageal reflux disease without esophagitis; E66.9 Obesity, unspecified; F32.A Depression, unspecified; Z95.1 Presence of aortocoronary bypass graft; Z68.26 Body mass index [BMI] 26.0-26.9, adult; Z79.82 Long term (current) use of aspirin; Z79.02 Long term (current) use of antithrombotics/antiplatelets; Z79.01 Long term (current) use of anticoagulants; Z98.49 Cataract extraction status, unspecified eye; Z79.899 Other long term (current) drug therapy; Z86.73 Personal history of transient ischemic attack (TIA), and cerebral infarction without residual deficits; Y83.5 Amputation of limb(s) as the cause of abnormal reaction of the patient, or of later complication, without mention of misadventure at the time of the procedure | CPT/HCPCS: 11042; A6209; A6260 ==

== ENCOUNTER → 2025-07-22 | Outpatient (CLI) | payer BC, MEDICARE | END | disposition home or self-care (01) | LOC: WHH 08:51 | PROVIDERS: ATTEND Podiatrist Foot & Ankle Surgery | DX: T87.89 Other complications of amputation stump (principal); E11.621 Type 2 diabetes mellitus with foot ulcer; L97.522 Non-pressure chronic ulcer of other part of left foot with fat layer exposed; L84 Corns and callosities; E11.42 Type 2 diabetes mellitus with diabetic polyneuropathy; E11.69 Type 2 diabetes mellitus with other specified complication; M86.172 Other acute osteomyelitis, left ankle and foot; E11.319 Type 2 diabetes mellitus with unspecified diabetic retinopathy without macular edema; E11.22 Type 2 diabetes mellitus with diabetic chronic kidney disease; I12.9 Hypertensive chronic kidney disease with stage 1 through stage 4 chronic kidney disease, or unspecified chronic kidney disease; N18.30 Chronic kidney disease, stage 3 unspecified; E11.52 Type 2 diabetes mellitus with diabetic peripheral angiopathy with gangrene; I96 Gangrene, not elsewhere classified; E11.36 Type 2 diabetes mellitus with diabetic cataract; H26.9 Unspecified cataract; E78.5 Hyperlipidemia, unspecified; E55.9 Vitamin D deficiency, unspecified; I25.10 Atherosclerotic heart disease of native coronary artery without angina pectoris; K21.9 Gastro-esophageal reflux disease without esophagitis; E66.9 Obesity, unspecified; F32.A Depression, unspecified; Z95.1 Presence of aortocoronary bypass graft; Z68.26 Body mass index [BMI] 26.0-26.9, adult; Z79.82 Long term (current) use of aspirin; Z79.02 Long term (current) use of antithrombotics/antiplatelets; Z79.01 Long term (current) use of anticoagulants; Z98.49 Cataract extraction status, unspecified eye; Z79.899 Other long term (current) drug therapy; Z86.73 Personal history of transient ischemic attack (TIA), and cerebral infarction without residual deficits; Y83.5 Amputation of limb(s) as the cause of abnormal reaction of the patient, or of later complication, without mention of misadventure at the time of the procedure | CPT/HCPCS: 11042; A6209 ×2; A6260 ==

== ENCOUNTER → 2025-08-05 | Outpatient (CLI) | payer BC, MEDICARE | END | disposition home or self-care (01) | LOC: WHH 08:51 | PROVIDERS: ATTEND Podiatrist Foot & Ankle Surgery | DX: T87.89 Other complications of amputation stump (principal); E11.621 Type 2 diabetes mellitus with foot ulcer; L97.522 Non-pressure chronic ulcer of other part of left foot with fat layer exposed; L84 Corns and callosities; E11.42 Type 2 diabetes mellitus with diabetic polyneuropathy; E11.69 Type 2 diabetes mellitus with other specified complication; M86.172 Other acute osteomyelitis, left ankle and foot; E11.319 Type 2 diabetes mellitus with unspecified diabetic retinopathy without macular edema; E11.22 Type 2 diabetes mellitus with diabetic chronic kidney disease; I12.9 Hypertensive chronic kidney disease with stage 1 through stage 4 chronic kidney disease, or unspecified chronic kidney disease; N18.30 Chronic kidney disease, stage 3 unspecified; E11.52 Type 2 diabetes mellitus with diabetic peripheral angiopathy with gangrene; I96 Gangrene, not elsewhere classified; E11.36 Type 2 diabetes mellitus with diabetic cataract; H26.9 Unspecified cataract; E78.5 Hyperlipidemia, unspecified; E55.9 Vitamin D deficiency, unspecified; I25.10 Atherosclerotic heart disease of native coronary artery without angina pectoris; K21.9 Gastro-esophageal reflux disease without esophagitis; E66.9 Obesity, unspecified; F32.A Depression, unspecified; Z95.1 Presence of aortocoronary bypass graft; Z68.26 Body mass index [BMI] 26.0-26.9, adult; Z79.82 Long term (current) use of aspirin; Z79.02 Long term (current) use of antithrombotics/antiplatelets; Z79.01 Long term (current) use of anticoagulants; Z98.49 Cataract extraction status, unspecified eye; Z79.899 Other long term (current) drug therapy; Z86.73 Personal history of transient ischemic attack (TIA), and cerebral infarction without residual deficits; Y83.5 Amputation of limb(s) as the cause of abnormal reaction of the patient, or of later complication, without mention of misadventure at the time of the procedure | CPT/HCPCS: 87070; 87086 ×2; 87186 ×2; 99214; A6248; A4450 ==

== ENCOUNTER → 2025-08-05 | Outpatient (CLI) | payer BC, MEDICARE ==
--- NOTE | 2025-08-05 15:01 | HMCIMG ---
EXAM: CR left foot, 3 Views. CLINICAL HISTORY: T2DM with foot ulcer. COMPARISON: X-ray foot dated 04/22/2025. FINDINGS: 1st, 2nd, 3rd, 4th and 5th toe amputation from the metatarsophalangeal joints including heads of 2nd to 5th metatarsals. There is edema within the soft tissues of the stump. No displaced fracture appreciated. Remaining joint spaces are anatomically aligned. Advanced vascular calcinosis of distal run off vessels around ankle joint, lower leg and foot region. IMPRESSION: 1. Post-surgical changes of 1st, 2nd, 3rd, 4th and 5th toe amputations involving heads of 2nd through 5th metatarsals with soft tissue edema. 2. No displaced fracture. 3. Advanced atherosclerotic vascular calcinosis. 4. As compared to prior study amputation of metatarsal heads and 3rd, 4th and 5th toe was new findings without evidence of acute complications. /[place]
== END | disposition home or self-care (01) ==
LOC: RAH 10:01
PROVIDERS: ATTEND Podiatrist Foot & Ankle Surgery
DX: E83.59 Other disorders of calcium metabolism (principal); E11.621 Type 2 diabetes mellitus with foot ulcer; R60.0 Localized edema; Z79.899 Other long term (current) drug therapy
CPT/HCPCS: 87070; 87086 ×2; 87186 ×2; 73630; 99214; A6248; A4450

== ENCOUNTER → 2025-08-12 | Outpatient (CLI) | payer BC, MEDICARE | END | disposition home or self-care (01) | LOC: WHH 08:12 | PROVIDERS: ATTEND Podiatrist Foot & Ankle Surgery | DX: T87.81 Dehiscence of amputation stump (principal); E11.621 Type 2 diabetes mellitus with foot ulcer; L97.522 Non-pressure chronic ulcer of other part of left foot with fat layer exposed; L84 Corns and callosities; E11.42 Type 2 diabetes mellitus with diabetic polyneuropathy; E11.69 Type 2 diabetes mellitus with other specified complication; M86.172 Other acute osteomyelitis, left ankle and foot; E11.319 Type 2 diabetes mellitus with unspecified diabetic retinopathy without macular edema; E11.22 Type 2 diabetes mellitus with diabetic chronic kidney disease; I12.9 Hypertensive chronic kidney disease with stage 1 through stage 4 chronic kidney disease, or unspecified chronic kidney disease; N18.30 Chronic kidney disease, stage 3 unspecified; E11.52 Type 2 diabetes mellitus with diabetic peripheral angiopathy with gangrene; I96 Gangrene, not elsewhere classified; E11.36 Type 2 diabetes mellitus with diabetic cataract; H26.9 Unspecified cataract; E78.5 Hyperlipidemia, unspecified; E55.9 Vitamin D deficiency, unspecified; I25.10 Atherosclerotic heart disease of native coronary artery without angina pectoris; K21.9 Gastro-esophageal reflux disease without esophagitis; E66.9 Obesity, unspecified; F32.A Depression, unspecified; Z95.1 Presence of aortocoronary bypass graft; Z68.26 Body mass index [BMI] 26.0-26.9, adult; Z79.82 Long term (current) use of aspirin; Z79.02 Long term (current) use of antithrombotics/antiplatelets; Z79.01 Long term (current) use of anticoagulants; Z98.49 Cataract extraction status, unspecified eye; Z79.899 Other long term (current) drug therapy; Z86.73 Personal history of transient ischemic attack (TIA), and cerebral infarction without residual deficits; Y83.5 Amputation of limb(s) as the cause of abnormal reaction of the patient, or of later complication, without mention of misadventure at the time of the procedure | CPT/HCPCS: 99214; A6260 ==